=== PATIENT | female | born 1975 | race African-American/Black ===

== ENCOUNTER 2018-08-08 23:25 | Emergency (ER) | payer MEDICAID, SELFPAY ==
[2018-08-08 23:26] VITALS: BP 119/76; PULSE 99; RESP 18; TEMP 37.4; O2SAT 99; BMI 24.9
[2018-08-09] MEDS: Ibuprofen 600 MG Tablet PO (00:04)
--- NOTE | 2018-08-09 00:34 | ED.DCSUM_ITS ---
- ER Visit Summary Date of Service: 08/09/18 Chief Complaint: Sore throat History of Present Illness: The patient is a 43 F presenting with 2 days of sore throat. Worse with swallowing. Subjective fever and occasional body aches as well. No cough or neck pain. No rash. No recent travel or sick contacts. Symptoms improved with Motrin and Tylenol. Physical Examination: Vitals are within normal limits. She is not in distress. Sitting up in bed and secured in full sentences. No stridor. Neck is supple. There is anterior cervical lymphadenopathy. She has symmetric tonsillar swelling and exudates bilaterally but uvula is midline and voice is normal. Submandibular tissues and anterior neck structures are soft. She has no rash anywhere. No extremity tenderness. Lungs are clear. Test Results: Flu swab negative Emergency Department Course and Treatment: Flu swab was negative. Clinically, I am highly suspicious for strep pharyngitis. She has symmetric tonsillar swelling and exudates. Uvula is midline. Voice is normal. Submandibular tissues are soft. She has no cough but she does have a fever. She also has anterior cervical lymphadenopathy. Based on criteria, strep is most likely. We discussed confirmatory testing but given her high pretest probability, we are both in agreement that it is safe to avoid. She will be started on antibiotics and appears safe for discharge at this time. She felt much better after Motrin and looks quite well. She is allergic to penicillin so she will be started on Zithromax. Treatment Plan: Zithromax, close follow-up, return if worse Disposition: Home stable Impression: Initial encounter strep pharyngitis This note was generated with [employer] dictation software. It may contain incorrect words, spelling, and punctuation that were not noted in review of the chart prior to signing ED Disposition - Plan for ED Patient: Instructions: ED Strep Pharyngitis Poss Prescriptions: Azithromycin [Zithromax] 250 mg PO DAILY #4 tablet Referrals: Clarence Goldstein MD [Primary Care Provider] - 1-2 Days if not improving
[2018-08-09] MEDS: Azithromycin 250 MG Tablet 500 MG PO (01:13)
[2018-08-09 01:15] VITALS: BP 116/70; PULSE 89; RESP 20; O2SAT 99
== END 2018-08-09 01:15 | disposition home or self-care (01) ==
PROVIDERS: Emergency Provider Emergency Medicine; Family Provider Family Medicine; PCP Family Medicine
DX: J02.0 Streptococcal pharyngitis (principal); Z72.0 Tobacco use
CPT/HCPCS: 87804; 99283

== ENCOUNTER → 2019-06-25 17:19 | Outpatient (CLI) | payer MEDICAID, SELFPAY ==
[2019-07-01 09:57] LABS: HPV Reflexed? NOT INDICATED
== END ==
PROVIDERS: Family Provider Family Medicine; PCP Family Medicine; Referring Provider Obstetrics & Gynecology; Visit Provider Obstetrics & Gynecology
DX: Z12.4 Encounter for screening for malignant neoplasm of cervix (principal)
CPT/HCPCS: 88175; G0145

== ENCOUNTER → 2020-05-18 12:11 | Outpatient (CLI) | payer MEDICAID, SELFPAY ==
[2020-05-18 16:10] LABS: Absolute Lymphocyte Count 1.71 X10^3/uL (0.83-4.51); Absolute Neutrophil Count 4.5 X10^3/uL (2.0-7.7); Basophil# 0.04 X10^3/uL; Basophil% 0.6 % (0-1); Eosinophil# 0.07 X10^3/uL; Hematocrit 33.8 % (37-47); Hemoglobin 11.3 g/dL (12.0-15.0); Lymphocyte # 1.71 X10^3/ul (4.0); Lymphocyte % 25.1 % (19-41); Mean Corp Hgb Conc 33.4 g/dL (32-36); Mean Corpuscular Hgb 29.5 pg (27.0-32.0); Mean Corpuscular Volume 88.3 fL (81-99); Mean Platelet Vol. 11.5 fl (6.2-12.0); Monocyte# 0.49 X10^3/uL; Monocyte% 7.2 % (0-10); NRBC Flagged by Analyzer 0 % (0-5); Neutrophil # 4.48 X10^3/uL (2.7-7.7); Platelet Count 194 K/mm3 (150-450); RBC Distribution Width SD 42.1 fl (35.1-43.9); Red Blood Count 3.83 M/mm3 (4.2-5.4); White Blood Count 6.8 K/mm3 (4.4-11.0)
[2020-05-18 16:29] LABS: Vitamin D,25 Hydroxy 24.5 ng/mL
[2020-05-18 16:34] LABS: ALB/GLOB Ratio 0.8 RATIO (0.9-2.4); AST(SGOT) 23 U/L (15-37); Alanine Aminotransfer ALT/SGPT 19 U/L (13-56); Albumin, Serum 3.4 g/dL (3.2-5.0); Alkaline Phosphatase 47 U/L (45-117); Anion Gap 5 (5-15); BUN 21 mg/dL (7-18); BUN/Creat Ratio 12.4 RATIO (10-20); Calcium,Total 8.5 mg/dL (8.5-10.1); Chloride 112 mmol/L (98-107); EST Glomerular Filtration Rate 35 mL/min (>60); Est Glom Filt Rate - Afr Amer 42 mL/min (>60); Ferritin 85 ng/mL (8-252); Globulin 4.3 g/dL (2.2-4.2); Glucose 81 mg/dL (74-106); Iron 45 ug/dL (50-170); Potassium 3.7 mmol/L (3.5-5.1); Protein, Total 7.7 g/dL (6.4-8.2); Sodium Level 140 mmol/L (136-145); Thyroid Stim Hormone (TSH) 1.04 uIU/mL (0.358-3.74)
[2020-05-18 16:35] LABS: Erythrocyte Sedimentation Rate 32 mm/hr (0-20)
[2020-05-22 03:07] LABS: Alternaria alternata <0.10 kU/L (Class 0); Aspergillus fumigatus <0.10 kU/L (Class 0); Bahia Grass <0.10 kU/L (Class 0); Bermuda Grass <0.10 kU/L (Class 0); Bluegrass, Kentucky <0.10 kU/L (Class 0); Cat Hair/Dander, Standard <0.10 kU/L (Class 0); Cedar, Mountain <0.10 kU/L (Class 0); Cladosporium herbarum <0.10 kU/L (Class 0); Cockroach, American <0.10 kU/L (Class 0); D pteronyssinus 0.31 kU/L (Class 0/I); Dog Epithelia <0.10 kU/L (Class 0); Elm, American White <0.10 kU/L (Class 0); Hazelnut Tree <0.10 kU/L (Class 0); Hickory, White <0.10 kU/L (Class 0); Johnson Grass <0.10 kU/L (Class 0); Maple/Box Elder <0.10 kU/L (Class 0); Mucor racemosus <0.10 kU/L (Class 0); Mugwort <0.10 kU/L (Class 0); Mulberry, White <0.10 kU/L (Class 0); Oak, White <0.10 kU/L (Class 0); Penicillium chrysogen <0.10 kU/L (Class 0); Pigweed, Rough <0.10 kU/L (Class 0); Plantain, English <0.10 kU/L (Class 0); Ragweed, Short/Common <0.10 kU/L (Class 0); Sheep Sorrel(Dock) <0.10 kU/L (Class 0); Stemphylium herbarum <0.10 kU/L (Class 0); Sweet Gum <0.10 kU/L (Class 0); Sycamore, American <0.10 kU/L (Class 0)
[2020-05-24 04:27] LABS: Nettle <0.10 kU/L (Class 0)
== END ==
PROVIDERS: PCP Family Medicine; Visit Provider Family Medicine
DX: L29.9 Pruritus, unspecified (principal); N03.8 Chronic nephritic syndrome with other morphologic changes
CPT/HCPCS: 36415; 80053; 82306; 82728; 83540; 84443; 85025; 85652; 86003

== ENCOUNTER 2021-09-15 10:59 | Outpatient (CLI) | payer MEDICAID, SELFPAY ==
[2021-09-15 12:19] LABS: Erythrocyte Sedimentation Rate 28 mm/hr (0-30)
[2021-09-15 12:21] LABS: Absolute Lymphocyte Count 1.76 X10^3/uL (0.83-4.51); Absolute Neutrophil Count 4.6 X10^3/uL (2.0-7.7); Basophil# 0.07 X10^3/uL; Eosinophil# 0.12 X10^3/uL; Eosinophils% 1.7 % (0-5); Hematocrit 32.8 % (37-47); Hemoglobin 11.2 g/dL (12.0-15.0); Lymphocyte # 1.76 X10^3/ul (0.83-4.51); Lymphocyte % 24.8 % (19-41); Mean Corp Hgb Conc 34.1 g/dL (32-36); Mean Corpuscular Hgb 29.7 pg (27.0-32.0); Mean Platelet Vol. 11.2 fl (6.2-12.0); Monocyte# 0.51 X10^3/uL; Monocyte% 7.2 % (0-10); NRBC Flagged by Analyzer 0 % (0-5); Neutrophil # 4.62 X10^3/uL (2.7-7.7); Platelet Count 233 K/mm3 (150-450); RBC Distribution Width CV 12.7 % (11.6-14.6); RBC Distribution Width SD 40.4 fl (35.1-43.9); Red Blood Count 3.77 M/mm3 (4.2-5.4); White Blood Count 7.1 K/mm3 (4.4-11.0)
[2021-09-15 12:51] LABS: Vitamin B12 555 pg/mL (211-911); Vitamin D,25 Hydroxy 14.3 ng/mL
[2021-09-15 12:54] LABS: ALB/GLOB Ratio 0.9 RATIO (0.9-2.4); AST(SGOT) 18 U/L (15-37); Alanine Aminotransfer ALT/SGPT 17 U/L (13-56); Albumin, Serum 3.5 g/dL (3.2-5.0); Alkaline Phosphatase 62 U/L (45-117); Anion Gap 2 (5-15); BUN 24 mg/dL (7-18); BUN/Creat Ratio 8.8 RATIO (10-20); Calcium,Total 8.5 mg/dL (8.5-10.1); Chloride 115 mmol/L (98-107); Cholesterol 199 mg/dL (200); Creatinine, Serum 2.73 mg/dL (0.55-1.02); EST Glomerular Filtration Rate 20 mL/min (>60); Est Glom Filt Rate - Afr Amer 24 mL/min (>60); Glucose 95 mg/dL (74-106); High Density Lipoprotein 91 mg/dL; Iron 67 ug/dL (50-170); Potassium 3.8 mmol/L (3.5-5.1); Protein, Total 7.5 g/dL (6.4-8.2); Sodium Level 139 mmol/L (136-145); Thyroid Stim Hormone (TSH) 2.47 uIU/mL (0.358-3.74); Triglycerides 80 mg/dL; Very Low Density Lipoprotein 16 mg/dL (5-40)
[2021-09-17 16:21] LABS: ANTINUCLEAR ANTIBODIES DIRECT Negative (Negative)
== END 2021-09-15 23:59 | disposition home or self-care (01) ==
LOC: MFPLAB 11:00
PROVIDERS: PCP Family Medicine; Referring Provider Family Medicine; Visit Provider Family Medicine
DX: R53.83 Other fatigue (principal); Z13.220 Encounter for screening for lipoid disorders
CPT/HCPCS: 36415; 80053; 80061; 82306; 82607; 83540; 84443; 85025; 85652; 86038

== ENCOUNTER → 2022-08-10 | Outpatient (CLI) | payer MEDICAID, SELFPAY ==
[2022-08-10 17:58] LABS: Absolute Lymphocyte Count 2.21 X10^3/uL (0.83-4.51); Absolute Neutrophil Count 4.5 X10^3/uL (2.0-7.7); Basophil# 0.03 X10^3/uL; Basophil% 0.4 % (0-1); Eosinophil# 0.22 X10^3/uL; Hematocrit 25.2 % (37-47); Lymphocyte # 2.21 X10^3/ul (0.83-4.51); Lymphocyte % 30.3 % (19-41); Mean Corp Hgb Conc 31.7 g/dL (32-36); Mean Corpuscular Hgb 28.4 pg (27.0-32.0); Mean Corpuscular Volume 89.4 fL (81-99); Mean Platelet Vol. 11.7 fl (6.2-12.0); Monocyte# 0.37 X10^3/uL; Monocyte% 5.1 % (0-10); NRBC Flagged by Analyzer 0 % (0-5); Neutrophil # 4.45 X10^3/uL (2.7-7.7); Neutrophil % 60.9 % (47-70); Platelet Count 205 K/mm3 (150-450); RBC Distribution Width CV 13.4 % (11.6-14.6); RBC Distribution Width SD 43.8 fl (35.1-43.9); Red Blood Count 2.82 M/mm3 (4.2-5.4); White Blood Count 7.3 K/mm3 (4.4-11.0)
[2022-08-10 18:25] LABS: Anion Gap 8 (5-15); BUN 57 mg/dL (7-18); BUN/Creat Ratio 9.7 RATIO (10-20); Calcium,Total 7.7 mg/dL (8.5-10.1); Chloride 114 mmol/L (98-107); Creatinine, Serum 5.87 mg/dL (0.55-1.02); EST Glomerular Filtration Rate 8 mL/min (>60); Est Glom Filt Rate - Afr Amer 10 mL/min (>60); Ferritin 150 ng/mL (8-252); Glucose 115 mg/dL (74-106); Iron 72 ug/dL (50-170); Potassium 3.5 mmol/L (3.5-5.1); Sodium Level 140 mmol/L (136-145); Thyroid Stim Hormone (TSH) 1.52 uIU/mL (0.358-3.74)
[2022-08-11 10:20] LABS: RET-HE 30.8 pg (30-35); Reticulocyte Count 1.31 % (0.5-1.5)
[2022-08-11 10:28] LABS: Iron Binding Capacity,Total 246 ug/dL (250-450)
== END | disposition home or self-care (01) ==
LOC: MFPLAB 16:11
PROVIDERS: PCP Family Medicine; Referring Provider Family Medicine; Visit Provider Family Medicine
DX: D64.9 Anemia, unspecified (principal); R68.89 Other general symptoms and signs
CPT/HCPCS: 36415; 80048; 82728; 83540; 83550; 84443; 85025; 85045

== ENCOUNTER → 2023-06-26 | Outpatient (CLI) | payer MEDICAID, SELFPAY ==
--- OUTSIDE RECORDS SUMMARY | 2023-06-26 17:58 | XMS RPT_ITS | CCD ---
Author Name Unknown Address [address] [place] [address] Organization [facility] Care Team Providers Care Hand Candy Cutter Name Role Phone RADHA HERNÁNDEZ Unavailable JUAN PABLO Astudillo Unavailable Unavailable NO PRIMARY CARE, Unavailable Unavailable ELIZABETH MEMBRENO Unavailable Unavailable JUAN PABLO PRADO Unavailable Unavailable NO PRIMARY CAREMD Unavailable Unavailable RADHA HERNÁNDEZ Unavailable JUAN PABLO Astudillo Unavailable Unavailable NO PRIMARY CARE, Unavailable Unavailable Allergies Allergy Classification Reported Allergen(s) Allergy Type Date of Onset Reaction(s) Facility (1 source) Penicillins; Translations: [PENICILLINS] Propensity to adverse reactions to drug (disorder) 7 [facility] Repository Results Test Name Value Interpretation Reference Range Facil ity Encounters Encounter Date Encounter Type Care Provider Facility Start: 01-08-2017 Ambulatory [facility] Start: 01-01-2017 End: 01-01-2017 Ambulatory ELIZABETH MEMBRENO [facility] pital Start: 12-25-2016 Ambulatory [facility] Payers Date Payer Category Payer Policy ID Unknown [id number] Summary Purpose Family History No Family History Records Found Advance Directives No Advanced Directives Records Found Additional Source Comments INFORMATION SOURCE (unrecogn ized section and content) FOR RECORDS PERTAINING TO PATIENTS WHO ARE OR HAVE BEEN ENROLLED IN A CHEMICAL DEPENDENCY/SUBSTANCEABUSE PROGRAM, SOME INFORMATION MAY BE OMITTED. This clinical summary was aggregated from multiple sources. Caution should be exercised in using it in the provision of clinical care. This summary normalizes information from multiple sources, and as a consequence, information in this document may materially change the coding, format and clinical context of patient data. In addition, data may be omitted in some cases. CLINICAL DECISIONS SHOULD BE BASED ON THE PRIMARY CLINICAL RECORDS. [facility]. provides no warranty or guarantee of the accuracy or completeness of information in this document.
[2023-06-26 18:10] LABS: Hematocrit 20.2 % (37-47); Hemoglobin 6.5 g/dL (12.0-15.0); Mean Corp Hgb Conc 32.2 g/dL (32-36); Mean Corpuscular Hgb 27.2 pg (27.0-32.0); Mean Corpuscular Volume 84.5 fL (81-99); Mean Platelet Vol. 11.9 fl (6.2-12.0); Platelet Count 157 K/mm3 (150-450); RBC Distribution Width CV 13.7 % (11.6-14.6); RBC Distribution Width SD 42.1 fl (35.1-43.9); Red Blood Count 2.39 M/mm3 (4.2-5.4); White Blood Count 7.4 K/mm3 (4.4-11.0)
[2023-06-26 18:44] LABS: Ferritin 175 ng/mL (8-252); Iron 89 ug/dL (50-170)
== END | disposition home or self-care (01) ==
LOC: MFPLAB 16:30
PROVIDERS: PCP Family Medicine; Visit Provider Family Medicine
DX: J30.9 Allergic rhinitis, unspecified (principal); D64.9 Anemia, unspecified
CPT/HCPCS: 36415; 82728; 83540; 85027

== ENCOUNTER 2023-06-27 19:04 | Inpatient (IN) | payer MEDICAID, SELFPAY ==
[2023-06-27] VITALS (9 sets, daily range): BP systolic 138–187; BP diastolic 70–100; PULSE 63–89; RESP 12–18; TEMP 36.1–36.9; O2SAT 100; BMI 23.1
--- NOTE | 2023-06-27 19:29 | EX.ED.DYSGE1 ---
HPI History of Present Illness Chief Complaint: Numb/Ting Informant: patient Onset/Context/Timing Onset: Today Context: Sudden Onset Timing: Intermittent and Lasts (Approximately 5 minutes) Quality: Twitching Location: Face Worsened by: Nothing Relieved by: Nothing Narrative Narrative: This with a possible seizure that occurred today. Patient states that she had taken a Zofran ODT earlier in the day for some nausea and vomiting. Patient states that later in the day she took 1 Imodium tablet for diarrhea. Patient states that after that she noted a sensation where her tongue felt like it was swollen. Patient states she was having difficulty talking. Patient states that she then noted some twitching in her face. Patient states this episode lasted 5 minutes. Patient denies any loss of consciousness. Patient denies any falls. Patient states she was awake during the whole time. Patient states she feels better now. Patient states she was having some nausea, vomiting, and diarrhea earlier. Patient admits to a mild headache. Prior similar symptoms: No PFSH PFSH Medical History no medical history no medical history Home Medications NK 06/27/23 [History Last Taken Unknown] Allergy/AdvReac Type Severity Reaction Status Date / Time Antihistamines - Alkylamine Allergy Swelling Verified 06/27/23 19:10 Penicillins Allergy Hives Verified 06/27/23 19:10 Surgical History no surgical history no surgical history Social History Smoking Status: Heavy Smoker (>10/day) ROS ROS ED Constitutional Constitutional ED: Denies chills or fever(s) Eyes Eyes: Denies blurry vision or change in vision ENT ENT ED: Denies rhinorrhea or sore throat Cardiovascular Cardiovascular: Denies chest pain or palpitations Respiratory/Chest Respiratory/Chest: Reports cough; Denies dyspnea Gastrointestinal Gastrointestinal: Reports diarrhea, nausea and vomiting Genitourinary Genitourinary ED: Denies dysuria or hematuria Musculoskeletal Musculoskeletal: Reports neck pain; Denies back pain Integumentary Denies abscess or rash Neurologic Neurologic: Reports headache(s); Denies weakness Allergic/Immunologic Allergic/Immunologic ED: Denies mouth swelling or urticaria EXAM Physical Exam Const Vital Signs: 06/27/23 19:05 06/27/23 19:44 06/27/23 21:22 Temperature 96.9 F L Temperature Source Temporal Pulse Rate 70 Pulse Rate [Lying] 70 Pulse Rate [Sitting (for 1 minute prior to obtaining)] 80 Pulse Rate [Standing (for 1 minute prior to obtaining)] 71 Respiratory Rate 18 Respiratory Pattern Normal Blood Pressure 179/97 H Blood Pressure [Lying] 187/90 H Blood Pressure [Sitting (for 1 minute prior to obtaining)] 165/96 H Blood Pressure [Standing (for 1 minute prior to obtaining)] 166/94 H Blood Pressure Mean 124 Blood Pressure Mean [Lying] 122 Blood Pressure Mean [Sitting (for 1 minute prior to obtaining)] 119 Blood Pressure Mean [Standing (for 1 minute prior to obtaining)] 118 Pulse Ox 100 Oxygen Delivery Method Room Air Positive well nourished and well developed General Appearance ED: well developed and NAD HEENT Reports moist mucous membranes Neck supple and no JVD Chest Wall palpation of chest normal Resp normal respiratory effort and clear to auscultation bilaterally Cardio regular rate and regular rhythm GI non-tender and non-distended Palpation: soft Neuro oriented x3, CN's II-XII intact bilaterally and no sensory deficits noted Sensorium / Orientation: alert Motor Exam: strength 5/5 throughout Psych mental status grossly normal MDM MDM MDM Narrative Medical decision making narrative: Differential diagnosis includes partial complex seizure, intracranial bleeding, electrolyte abnormality, infection, dehydration, and gastroenteritis. CBC will be obtained to assess for leukocytosis and anemia. Comprehensive metabolic profile will be obtained to assess for hepatic function, renal function, and electrolyte abnormality. Urinalysis will be obtained to assess for urinary tract infection and hematuria. CT scan of the brain will be obtained to assess for intracranial bleeding and mass. Lab Data Attestation: I reviewed the patient's lab results. Lab results narrative: CBC was reviewed. There is anemia with a hemoglobin of 6.5 and hematocrit of 19.6. Platelets were normal. Comprehensive metabolic profile was reviewed. Sodium was slightly low at 130. BUN was elevated at 93 and creatinine was elevated at 19.10. CO2 was low at 12. Alkaline phosphatase was slightly elevated at 127. Urinalysis was reviewed. There were positive nitrites. Occult blood was 50. Leukocyte esterase was 25. Urine protein was 500. There were 5-10 epithelial cells. There is no evidence of urinary tract infection. Labs: Laboratory Results - last 24 hr 06/27/23 06/27/23 21:23 22:01 WBC 7.3 RBC 2.38 L Hgb 6.5 L Hct 19.6 L MCV 82.4 MCH 27.3 MCHC 33.2 RDW Std Deviation 41.1 RDW Coeff of Miriam 13.8 Plt Count 156 MPV 12.1 H Immature Gran % (Auto) 0.400 Neut % (Auto) 66.8 Lymph % (Auto) 23.5 [place] % (Auto) 6.3 Eos % (Auto) 2.6 Baso % (Auto) 0.4 Absolute Neuts (auto) 4.9 Absolute Lymphs (auto) 1.71 Nucleated RBC % 0 Sodium 130 L Potassium 3.8 Chloride 104 Carbon Dioxide 12.0 L Anion Gap 14 BUN 93 H Creatinine 19.10 H* Estim Creat Clear Calc 3.11 Est GFR (MDRD) Af Amer 3 L Est GFR (MDRD) Non-Af 2 L BUN/Creatinine Ratio 4.9 L Glucose 94 Total Bilirubin 0.20 AST 13 L ALT 8 L Alkaline Phosphatase 127 H Total Protein 6.7 Albumin 3.1 L Globulin 3.6 Albumin/Globulin Ratio 0.9 Urine Color Yellow Urine Clarity Clear Urine pH 6.0 Ur Specific [place] 1.010 Urine Protein 500 H Urine Glucose (UA) Normal Urine Ketones Negative Urine Occult Blood 50 H Urine Nitrite Positive H Urine Bilirubin Negative Urine Urobilinogen Normal Ur Leukocyte Esterase 25 H Urine RBC 0 SEEN Urine WBC 0-5 SEEN Ur Squamous Epith Cells 5-10 SEEN Urine Bacteria RARE Urine Mucus 0 SEEN Radiography Diagnostic Testing: Clinical Impression(s) from Imaging Studies Brain CT 06/27/23 21:30 IMPRESSION: Partial empty sella deformity likely of no significance. No evidence for obstructive hydrocephalus mass or acute bleed. Electronically Signed: Andrew Velazquez MD at 21:58 EST Reading Location ID and State: [facility] / [place] Tel , Service support , CT scan of the brain was obtained. There is no acute intracranial abnormality. This was interpreted by the radiologist and was also independently reviewed by myself. Management Discussion w/another healthcare provider: Hospitalist and Aeronautical Inspector (Dr. Jarrett from nephrology) Treatment and Re-Evaluation :: Patient was given IV fluids. I discussed the results with the patient. Patient states she has seen a weapons officer naval activity in the past but does not remember his name. Patient states he was in [place]. Patient states he has not seen an weapons officer naval activity in over a year. Patient's blood pressure was noted to be 187/90. Patient was given a dose of hydralazine for this. Case was discussed with the hospitalist for admission. She will admit the patient to her service. She requested contacting nephrology. Case was discussed with Dr. Jarrett from nephrology. He recommended obtaining a renal ultrasound tomorrow. He states the patient will probably need dialysis but does not need it emergently tonight. He will follow with the patient in the hospital. Patient understood and was agreeable with the plan. All questions were answered. Discharge Plan Triage Chief Complaint: Numb/Ting ED Provider: Jase Bond Dx/Rx/DC Orders Clinical Impression: Acute kidney injury, Hypertension Prescriptions: No Action azithromycin [Zithromax] 250 MG tablet 250 mg PO DAILY Qty: 4 0RF Rx Instructions: had first dose in ED Primary Care Provider: Clarence Goldstein Referrals: Clarence Goldstein MD [Primary Care Provider] - Disposition Disposition: Acute Care Hospital [facility]
--- OUTSIDE RECORDS SUMMARY | 2023-06-27 20:19 | XMS RPT_ITS | CCD ---
Author Name Unknown Address [address] [place] [address] Organization [facility] Care Team Providers Care Automatic Seamer Name Role Phone RADHA HERNÁNDEZ Unavailable JUAN [...] to adverse reactions to drug (disorder) 7 [facility] Repository Results Test Name Value Interpretation Reference Range Facil ity Encounters Encounter Date Encounter Type Care Provider Facility Start: 01-08-2017 Ambulatory [facility] Start: 01-01-2017 End: 01-01-2017 Ambulatory ELIZABETH MEMBRENO [facility] pital Start: 12-25-2016 Ambulatory [facility] Payers Date Payer Category Payer Policy ID Unknown [id number] Summary Purpose Family History No Family History [...] BE BASED ON THE PRIMARY CLINICAL RECORDS. [facility]. provides no warranty or guarantee of the accuracy or completeness of information in this document.
[2023-06-27] MEDS: 0.9% Normal Saline (1000mL) 1,000 ML 1000 ML IV (21:09)
--- NOTE | 2023-06-27 21:30 | CT_ITS ---
STUDY: CT BRAIN WITHOUT CONTRAST REASON FOR EXAM: Female, 48 years old. Headache RADIATION DOSAGE (If Supplied By Facility): CTDIvol = ( 44.99 ) mGy, DLP = ( 745.49 ) mGycm TECHNIQUE: Transaxial CT imaging of the brain was performed without administration of intravenous contrast material. Individualized dose optimization techniques were used for this CT. COMPARISON: No relevant priors. FINDINGS: Normal soft tissue structures. Normal calvarium. Calcific plaquing of the cavernous carotids Normal size ventricles and extra-axial spaces for the patient''s age. Normal white matter tracts of the cerebral hemispheres. Normal basal ganglia and thalami. Normal brainstem. Normal cerebellum. Partial empty sella deformity likely of no significance. There is no intracranial hemorrhage. There are no findings of an acute ischemic infarction. Normal visualized paranasal sinuses. Postsurgical changes of the orbits. CT/Brain/Head without Contrast IMPRESSION: Partial empty sella deformity likely of no significance. No evidence for obstructive hydrocephalus mass or acute bleed. Electronically Signed: Andrew Velazquez MD at 21:58 EST ,
[2023-06-27 21:41] LABS: Absolute Lymphocyte Count 1.71 X10^3/uL (0.83-4.51); Absolute Neutrophil Count 4.9 X10^3/uL (2.0-7.7); Basophil# 0.03 X10^3/uL; Basophil% 0.4 % (0-1); Eosinophil# 0.19 X10^3/uL; Eosinophils% 2.6 % (0-5); Hematocrit 19.6 % (37-47); Hemoglobin 6.5 g/dL (12.0-15.0); Lymphocyte # 1.71 X10^3/ul (0.83-4.51); Lymphocyte % 23.5 % (19-41); Mean Corp Hgb Conc 33.2 g/dL (32-36); Mean Corpuscular Hgb 27.3 pg (27.0-32.0); Mean Corpuscular Volume 82.4 fL (81-99); Mean Platelet Vol. 12.1 fl (6.2-12.0); Monocyte# 0.46 X10^3/uL; Monocyte% 6.3 % (0-10); NRBC Flagged by Analyzer 0 % (0-5); Neutrophil # 4.87 X10^3/uL (2.7-7.7); Neutrophil % 66.8 % (47-70); Platelet Count 156 K/mm3 (150-450); RBC Distribution Width CV 13.8 % (11.6-14.6); RBC Distribution Width SD 41.1 fl (35.1-43.9); Red Blood Count 2.38 M/mm3 (4.2-5.4); White Blood Count 7.3 K/mm3 (4.4-11.0)
[2023-06-27 22:09] LABS: Mucous, Urine 0 SEEN /hpf (<or=2+); Red Blood Cells-Urine 0 SEEN /hpf (0-5)
[2023-06-27 22:12] LABS: Color, Urine Yellow (Yellow); Glucose, Dipstick Normal (Normal); Ketone-Dipstick Negative (Negative); Leukocyte Esterase-Dipstick 25 /ul (Negative); Nitrite-Dipstick Positive (Negative); Occult Blood-Urine 50 /ul (Negative); Protein-Dipstick 500 mg/dl (Negative); Urine Bilirubin Dipstick Negative (Negative); Urine Clarity Clear (Clear); Urine Urobilinogen Normal (Normal)
[2023-06-27 22:13] LABS: ALB/GLOB Ratio 0.9 RATIO (0.9-2.4); AST(SGOT) 13 U/L (15-37); Alanine Aminotransfer ALT/SGPT 8 U/L (13-56); Albumin, Serum 3.1 g/dL (3.2-5.0); Alkaline Phosphatase 127 U/L (45-117); Anion Gap 14 (5-15); BUN 93 mg/dL (7-18); BUN/Creat Ratio 4.9 RATIO (10-20); Chloride 104 mmol/L (98-107); EST Glomerular Filtration Rate 2 mL/min (>60); Est Glom Filt Rate - Afr Amer 3 mL/min (>60); Estimated Creatinine Clearance 3.11 ml/min; Globulin 3.6 g/dL (2.2-4.2); Glucose 94 mg/dL (74-106); Potassium 3.8 mmol/L (3.5-5.1); Protein, Total 6.7 g/dL (6.4-8.2); Sodium Level 130 mmol/L (136-145)
[2023-06-27 22:21] LABS: Bacteria RARE /hpf (None Seen); Squamous Epithelial Cells - UA 5-10 SEEN /hpf (5-10); White Blood Cells 0-5 SEEN /hpf (0-5)
[2023-06-27] MEDS: hydrALAZINE 20 MG/ML Vial 10 MG IV (22:47)
--- NOTE | 2023-06-27 23:09 | PCM.HP.STD ---
HPI - General General Date of Admission: 06/28/23 Date of Service: 06/27/23 Chief Complaint: numbness and tingling HPI Narrative ELIJAH MARSHALL, is a 48 F with a PMh as outlined who presents via the ED on 06/27/2023 with a complaint of possible seizure. She was having nausea and took zofran, then took immodium for diarrhea. She noticed that her tongue was twitching and her face was numb. She also had some expressive aphasia. She denied nay loss of consciousness, chest pain, palpitations, fever, chills or any other symptoms. Review of systems is otherwise negative. VItals in the ED were temp of 98.4F, BP of 165/95, NM of 70 and respriatory rate of 12. She was saturating at 100% on room air. CBC showed hb of 6.5, wbc of 7.3, platelets of 156; Chemistry showed sodium of 130, potassium of 3.8 and bicarb of 12. Anion gap was 14. Creatinine was 19.1 and eGFR is 3. URinalysis showed positive nitrites but no urine bacteria. CT of the brain showed partial empty sella deformity of no significance, but no other acute intracranial pathology. She is being admitted to be managed for acute on chronic anemia and LIZBETH on CKD. [facility] Medical History no medical history Home Medications ondansetron 4 mg disintegrating tablet 4 mg PO Q8H PRN nausea 06/28/23 [History Last Taken Unknown] Allergy/AdvReac Type Severity Reaction Status Date / Time Antihistamines - Alkylamine Allergy Swelling Verified 06/27/23 19:10 Penicillins Allergy Hives Verified 06/27/23 19:10 Surgical History no surgical history Social History Smoking Status: Heavy Smoker (>10/day) ROS Constitutional Constitutional: Reports fatigue, malaise and weakness; Denies anorexia, chills or fever(s) Eyes Eyes: Denies change in vision ENT HEENT: Denies dysphagia, headache(s) or sore throat Cardiovascular Cardiovascular: Denies chest pain, dyspnea on exertion, edema, lightheadedness, orthopnea, palpitations, paroxysmal nocturnal dyspnea, rapid heart rate or syncope Respiratory/Chest Respiratory/Chest: Denies cough, dyspnea, shortness of breath at rest or shortness of breath with exertion Gastrointestinal Gastrointestinal: Denies diarrhea, nausea or vomiting Genitourinary Genitourinary: Denies dysuria Musculoskeletal Musculoskeletal: Denies arthralgias Neurologic Neurologic: Reports numbness, seizure-like activity and tingling; Denies confusion, dizziness, focal weakness, headache(s) or seizures Psychiatric Psychiatric: Denies anxiety or depression Endocrine Endocrinology: Denies change in body appearance Hematologic/Lymphatic Hematologic/Lymphatic: Denies anemia Vital Signs Vital Signs Vital Signs: 06/27/23 19:05 06/27/23 19:44 06/27/23 21:22 Temperature 96.9 F L Temperature Source Temporal Pulse Rate 70 Pulse Rate [Lying] 70 Pulse Rate [Sitting (for 1 minute prior to obtaining)] 80 Pulse Rate [Standing (for 1 minute prior to obtaining)] 71 Respiratory Rate 18 Respiratory Pattern Normal Blood Pressure 179/97 H Blood Pressure [Lying] 187/90 H Blood Pressure [Sitting (for 1 minute prior to obtaining)] 165/96 H Blood Pressure [Standing (for 1 minute prior to obtaining)] 166/94 H Blood Pressure Mean 124 Blood Pressure Mean [Lying] 122 Blood Pressure Mean [Sitting (for 1 minute prior to obtaining)] 119 Blood Pressure Mean [Standing (for 1 minute prior to obtaining)] 118 Pulse Ox 100 Oxygen Delivery Method Room Air 06/27/23 22:48 06/27/23 22:53 06/27/23 21:09 Temperature 98.4 F Temperature Source Temporal Pulse Rate 70 66 Pulse Rate [Lying] Pulse Rate [Sitting (for 1 minute prior to obtaining)] Pulse Rate [Standing (for 1 minute prior to obtaining)] Respiratory Rate 12 Respiratory Pattern Blood Pressure 165/95 H 187/100 H Blood Pressure [Lying] Blood Pressure [Sitting (for 1 minute prior to obtaining)] Blood Pressure [Standing (for 1 minute prior to obtaining)] Blood Pressure Mean 118 129 Blood Pressure Mean [Lying] Blood Pressure Mean [Sitting (for 1 minute prior to obtaining)] Blood Pressure Mean [Standing (for 1 minute prior to obtaining)] Pulse Ox 100 Oxygen Delivery Method Room Air 06/27/23 21:45 06/27/23 22:00 06/27/23 22:15 Temperature Temperature Source Pulse Rate 64 70 63 Pulse Rate [Lying] Pulse Rate [Sitting (for 1 minute prior to obtaining)] Pulse Rate [Standing (for 1 minute prior to obtaining)] Respiratory Rate 13 17 15 Respiratory Pattern Blood Pressure 160/91 H 173/88 H 184/91 H Blood Pressure [Lying] Blood Pressure [Sitting (for 1 minute prior to obtaining)] Blood Pressure [Standing (for 1 minute prior to obtaining)] Blood Pressure Mean 114 116 122 Blood Pressure Mean [Lying] Blood Pressure Mean [Sitting (for 1 minute prior to obtaining)] Blood Pressure Mean [Standing (for 1 minute prior to obtaining)] Pulse Ox 100 100 Oxygen Delivery Method Room Air Room Air Room Air Weight Weight: 134 lb 14.4 oz Body Mass Index (BMI) 23.1 Physical Exam Const alert, oriented x3 and no apparent distress General Appearance: cooperative HEENT normocephalic, head/scalp atraumatic and hearing grossly normal bilaterally Mouth: oral and palatal mucosa normal Eyes PERRL Neck no lymphadenopathy and supple Resp normal respiratory effort, no retractions and no use of accessory muscles Cardio regular rate, regular rhythm, S1 normal heart sound, S2 normal heart sound and no murmurs GI normal to inspection, nondistended, normoactive bowel sounds, soft to palpation and non-tender Extremity normal to inspection, full ROM and no clubbing, cyanosis or edema Neuro oriented x3, CN's II-XII intact bilaterally, moves all extremities and no focal motor deficits Sensorium / Orientation: awake and alert Motor Exam: strength 5/5 throughout Psych affect normal Results Lab / Micro Data 06/27/23 21:23 06/27/23 21:23 Labs: Laboratory Results - last 24 hr 06/27/23 21:23: WBC 7.3, RBC 2.38 L, Hgb 6.5 L, Hct 19.6 L, MCV 82.4, MCH 27.3, MCHC 33.2, RDW Std Deviation 41.1, RDW Coeff of Miriam 13.8, Plt Count 156, MPV 12.1 H, Immature Gran % (Auto) 0.400, Neut % (Auto) 66.8, Lymph % (Auto) 23.5, [place] % (Auto) 6.3, Eos % (Auto) 2.6, Baso % (Auto) 0.4, Absolute Neuts (auto) 4.9, Absolute Lymphs (auto) 1.71, Nucleated RBC % 0, Sodium 130 L, Potassium 3.8, Chloride 104, Carbon Dioxide 12.0 L, Anion Gap 14, BUN 93 H, Creatinine 19.10 H*, Estim Creat Clear Calc 3.11, Est GFR (MDRD) Af Amer 3 L, Est GFR (MDRD) Non-Af 2 L, BUN/Creatinine Ratio 4.9 L, Glucose 94, Total Bilirubin 0.20, AST 13 L, ALT 8 L, Alkaline Phosphatase 127 H, Total Protein 6.7, Albumin 3.1 L, Globulin 3.6, Albumin/Globulin Ratio 0.9 06/27/23 22:01: Urine Color Yellow, Urine Clarity Clear, Urine pH 6.0, Ur Specific [place] 1.010, Urine Protein 500 H, Urine Glucose (UA) Normal, Urine Ketones Negative, Urine Occult Blood 50 H, Urine Nitrite Positive H, Urine Bilirubin Negative, Urine Urobilinogen Normal, Ur Leukocyte Esterase 25 H, Urine RBC 0 SEEN, Urine WBC 0-5 SEEN, Ur Squamous Epith Cells 5-10 SEEN, Urine Bacteria RARE, Urine Mucus 0 SEEN Imagaing Radiology Impression Brain CT 06/27/23 21:30 IMPRESSION: Partial empty sella deformity likely of no significance. No evidence for obstructive hydrocephalus mass or acute bleed. Electronically Signed: Andrew Velazquez MD at 21:58 EST Reading Location ID and State: [address] [place] [address] Tel , Service support , Assessment & Plan Assessment/Plan (1) Acute kidney injury: (2) Anemia: PLAN: Plan #LIZBETH on CKD admit to PCU Cr is 19. Baseline Cr is ~ 5 EGFR is 3. Hasnt seen a phone banker recently. consult nephrology potassium not elevated CT abdomen and pelvis showed mild ascites and anasarca, with bilateral renal atrophy, no hydronephrosis of hydroureter nad fibroid uterus. insert estrada catheter get CT of the abdomen adn pelvis without contrast #Seizure like episodes came in due to numbness and tingling and twitching of her muscles, which to her looked like seizure like episode I think this may have been due to uremia from LIZBETH CT brain showed empty sella syndrome but no acute intracranial pathology uremia should improve with dialysis #Acute on chronic anemia Hb is 6.5. Hb from july 2022 was 8. check iron profile and ferritin may be due to worsening renal function also transfuse with one unit of PRBC check stool for occult blood; if positive, consult gastrpemterp;pgu #Elevated BP Blood pressure is elevated in the 180s and 170s systolic. Noted on hypertensive. Worsening kidney function is also likely playing a role. IV hydralazine as needed. Will start on p.o. amlodipine 10 mg daily. DVT prohpylaxis: SCDs Total time spent on evaluation and management of patient, reviewing chart and specialist notes, discussing plan with patient, discussion with nursing and ancillary staff as well as documentation: 78 mins Charges/Coding Visit Charges Inpatient E&M: 66679 Init Hosp L3
[2023-06-27 23:26] LABS: Calcium,Total < 5.0 mg/dL (8.5-10.1)
--- NOTE | 2023-06-27 23:30 | CT_ITS ---
INDICATION: LIZBETH on CKD EXAMINATION: CT Abdomen And Pelvis W/O Contrast Injection TECHNIQUE: Helically acquired images were obtained of the abdomen and pelvis with sagittal and coronal reconstructed images. Individualized dose optimization techniques were used for this CT. IV contrast dosage and agent: None. Oral contrast: None. COMPARISON: None. FINDINGS: VESSELS: No abdominal aortic aneurysm. LIVER: No intrahepatic or extrahepatic biliary duct dilation. GALLBLADDER: No calcified stones. No evidence of cholecystitis. PANCREAS: No focal solid or cystic mass. No evidence of pancreatitis. SPLEEN: Normal. ADRENAL GLANDS: Normal. KIDNEYS AND URETERS: Bilateral renal atrophy. No urinary tract stone. No hydronephrosis or hydroureter. No significant asymmetric perinephric stranding. URINARY BLADDER: Unremarkable. BOWEL: No evidence of diverticulosis or diverticulitis. Appendix not identified. No evidence of bowel obstruction. REPRODUCTIVE ORGANS: Uterine fibroids with calcifications. PERITONEUM: Mild ascites. LYMPH NODES: No pathologically enlarged mesenteric or retroperitoneal lymph nodes. ABDOMINAL WALL: No abdominal or pelvic wall hernia. Diffuse stranding of the subcutaneous soft tissues. BONES: No acute abnormality. LOWER CHEST: Visualized lung bases are unremarkable. CT/Abdomen/Pelvis without Cont IMPRESSION: 1. Mild ascites and anasarca. 2. Bilateral renal atrophy. 3. No hydronephrosis or hydroureter. 4. Fibroid uterus. Electronically Signed: Andrew Avila DO at 1:30 EST ,
--- OUTSIDE RECORDS SUMMARY | 2023-06-27 23:50 | XMS RPT_ITS | CCD ---
Author Name Unknown Address [address] [place] [address] Organization [facility] Care Team Providers Care Medical Billing And Coding Instructor Name Role Phone RADHA HERNÁNDEZ Unavailable JUAN [...] to adverse reactions to drug (disorder) 7 [facility] Repository Results Test Name Value Interpretation Reference Range Facil ity Encounters Encounter Date Encounter Type Care Provider Facility Start: 01-08-2017 Ambulatory [facility] Start: 01-01-2017 End: 01-01-2017 Ambulatory [facility] Start: 12-25-2016 Ambulatory [facility] Payers Date Payer Category Payer Policy ID Unknown [id number] Summary Purpose Family History No Family History [...] BE BASED ON THE PRIMARY CLINICAL RECORDS. [facility] [employer] [facility]. provides no warranty or guarantee of the accuracy or completeness of information in this document.
[2023-06-28] VITALS (12 sets, daily range): BP systolic 134–156; BP diastolic 62–84; PULSE 75–90; RESP 16–18; TEMP 36.4–37.2; O2SAT 95–100; BMI 21.0
[2023-06-28] MEDS: Ondansetron 4 MG/2 ML Vial IV ×2 (00:23→18:06)
[2023-06-28] MEDS: 0.9% Normal Saline (1000mL) 1,000 ML 125 ML IV (00:55)
[2023-06-28] MEDS: Pantoprazole Sodium 40 MG in 0.9% Normal Saline (100mL MB+) 100 ML 330 MG IV ×3 (01:11→21:00)
[2023-06-28] MEDS: Calcium Gluconate IV 2 GM in 0.9% Normal Saline (100mL Bag) 100 ML IV ×2 (01:34→14:09)
[2023-06-28 02:22] LABS: Ferritin 196 ng/mL (8-252); Iron 94 ug/dL (50-170); Iron Binding Capacity,Total 182 ug/dL (250-450); PERCENT IRON SATURATION 51.6 % (15.0-55.0)
--- OUTSIDE RECORDS SUMMARY | 2023-06-28 02:53 | XMS RPT_ITS | CCD ---
Author Name Unknown Address [address] [place] [address] Organization [facility] Care Team Providers Care Social Problems Specialist Name Role Phone RADHA HERNÁNDEZ Unavailable JUAN [...] to adverse reactions to drug (disorder) 7 [facility] Repository Results Test Name Value Interpretation Reference Range Facil ity Encounters Encounter Date Encounter Type Care Provider Facility Start: 01-08-2017 Ambulatory [facility] Start: 01-01-2017 End: 01-01-2017 Ambulatory [facility] Start: 12-25-2016 Ambulatory [facility] Payers Date Payer Category Payer Policy ID Unknown [id number] Summary Purpose Family History No Family History [...] BE BASED ON THE PRIMARY CLINICAL RECORDS. [facility] [employer] [facility]. provides no warranty or guarantee of the accuracy or completeness of information in this document.
--- NOTE | 2023-06-28 09:07 | PCM.CONS.R ---
Assessment & Plan Assessment/Plan (1) ESRD (end stage renal disease): (2) Hypertension: (3) Anemia: (4) Hypocalcemia: PLAN: Plan Impression/Plan: The patient is a 48-year-old woman with no significant past medical history. The patient presents with 3-day history of nausea and diarrhea. 2 weeks prior to presentation, patient also complained of upper respiratory symptoms such as sinus congestion, cough, fatigue and fever. However, she recovered felt her usual self up until 3 days ago. She was found during the evaluation in ED to have serum creatinine 19.10 mg/dL. Nephrology is consulted to evaluate patient for renal failure. ESRD The patient presented with serum creatinine of 19.10 mg/dL. Serum creatinine from 08/10/2022 was already elevated at 5.87 mg/dL. Urinalysis revealed proteinuria on dipstick. However, there is no significant RBCs or WBCs on microscopic examination. CT of the abdomen/pelvis did not reveal hydronephrosis. However, her kidneys are atrophic on CT scan. My suspicion is that we are seeing progression of CKD to ESRD in her case. The patient was also found to have anemia without any obvious blood loss which also suggests anemia of CKD. So far, I do not see any evidence of reversible LIZBETH. Surprisingly, she is not very symptomatic or uremic. However, this could be because she is a younger patient who has compensated to gradual loss of renal function over the past few years. The patient is not severely acidotic. There is no hyperkalemia. Therefore, there is no immediate need to dialyze the patient. However, I did tell her that dialysis is needed at this point. She will processing information I gave her. Will [place] back to see her for her decision. I also told the patient that she would be a good candidate for kidney replacement therapy given her age and lack of other chronic medical problems. Chronic metabolic acidosis. Serum bicarbonate level was already 18 mmol/L on 08/10/2022. Serum bicarbonate level was 12 mmol/L today. Metabolic acidosis is due to ESRD. Acidosis will quickly improve with dialysis. Therefore, I will hold off on adding sodium bicarbonate supplementation. Anemia. The patient presented to hospital with hemoglobin of 6.5 g/dL. She is receiving PRBC transfusion. Anemia appears to be chronic. Her hemoglobin was already down to 8.0 g/dL on 08/10/2022. My suspicion is that anemia is secondary to chronic kidney disease. Iron saturation is 51.6% with ferritin of 196 ng/mL. Therefore, we will start patient on ARCELIA with dialysis as outpatient. Hypocalcemia. The patient had calcium level less than 5.5 mg/dL on presentation. Severe hypocalcemia likely explains her presenting symptom of facial numbness and tongue fasciculation. I suspect that hypocalcemia is due to marked hyperphosphatemia of renal failure. Check calcium and phosphorus level today to determine the type of phosphorus binder she will need. Hypertension. The patient has been started on amlodipine and hydralazine as needed. Will monitor BP during this admission. HPI Consult Data Date of Consult: 06/28/23 HPI Narrative Reason for Consultation: LIZBETH on CKD HPI Narrative: The patient is a 48-year-old woman with no significant past medical history. She presents to the hospital on 06/27/2023 with nausea and diarrhea. The patient developed nausea and diarrhea 3 days prior to presentation. She had influenza infection 2 weeks prior to presentation which resolved without any specific treatment. Until 3 days ago, the patient had been feeling her usual self. She denies chronic fatigue, nausea, vomiting, or edema. There has been no fever, chills, rash, or weight changes. The patient denies lower urinary tract symptoms. There has been no gross hematuria or urinary frothing. The patient took Zofran and Imodium for the symptoms. Shortly after taking these medications, the patient reports twitching of her tongue associated with numbness of her face. The symptoms prompted her presentation to ED. During the workup in the ED, the patient was found to have serum creatinine of 19.10 mg/dL. She was also found to have serum bicarbonate level of 12 mmol/L with calcium level of less than 5.0 mg/dL. Nephrology is asked to see the patient because of renal failure. Review of available records reveals that serum current serum creatinine has been rising since 2017. Her serum creatinine was 1.34 mg/dL on 01/12/2017. Serum creatinine increased to 1.70 mg/dL on 05/18/2020, 2.73 mg/dL on 09/15/2021 and 5.87 mg/dL on 08/10/2022. The patient reports seeing breading machine tender back in 2017. She cannot remember much of what was told to her, but she has not been followed by nephrology on a regular basis since then. The patient also does not see her PCP regularly. She visit the PCP office when there is acute illness. The patient denies current chest pain, shortness of breath at rest, nausea, vomiting, or edema. She denies chronic use of [id number] medication including NSAIDs. She denies urinary frequency, urgency, or hesitancy. There has been no gross hematuria, urinary frothing or dysuria since her admission. PFSH Medical History ESRD (end stage renal disease) on dialysis Smoker Medical History no medical history Home Medications ondansetron 4 mg disintegrating tablet 4 mg PO Q8H PRN nausea 06/28/23 [History Last Taken Unknown] Allergy/AdvReac Type Severity Reaction Status Date / Time Antihistamines - Alkylamine Allergy Swelling Verified 06/27/23 19:10 Penicillins Allergy Hives Verified 06/27/23 19:10 Surgical History no surgical history Social History Smoking Status: Heavy Smoker (>10/day) ROS ROS Narrative As per HPI. Otherwise noncontributory Physical Exam Narrative General: Alert and oriented x3, NAD. HEENT: Normocephalic, atraumatic. Mucous membrane moist without erythema. PERRLA, EOMI. Hearing is intact. Neck: Supple, no JVD. Trachea is midline. No thyromegaly or lymphadenopathy. Cardiovascular: Normal S1, S2. No rubs, murmurs, or gallops. Respiratory: Lungs are clear to auscultation bilaterally. No wheezing, rhonchi, or rales. Abdomen: Normal bowel sounds, soft, nontender, no guarding or rebound, no organomegaly. Extremities: No clubbing, cyanosis, or edema. Musculoskeletal: Full passive range of motion, no joint swelling. Psychiatric: Normal mood and affect. Skin: Warm and dry, no rash. Neurologic: Cranial nerve II to XII are grossly intact. No focal neurologic deficits. Lab / Micro Data 06/27/23 21:23 06/27/23 21:23 Labs: Laboratory Results - last 24 hr 06/27/23 21:23: WBC 7.3, RBC 2.38 L, Hgb 6.5 L, Hct 19.6 L, MCV 82.4, MCH 27.3, MCHC 33.2, RDW Std Deviation 41.1, RDW Coeff of Miriam 13.8, Plt Count 156, MPV 12.1 H, Immature Gran % (Auto) 0.400, Neut % (Auto) 66.8, Lymph % (Auto) 23.5, Lyman % (Auto) 6.3, Eos % (Auto) 2.6, Baso % (Auto) 0.4, Absolute Neuts (auto) 4.9, Absolute Lymphs (auto) 1.71, Nucleated RBC % 0, Sodium 130 L, Potassium 3.8, Chloride 104, Carbon Dioxide 12.0 L, Anion Gap 14, BUN 93 H, Creatinine 19.10 H*, Estim Creat Clear Calc 3.11, Est GFR (MDRD) Af Amer 3 L, Est GFR (MDRD) Non-Af 2 L, BUN/Creatinine Ratio 4.9 L, Glucose 94, Calcium < 5.0 L*, Total Bilirubin 0.20, AST 13 L, ALT 8 L, Alkaline Phosphatase 127 H, Total Protein 6.7, Albumin 3.1 L, Globulin 3.6, Albumin/Globulin Ratio 0.9 06/27/23 22:01: Urine Color Yellow, Urine Clarity Clear, Urine pH 6.0, Ur Specific [place] 1.010, Urine Protein 500 H, Urine Glucose (UA) Normal, Urine Ketones Negative, Urine Occult Blood 50 H, Urine Nitrite Positive H, Urine Bilirubin Negative, Urine Urobilinogen Normal, Ur Leukocyte Esterase 25 H, Urine RBC 0 SEEN, Urine WBC 0-5 SEEN, Ur Squamous Epith Cells 5-10 SEEN, Urine Bacteria RARE, Urine Mucus 0 SEEN 06/28/23 01:52: Sodium Cancelled, Potassium Cancelled, Chloride Cancelled, Carbon Dioxide Cancelled, BUN Cancelled, Creatinine Cancelled, Estim Creat Clear Calc Cancelled, Est GFR (MDRD) Af Amer Cancelled, Est GFR (MDRD) Non-Af Cancelled, BUN/Creatinine Ratio Cancelled, Glucose Cancelled, Calcium Cancelled, Phosphorus Cancelled, Iron 94, TIBC 182 L, Iron Saturation 51.6, Ferritin 196, Albumin Cancelled, Blood Type B POSITIVE, Antibody Screen NEGATIVE, Crossmatch See Detail Imagaing Radiology Impression Brain CT 06/27/23 21:30 IMPRESSION: Partial empty sella deformity likely of no significance. No evidence for obstructive hydrocephalus mass or acute bleed. Electronically Signed: Andrew Velazquez MD at 21:58 EST , Abdomen/Pelvis CT 06/27/23 23:30 IMPRESSION: 1. Mild ascites and anasarca. 2. Bilateral renal atrophy. 3. No hydronephrosis or hydroureter. 4. Fibroid uterus. Electronically Signed: Andrew Avila DO at 1:30 EST ,
[2023-06-28] MEDS: amLODIPine 10 MG Tablet PO (09:52)
[2023-06-28] MEDS: Ensure Plus High Protein 120 ML LIQUID PO (09:55)
[2023-06-28 12:57] LABS: Absolute Lymphocyte Count 0.85 X10^3/uL (0.83-4.51); Absolute Neutrophil Count 7.6 X10^3/uL (2.0-7.7); Basophil# 0.03 X10^3/uL; Basophil% 0.3 % (0-1); Eosinophil# 0.05 X10^3/uL; Eosinophils% 0.5 % (0-5); Hematocrit 25.9 % (37-47); Lymphocyte # 0.85 X10^3/ul (0.83-4.51); Lymphocyte % 9.1 % (19-41); Mean Corp Hgb Conc 34.7 g/dL (32-36); Mean Corpuscular Hgb 29.5 pg (27.0-32.0); Mean Corpuscular Volume 84.9 fL (81-99); Mean Platelet Vol. 10.4 fl (6.2-12.0); Monocyte# 0.67 X10^3/uL; Monocyte% 7.2 % (0-10); NRBC Flagged by Analyzer 0 % (0-5); Neutrophil # 7.62 X10^3/uL (2.7-7.7); Neutrophil % 81.8 % (47-70); Platelet Count 113 K/mm3 (150-450); RBC Distribution Width CV 15.1 % (11.6-14.6); RBC Distribution Width SD 46.2 fl (35.1-43.9); Red Blood Count 3.05 M/mm3 (4.2-5.4); White Blood Count 9.3 K/mm3 (4.4-11.0)
[2023-06-28 13:14] LABS: International Normalized Ratio 1.3; Prothrombin Time (Protime)PT. 15.9 SECONDS (11.7-14.9)
[2023-06-28 13:46] LABS: Albumin, Serum 2.8 g/dL (3.2-5.0); BUN 95 mg/dL (7-18); BUN/Creat Ratio 5.1 RATIO (10-20); Calcium,Total 5.2 mg/dL (8.5-10.1); Chloride 108 mmol/L (98-107); EST Glomerular Filtration Rate 2 mL/min (>60); Est Glom Filt Rate - Afr Amer 3 mL/min (>60); Estimated Creatinine Clearance 3.33 ml/min; Glucose 95 mg/dL (74-106); Phosphorus 8.7 mg/dL (2.5-4.9); Potassium 3.7 mmol/L (3.5-5.1); Sodium Level 132 mmol/L (136-145)
--- NOTE | 2023-06-28 14:06 | EX.PCM.CON.S ---
HPI Consult Data Date of Consult: 06/28/23 HPI Narrative HPI Narrative: ELIJAH MARSHALL, is a 48 F who presents PFSH Medical History ESRD (end stage renal disease) on dialysis Smoker Medical History no medical history Home Medications ondansetron 4 mg disintegrating tablet 4 mg PO Q8H PRN nausea 06/28/23 [History Last Taken Unknown] Allergy/AdvReac Type Severity Reaction Status Date / Time Antihistamines - Alkylamine Allergy Swelling Verified 06/27/23 19:10 Penicillins Allergy Hives Verified 06/27/23 19:10 Surgical History no surgical history Social History Smoking Status: Heavy Smoker (>10/day) Lab / Micro Data 06/28/23 12:48 06/28/23 12:48 Labs: Laboratory Results - last 24 hr 06/27/23 21:23: WBC 7.3, RBC 2.38 L, Hgb 6.5 L, Hct 19.6 L, MCV 82.4, MCH 27.3, MCHC 33.2, RDW Std Deviation 41.1, RDW Coeff of Miriam 13.8, Plt Count 156, MPV 12.1 H, Immature Gran % (Auto) 0.400, Neut % (Auto) 66.8, Lymph % (Auto) 23.5, Edwards % (Auto) 6.3, Eos % (Auto) 2.6, Baso % (Auto) 0.4, Absolute Neuts (auto) 4.9, Absolute Lymphs (auto) 1.71, Nucleated RBC % 0, Sodium 130 L, Potassium 3.8, Chloride 104, Carbon Dioxide 12.0 L, Anion Gap 14, BUN 93 H, Creatinine 19.10 H*, Estim Creat Clear Calc 3.11, Est GFR (MDRD) Af Amer 3 L, Est GFR (MDRD) Non-Af 2 L, BUN/Creatinine Ratio 4.9 L, Glucose 94, Calcium < 5.0 L*, Total Bilirubin 0.20, AST 13 L, ALT 8 L, Alkaline Phosphatase 127 H, Total Protein 6.7, Albumin 3.1 L, Globulin 3.6, Albumin/Globulin Ratio 0.9 06/27/23 22:01: Urine Color Yellow, Urine Clarity Clear, Urine pH 6.0, Ur Specific [place] 1.010, Urine Protein 500 H, Urine Glucose (UA) Normal, Urine Ketones Negative, Urine Occult Blood 50 H, Urine Nitrite Positive H, Urine Bilirubin Negative, Urine Urobilinogen Normal, Ur Leukocyte Esterase 25 H, Urine RBC 0 SEEN, Urine WBC 0-5 SEEN, Ur Squamous Epith Cells 5-10 SEEN, Urine Bacteria RARE, Urine Mucus 0 SEEN 06/28/23 01:52: Sodium Cancelled, Potassium Cancelled, Chloride Cancelled, Carbon Dioxide Cancelled, BUN Cancelled, Creatinine Cancelled, Estim Creat Clear Calc Cancelled, Est GFR (MDRD) Af Amer Cancelled, Est GFR (MDRD) Non-Af Cancelled, BUN/Creatinine Ratio Cancelled, Glucose Cancelled, Calcium Cancelled, Phosphorus Cancelled, Iron 94, TIBC 182 L, Iron Saturation 51.6, Ferritin 196, Albumin Cancelled, Blood Type B POSITIVE, Antibody Screen NEGATIVE, Crossmatch See Detail 06/28/23 12:48: WBC 9.3, RBC 3.05 L, Hgb 9.0 L, Hct 25.9 L, MCV 84.9, MCH 29.5, MCHC 34.7, RDW Std Deviation 46.2 H, RDW Coeff of Miriam 15.1 H, Plt Count 113 L, MPV 10.4, Immature Gran % (Auto) 1.100 H, Neut % (Auto) 81.8 H, Lymph % (Auto) 9.1 L, Edwards % (Auto) 7.2, Eos % (Auto) 0.5, Baso % (Auto) 0.3, Absolute Neuts (auto) 7.6, Absolute Lymphs (auto) 0.85, Nucleated RBC % 0, PT 15.9 H, INR 1.3, Sodium 132 L, Potassium 3.7, Chloride 108 H, Carbon Dioxide 9.0 L*, BUN 95 H, Creatinine 18.60 H*, Estim Creat Clear Calc 3.33, Est GFR (MDRD) Af Amer 3 L, Est GFR (MDRD) Non-Af 2 L, BUN/Creatinine Ratio 5.1 L, Glucose 95, Calcium 5.2 L*, Phosphorus 8.7 H, Albumin 2.8 L Imagaing Radiology Impression Brain CT 06/27/23 21:30 IMPRESSION: Partial empty sella deformity likely of no significance. No evidence for obstructive hydrocephalus mass or acute bleed. Electronically Signed: Andrew Velazquez MD at 21:58 EST , Abdomen/Pelvis CT 06/27/23 23:30 IMPRESSION: 1. Mild ascites and anasarca. 2. Bilateral renal atrophy. 3. No hydronephrosis or hydroureter. 4. Fibroid uterus. Electronically Signed: Andrew Avila DO at 1:30 EST ,
--- NOTE | 2023-06-28 14:56 | EX.PCM.CON.S ---
Assessment & Plan Assessment/Plan (1) ESRD (end stage renal disease): PLAN: I have been consulted in conjunction with Dr. Serrato. She will independently evaluate this patient. Dr. Serrato will plan to perform a right possible left chest tunneled dialysis catheter placement. Procedure details, risks and benefits have been explained. Patient has had the opportunity to ask and have questions answered. Patient verbally understands her urgent need for dialysis versus hospice consult if patient declines dialysis. Patient verbally understands and agrees with the plan. Thank you for allowing us to participate in this patient's care. HPI Consult Data Date of Consult: 06/28/23 HPI Narrative Reason for Consultation: In need for dialysis access HPI Narrative: ELIJAH MARSHALL, is a 48 F who presents with possible seizure. Patient stated she had some nausea and took Zofran and was also having diarrhea and had Imodium. She noticed her tongue was twitching and her face was numb. She also had some expressive aphasia, which brought her into the ED. Upon arrival patient was noted to have a creatinine of 19. She states she has been evaluated by a program services planner however it has been a year since her last appointment. Patient states she was unaware that her kidney function had declined to this point. Patient denies previous dialysis treatment or tunneled dialysis catheter placement. Patient's creatinine on the day of consult is 18.60. PFSH Medical History ESRD (end stage renal disease) on dialysis Smoker Medical History no medical history Home Medications ondansetron 4 mg disintegrating tablet 4 mg PO Q8H PRN nausea 06/28/23 [History Last Taken Unknown] Allergy/AdvReac Type Severity Reaction Status Date / Time Antihistamines - Alkylamine Allergy Swelling Verified 06/27/23 19:10 Penicillins Allergy Hives Verified 06/27/23 19:10 Surgical History no surgical history Social History Smoking Status: Heavy Smoker (>10/day) ROS Constitutional Constitutional: Reports fatigue, lethargy and poor appetite Eyes Eyes: Reports systems reviewed and no addt'l complaints, except as documented ENT HEENT: Reports systems reviewed and no addt'l complaints, except as documented Cardiovascular Cardiovascular: Reports systems reviewed and no addt'l complaints, except as documented Respiratory/Chest Respiratory/Chest: Reports systems reviewed and no addt'l complaints, except as documented Gastrointestinal Gastrointestinal: Reports systems reviewed and no addt'l complaints, except as documented Genitourinary Genitourinary: Reports systems reviewed and no addt'l complaints, except as documented Musculoskeletal Musculoskeletal: Reports systems reviewed and no addt'l complaints, except as documented Integumentary Integumentary: Reports systems reviewed and no addt'l complaints, except as documented Neurologic Neurologic: Reports systems reviewed and no addt'l complaints, except as documented Psychiatric Psychiatric: Reports systems reviewed and no addt'l complaints, except as documented Endocrine Endocrinology: Reports systems reviewed and no addt'l complaints, except as documented Hematologic/Lymphatic Hematologic/Lymphatic: Reports systems reviewed and no addt'l complaints, except as documented Allergic/Immunologic Allergic/Immunologic: Reports systems reviewed and no addt'l complaints, except as documented Physical Exam Const alert, oriented x3 and no apparent distress Constitutional Narrative: Difficulty understanding speech. Seems uninterested. Eyes closed entire exam. HEENT normocephalic and head/scalp atraumatic Eyes PERRL Neck full ROM Lymph Lymphatic: no lymphadenopathy noted Resp normal respiratory effort and clear to auscultation bilaterally Cardio regular rate and regular rhythm Heart Sounds: murmur GI normal to inspection, nondistended, normoactive bowel sounds no CVA tenderness Back/Spine no CVA tenderness Extremity normal to inspection Skin no rashes or lesions noted Neuro no focal motor deficits and no sensory deficits noted Psych Attitude: withdrawn and guarded Activity / Motor Behavior: avoids eye contact Speech: incoherent Mood & Affect: depressed Lab / Micro Data 06/28/23 12:48 06/28/23 12:48 Labs: Laboratory Results - last 24 hr 06/27/23 21:23: WBC 7.3, RBC 2.38 L, Hgb 6.5 L, Hct 19.6 L, MCV 82.4, MCH 27.3, MCHC 33.2, RDW Std Deviation 41.1, RDW Coeff of Miriam 13.8, Plt Count 156, MPV 12.1 H, Immature Gran % (Auto) 0.400, Neut % (Auto) 66.8, Lymph % (Auto) 23.5, Nelson % (Auto) 6.3, Eos % (Auto) 2.6, Baso % (Auto) 0.4, Absolute Neuts (auto) 4.9, Absolute Lymphs (auto) 1.71, Nucleated RBC % 0, Sodium 130 L, Potassium 3.8, Chloride 104, Carbon Dioxide 12.0 L, Anion Gap 14, BUN 93 H, Creatinine 19.10 H*, Estim Creat Clear Calc 3.11, Est GFR (MDRD) Af Amer 3 L, Est GFR (MDRD) Non-Af 2 L, BUN/Creatinine Ratio 4.9 L, Glucose 94, Calcium < 5.0 L*, Total Bilirubin 0.20, AST 13 L, ALT 8 L, Alkaline Phosphatase 127 H, Total Protein 6.7, Albumin 3.1 L, Globulin 3.6, Albumin/Globulin Ratio 0.9 06/27/23 22:01: Urine Color Yellow, Urine Clarity Clear, Urine pH 6.0, Ur Specific [place] 1.010, Urine Protein 500 H, Urine Glucose (UA) Normal, Urine Ketones Negative, Urine Occult Blood 50 H, Urine Nitrite Positive H, Urine Bilirubin Negative, Urine Urobilinogen Normal, Ur Leukocyte Esterase 25 H, Urine RBC 0 SEEN, Urine WBC 0-5 SEEN, Ur Squamous Epith Cells 5-10 SEEN, Urine Bacteria RARE, Urine Mucus 0 SEEN 06/28/23 01:52: Sodium Cancelled, Potassium Cancelled, Chloride Cancelled, Carbon Dioxide Cancelled, BUN Cancelled, Creatinine Cancelled, Estim Creat Clear Calc Cancelled, Est GFR (MDRD) Af Amer Cancelled, Est GFR (MDRD) Non-Af Cancelled, BUN/Creatinine Ratio Cancelled, Glucose Cancelled, Calcium Cancelled, Phosphorus Cancelled, Iron 94, TIBC 182 L, Iron Saturation 51.6, Ferritin 196, Albumin Cancelled, Blood Type B POSITIVE, Antibody Screen NEGATIVE, Crossmatch See Detail 06/28/23 12:48: WBC 9.3, RBC 3.05 L, Hgb 9.0 L, Hct 25.9 L, MCV 84.9, MCH 29.5, MCHC 34.7, RDW Std Deviation 46.2 H, RDW Coeff of Miriam 15.1 H, Plt Count 113 L, MPV 10.4, Immature Gran % (Auto) 1.100 H, Neut % (Auto) 81.8 H, Lymph % (Auto) 9.1 L, Nelson % (Auto) 7.2, Eos % (Auto) 0.5, Baso % (Auto) 0.3, Absolute Neuts (auto) 7.6, Absolute Lymphs (auto) 0.85, Nucleated RBC % 0, PT 15.9 H, INR 1.3, Sodium 132 L, Potassium 3.7, Chloride 108 H, Carbon Dioxide 9.0 L*, BUN 95 H, Creatinine 18.60 H*, Estim Creat Clear Calc 3.33, Est GFR (MDRD) Af Amer 3 L, Est GFR (MDRD) Non-Af 2 L, BUN/Creatinine Ratio 5.1 L, Glucose 95, Calcium 5.2 L*, Phosphorus 8.7 H, Albumin 2.8 L Imagaing Radiology Impression Brain CT 06/27/23 21:30 IMPRESSION: Partial empty sella deformity likely of no significance. No evidence for obstructive hydrocephalus mass or acute bleed. Electronically Signed: Andrew Velazquez MD at 21:58 EST , Abdomen/Pelvis CT 06/27/23 23:30 IMPRESSION: 1. Mild ascites and anasarca. 2. Bilateral renal atrophy. 3. No hydronephrosis or hydroureter. 4. Fibroid uterus. Electronically Signed: Andrew Avila DO at 1:30 EST , Charges/Coding Visit Charges Office Visits / Consults: [id number] IP Consult L3
--- NOTE | 2023-06-28 15:15 | CASEMGMT ---
RN?CM?TOPOGRAPHICAL DRAFTER?CM?to room to meet with patient for initial transition planning/care coordination?assessment.?RN?CM?introduced self and role at [facility].? Pt voices understanding and consents to?assessment?at this time.? Pt sitting up in chair in room in no distress at this time.? Pt is A/O at this time and answers all questions appropriately.?? Care providers, pharmacy, and demographics verified/updated at this time. PCP: Dr Goldstein Specialists: none Preferred Pharmacy: [facility] Retail Insurance: [employer] Prescription Benefit:?yes Living Will/HPOA:? Pt states she thinks she may have done POA in the past, but states, That was a long time ago and states she does not know where the documents would be. She was made aware, if she chooses to complete these again while @ [facility], this can be done w/SW, if they are available, or this can be done as an OP. She states does not wish to complete at this time, but will think about it. She was made aware to ask for SW, if she decides she would like to complete them. She voices understanding. She was made aware, if POA not completed, that her adult children would be healthcare decision makers in the event she was unable to make her own decisions. She voices understanding. LNOK: Pt has 5 children: 2 are adults (ages 27 and 26). She has a 17-yr-old (will be 18 on 07/23/23), a 10-yr-old and 6 yr-old twins. Pt's mom is Marguerite and her aunt it Daria. She states she is not sure if the phone # listed for her aunt is correct. She states she will verify the correct # w/her mom. Living Arrangements: Pt lives w/her 17 yr old child and 6-yr-old twins in 2-story home w/3 steps to enter. Pt states she is independent w/ADL's and IADL's. Transportation:?Pt states drives self and states no transportation concerns at this time.?Mom will take her home @ discharge. DME: ? Denies using any DME and denies needs.? HHC/SNF: No hx of either. No needs identified. Pt wishes to return home and states has no concerns with going home at time of discharge.? Pt to discuss w/her mother this evening re: goals of care and if she is agreeable to doing OP HD or not. CM?to follow for further discharge planning/needs.? Pt voices no further concerns/needs at this time.? Advised pt to ask for?CM?if any further questions/concerns/needs arise.? Voices understanding. PLAN:??Home Follow for possible new OP HD set-up. Yuriy BSN?RN?CM
[2023-06-28] MEDS: Calcium Acetate 667 MG Capsule PO (17:25)
--- NOTE | 2023-06-28 19:09 | PCM.PN.HOSP ---
Reason for Visit Reason for Visit: Diagnoses Anemia, unspecified (06/28/23) Hypocalcemia (06/28/23) Essential (primary) hypertension (06/28/23) Acute kidney failure, unspecified (06/28/23) End stage renal disease (06/28/23) Subjective Subjective Patient seen at bedside this morning. Laying in bed comfortably in dark room, no acute distress. Appears fairly fatigued but otherwise conversing normally. States she has generally been feeling worse for the past several weeks. Has been eating/drinking less than normal, does not feel hungry. Has intermittently had numbness/tingling sensation over the past few weeks in various areas. Has not had much urine output. She otherwise denies any fevers/chills, shortness of breath, abdominal pain. Denies any other pain or discomfort. No other acute concerns. Objective Data Objective Data Vital Signs: Vital Signs Temp Pulse Resp BP Pulse Ox O2 Del Method 98.7 F 75 16 154/84 H 95 Room Air 06/28/23 11:03 06/28/23 11:03 06/28/23 11:03 06/28/23 11:03 06/28/23 17:00 06/28/23 17:00 Oxygen Delivery Method Room Air Weight: 57.4 kg Body Mass Index (BMI) 21.0 Intake & Output: Intake and Output for Last 24 Hours 06/26/23 06/27/23 06/28/23 23:59 23:59 23:59 Intake Total 1000 / 1000 1378.75 / 1378.75 Output Total 50 / 50 Balance 1000 / 1000 1328.75 / 1328.75 Lab / Micro Data 06/28/23 12:48 06/28/23 12:48 Labs: Laboratory Results - last 24 hr 06/27/23 21:23: WBC 7.3, RBC 2.38 L, Hgb 6.5 L, Hct 19.6 L, MCV 82.4, MCH 27.3, MCHC 33.2, RDW Std Deviation 41.1, RDW Coeff of Miriam 13.8, Plt Count 156, MPV 12.1 H, Immature Gran % (Auto) 0.400, Neut % (Auto) 66.8, Lymph % (Auto) 23.5, Jefferson % (Auto) 6.3, Eos % (Auto) 2.6, Baso % (Auto) 0.4, Absolute Neuts (auto) 4.9, Absolute Lymphs (auto) 1.71, Nucleated RBC % 0, Sodium 130 L, Potassium 3.8, Chloride 104, Carbon Dioxide 12.0 L, Anion Gap 14, BUN 93 H, Creatinine 19.10 H*, Estim Creat Clear Calc 3.11, Est GFR (MDRD) Af Amer 3 L, Est GFR (MDRD) Non-Af 2 L, BUN/Creatinine Ratio 4.9 L, Glucose 94, Calcium < 5.0 L*, Total Bilirubin 0.20, AST 13 L, ALT 8 L, Alkaline Phosphatase 127 H, Total Protein 6.7, Albumin 3.1 L, Globulin 3.6, Albumin/Globulin Ratio 0.9 06/27/23 22:01: Urine Color Yellow, Urine Clarity Clear, Urine pH 6.0, Ur Specific [place] 1.010, Urine Protein 500 H, Urine Glucose (UA) Normal, Urine Ketones Negative, Urine Occult Blood 50 H, Urine Nitrite Positive H, Urine Bilirubin Negative, Urine Urobilinogen Normal, Ur Leukocyte Esterase 25 H, Urine RBC 0 SEEN, Urine WBC 0-5 SEEN, Ur Squamous Epith Cells 5-10 SEEN, Urine Bacteria RARE, Urine Mucus 0 SEEN 06/28/23 01:52: Sodium Cancelled, Potassium Cancelled, Chloride Cancelled, Carbon Dioxide Cancelled, BUN Cancelled, Creatinine Cancelled, Estim Creat Clear Calc Cancelled, Est GFR (MDRD) Af Amer Cancelled, Est GFR (MDRD) Non-Af Cancelled, BUN/Creatinine Ratio Cancelled, Glucose Cancelled, Calcium Cancelled, Phosphorus Cancelled, Iron 94, TIBC 182 L, Iron Saturation 51.6, Ferritin 196, Albumin Cancelled, Blood Type B POSITIVE, Antibody Screen NEGATIVE, Crossmatch See Detail 06/28/23 12:48: WBC 9.3, RBC 3.05 L, Hgb 9.0 L, Hct 25.9 L, MCV 84.9, MCH 29.5, MCHC 34.7, RDW Std Deviation 46.2 H, RDW Coeff of Miriam 15.1 H, Plt Count 113 L, MPV 10.4, Immature Gran % (Auto) 1.100 H, Neut % (Auto) 81.8 H, Lymph % (Auto) 9.1 L, Jefferson % (Auto) 7.2, Eos % (Auto) 0.5, Baso % (Auto) 0.3, Absolute Neuts (auto) 7.6, Absolute Lymphs (auto) 0.85, Nucleated RBC % 0, PT 15.9 H, INR 1.3, Sodium 132 L, Potassium 3.7, Chloride 108 H, Carbon Dioxide 9.0 L*, BUN 95 H, Creatinine 18.60 H*, Estim Creat Clear Calc 3.33, Est GFR (MDRD) Af Amer 3 L, Est GFR (MDRD) Non-Af 2 L, BUN/Creatinine Ratio 5.1 L, Glucose 95, Calcium 5.2 L*, Phosphorus 8.7 H, Albumin 2.8 L Radiography Diagnostic Testing: Radiology Impression Brain CT 06/27/23 21:30 IMPRESSION: Partial empty sella deformity likely of no significance. No evidence for obstructive hydrocephalus mass or acute bleed. Electronically Signed: Andrew Velazquez MD at 21:58 EST , Abdomen/Pelvis CT 06/27/23 23:30 IMPRESSION: 1. Mild ascites and anasarca. 2. Bilateral renal atrophy. 3. No hydronephrosis or hydroureter. 4. Fibroid uterus. Electronically Signed: Andrew Avila DO at 1:30 EST , Physical Exam Const alert, oriented x3, no apparent distress and average body habitus Constitutional Narrative: Middle aged female, fatigued appearing, laying comfortably in bed, conversing normally, no acute distress. General Appearance: cooperative and comfortable HEENT normocephalic, head/scalp atraumatic, hearing grossly normal bilaterally and nasal mucous membranes and turbinates normal Eyes PERRL, EOMs intact bilaterally and conjunctivae normal Neck full ROM, no lymphadenopathy and supple Lymph Lymphatic: no lymphadenopathy noted Chest inspection of chest normal Resp normal respiratory effort, normal air movement, no use of accessory muscles and clear to auscultation bilaterally Cardio regular rate, regular rhythm, no murmurs and peripheral pulses 2+ throughout GI normal to inspection, nondistended, normoactive bowel sounds, soft to palpation, non-tender and non-distended Back/Spine normal ROM Extremity normal to inspection, full ROM and no pedal edema Skin no rashes or lesions noted Neuro no focal motor deficits and no sensory deficits noted Speech: speech normal Psych mental status grossly normal Assessment & Plan Assessment/Plan (1) Hypocalcemia: (2) ESRD (end stage renal disease): (3) Anemia: (4) Hypertension: PLAN: Plan Patient is a 48yo female who presented to [facility] ED on 06/27/2023 with facial numbness/tingling and intermittent nausea/vomiting. 1. Severe LIZBETH on CKD stage 4, suspected ESRD Creatinine 19.10, BUN 93 on admit. Baseline Cr appeared to be in the 5-6 range, last checked in 07/2022. CTAP showed atrophic kidneys, no concern for hydronephrosis or postobstructive etiology. Repeat BUN/Cr on hospital day 2 only mildly improved. - Nephrology following. No acute HD needs today but patient suspected to have progressed to ESRD, will need to start HD on this admission. General surgery consulted for tunneled HD catheter placement. Trend daily RFP. Almazan catheter in place for now. 2. Severe hypocalcemia - Presumed secondary to ESRD, hyperphosphatemia. Ca < 5.0 on admit and patient symptomatic with numbness/tingling, treated with IV calcium gluconate, repeat Ca only 5.2. Will continue to treat with IV calcium as needed until patient starts HD. 3. Chronic anemia Hemoglobin 6.5 on admit. Last hemoglobin value of 8.0 in 07/2022. Iron studies normal. High suspicion that anemia is slowly downtrending chronic anemia due to CKD. S/p 1 unit pRBCs on 06/28 with improvement to hemoglobin 9.0. - Trend daily CBC. Nephrology will start patient on ARCELIA with dialysis as an outpatient. 4. Hypertension - BP elevated to 170s-180s systolic on admit. Not on any home antihypertensives. 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 Started on amlodipine 10 mg daily on admit with improvement, continue this for now. Monitor. DVT ppx: Heparin subcu Code status: Full code, verified Expected disposition: Home, TBD Total clinical time spent by myself addressing the patient's medical issues, reviewing all the data, and collaborating with patient's care team: 35 minutes. Charges/Coding Visit Charges Inpatient E&M: 07399 Subs Hosp L2
[2023-06-29] VITALS (17 sets, daily range): BP systolic 63–174; BP diastolic 58–106; PULSE 67–92; RESP 14–18; TEMP 35.9–37.1; O2SAT 96–100; BMI 21.0
--- NOTE | 2023-06-29 01:38 | NURSING ---
This RN started the second of two bags of NS 0.9% at 2230 on 06/28. 125mL/hr
[2023-06-29 05:51] LABS: Hematocrit 23.7 % (37-47); Hemoglobin 8.1 g/dL (12.0-15.0); Mean Corp Hgb Conc 34.2 g/dL (32-36); Mean Corpuscular Volume 84.9 fL (81-99); Mean Platelet Vol. 11.1 fl (6.2-12.0); Platelet Count 108 K/mm3 (150-450); RBC Distribution Width CV 14.1 % (11.6-14.6); RBC Distribution Width SD 43.5 fl (35.1-43.9); Red Blood Count 2.79 M/mm3 (4.2-5.4); White Blood Count 8.6 K/mm3 (4.4-11.0)
--- NOTE | 2023-06-29 06:07 | EKG12_ITS ---
Test Reason : PRE OP Blood Pressure : / mmHG Vent. Rate : 081 BPM Atrial Rate : 081 BPM P-R Int : 138 ms QRS Dur : 082 ms QT Int : 412 ms P-R-T Axes : 076 070 056 degrees QTc Int : 478 ms Normal sinus rhythm Nonspecific ST abnormality Abnormal ECG When compared with ECG of 16-NOV-2014 21:44, Premature supraventricular complexes are no longer Present Confirmed by NANCI TAY, KEARA ([id number]), advertising editor FERNANDO SEQUEIRA ([id number]) on 07/02/2023 1:59:22 PM Referred By: Holli Simental Confirmed By:KEARA CHRISTINE MD
[2023-06-29] MEDS: Clindamycin 900 MG/50 ML BAG 75 MG IV ×2 (06:24→14:20)
[2023-06-29 07:13] LABS: International Normalized Ratio 1.2; Prothrombin Time (Protime)PT. 15.6 SECONDS (11.7-14.9)
[2023-06-29 07:22] LABS: Albumin, Serum 2.6 g/dL (3.2-5.0); BUN 94 mg/dL (7-18); BUN/Creat Ratio 4.8 RATIO (10-20); Chloride 110 mmol/L (98-107); EST Glomerular Filtration Rate 2 mL/min (>60); Est Glom Filt Rate - Afr Amer 3 mL/min (>60); Estimated Creatinine Clearance 3.17 ml/min; Glucose 94 mg/dL (74-106); Phosphorus 8.8 mg/dL (2.5-4.9); Potassium 3.9 mmol/L (3.5-5.1); Sodium Level 135 mmol/L (136-145)
--- NOTE | 2023-06-29 07:35 | PN.SURG_ITS ---
Subjective Subjective Patient is agreeable to tunneled dialysis catheter. Patient's creatinine is up slightly from yesterday. Objective Data Objective Data Vital Signs: Vital Signs Temp Pulse Resp BP Pulse Ox O2 Del Method 98.3 F 81 16 135/73 H 100 Room Air 06/29/23 05:13 06/29/23 05:13 06/29/23 05:13 06/29/23 05:13 06/29/23 05:13 06/29/23 05:13 Oxygen Delivery Method Room Air Weight: 126 lb 8.725 oz Body Mass Index (BMI) 21.0 Intake & Output: Intake and Output for Last 24 Hours 06/27/23 06/28/23 06/29/23 23:59 23:59 23:59 Intake Total 1000 / 1000 1720. / 2019. 300 / 300 Output Total 50 / 50 Balance 1000 / 1000 1670.00 / 1969. 300 / 300 Lab / Micro Data 06/29/23 05:30 06/29/23 05:30 Labs: Laboratory Results - last 24 hr 06/28/23 01:52: Sodium Cancelled, Potassium Cancelled, Chloride Cancelled, Carbon Dioxide Cancelled, BUN Cancelled, Creatinine Cancelled, Estim Creat Clear Calc Cancelled, Est GFR (MDRD) Af Amer Cancelled, Est GFR (MDRD) Non-Af Cancelled, BUN/Creatinine Ratio Cancelled, Glucose Cancelled, Calcium Cancelled, Phosphorus Cancelled, Albumin Cancelled, Blood Type B POSITIVE, Antibody Screen NEGATIVE, Crossmatch See Detail 06/28/23 12:48: WBC 9.3, RBC 3.05 L, Hgb 9.0 L, Hct 25.9 L, MCV 84.9, MCH 29.5, MCHC 34.7, RDW Std Deviation 46.2 H, RDW Coeff of Miriam 15.1 H, Plt Count 113 L, MPV 10.4, Immature Gran % (Auto) 1.100 H, Neut % (Auto) 81.8 H, Lymph % (Auto) 9.1 L, Esmeralda % (Auto) 7.2, Eos % (Auto) 0.5, Baso % (Auto) 0.3, Absolute Neuts (auto) 7.6, Absolute Lymphs (auto) 0.85, Nucleated RBC % 0, PT 15.9 H, INR 1.3, Sodium 132 L, Potassium 3.7, Chloride 108 H, Carbon Dioxide 9.0 L*, BUN 95 H, Creatinine 18.60 H*, Estim Creat Clear Calc 3.33, Est GFR (MDRD) Af Amer 3 L, Est GFR (MDRD) Non-Af 2 L, BUN/Creatinine Ratio 5.1 L, Glucose 95, Calcium 5.2 L*, Phosphorus 8.7 H, Albumin 2.8 L 06/29/23 05:30: WBC 8.6, RBC 2.79 L, Hgb 8.1 L, Hct 23.7 L, MCV 84.9, MCH 29.0, MCHC 34.2, RDW Std Deviation 43.5, RDW Coeff of Miriam 14.1, Plt Count 108 L, MPV 11.1, Sodium 135 L, Potassium 3.9, Chloride 110 H, Carbon Dioxide 8.0 L*, BUN 94 H, Creatinine 19.50 H*, Estim Creat Clear Calc 3.17, Est GFR (MDRD) Af Amer 3 L, Est GFR (MDRD) Non-Af 2 L, BUN/Creatinine Ratio 4.8 L, Glucose 94, Calcium 5.0 L*, Phosphorus 8.8 H, Albumin 2.6 L 06/29/23 06:45: PT 15.6 H, INR 1.2, APTT 38.0 H Physical Exam Narrative Palpation to bilateral upper chest normal, neck supple Const oriented x3 and no apparent distress Resp normal respiratory effort Cardio regular rate GI soft to palpation and non-tender Assessment & Plan Assessment/Plan (1) ESRD (end stage renal disease): PLAN: Plan Discussed with patient procedure of placement of right possible left tunneled dialysis catheter including risk not limited to bleeding, infection, malfunction of the catheter, and anesthesia. Patient no further questions at this time and agreed to proceed. Marlene Serrato M.D. Pager: [phone] [facility] [address] [place] [address], [facility], [address] [place] [address] Office: [phone] Charges/Coding Visit Charges Inpatient E&M: 77820 Subs Hosp L2
--- NOTE | 2023-06-29 08:23 | PN.RENAL_ITS ---
Documented by User: BHANU Hobson 06/29/23 08:44 Subjective Subjective Resting in bed. No overnight events. Alert and oriented. Complains of feeling tired and sleepy. Complains of pruritus. Objective Data Objective Data Vital Signs: Vital Signs Temp Pulse Resp BP Pulse Ox O2 Del Method 98.3 F 81 16 135/73 H 100 Room Air 06/29/23 05:13 06/29/23 05:13 06/29/23 05:13 06/29/23 05:13 06/29/23 05:13 06/29/23 05:13 Oxygen Delivery Method Room Air Weight: 57.4 kg Body Mass Index (BMI) 21.0 Intake & Output: Intake and Output for Last 24 Hours 06/27/23 06/28/23 06/29/23 23:59 23:59 23:59 Intake Total 1000 / 1000 1720.00 / 2020.00 350 / 350 Output Total 50 / 50 Balance 1000 / 1000 1670.00 / 1970.00 350 / 350 Lab / Micro Data 06/29/23 05:30 06/29/23 05:30 Labs: Laboratory Results - last 24 hr 06/28/23 01:52: Blood Type B POSITIVE, Antibody Screen NEGATIVE, Crossmatch See Detail 06/28/23 12:48: WBC 9.3, RBC 3.05 L, Hgb 9.0 L, Hct 25.9 L, MCV 84.9, MCH 29.5, MCHC 34.7, RDW Std Deviation 46.2 H, RDW Coeff of Miriam 15.1 H, Plt Count 113 L, MPV 10.4, Immature Gran % (Auto) 1.100 H, Neut % (Auto) 81.8 H, Lymph % (Auto) 9.1 L, Swain % (Auto) 7.2, Eos % (Auto) 0.5, Baso % (Auto) 0.3, Absolute Neuts (auto) 7.6, Absolute Lymphs (auto) 0.85, Nucleated RBC % 0, PT 15.9 H, INR 1.3, Sodium 132 L, Potassium 3.7, Chloride 108 H, Carbon Dioxide 9.0 L*, BUN 95 H, Creatinine 18.60 H*, Estim Creat Clear Calc 3.33, Est GFR (MDRD) Af Amer 3 L, Est GFR (MDRD) Non-Af 2 L, BUN/Creatinine Ratio 5.1 L, Glucose 95, Calcium 5.2 L*, Phosphorus 8.7 H, Albumin 2.8 L 06/29/23 05:30: WBC 8.6, RBC 2.79 L, Hgb 8.1 L, Hct 23.7 L, MCV 84.9, MCH 29.0, MCHC 34.2, RDW Std Deviation 43.5, RDW Coeff of Miriam 14.1, Plt Count 108 L, MPV 11.1, Sodium 135 L, Potassium 3.9, Chloride 110 H, Carbon Dioxide 8.0 L*, BUN 94 H, Creatinine 19.50 H*, Estim Creat Clear Calc 3.17, Est GFR (MDRD) Af Amer 3 L, Est GFR (MDRD) Non-Af 2 L, BUN/Creatinine Ratio 4.8 L, Glucose 94, Calcium 5.0 L*, Phosphorus 8.8 H, Albumin 2.6 L 06/29/23 06:45: PT 15.6 H, INR 1.2, APTT 38.0 H Physical Exam Narrative Alert and oriented x 3, no apparent distress S1, S2, RRR Lung sounds clear anteriorly and posteriorly. No wheezes, rhonchi or rales noted Abdomen soft, nontender, positive bowel sounds No edema Assessment & Plan Assessment/Plan (1) ESRD (end stage renal disease): (2) Hypertension: (3) Anemia: (4) Hypocalcemia: PLAN: Plan Impression/Plan: The patient is a 48-year-old woman with no significant past medical history. Th e patient presents with 3-day history of nausea and diarrhea. 2 weeks prior to presentation, patient also complained of upper respiratory symptoms such as sinus congestion, cough, fatigue and fever. However, she recovered felt her usual self up until 3 days ago. She was found during the evaluation in ED to have serum creatinine 19.10 mg/dL. Nephrology is consulted to evaluate patient for renal failure. ESRD The patient presented with serum creatinine of 19.10 mg/dL. Serum creatinine from 08/10/2022 was already elevated at 5.87 mg/dL, August 2021 serum creatinine 2 .73. Reviewing labs since 2011 patient has had evidence of CKD. Lab work today serum creatinine 19.50 mg/dL. Urinalysis revealed proteinuria, no significant RBCs or WBCs on microscopic examination. CT of the abdomen/pelvis did not reveal hydronephrosis. However, her kidneys are atrophic on CT scan. Likely seeing progression of CKD now ESRD. Discussed with patient ESRD and initiating renal replacement therapy. Patient continues to process information given. She is in agreement with initiating renal replacement therapy. Surgery team consulted for tunneled hemodialysis catheter placement. After tunneled catheter is placed we will start hemodialysis slowly today over 2hours no fluid removal. Plan for hemodialysis again tomorrow. It was discussed yesterday and again today that patient would be a good candidate for kidney replacement given her age and lack of other chronic medical problems. Chronic metabolic acidosis. Metabolic acidosis is due to ESRD. Acidosis will quickly improve with dialysis, will hold off on adding sodium bicarbonate supplementation. Anemia. The patient presented to hospital with hemoglobin of 6.5 g/dL. She received PRBC transfusion. Anemia appears to be chronic. Her hemoglobin was already down to 8.0 g/dL on 08/10/2022. Suspect anemia is secondary to chronic kidney disease. Iron saturation is 51.6% with ferritin of 196 ng/mL. We will start patient on ARCELIA with dialysis as outpatient. Hypocalcemia. The patient had calcium level less than 5.5 mg/dL on presentation. Severe hypocalcemia likely explains her presenting symptom of facial numbness and tongue fasciculation. Suspect hypocalcemia is due to marked hyperphosphatemia of renal failure. Phosphorus is more than 8. Started calcium acetate. Will also give a total of 4 g IV calcium gluconate in divided doses today Check calcium, phosphorus and intact PTH levels tomorrow Hypertension. On amlodipine. Documented by User: Dr. Cody Craig MD 06/29/23 16:29 Objective Data Lab / Micro Data 06/29/23 05:30 06/29/23 05:30 Assessment & Plan Assessment/Plan (1) ESRD (end stage renal disease): (2) Hypertension: (3) Anemia: (4) Hypocalcemia: PLAN: Plan Impression/Plan: The patient is a 48-year-old woman with no significant past medical history. The patient presents with 3-day history of nausea and diarrhea. 2 weeks prior to presentation, patient also complained of upper respiratory symptoms such as sinus congestion, cough, fatigue and fever. However, she recovered felt her usual self up until 3 days ago. She was found during the evaluation in ED to have serum creatinine 19.10 mg/dL. Nephrology is consulted to evaluate patient for renal failure. ESRD The patient presented with serum creatinine of 19.10 mg/dL. Serum creatinine from 08/10/2022 was already elevated at 5.87 mg/dL, August 2021 serum creatinine 2.73. Reviewing labs since 2011 patient has had evidence of CKD. Lab work today serum creatinine 19.50 mg/dL. Urinalysis revealed proteinuria, no significant RBCs or WBCs on microscopic examination. CT of the abdomen/pelvis did not reveal hydronephrosis. However, her kidneys are atrophic on CT scan. Likely seeing progression of CKD now ESRD. Discussed with patient ESRD and initiating renal replacement therapy. Patient continues to process information given. She is in agreement with initiating renal replacement therapy. Surgery team consulted for tunneled hemodialysis catheter placement. After tunneled catheter is placed we will start hemodialysis slowly today over 2hours no fluid removal. Plan for hemodialysis again tomorrow. It was discussed yesterday and again today that patient would be a good candidate for kidney replacement given her age and lack of other chronic medical problems. Chronic metabolic acidosis. Metabolic acidosis is due to ESRD. Acidosis will quickly improve with dialysis, will hold off on adding sodium bica rbonate supplementation. Anemia. The patient presented to hospital with hemoglobin of 6.5 g/dL. She received PRBC transfusion. Anemia appears to be chronic. Her hemoglobin was already down to 8.0 g/dL on 08/10/2022. Suspect anemia is secondary to chronic kidney disease. Iron saturation is 51.6% with ferritin of 196 ng/mL. We will start patient on ARCELIA with dialysis as outpatient. Hypocalcemia. The patient had calcium level less than 5.5 mg/dL on presentation. Severe hypocalcemia likely explains her presenting symptom of facial numbness and tongue fasciculation. Suspect hypocalcemia is due to marked hyperphosphatemia of renal failure. Codie sphorus is more than 8. Started calcium acetate. Will also give a total of 4 g IV calcium gluconate in divided doses today Check calcium, phosphorus and intact PTH levels tomorrow Hypertension. On amlodipine. Nephrology attending: The patient is seen and examined. Agree with JOSE LUIS's assessment and plan as documented above. Will dialyze today. Dialyze again tomorrow with next treatment plan for 07/02/2023. Start working on outpatient dialysis unit placement. Thomas Jarrett MD
[2023-06-29] MEDS: Pantoprazole Sodium 40 MG in 0.9% Normal Saline (100mL MB+) 100 ML 330 MG IV ×2 (09:34→22:38)
[2023-06-29] MEDS: Calcium Gluconate IV 2 GM in 0.9% Normal Saline (100mL Bag) 100 ML IV ×2 (09:56→18:15)
[2023-06-29 09:58] LABS: Hepatitis B Surface Antigen Non-Reactive (Nonreactive)
[2023-06-29] MEDS: 0.9% Normal Saline (500mL Bag) 500 ML 15 ML IV (13:21)
--- NOTE | 2023-06-29 14:16 | NURSING ---
Pt did not have test completed prior to surgery, pt states she had a period within the last month, however has not had intercourse in [address] Dick[address] and [address] Serrato is aware and okay to proceed with surgery without test.
[2023-06-29] MEDS: Lidocaine 1% (20 ml mdv) 20 ML Vial (14:54)
[2023-06-29] MEDS: Heparin 10,000 UNITS/10 ML Vial 10000 UNITS (14:55)
--- NOTE | 2023-06-29 14:56 | PCM.OPRPT ---
Report of Operation Date of Procedure: 06/29/23 Pre-Operative Diagnosis: Acute on chronic kidney disease Post-Operative Diagnosis: Same Surgery/Procedure Performed:: Placement of right IJ tunneled dialysis catheter Surgeon: Marlene Serrato Type of Anesthesia: Local MAC Anesthesiologist: Vasiliy Dickens Special Medications: Clindamycin 900 mg IV x 1 Specimen's removed: None Estimated Blood Loss (mL): 10 cc Description of Procedure: After informed consent was given, the patient was brought to the operating room and placed in the supine position. Appropriate time out protocol was followed. Pt was then given IV conscious sedation for anesthesia. The patient's right upper chest and neck were then prepped with a surgical skin preparation and sterile surgical drapes were placed. After proper landmarks were ascertained, the skin at the upper right chest area was then infiltrated with 1:1 mixture of 1% lidocaine with epinephrine and 0.5% maricaine. A needle trocar was then inserted into the right internal jugular vein with ultrasound guidance-multiple vessels were viewed with u/s and the right IJ was chosen-- and there was good aspiration of venous blood. A wire was then threaded into the needle trocar and this was visualized under fluoroscopy to ensure that the wire was in the superior vena cava. Once this was done, then the needle trocar was removed. A small incision was made with an 11 blade knife at the wire entrance site. The dilator x2 with the introducer sheath attached was then placed over the wire into the right internal jugular vein via the Seldinger technique and this was visualized under fluoroscopy. Next the introducer and sheath were in proper position as visualized by fluoroscopy. The location of the cuffed was estimated on the skin, an incision was made with a 15 blade scalpel. The 14.5 Fr x19 cm Palindrome dual lumen (Lot [id number] reference [id number]) was tunneled from the chest incision to the right neck incision. The sheath was removed. The catheter was placed through the introducer and was positioned with its tip at the junction of the superior vena cava and the right atrium as visualized under fluoroscopy. The cuff of the catheter was in the subcutaneous tissue. The catheter flushed and barron well with saline. Catheter was also flushed with 1.6 cc of 1-10,000 of heparin. Hemostasis was assured. Silver dressing was placed at the catheter exit site. Catheter was sutured with 3-0 nylon sutures. The neck incision was sutured with interrupted 3-0 Vicryl interrupted sutures x2 and Steri-Strips were placed. A large OpSite was placed over the catheter site and a small OpSite over the neck incision. The patient tolerated the procedure well. Grafts/Implants Used: 14.5 Fr x19 cm Palindrome dual lumen (Lot [id number] reference [id number] Complications none
--- NOTE | 2023-06-29 15:10 | RAD_ITS ---
STUDY: X-RAY CHEST REASON FOR EXAM: Female, 48 years old. Dialysis catheter placement -- pacu TECHNIQUE: Single AP portable view of the chest. COMPARISON: None. FINDINGS: A right-sided double lumen catheter has been placed with the tip in the proximal portion of the superior vena cava. The lungs are clear and expanded. There is no demonstrated pleural abnormality. Normal size heart. Normal mediastinum and mynor. Normal visualized pulmonary arteries. Normal visualized aortic arch and descending thoracic aorta. Normal visualized thoracic spine. Normal visualized ribs, clavicles, and shoulders. There is no demonstrated abnormality of the visualized soft tissue structures of the upper abdomen. RAD/Chest 1 View (Portable) IMPRESSION: The tip of the right double-lumen catheter is in the proximal portion of the superior vena cava. Electronically Signed: Artemio Powell MD at 15:22 EST ,
--- NOTE | 2023-06-29 15:43 | PCM.PN.HOSP ---
Reason for Visit Reason for Visit: Diagnoses Anemia, unspecified (06/28/23) Hypocalcemia (06/28/23) Essential (primary) hypertension (06/28/23) Acute kidney failure, unspecified (06/28/23) End stage renal disease (06/28/23) Subjective Subjective Patient seen at bedside this morning. Sleeping on my arrival to the room. Very fatigued during my encounter, shortness months to questions. She denied any acute pain or discomfort. She was outlined for to having the catheter placed or starting dialysis but seemed understanding that they needed to happen. No other acute concerns this time. Objective Data Objective Data Vital Signs: Vital Signs Temp Pulse Resp BP Pulse Ox O2 Del Method 96.6 F L 74 18 129/86 H 100 Room Air 06/29/23 15:35 06/29/23 15:35 06/29/23 15:35 06/29/23 15:35 06/29/23 15:35 06/29/23 15:35 Oxygen Delivery Method Room Air Weight: 57.4 kg Body Mass Index (BMI) 21.0 Intake & Output: Intake and Output for Last 24 Hours 06/27/23 06/28/23 06/29/23 23:59 23:59 23:59 Intake Total 1000 / 1000 1720.00 / 2020.00 580 / 580 Output Total 50 / 50 Balance 1000 / 1000 1670.00 / 1969.00 580 / 580 Lab / Micro Data 06/29/23 05:30 06/29/23 05:30 Labs: Laboratory Results - last 24 hr 06/29/23 05:30: WBC 8.6, RBC 2.79 L, Hgb 8.1 L, Hct 23.7 L, MCV 84.9, MCH 29.0, MCHC 34.2, RDW Std Deviation 43.5, RDW Coeff of Miriam 14.1, Plt Count 108 L, MPV 11.1, Sodium 135 L, Potassium 3.9, Chloride 110 H, Carbon Dioxide 8.0 L*, BUN 94 H, Creatinine 19.50 H*, Estim Creat Clear Calc 3.17, Est GFR (MDRD) Af Amer 3 L, Est GFR (MDRD) Non-Af 2 L, BUN/Creatinine Ratio 4.8 L, Glucose 94, Calcium 5.0 L*, Phosphorus 8.8 H, Albumin 2.6 L, Hep Bs Antigen Non-Reactive 06/29/23 06:45: PT 15.6 H, INR 1.2, APTT 38.0 H Radiography Diagnostic Testing: Radiology Impression Chest X-Ray 06/29/23 15:10 IMPRESSION: The tip of the right double-lumen catheter is in the proximal portion of the superior vena cava. Electronically Signed: Artemio Powell MD at 15:22 EST , Physical Exam Const alert, oriented x3, no apparent distress and average body habitus Constitutional Narrative: Middle aged female, fatigued appearing, laying comfortably in bed, conversing normally, no acute distress. General Appearance: cooperative and comfortable HEENT normocephalic, head/scalp atraumatic, hearing grossly normal bilaterally and nasal mucous membranes and turbinates normal Eyes PERRL, EOMs intact bilaterally and conjunctivae normal Neck full ROM, no lymphadenopathy and supple Lymph Lymphatic: no lymphadenopathy noted Chest inspection of chest normal Resp normal respiratory effort, normal air movement, no use of accessory muscles and clear to auscultation bilaterally Cardio regular rate, regular rhythm, no murmurs and peripheral pulses 2+ throughout GI normal to inspection, nondistended, normoactive bowel sounds, soft to palpation, non-tender and non-distended Back/Spine normal ROM Extremity normal to inspection, full ROM and no pedal edema Skin no rashes or lesions noted Neuro no focal motor deficits and no sensory deficits noted Speech: speech normal Psych mental status grossly normal Assessment & Plan Assessment/Plan (1) Hypocalcemia: (2) ESRD (end stage renal disease): (3) Anemia: (4) Hypertension: PLAN: Plan Patient is a 48yo female who presented to [facility] ED on 06/27/2023 with facial numbness/tingling and intermittent nausea/vomiting. 1. Severe LIZBETH on CKD stage 4, suspected ESRD Creatinine 19.10, BUN 93 on admit. Baseline Cr appeared to be in the 5-6 range, last checked in 07/2022. CTAP showed atrophic kidneys, no concern for hydronephrosis or postobstructive etiology. Repeat BUN/Cr on hospital day 2 only mildly improved. S/p placement of right IJ tunneled dialysis catheter with general surgery on 06/29. - Nephrology following. Planning to initiate dialysis this evening, start with short sessions with no volume removal. Case management following for assistance and setting patient up for outpatient dialysis. Likely here through the weekend, with discharge home he is starting outpatient dialysis early next week. Almazan catheter in place, plan to remove prior to discharge. 2. Severe hypocalcemia - Presumed secondary to ESRD, hyperphosphatemia. Ca < 5.0 on admit and patient symptomatic with numbness/tingling, treated with IV calcium gluconate, repeat Ca only 5.2. Will continue to treat with IV calcium as needed until patient starts HD. 3. Chronic anemia, improving Hemoglobin 6.5 on admit. Last hemoglobin value of 8.0 in 07/2022. Iron studies normal. High suspicion that anemia is slowly downtrending chronic anemia due to CKD. S/p 1 unit pRBCs on 06/28 with improvement to hemoglobin 9.0. - Trend daily CBC. Nephrology will start patient on ARCELIA with dialysis as an outpatient. 4. Hypertension - BP elevated to 170s-180s systolic on admit. Not on any home antihypertensives. 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 Started on amlodipine 10 mg daily on admit with improvement, continue this for now. Monitor. DVT ppx: Heparin subcu Code status: Full code, verified Expected disposition: Home, TBD Total clinical time spent by myself addressing the patient's medical issues, reviewing all the data, and collaborating with patient's care team: 35 minutes. Charges/Coding Visit Charges Inpatient E&M: 19559 Subs Hosp L2
[2023-06-29] MEDS: oxyCODONE 5 MG Tablet PO ×2 (16:06→22:51)
[2023-06-29] MEDS: PureFlow B 3K Dialysis Soln 1 BAG 6 BAG PF (16:25)
--- NOTE | 2023-06-29 17:35 | CASEMGMT ---
GERMAN MALDONADO into pt room, pt is off of the floor at this time, pt mother and children present. Pt mother states she can help GERMAN MALDONADO. Made aware that GERMAN MALDONADO was going to discuss preferred dialysis center. She states pt has chosen [facility]. GERMAN MALDONADO to verify. GERMAN MALDONADO attempted to make referral, will follow and complete Sunday.
[2023-06-29] MEDS: 0.9% Saline Lock 10 ML Syringe IV (17:54)
[2023-06-29] MEDS: Heparin 10,000 UNITS/10 ML Vial IV (17:55)
[2023-06-29] MEDS: Ensure Plus High Protein 120 ML LIQUID PO (18:15)
[2023-06-29] MEDS: Calcium Acetate 667 MG Capsule PO (18:15)
[2023-06-29] MEDS: hydrALAZINE 20 MG/ML Vial 10 MG IV (22:51)
[2023-06-30] VITALS (14 sets, daily range): BP systolic 87–199; BP diastolic 76–106; PULSE 63–93; RESP 8–18; TEMP 36.6–37.2; O2SAT 96–100; BMI 21.0
[2023-06-30 08:21] LABS: Hematocrit 22.3 % (37-47); Mean Corp Hgb Conc 35.9 g/dL (32-36); Mean Corpuscular Hgb 30.1 pg (27.0-32.0); Mean Corpuscular Volume 83.8 fL (81-99); Mean Platelet Vol. 11.9 fl (6.2-12.0); Platelet Count 105 K/mm3 (150-450); RBC Distribution Width CV 14.4 % (11.6-14.6); RBC Distribution Width SD 43.8 fl (35.1-43.9); Red Blood Count 2.66 M/mm3 (4.2-5.4); White Blood Count 7.9 K/mm3 (4.4-11.0)
[2023-06-30] MEDS: PureFlow B 2K Dialysis Soln 1 BAG 6 BAG PF (08:24)
[2023-06-30] MEDS: 0.9% Normal Saline 1,000 ML IV.SOLN. 1000 ML OPERA.SITE (08:25)
--- NOTE | 2023-06-30 08:31 | PCM.PN.SRG ---
Subjective Subjective Patient seen and examined during AM rounds. She is sitting upright in bed. The hemodialysis team is present bedside and confirms function of her catheter. Patient shares that she has some tenderness over her catheter. Objective Data Objective Data Vital Signs: Vital Signs Temp Pulse Resp BP Pulse Ox O2 Del Method 98.3 F 84 18 145/76 H 99 Room Air 06/30/23 08:22 06/30/23 08:22 06/30/23 08:22 06/30/23 08:22 06/30/23 08:22 06/30/23 08:22 Oxygen Delivery Method Room Air Weight: 126 lb 8.725 oz Body Mass Index (BMI) 21.0 Intake & Output: Intake and Output for Last 24 Hours 06/28/23 06/29/23 06/30/23 23:59 23:59 23:59 Intake Total 1720.00 / 2020.00 900.25 / 1200.25 300 / 300 Output Total 50 / 50 0 / 0 Balance 1670.00 / 1970.00 900.25 / 1200.25 300 / 300 Lab / Micro Data 06/30/23 07:49 06/30/23 07:49 Labs: Laboratory Results - last 24 hr 06/29/23 05:30: Hep Bs Antigen Non-Reactive 06/30/23 07:49: WBC 7.9, RBC 2.66 L, Hgb 8.0 L, Hct 22.3 L, MCV 83.8, MCH 30.1, MCHC 35.9, RDW Std Deviation 43.8, RDW Coeff of Miriam 14.4, Plt Count 105 L, MPV 11.9 Radiography Diagnostic Testing: Radiology Impression Chest X-Ray 06/29/23 15:10 IMPRESSION: The tip of the right double-lumen catheter is in the proximal portion of the superior vena cava. Electronically Signed: Artemio Powell MD at 15:22 EST , Physical Exam Const oriented x3 and no apparent distress Neck Neck Narrative: There is tenderness over patient's catheter site but no obvious underlying hematoma in the right neck. Sterile dressing is in place and appears occlusive. Resp normal respiratory effort Assessment & Plan Assessment/Plan (1) ESRD (end stage renal disease): PLAN: Plan Patient is postoperative day 1 from insertion of right tunneled hemodialysis catheter. Catheter appears to be functioning well and is appropriate on exam. I did discuss with patient that she should seek consultation for fistula creation, but as for now catheter is appropriate for temporary use. I see no further need for surgical involvement at this time and general surgery will now sign off but remain available for any questions/concerns should they arise. Theo Arce MD General Surgery Endocrine Surgery Pager: [facility] [address] [place] [address], [address] [place] [address] Office: [phone] Charges/Coding Visit Charges Inpatient E&M: 11578 Subs Hosp L2
[2023-06-30 09:19] LABS: Albumin, Serum 2.4 g/dL (3.2-5.0); BUN 81 mg/dL (7-18); BUN/Creat Ratio 4.8 RATIO (10-20); Calcium,Total 5.9 mg/dL (8.5-10.1); Chloride 111 mmol/L (98-107); EST Glomerular Filtration Rate 2 mL/min (>60); Est Glom Filt Rate - Afr Amer 3 mL/min (>60); Estimated Creatinine Clearance 3.66 ml/min; Glucose 91 mg/dL (74-106); Phosphorus 7.1 mg/dL (2.5-4.9); Potassium 3.5 mmol/L (3.5-5.1); Sodium Level 136 mmol/L (136-145)
[2023-06-30] MEDS: 0.9% Saline Lock 10 ML Syringe IV (11:26)
[2023-06-30] MEDS: Heparin 10,000 UNITS/10 ML Vial IV (11:27)
[2023-06-30] MEDS: amLODIPine 10 MG Tablet PO (12:18)
[2023-06-30] MEDS: Calcium Acetate 667 MG Capsule PO ×2 (12:18→16:21)
[2023-06-30] MEDS: Pantoprazole Sodium 40 MG in 0.9% Normal Saline (100mL MB+) 100 ML 330 MG IV ×2 (12:21→22:19)
--- NOTE | 2023-06-30 15:51 | PN.RENAL_ITS ---
Subjective Subjective Follow-up for end-stage renal disease Had third dialysis treatment this morning No new complaints Objective Data Objective Data Vital Signs: Vital Signs Temp Pulse Resp BP Pulse Ox O2 Del Method 98.2 F 74 16 167/85 H 97 Room Air 06/30/23 12:14 06/30/23 12:14 06/30/23 12:14 06/30/23 13:59 06/30/23 12:14 06/30/23 12:14 Oxygen Delivery Method Room Air Weight: 57.4 kg Body Mass Index (BMI) 21.0 Intake & Output: Intake and Output for Last 24 Hours 06/28/23 06/29/23 06/30/23 23:59 23:59 23:59 Intake Total 1720.00 / 2019.00 900.25 / 1200.25 650 / 650 Output Total 50 / 50 0 / 0 0 / 0 Balance 1670.00 / 1969.00 900.25 / 1200.25 650 / 650 Lab / Micro Data Attestation: I reviewed the patient's lab results. 06/30/23 07:49 06/30/23 07:49 Labs: Laboratory Results - last 24 hr 06/30/23 07:49: WBC 7.9, RBC 2.66 L, Hgb 8.0 L, Hct 22.3 L, MCV 83.8, MCH 30.1, MCHC 35.9, RDW Std Deviation 43.8, RDW Coeff of Miriam 14.4, Plt Count 105 L, MPV 11.9, Sodium 136, Potassium 3.5, Chloride 111 H, Carbon Dioxide 10.0 L, BUN 81 H , Creatinine 16.90 H*, Estim Creat Clear Calc 3.66, Est GFR (MDRD) Af Amer 3 L, Est GFR (MDRD) Non-Af 2 L, BUN/Creatinine Ratio 4.8 L, Glucose 91, Calcium 5.9 L*, Phosphorus 7.1 H, Albumin 2.4 L Physical Exam Narrative Alert responsive no acute distress Positive for right tunnel dialysis catheter S1-S2 regular No edema Assessment & Plan Assessment/Plan (1) ESRD (end stage renal disease): (2) Hypertension: (3) Anemia: (4) Hypocalcemia: PLAN: Plan Tolerated third hemodialysis session today Next dialysis treatment will be Sunday Awaiting outpatient placement
--- NOTE | 2023-06-30 20:17 | PN.HOSP_ITS ---
Reason for Visit Reason for Visit: Diagnoses Anemia, unspecified (06/28/23) Hypocalcemia (06/28/23) Essential (primary) hypertension (06/28/23) Acute kidney failure, unspecified (06/28/23) End stage renal disease (06/28/23) Subjective Subjective Patient was seen and examined today, she underwent dialysis today, I talked briefly with nephrology about her care. Patient's hemoglobin today was 8, creatinine was 16.9 and BUN was 81. Nephrology has noted that her next dialysis treatment will be Sunday. Objective Data Objective Data Vital Signs: Vital Signs Temp Pulse Resp BP Pulse Ox O2 Del Method 98 F 93 18 160/83 H 97 Room Air 06/30/23 16:22 06/30/23 16:22 06/30/23 16:22 06/30/23 16:22 06/30/23 16:22 06/30/23 16:22 Oxygen Delivery Method Room Air Weight: 57.4 kg Body Mass Index (BMI) 21.0 Intake & Output: Intake and Output for Last 24 Hours 06/28/23 06/29/23 06/30/23 23:59 23:59 23:59 Intake Total 1720.00 / 2020.00 900.25 / 1200.25 890 / 890 Output Total 50 / 50 0 / 0 0 / 0 Balance 1670.00 / 1970.00 900.25 / 1200.25 890 / 890 Lab / Micro Data 06/30/23 07:49 06/30/23 07:49 Labs: Laboratory Results - last 24 hr 06/30/23 07:49: WBC 7.9, RBC 2.66 L, Hgb 8.0 L, Hct 22.3 L, MCV 83.8, MCH 30.1, MCHC 35.9, RDW Std Deviation 43.8, RDW Coeff of Miriam 14.4, Plt Count 105 L, MPV 11.9, Sodium 136, Potassium 3.5, Chloride 111 H, Carbon Dioxide 10.0 L, BUN 81 H , Creatinine 16.90 H*, Estim Creat Clear Calc 3.66, Est GFR (MDRD) Af Amer 3 L, Est GFR (MDRD) Non-Af 2 L, BUN/Creatinine Ratio 4.8 L, Glucose 91, Calcium 5.9 L*, Phosphorus 7.1 H, Albumin 2.4 L Micro: Microbiology 06/30/23 17:56 Stool Stool Occult Blood (KATHRYN) - Final Physical Exam Const alert, oriented x3, no apparent distress, average body habitus and healthy appearing General Appearance: cooperative, well kempt and well developed Orientation / Consciousness: awake, oriented to person, oriented to place and oriented to time HEENT normocephalic and moist oral mucous membranes Eyes PERRL, EOMs intact bilaterally and conjunctivae normal Neck supple, no JVD, thyroid normal and no carotid bruits General: trachea midline Resp normal respiratory effort and clear to auscultation bilaterally Auscultation: Negative for rales, rhonchi or wheezes Cardio regular rate, regular rhythm, no murmurs, no rub and no gallops GI normal to inspection, nondistended, normoactive bowel sounds, soft to palpation, non-tender and non-distended Extremity no clubbing, cyanosis or edema Skin no rashes or lesions noted General Skin Exam: no breakdown Neuro oriented x3, CN's II-XII intact bilaterally, no focal motor deficits and no sensory deficits noted Sensorium / Orientation: awake and alert Speech: speech normal Psych affect normal Assessment & Plan Assessment/Plan (1) ESRD (end stage renal disease): PLAN: Plan 1. End-stage renal disease requiring dialysis-patient's next dialysis day will be Sunday, nephrology is following the patient #2 hypocalcemia-labs will be followed as necessary, calcium supplementation was given since admit #3 chronic anemia-secondary to chronic kidney disease, hemoglobin will be monitored #4 essential hypertension-patient is on amlodipine, blood pressure will be monitored #5 uremia secondary to end-stage renal disease-labs will be monitored, patient is currently on dialysis Total clinical time spent by myself addressing the patient's medical issues, reviewing all of her data, and collaborating with patient's care team: 35 minutes Charges/Coding Visit Charges Inpatient E&M: 66592 Subs Hosp L2
[2023-07-01] VITALS (8 sets, daily range): BP systolic 134–158; BP diastolic 70–92; PULSE 87–108; RESP 16; TEMP 36.7–37.4; O2SAT 100
[2023-07-01] MEDS: Calcium Acetate 667 MG Capsule PO ×3 (09:08→17:03)
[2023-07-01] MEDS: amLODIPine 10 MG Tablet PO (09:09)
[2023-07-01] MEDS: Pantoprazole Sodium 40 MG in 0.9% Normal Saline (100mL MB+) 100 ML 330 MG IV ×2 (09:11→21:59)
[2023-07-01] MEDS: 0.9% Saline Lock 10 ML Syringe IV (09:11)
[2023-07-01 10:48] LABS: Albumin, Serum 2.5 g/dL (3.2-5.0); BUN 57 mg/dL (7-18); BUN/Creat Ratio 4.9 RATIO (10-20); Calcium,Total 5.9 mg/dL (8.5-10.1); Chloride 108 mmol/L (98-107); EST Glomerular Filtration Rate 4 mL/min (>60); Est Glom Filt Rate - Afr Amer 4 mL/min (>60); Estimated Creatinine Clearance 5.29 ml/min; Glucose 89 mg/dL (74-106); Phosphorus 4.7 mg/dL (2.5-4.9); Sodium Level 136 mmol/L (136-145)
[2023-07-01] MEDS: Calcium Gluconate IV 2 GM in 0.9% Normal Saline (100mL Bag) 100 ML IV (14:19)
--- NOTE | 2023-07-01 18:36 | PCM.PN.HOSP ---
Reason for Visit Reason for Visit: Diagnoses Anemia, unspecified (06/28/23) Hypocalcemia (06/28/23) Essential (primary) hypertension (06/28/23) Acute kidney failure, unspecified (06/28/23) End stage renal disease (06/28/23) Subjective Subjective Patient was seen and examined today, her creatinine was 11.7, her calcium was low today and she was given calcium gluconate. I had a long discussion with the patient's family members including the patient's daughter who asked many questions about herbal medications for the patient's medical problems, and the patient's mother. I answered many questions that they had, I told the daughter that she would have to ask the senior finance manager if it was permissible to have the patient take herbal supplements and that I would not advise stopping any of her prescribed medications to be placed on herbal supplements. I also told the patient and her family that the dialysis could be permanent or could be temporary and that I could not give them a timeframe as to how long to wait to place the patient on a kidney transplant list for example. She would have to get this information from the senior finance manager. Objective Data Objective Data Vital Signs: Vital Signs Temp Pulse Resp BP Pulse Ox O2 Del Method 98.8 F 93 16 134/79 H 100 Room Air 07/01/23 14:36 07/01/23 15:09 07/01/23 14:36 07/01/23 14:36 07/01/23 14:36 07/01/23 14:36 Oxygen Delivery Method Room Air Weight: 57.4 kg Body Mass Index (BMI) 21.0 Intake & Output: Intake and Output for Last 24 Hours 06/29/23 06/30/23 07/01/23 23:59 23:59 23:59 Intake Total 900.25 / 1200.25 1000 / 1500 1480 / 1480 Output Total 0 / 0 0 / 0 Balance 900.25 / 1200.25 1000 / 1500 1480 / 1480 Lab / Micro Data 06/30/23 07:49 07/02/23 05:19 Labs: Laboratory Results - last 24 hr 07/01/23 04:29: Sodium 136, Potassium 3.0 L, Chloride 108 H, Carbon Dioxide 17.0 L, BUN 57 H, Creatinine 11.70 H*, Estim Creat Clear Calc 5.29, Est GFR (MDRD) Af Amer 4 L, Est GFR (MDRD) Non-Af 4 L, BUN/Creatinine Ratio 4.9 L, Glucose 89, Calcium 5.9 L*, Phosphorus 4.7, Albumin 2.5 L Micro: Microbiology 06/30/23 17:56 Stool Stool Occult Blood (KATHRYN) - Final Physical Exam Narrative alert, oriented x3, no apparent distress, average body habitus and healthy appearing General Appearance: cooperative, well kempt and well developed Orientation / Consciousness: awake, oriented to person, oriented to place and oriented to time HEENT normocephalic and moist oral mucous membranes Eyes PERRL, EOMs intact bilaterally and conjunctivae normal Neck supple, no JVD, thyroid normal and no carotid bruits General: trachea midline Resp normal respiratory effort and clear to auscultation bilaterally Auscultation: Negative for rales, rhonchi or wheezes Cardio regular rate, regular rhythm, no murmurs, no rub and no gallops GI normal to inspection, nondistended, normoactive bowel sounds, soft to palpation, non-tender and non-distended Extremity no clubbing, cyanosis or edema Skin no rashes or lesions noted General Skin Exam: no breakdown Neuro oriented x3, CN's II-XII intact bilaterally, no focal motor deficits and no sensory deficits noted Sensorium / Orientation: awake and alert Speech: speech normal Psych affect normal Assessment & Plan Assessment/Plan (1) ESRD (end stage renal disease): PLAN: Plan 1. End-stage renal disease requiring dialysis-patient's next dialysis day will be Sunday, nephrology is following the patient, it is probable she can be discharged tomorrow if she remains medically stable #2 hypocalcemia-labs will be followed as necessary, calcium supplementation was given today, calcium will be rechecked tomorrow #3 chronic anemia-secondary to chronic kidney disease, hemoglobin will be monitored #4 essential hypertension-patient is on amlodipine, blood pressure will be monitored #5 uremia secondary to end-stage renal disease-labs will be monitored, patient is currently on dialysis Total clinical time spent by myself addressing the patient's medical issues, reviewing all of her data, and collaborating with patient's care team: 35 minutes Charges/Coding Visit Charges Inpatient E&M: 56440 Subs Hosp L2
[2023-07-02] VITALS (15 sets, daily range): BP systolic 115–191; BP diastolic 67–96; PULSE 70–94; RESP 13–16; TEMP 36.6–37; O2SAT 100; BMI 21.0; BMI 20.8
[2023-07-02 06:16] LABS: Albumin, Serum 2.3 g/dL (3.2-5.0); BUN 62 mg/dL (7-18); BUN/Creat Ratio 4.7 RATIO (10-20); Calcium,Total 5.7 mg/dL (8.5-10.1); Chloride 111 mmol/L (98-107); EST Glomerular Filtration Rate 3 mL/min (>60); Est Glom Filt Rate - Afr Amer 4 mL/min (>60); Estimated Creatinine Clearance 4.69 ml/min; Glucose 94 mg/dL (74-106); Phosphorus 4.2 mg/dL (2.5-4.9); Sodium Level 138 mmol/L (136-145)
[2023-07-02] MEDS: 0.9% Normal Saline 1,000 ML IV.SOLN. 1000 ML OPERA.SITE (08:10)
[2023-07-02] MEDS: PureFlow B 3K Dialysis Soln 1 BAG 6 BAG PF (08:10)
[2023-07-02] MEDS: 0.9% Saline Lock 10 ML Syringe IV (08:12)
[2023-07-02] MEDS: Heparin 10,000 UNITS/10 ML Vial IV (10:47)
[2023-07-02] MEDS: Pantoprazole Sodium 40 MG in 0.9% Normal Saline (100mL MB+) 100 ML 330 MG IV ×2 (11:28→22:23)
[2023-07-02] MEDS: amLODIPine 10 MG Tablet PO (11:28)
[2023-07-02] MEDS: Calcium Acetate 667 MG Capsule PO ×2 (11:28→16:38)
[2023-07-02] MEDS: Calcium Gluconate IV 2 GM in 0.9% Normal Saline (100mL Bag) 100 ML IV ×2 (11:52→13:55)
--- NOTE | 2023-07-02 12:27 | CASEMGMT ---
Pt room called at this time by this RN CM and pt states that she is still wanting to go through [facility] for her dialysis treatments. Pt states she would prefer treatments at mid-day. Referral faxed to [facility] with the appropriate documentation at this time. Awaiting response.
--- NOTE | 2023-07-02 16:35 | CASEMGMT ---
RN CM NOTE: Dr Cummings made aware OP HD has not been approved yet and pt is not ready for discharge. Yuriy COLLINSN RN CM
--- NOTE | 2023-07-02 17:37 | PCM.PN.REN ---
Subjective Subjective Following for ESRD. Patient underwent her third dialysis treatment today. She feels better overall. She is eating her dinner during my visit without nausea. Appetite is better. Objective Data Objective Data Vital Signs: Vital Signs Temp Pulse Resp BP Pulse Ox O2 Del Method 98.2 F 94 16 166/79 H 100 Room Air 07/02/23 15:49 07/02/23 15:51 07/02/23 15:49 07/02/23 15:49 07/02/23 15:49 07/02/23 15:49 Oxygen Delivery Method Room Air Weight: 56.7 kg Body Mass Index (BMI) 20.8 Intake & Output: Intake and Output for Last 24 Hours 06/30/23 07/01/23 07/02/23 23:59 23:59 23:59 Intake Total 1000 / 1500 2089 / 2089 1150 / 1150 Output Total 0 / 0 850 / 850 Balance 1000 / 1500 2089 / 2089 300 / 300 Lab / Micro Data 06/30/23 07:49 07/02/23 05:19 Labs: Laboratory Results - last 24 hr 06/30/23 07:49: PTH Intact 1259.0 H 07/02/23 05:19: Sodium 138, Potassium 3.0 L, Chloride 111 H, Carbon Dioxide 17.0 L, BUN 62 H, Creatinine 13.20 H*, Estim Creat Clear Calc 4.69, Est GFR (MDRD) Af Amer 4 L, Est GFR (MDRD) Non-Af 3 L, BUN/Creatinine Ratio 4.7 L, Glucose 94, Calcium 5.7 L*, Phosphorus 4.2, Albumin 2.3 L Micro: Microbiology 06/30/23 17:56 Stool Stool Occult Blood (KATHRYN) - Final Physical Exam Narrative Alert responsive no acute distress Positive for right tunnel dialysis catheter S1-S2 regular No edema Lungs are clear to auscultation bilaterally Assessment & Plan Assessment/Plan (1) ESRD (end stage renal disease): (2) Hypertension: (3) Anemia: (4) Hypocalcemia: PLAN: Plan Impression/Plan: The patient is a 48-year-old woman with no significant past medical history. The patient presents with 3-day history of nausea and diarrhea. 2 weeks prior to presentation, patient also complained of upper respiratory symptoms such as sinus congestion, cough, fatigue and fever. However, she recovered felt her usual self up until 3 days ago. She was found during the evaluation in ED to have serum creatinine 19.10 mg/dL. Nephrology is consulted to evaluate patient for renal failure. ESRD The patient presented with serum creatinine of 19.10 mg/dL. Serum creatinine from 08/10/2022 was already elevated at 5.87 mg/dL. Urinalysis revealed proteinuria on dipstick. However, there is no significant RBCs or WBCs on microscopic examination. CT of the abdomen/pelvis did not reveal hydronephrosis. However, her kidneys are atrophic on CT scan. The patient started dialysis on 06/29/2023. The patient underwent her third dialysis treatment today without any issues. She has tunneled dialysis catheter. Once outpatient dialysis assignment is confirmed, she can be discharged from nephrology standpoint. Chronic metabolic acidosis. Serum bicarbonate level was already 18 mmol/L on 08/10/2022. Serum bicarbonate level was as low as 9 mmol/L on 06/28/2023. Metabolic acidosis is due to ESRD. Acidosis has improved with hemodialysis. Serum bicarbonate level is 17 mmol/L today. Will monitor serum bicarbonate level. Anemia. The patient presented to hospital with hemoglobin of 6.5 g/dL. She received PRBC transfusion on 06/28/2023. Hemoglobin is stabilized since transfusion. We will begin ARCELIA as outpatient with outpatient dialysis. Hypocalcemia. The patient had calcium level less than 5.5 mg/dL on presentation. Severe hypocalcemia likely explains her presenting symptom of facial numbness and tongue fasciculation. Calcium level has remained low despite improvement in phosphorus level. Corrected calcium level given low albumin would be around 7.06 mg/dL. I agree with more calcium supplementation today IV. Low risk for calcium-phosphorus deposition at this point. Hypertension. The patient has been started on amlodipine and hydralazine as needed. Further ultrafiltration today with dialysis should help BP. Capacity Legal Communications Department Chair Reflex Medical hold order details:: IF a medical hold is selected below, a suggested order for a MEDICAL HOLD will reflex upon signing the document. Next of kin: [place] law dictates a PRIORITY LIST for identifying legal decision-maker/legal next of kin in the following order (LNOK): 1st: The patient?s legal guardian, if any 2nd: The patient's spouse (if status is questionable, consult Risk Management) 3rd: The patient?s adult child(joão) (majority, if multiple children) 4th: The patient?s parents 5th: The patient?s adult siblings (majority, if multiple children siblings)
--- NOTE | 2023-07-02 18:58 | PCM.PN.HOSP ---
Reason for Visit Reason for Visit: Diagnoses Anemia, unspecified (06/28/23) Hypocalcemia (06/28/23) Essential (primary) hypertension (06/28/23) Acute kidney failure, unspecified (06/28/23) End stage renal disease (06/28/23) Subjective Subjective Patient was seen and examined today, she underwent dialysis today, I talked briefly with nephrology about her care. We could not obtain a dialysis chair for the patient today so she could not be discharged. Patient was given calcium today due to persistent hypocalcemia. Objective Data Objective Data Vital Signs: Vital Signs Temp Pulse Resp BP Pulse Ox O2 Del Method 98.2 F 94 16 166/79 H 100 Room Air 07/02/23 15:49 07/02/23 15:51 07/02/23 15:49 07/02/23 15:49 07/02/23 15:49 07/02/23 15:49 Oxygen Delivery Method Room Air Weight: 56.7 kg Body Mass Index (BMI) 20.8 Intake & Output: Intake and Output for Last 24 Hours 06/30/23 07/01/23 07/02/23 23:59 23:59 23:59 Intake Total 1000 / 1500 2090 / 2090 1150 / 1150 Output Total 0 / 0 850 / 850 Balance 1000 / 1500 0 / 2090 300 / 300 Lab / Micro Data 06/30/23 07:49 07/02/23 05:19 Labs: Laboratory Results - last 24 hr 06/30/23 07:49: PTH Intact 1259.0 H 07/02/23 05:19: Sodium 138, Potassium 3.0 L, Chloride 111 H, Carbon Dioxide 17.0 L, BUN 62 H, Creatinine 13.20 H*, Estim Creat Clear Calc 4.69, Est GFR (MDRD) Af Amer 4 L, Est GFR (MDRD) Non-Af 3 L, BUN/Creatinine Ratio 4.7 L, Glucose 94, Calcium 5.7 L*, Phosphorus 4.2, Albumin 2.3 L Micro: Microbiology 06/30/23 17:56 Stool Stool Occult Blood (KATHRYN) - Final Physical Exam Const alert, oriented x3, no apparent distress, average body habitus and healthy appearing General Appearance: cooperative, well kempt and well developed Orientation / Consciousness: awake, oriented to person, oriented to place and oriented to time HEENT normocephalic, head/scalp atraumatic and moist oral mucous membranes Eyes PERRL, EOMs intact bilaterally and conjunctivae normal Neck supple, no JVD, thyroid normal and no carotid bruits General: trachea midline Resp normal respiratory effort and clear to auscultation bilaterally Auscultation: Negative for rales, rhonchi or wheezes Cardio regular rate, regular rhythm, no murmurs, no rub and no gallops GI normal to inspection, nondistended, normoactive bowel sounds, soft to palpation, non-tender and non-distended Extremity no clubbing, cyanosis or edema Skin no rashes or lesions noted General Skin Exam: no breakdown Neuro oriented x3, CN's II-XII intact bilaterally, no focal motor deficits and no sensory deficits noted Sensorium / Orientation: awake and alert Speech: speech normal Psych affect normal Assessment & Plan Assessment/Plan (1) ESRD (end stage renal disease): PLAN: Plan 1. End-stage renal disease requiring dialysis-patient's next dialysis day will be Sunday, we will attempt to confirm a chair for the patient tomorrow for dialysis in which case she may be able to be discharged tomorrow. #2 hypocalcemia, etiology unclear-labs will be followed as necessary, calcium supplementation was given IV today, calcium will be rechecked tomorrow #3 chronic anemia-secondary to chronic kidney disease, hemoglobin will be monitored #4 essential hypertension-patient is on amlodipine, blood pressure will be monitored #5 uremia secondary to end-stage renal disease-labs will be monitored, patient is currently on dialysis Total clinical time spent by myself addressing the patient's medical issues, reviewing all of her data, and collaborating with patient's care team: 35 minutes Capacity Legal Simulation Technician Reflex Medical hold order details:: IF a medical hold is selected below, a suggested order for a MEDICAL HOLD will reflex upon signing the document. Next of kin: [place] law dictates a PRIORITY LIST for identifying legal decision-maker/legal next of kin in the following order (LNOK): 1st: The patient?s legal guardian, if any 2nd: The patient's spouse (if status is questionable, consult Risk Management) 3rd: The patient?s adult child(joão) (majority, if multiple children) 4th: The patient?s parents 5th: The patient?s adult siblings (majority, if multiple children siblings) Charges/Coding Visit Charges Inpatient E&M: 36057 Subs Hosp L2
[2023-07-03 03:50] VITALS: BP 137/65; PULSE 79; RESP 16; TEMP 36.6; O2SAT 99
[2023-07-03 09:02] VITALS: BP 164/91; PULSE 81; RESP 18; TEMP 36.7; O2SAT 100
[2023-07-03] MEDS: amLODIPine 10 MG Tablet PO (09:07)
[2023-07-03] MEDS: Calcium Acetate 667 MG Capsule PO (09:07)
--- NOTE | 2023-07-03 11:09 | PCM.PN.REN ---
Subjective Subjective Resting in bed. No complaints. No overnight events. Objective Data Objective Data Vital Signs: Vital Signs Temp Pulse Resp BP Pulse Ox O2 Del Method 98.0 F 81 18 164/91 H 100 Room Air 07/03/23 09:02 07/03/23 09:02 07/03/23 09:02 07/03/23 09:02 07/03/23 09:02 07/03/23 09:02 Oxygen Delivery Method Room Air Weight: 56.7 kg Body Mass Index (BMI) 20.8 Intake & Output: Intake and Output for Last 24 Hours 07/01/23 07/02/23 07/03/23 23:59 23:59 23:59 Intake Total 2089 1260 / 1560 300 / 300 Output Total 850 / 850 Balance 2089 410 / 710 300 / 300 Lab / Micro Data 06/30/23 07:49 07/02/23 05:19 Micro: Microbiology 06/30/23 17:56 Stool Stool Occult Blood (KATHRYN) - Final Physical Exam Narrative Alert and oriented x 3, no acute distress S1-S2 regular No edema Lungs are clear to auscultation bilaterally Right chest tunneled HD catheter dressing clean, dry and intact Assessment & Plan Assessment/Plan (1) ESRD (end stage renal disease): (2) Hypertension: (3) Anemia: (4) Hypocalcemia: PLAN: Plan Impression/Plan: The patient is a 48-year-old woman with no significant past medical history. The patient presents with 3-day history of nausea and diarrhea. 2 weeks prior to presentation, patient also complained of upper respiratory symptoms such as sinus congestion, cough, fatigue and fever. However, she recovered felt her usual self up until 3 days ago. She was found during the evaluation in ED to have serum creatinine 19.10 mg/dL. Nephrology is consulted to evaluate patient for renal failure. ESRD The patient presented with serum creatinine of 19.10 mg/dL. Serum creatinine from 08/10/2022 was already elevated at 5.87 mg/dL. Urinalysis revealed proteinuria on dipstick. However, there is no significant RBCs or WBCs on microscopic examination. CT of the abdomen/pelvis did not reveal hydronephrosis. However, her kidneys are atrophic on CT scan. The patient started dialysis on 06/29/2023. The patient underwent her third dialysis treatment 07/02 without any issues. 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 Next hemodialysis session will be tomorrow. She has tunneled dialysis catheter. Once outpatient dialysis assignment is confirmed, she can be discharged from nephrology standpoint. Chronic metabolic acidosis. Likely secondary to progression of CKD/now ESRD. Bicarb was 8, yesterday improved to 17.0 before dialysis. Bicarb levels should improve with hemodialysis. Patient does not need oral bicarbonate supplementation at time of discharge Anemia. The patient presented to hospital with hemoglobin of 6.5 g/dL. She received PRBC transfusion on 06/28/2023. Hemoglobin is stabilized since transfusion. We will begin ARCELIA as outpatient with outpatient dialysis. Hypocalcemia. The patient had calcium level less than 5.5 mg/dL on presentation. Severe hypocalcemia likely explains her presenting symptom of facial numbness and tongue fasciculation. Calcium level has remained low despite improvement in phosphorus level. Corrected calcium level given low albumin would be around 7.06 mg/dL. Patient had his calcium supplementation via IV yesterday. Low risk for calcium-phosphorus deposition at this point. Hypertension. The patient has been started on amlodipine and hydralazine as needed. Further ultrafiltration with dialysis should help BP. Once outpatient hemodialysis is arranged, and patient aware of hemodialysis schedule then okay for discharge per nephrology team when cleared by primary. Capacity Legal Radiation Safety Officer Reflex Medical hold order details:: IF a medical hold is selected below, a suggested order for a MEDICAL HOLD will reflex upon signing the document. Next of kin: [place] law dictates a PRIORITY LIST for identifying legal decision-maker/legal next of kin in the following order (LNOK): 1st: The patient?s legal guardian, if any 2nd: The patient's spouse (if status is questionable, consult Risk Management) 3rd: The patient?s adult child(joão) (majority, if multiple children) 4th: The patient?s parents 5th: The patient?s adult siblings (majority, if multiple children siblings)
--- NOTE | 2023-07-03 12:49 | CASEMGMT ---
Received tc from [facility], pt has a chair time of 12:55p M/W/F. Updated hospitalist that pt can dc.
--- NOTE | 2023-07-03 12:53 | DCINST_ITS ---
Discharge Instructions Diet Discharge Diet: Renal Diet Activity Discharge Activity: Return to Normal Activity Weight Bearing Status: Full weight bearing Follow Up Care Test Results: Test results from this visit will be discussed in further detail at your follow- up appointment, if applicable. Discharge Plan Admission Admit Date/Time: 06/28/23 00:24 Primary Reason for Your Visit: renal failure Attending Provider: Huan Cummings Primary Care Provider: Clarence Goldstein Consulting Providers: Cody Craig; Holli Simental; Marlene Serrato; Viktor Hagen Instructions Additional Instructions / Restrictions: Keep your appointment for your dialysis as scheduled Discharge Orders/Prescriptions Prescriptions: New amlodipine 10 mg Tablet 10 mg PO DAILY Qty: 30 0RF calcium acetate(phosphat bind) 667 mg Capsule 667 mg PO TIDCM Qty: 90 0RF Continued ondansetron 4 mg tablet,disintegrating 4 mg PO Q8H PRN (Reason: nausea) Referrals / Follow Up: Clarence Goldstein MD [Primary Care Provider] - Jose E Roberson MD [Med Staff - Consulting] - See Referral Note (office will arrange your appointment) Disposition Disposition (needs filled in before D/C Order can be placed): Home, Self Care
--- NOTE | 2023-07-03 13:10 | DS.PCM_ITS ---
Providers Date of Admission: 06/28/23 Date of Discharge: 07/03/23 Primary Care Physician: Dr. Clarence Goldstein MD Consultations 06/28/23 00:44 Consult: Nephrology Routine Consulting Provider: Cody Craig Reason for Consult: LIZBETH on CKD EMERGENT Consult: No Notified: Yes Date Notified: 06/28/23 Time Notified: 00:30 Method of Notification: Text 06/28/23 13:47 Consult: General Surgery Routine Consulting Provider: Marlene Serrato Reason for Consult: tunneled HD catheter placement EMERGENT Consult: No Notified: Yes Date Notified: 06/28/23 Time Notified: 13:48 Method of Notification: Verbal Reason For Visit: UREMIA, LIZBETH ON CKD, ACUTE ON CHRONIC ANEMIA Diagnosis Discharge Diagnosis (1) ESRD (end stage renal disease): Status: Acute Code(s): N18.6 - End stage renal disease (2) Hypertension: Status: Chronic Code(s): I10 - Essential (primary) hypertension (3) Anemia: Status: Acute Code(s): D64.9 - Anemia, unspecified (4) Hypocalcemia: Status: Inactive Code(s): E83.51 - Hypocalcemia Plan 1. End-stage renal disease requiring dialysis, etiology unclear-patient's next dialysis day will be Sunday, we will attempt to confirm a chair for the patient tomorrow for dialysis in which case she may be able to be discharged tomorrow. #2 hypocalcemia, etiology unclear-labs will be followed as necessary, calcium supplementation was given IV today, calcium will be rechecked tomorrow #3 chronic anemia-secondary to chronic kidney disease, requiring blood transfusion #4 essential hypertension-patient is on amlodipine, blood pressure will be monitored #5 Acute uremia secondary to end-stage renal disease-labs will be monitored, patient is currently on dialysis Total clinical time spent by myself addressing the patient's medical issues, reviewing all of her data, and collaborating with patient's care team: 35 minutes Medications at Discharge Home Medications ondansetron 4 mg disintegrating tablet 4 mg PO Q8H PRN nausea 06/28/23 amlodipine 10 mg tablet 10 mg PO DAILY #30 tabs 07/03/23 calcium acetate(phosphat bind) 667 mg capsule 667 mg PO TIDCM #90 caps 07/03/23 Hospital Course Operations - (Insertion of a tunneled dialysis catheter) Procedures Blood transfusion and Dialysis Summary of Care Provided Minutes Spent on Discharge: 31 Hospital Course: This 48-year-old black female was seen in the emergency room at [facility] after patient experiencing symptoms of twitching in her face, some difficulty talking and nausea and vomiting. She also complained of some diarrhea. Family felt the patient may have had a seizure. Labs obtained revealed a normal white blood cell count, hemoglobin was 6.5, BUN was elevated at 93 and creatinine was 19.1. Patient had been following up with a coal chemist in the past but she had not been to the coal chemist in many years. Patient's blood pressure was noted to be elevated at 187/90. Patient was admitted to [place] [address] for acute renal failure, she was seen in consultation by nephrology, she was also seen by general surgery and had a tunneled dialysis catheter inserted. Patient underwent dialysis and her creatinine improved. Patient was given 2 units of packed red blood cells. Her calcium was low and she was given calcium supplementation during her hospital stay. Arrangements were made for her to undergo outpatient dialysis, on 07/03/2023, patient was seen and examined: On examination she appeared in good health and spirits, she does not appear to be in any distress. Vital signs as documented. Skin warm and dry and without overt rashes. Neck without JVD, thyroid appears normal, trachea is midline, neck is supple. Lungs clear, normal air movement was noted. Heart exam notable for regular rhythm, normal sounds and absence of murmurs, rubs or gallops. Abdomen unremarkable and without evidence of organomegaly, masses, or abdominal aortic enlargement, bowel sounds are present in all 4 quadrants, no abdominal tenderness was noted. Extremities nonedematous, no cyanosis was noted, no clubbing was noted. Neuro: Cranial nerves II through XII are grossly intact, no focal motor deficits were noted, sensation to light touch and pinprick is intact, motor exam 5/5 throughout. Psych: Patient is alert and oriented x3, she does not appear anxious or depressed, she does not appear agitated. Patient appears stable for discharge on 07/03/2023. Weight / BMI Weight Weight: 56.7 kg Body Mass Index (BMI) 20.8 ABG / Lab / Microbiology Data 06/30/23 07:49 07/03/23 13:30 Microbiology: Microbiology 06/30/23 17:56 Stool Stool Occult Blood (KATHRYN) - Final D/C Instructions Discharge Diet: Renal Diet Weight Bearing Status: Full weight bearing Meaningful Use Info Meaningful Use Diagnoses (Choose all that apply): None applicable Discharge Plan Admission Admit Date/Time: 06/28/23 00:24 Primary Reason for Your Visit: renal failure Attending Provider: Huan Cummings Primary Care Provider: Clarence Goldstein Consulting Providers: Cody Craig; Holli Simental; Marlene Serrato; Viktor Hagen Instructions Patient Instructions: Kidney Disease Potassium in Diet, Kidney Disease Calcium Phosphorus, Kidney Disease Protein, Kidney Disease: Eating Less Sodium Additional Instructions / Restrictions: Keep your appointment for your dialysis as scheduled Discharge Orders/Prescriptions Prescriptions: New amlodipine 10 mg Tablet 10 mg PO DAILY Qty: 30 0RF calcium acetate(phosphat bind) 667 mg Capsule 667 mg PO TIDCM Qty: 90 0RF Continued ondansetron 4 mg tablet,disintegrating 4 mg PO Q8H PRN (Reason: nausea) Referrals / Follow Up: Clarence Goldstein MD [Primary Care Provider] - Jose E Roberson MD [Med Staff - Consulting] - See Referral Note (office will arrange your appointment) Disposition Disposition (needs filled in before D/C Order can be placed): Home, Self Care Charges/Coding Visit Charges Inpatient E&M: 67679 Disch Hosp >30min
--- NOTE | 2023-07-03 13:20 | CASEMGMT ---
[facility] rep calls and states to let the pt know to be there at 1215 on Sunday (07/04) with insurance cards to get set up. Pt updated by this RN CM and instructions added to the DC plan.
[2023-07-03 14:08] LABS: Albumin, Serum 2.7 g/dL (3.2-5.0); BUN 45 mg/dL (7-18); BUN/Creat Ratio 4.2 RATIO (10-20); Calcium,Total 7.1 mg/dL (8.5-10.1); Chloride 110 mmol/L (98-107); EST Glomerular Filtration Rate 4 mL/min (>60); Est Glom Filt Rate - Afr Amer 5 mL/min (>60); Estimated Creatinine Clearance 5.81 ml/min; Glucose 96 mg/dL (74-106); Phosphorus 2.8 mg/dL (2.5-4.9); Potassium 3.3 mmol/L (3.5-5.1); Sodium Level 140 mmol/L (136-145)
[2023-07-03 15:36] VITALS: BP 135/74; PULSE 83; RESP 18; TEMP 36.9; O2SAT 100
--- NOTE | 2023-07-03 16:08 | PHA.DC_ITS ---
Pharmacy [facility] has performed discharge medication reconciliation and counseling for this patient. When counseling patient, found out her last name is Gm, listed as Vans in computer. Spoke to RN ERICA Jones who called RN ERICA for MS2 to get changed in the computer. Printed prescriptions sent to retail pharmacy, name was correct on script. Nurse updated on RX sent to retail. 1. AMLODIPINE 10MG PO DAILY 2. CALCIUM ACETATE 667MG PO TIDCM The patient's discharge medication list was reviewed for discrepancies and discrepancies were resolved. The patient was counseled on the following discharge medications and changes in medications for homegoing were reviewed. The Reason for Use, instructions for use, and potential side effects were reviewed for all new medications. The patient's questions regarding all of their medications were answered. The patient was able to verbally demonstrate an understanding of their discharge medications. Medications at Discharge Home Medications ondansetron 4 mg disintegrating tablet 4 mg PO Q8H PRN nausea 06/28/23 amlodipine 10 mg tablet 10 mg PO DAILY #30 tabs 07/03/23 calcium acetate(phosphat bind) 667 mg capsule 667 mg PO TIDCM #90 caps 07/03/23
== END 2023-07-03 17:00 | disposition home or self-care (01) | DRG 470 ==
LOC: ED 22:33 → MS2 06-28 02:50
PROVIDERS: Anesthesiology; Hospitalist; Nurse Practitioner Adult Health; Surgery; Admitting Provider Student in an Organized Health Care Education/Training Program; Emergency Provider Emergency Medicine; PCP Family Medicine; Referring Provider Student in an Organized Health Care Education/Training Program; Visit Provider Internal Medicine
PROC: 02HV33Z Insertion of Infusion Device into Superior Vena Cava, Percutaneous Approach (ICD-10-PCS; principal; 2023-06-29 13:50)
DX: I12.0 Hypertensive chronic kidney disease with stage 5 chronic kidney disease or end stage renal disease (principal); D63.1 Anemia in chronic kidney disease; E83.39 Other disorders of phosphorus metabolism; E83.51 Hypocalcemia; E87.22 Chronic metabolic acidosis; N17.9 Acute kidney failure, unspecified; N18.6 End stage renal disease; Z99.2 Dependence on renal dialysis; L29.9 Pruritus, unspecified; F17.200 Nicotine dependence, unspecified, uncomplicated; R19.7 Diarrhea, unspecified; R20.0 Anesthesia of skin; Z79.899 Other long term (current) drug therapy
CPT/HCPCS: 36415; 70450; 71045; 74176; 77001; 80053; 80069; 81001; 82274; 82728; 83540; 83550; 83970; 85025; 85027; 85610; 85730; 86850; 86900; 86901; 86920; 87340; 90937; 93005; 97162; 97165; 97802; 97803; 99285; 99406; J7030; J7040; P9016; A4216; C1750; G0257; J0612; J2405

== ENCOUNTER → 2023-07-19 | Outpatient (CLI) | payer MEDICAID, SELFPAY ==
--- NOTE | 2023-07-19 11:17 | VDUE_ITS ---
Reason For Study: Pre op, CKD Right Arm Left Arm Delivery Manager Vein is not present. Left Brachial artery 1 diameter 2.7 x 2.7 mm. Cephalic Vein at proximal upper arm measures 1.1 x 1.1 mm. Left Brachial artery 1 waveform is Cephalic Vein at mid upper arm measures 1.9 triphasic . x 2.2 mm. Lateral Brachial vein 1 diameter 1.1 x 1.3 Cephalic Vein distal upper arm measures 2.5 mm. x 2.9 mm. Medial Brachial vein 1 diameter 1.9 x 2.1. Cephalic Vein proximal forearm measures 1.5 mm. x 1.8 mm. Brachial 1 turns into Radial . Cephalic Vein at mid forearm measures 1.7 x Left Brachial artery 2 diameter 2.4 x 2.9 mm. 1.9 mm. Cephalic Vein at distal forearm measures 1.7 Left Brachial artery 2 waveform is x 1.8 mm. triphasic . Proximal Basilic vein measures 2.6 x 2.9 mm. Lateral Brachial vein 2 diameter 3.2 x 2.9 Proximal Basilic vein depth measures 2.9 x mm. 3.1 mm. Medial Brachial vein 2 diameter 3.1 x 3.3 mm. Mid Basilic vein measures 2.8 x 2.9 mm. Brachial artery 1 measures 2.6 x .8 mm with Brachial 2 turns in to Ulnar. a velocity of 91.4 cm/sec. Delivery Manager Vein is present. Brachial artery 2 measures 2.4 x 2.8 mm with Delivery Manager Vein measures 1.0 mm. a velocity of 112.1 cm/sec. Cephalic Vein at proximal upper arm measures Radial artery measures 1.7 x 2.0 mm with a 1.2 x 1.2 mm. velocity of 92.7 cm/sec. Cephalic vein at proximal upper arm depth measures 3.9 mm. Cephalic Vein at mid upper arm measures 1.4 x 1.5 mm. Cephalic vein at mid upper arm depth measures 2.6 mm. Cephalic Vein distal upper arm measures 1.7 x 1.6 mm. Cephalic vein at distal upper arm depth measures 1.6 mm. Cephalic Vein proximal forearm measures 1.1 x 1.2 mm. Cephalic Vein at mid forearm measures 0.7 x 0.7 mm. Cephalic Vein at distal forearm measures 1.0 x 1.0 mm. Proximal Basilic vein measures 2.3 x 2.4 mm. Proximal Basilic vein depth measures 7.6 mm. Mid Basilic vein measures 2.1 x 2.1 mm. Mid Basilic vein depth measures 7.1 mm. Distal Basilic vein measures 2.1 x 2.5 mm. Distal Basilic vein depth measures 6.7 mm. Left Lower Arm Proximal Radial artery diameter 1.8 x 2.1 mm. Proximal Radial artery waveform is triphasic . Proximal Lateral Radial vein diameter 1.1 x 1.2 mm. Proximal Medial Radial vein diameter 1.4 x 1.7 mm. Distal Radial artery diameter 1.6 x 1.7 mm. Distal Lateral Radial vein diameter 1.3 x 1.4 mm. Distal Medial Radial vein diameter 1.9 x 1.9 mm. Proximal Ulnar artery diameter 2.9 x 3.3 mm. Proximal Ulnar artery waveform is triphasic . Proximal Lateral Ulnar vein diameter 3.2 x 3.3 mm. Proximal Medial Ulnar vein diameter 3.4 x 3.7 mm. Distal Ulnar artery diameter 1.3 x 1.2 mm. Distal Lateral Ulnar vein diameter 0.4 x 0.6 mm. Distal Medial Ulnar vein diameter 0.8 x 0.7 mm. VL/Dialysis Vein Map PRE-OP BILAT Interpretation Summary Bilateral upper extremity veins patent with measurements above. Bilateral upper extremity arteries patent with normal triphasic waveforms and m easurements above. Ordering Physician: Jose E Roberson Referring Physician: Timmy Goldstein MD Performed By: Karen Hwang RVT ???
--- OUTSIDE RECORDS SUMMARY | 2023-07-19 13:12 | XMS RPT_ITS | CCD ---
Author Name Unknown Address [facility] [facility] [address] [place] [address] Organization [facility] Care Team Providers Care Rn Clinical Quality Name Role Phone RADHA HERNÁNDEZ Unavailable JUAN [...] to adverse reactions to drug (disorder) [facility] Repository Results Test Name Value Interpretation Reference Range Facil ity Encounters Encounter Date Encounter Type Care Provider Facility Start: 01-08-2017 Ambulatory [facility] Start: 01-01-2017 End: 01-01-2017 Ambulatory [facility] pital Start: 12-25-2016 Ambulatory [facility] Payers Date Payer Category Payer Policy ID Unknown [id number] Summary Purpose Family History No Family History [...] BE BASED ON THE PRIMARY CLINICAL RECORDS. [facility] [employer] [facility]. provides no warranty or guarantee of the accuracy or completeness of information in this document.
== END | disposition home or self-care (01) ==
LOC: CVS 11:07
PROVIDERS: PCP Family Medicine; Referring Provider Internal Medicine Nephrology; Visit Provider Internal Medicine Nephrology
DX: N18.6 End stage renal disease (principal)
CPT/HCPCS: 93985

== ENCOUNTER 2024-06-25 16:06 | Inpatient (IN) | payer MEDICAID, SELFPAY ==
[2024-06-25] VITALS (9 sets, daily range): BP systolic 185–235; BP diastolic 97–141; PULSE 90–102; RESP 18–26; TEMP 36.4–36.9; O2SAT 94–100; BMI 26.6; BMI 23.3
--- NOTE | 2024-06-25 17:04 | EKG12_ITS ---
Test Reason : Blood Pressure : */* mmHG Vent. Rate : 105 BPM Atrial Rate : 105 BPM P-R Int : 140 ms QRS Dur : 84 ms QT Int : 380 ms P-R-T Axes : 85 75 50 degrees QTcB Int : 502 ms Sinus tachycardia with occasional Premature ventricular complexes Minimal voltage criteria for LVH, may be normal variant ( Sokolow-Shrestha ) Nonspecific ST and T wave abnormality Abnormal ECG Confirmed by Theo Godinez ([id number]), development editor FERNANDO SEQUEIRA ([id number]) on 06/26/2024 10:22:36 AM Referred By: Confirmed By: Theo Godinez
--- NOTE | 2024-06-25 17:29 | RAD_ITS ---
INDICATION: sob EXAMINATION/TECHNIQUE: X-RAY - XR Chest 2 Views COMPARISON: 06/29/2023. FINDINGS: Subtle patchy interstitial and airspace opacities. Tortuous and calcified thoracic aorta. The heart is mildly enlarged. Right-sided hemodialysis catheter. No pleural effusion or pneumothorax. Degenerative changes of the thoracic spine. RAD/Chest PA and Lateral IMPRESSION: Subtle patchy interstitial and airspace opacities may represent edema and/or infection. Electronically Signed: Timmy Zarate MD at 18:06 EST ,
[2024-06-25 18:00] LABS: Absolute Lymphocyte Count 1.18 X10^3/uL (0.83-4.51); Basophil# 0.05 X10^3/uL; Eosinophils% 4.1 % (0-5); Hematocrit 22.6 % (37-47); Hemoglobin 8.4 g/dL (12.0-15.0); Lymphocyte # 1.18 X10^3/ul (0.83-4.51); Lymphocyte % 24.1 % (19-41); Mean Corp Hgb Conc 37.2 g/dL (32-36); Mean Corpuscular Hgb 29.6 pg (27.0-32.0); Mean Corpuscular Volume 79.6 fL (81-99); Mean Platelet Vol. 9.2 fl (6.2-12.0); Monocyte# 0.46 X10^3/uL; Monocyte% 9.4 % (0-10); NRBC Flagged by Analyzer 0 % (0-5); Neutrophil # 2.99 X10^3/uL (2.7-7.7); Platelet Count 134 K/mm3 (150-450); RBC Distribution Width CV 16.4 % (11.6-14.6); RBC Distribution Width SD 47.2 fl (35.1-43.9); Red Blood Count 2.84 M/mm3 (4.2-5.4); White Blood Count 4.9 K/mm3 (4.4-11.0)
[2024-06-25 18:20] LABS: ALB/GLOB Ratio 1.1 RATIO (0.9-2.4); AST(SGOT) 80 U/L (15-37); Alanine Aminotransfer ALT/SGPT 43 U/L (13-56); Albumin, Serum 3.3 g/dL (3.2-5.0); Alkaline Phosphatase 54 U/L (45-117); Anion Gap 8 (5-15); BUN 47 mg/dL (7-18); BUN/Creat Ratio 3.5 RATIO (10-20); Calcium,Total 8.3 mg/dL (8.5-10.1); Chloride 97 mmol/L (98-107); EST Glomerular Filtration Rate 3 mL/min (>60); Est Glom Filt Rate - Afr Amer 4 mL/min (>60); Estimated Creatinine Clearance 4.32 ml/min; Globulin 2.9 g/dL (2.2-4.2); Glucose 120 mg/dL (74-106); Magnesium 2.6 mg/dL (1.6-2.6); Protein, Total 6.2 g/dL (6.4-8.2); Sodium Level 130 mmol/L (136-145); Troponin-I HS 137 pg/mL (3.0-54.0)
--- NOTE | 2024-06-25 18:20 | ED.RN ---
Dr. Pacheco notified of troponin 137 and Creat of 13.5
[2024-06-25 18:28] LABS: BNP,B-Type NATRIURETIC PEPTIDE 3593.2 pg/mL (0-100)
--- NOTE | 2024-06-25 19:13 | EDS_ITS ---
HPI History of Present Illness Chief Complaint: Shortness of Breath Informant: patient Narrative Narrative: Patient is a 49-year-old female with history of end-stage renal disease on hemodialysis (normally Sunday), hypertension (states she takes Norvasc, metoprolol which is started on clonidine patch) and anemia presenting for shortness of breath. Patient states she has been having shortness of breath that is worsened over the past 3 months. She states is now some mild cough and mucus production. She states that over the past 2 months has been spitting up a lot of phlegm. Today she had some swelling of her legs. 1 point she did have a fever but did not actually check her temperature she just felt hot and cold. She notes that when she lays back she feels that she is gasping. She denies any chest pain. She missed 2 rounds of dialysis last week, once for not feeling well and the other because her kids were home from school. She did have a full session of dialysis today. Her speech language pathologist is Dr. Roberson. She denies any known lung issues such as asthma or COPD. She tells me that she did forget to take her blood pressure medication today. Patient also notes that she has been having some intermittent diarrhea and did have an episode of facial swelling that is since resolved. [facility] Medical History Hypocalcemia ESRD (end stage renal disease) on dialysis Smoker Acute kidney injury Home Medications ?Medication ?Instructions ?Recorded ?Last Taken ?Type amlodipine 10 mg tablet 10 mg PO DAILY #30 tabs 07/03/23 Unknown Rx clonidine 0.1 mg/24 hr weekly 1 patch topical QWEEK 06/25/24 Unknown History transdermal patch metoprolol succinate 100 mg 100 mg PO DAILY 06/25/24 Unknown History tablet,extended release 24 hr Allergy/AdvReac Type Severity Reaction Status Date / Time Antihistamines - Alkylamine Allergy Swelling Verified 06/25/24 16:07 Penicillins Allergy Hives Verified 06/25/24 16:07 Social History Smoking Status: Heavy Smoker (>10/day) ROS ROS ED Constitutional Constitutional ED: Reports chills; Denies sweats ENT ENT ED: Reports other Details: Hoarse voice, dry mouth, congestion ; Denies sore throat Cardiovascular Cardiovascular: Reports orthopnea; Denies chest pain or palpitations Respiratory/Chest Respiratory/Chest: Reports cough, dyspnea on exertion and orthopnea Gastrointestinal Gastrointestinal: Reports diarrhea; Denies abdominal pain, nausea or vomiting Musculoskeletal Musculoskeletal: Denies arthralgias or myalgias Integumentary Denies rash Neurologic Neurologic: Denies headache(s) Psychiatric Psychiatric: Denies anxiety Hematologic/Lymphatic Hematologic/Lymphatic: Denies easy bleeding or easy bruising EXAM Physical Exam Const Vital Signs: 06/25/24 16:07 06/25/24 16:21 06/25/24 18:06 Temperature 98.4 F Temperature Source Oral Pulse Rate 91 102 H Respiratory Rate 20 H Respiratory Effort Short of Breath Respiratory Pattern Tachypnea Blood Pressure 225/137 H 235/136 H Blood Pressure Mean 166 169 Pulse Ox 100 Oxygen Delivery Method Room Air Room Air 06/25/24 19:25 06/25/24 20:44 Temperature 98.2 F Temperature Source Pulse Rate 97 90 Respiratory Rate 25 H 18 Respiratory Effort Respiratory Pattern Blood Pressure 185/110 H 210/124 H Blood Pressure Mean 135 152 Pulse Ox 98 94 Oxygen Delivery Method Room Air Positive well nourished and well developed General Appearance ED: well developed and NAD HEENT Reports moist mucous membranes Eyes PERRL Neck supple Neck Narrative: JVD present Resp normal respiratory effort and clear to auscultation bilaterally Auscultation: Negative for rales, rhonchi or wheezes Cardio regular rhythm and no murmurs Rate: tachycardic GI non-tender and non-distended Auscultation: normoactive bowel sounds Extremity normal to inspection General Extremety ED: Negative for edema or tenderness General Extremity: Negative for edema Neuro oriented x3 Sensorium / Orientation: alert Motor Exam: Negative for general weakness Psych mental status grossly normal Skin no wounds and skin turgor normal MDM MDM MDM Narrative Medical decision making narrative: Patient is evaluated for worsening shortness of breath, dyspnea on exertion and orthopnea. Patient is of a history of hypertension and stage renal disease on hemodialysis. She admits to episodes of dialysis over the last week. She had dialysis before coming in today. Patient's vital signs significant for hypertension. Patient states she might of forgotten to take her blood pressure medicine today but she is wearing her clonidine patch. She is also tachycardic in the emergency room. On exam patient has JVD but no peripheral edema and clear breath sounds. Cardiac workup obtained including CBC, CMP, high sensitive troponin, BNP, chest x-ray and EKG. CBC shows normal white blood cell count. She is chronic anemia with hemoglobin 8.4 which is stable/at her baseline. Creatinine significantly elevated at 13.5 however she does have an stage renal disease. Patient does have an elevation of her high sensitive troponin at 137 and then 158. It is possible that some of this elevation is due to her decreased renal clearance from her dialysis we do not have any baselines to compare to. Is also possible this could be secondary to fluid overload/hypertension. Patient is given 20 mg IV labetalol in the emergency room with some improvement of her blood pressure. Heart rate also improved. Her BNP is elevated however this is unreliable marker given her in stage renal disease. Patient is ambulated the emergency room and desaturates to 74%. She is quite symptomatic during this. She does rebound with rest. Given this pretty profound desaturation we will admit the patient. Spoke with Dr. Roberson?he is amenable to having the patient dialyzed inpatient. I suspect the patient likely is fluid overloaded. Chest x-ray is consistent with interstitial airways disease. On my interpretation is more consistent with fluid overload. Case discussed with hospitalist patient be admitted for further fluid management and cardiac evaluation as well as blood pressure control. Lab Data Attestation: I reviewed the patient's lab results. Labs: Laboratory Results - last 24 hr 06/25/24 06/25/24 17:46 19:41 WBC 4.9 RBC 2.84 L Hgb 8.4 L Hct 22.6 L MCV 79.6 L MCH 29.6 MCHC 37.2 H RDW Std Deviation 47.2 H RDW Coeff of Miriam 16.4 H Plt Count 134 L MPV 9.2 Immature Gran % (Auto) 0.400 Neut % (Auto) 61.0 Lymph % (Auto) 24.1 Cavalier % (Auto) 9.4 Eos % (Auto) 4.1 Baso % (Auto) 1.0 Absolute Neuts (auto) 3.0 Absolute Lymphs (auto) 1.18 Nucleated RBC % 0 Sodium 130 L Potassium 4.0 Chloride 97 L Carbon Dioxide 25.0 Anion Gap 8 BUN 47 H Creatinine 13.50 H* Estim Creat Clear Calc 4.32 Est GFR (MDRD) Af Amer 4 L Est GFR (MDRD) Non-Af 3 L BUN/Creatinine Ratio 3.5 L Glucose 120 H Calcium 8.3 L Magnesium 2.6 Total Bilirubin 0.40 AST 80 H ALT 43 Alkaline Phosphatase 54 Troponin I High Sens 137 H* 156 H* B-Natriuretic Peptide 3593.2 H Total Protein 6.2 L Albumin 3.3 Globulin 2.9 Albumin/Globulin Ratio 1.1 Radiography Diagnostic Testing: Clinical Impression(s) from Imaging Studies Chest X-Ray 06/25/24 17:29 IMPRESSION: Subtle patchy interstitial and airspace opacities may represent edema and/or infection. Electronically Signed: Timmy Zarate MD at 18:06 EST , Rhythm Strip Rhythm Strip: Sinus Tach Rate: 105 Ectopy: None EKG Initial EKG: Attestation: I personally reviewed and interpreted this EKG as follows: Interpretation: Sinus Tachycardia Comments: Sinus tachycardia with occasional PVCs at a rate of 105 bpm Minimal which is criteria for LVH Normal axis Nonspecific T wave changes Prior EKG tracings: not available for review Management Discussion w/another healthcare provider: Hospitalist and Electro Optical Engineer Discharge Plan Dx/Rx/DC Orders Clinical Impression: Hypertension, ESRD (end stage renal disease), Dyspnea, Volume overload Disposition Disposition: Acute Care Hospital [facility] Discharge Date/Time: 06/25/24 21:46
[2024-06-25 20:22] LABS: Troponin-I HS 156 pg/mL (3.0-54.0)
--- NOTE | 2024-06-25 20:40 | PCM.HP.STD ---
HPI - General General Date of Admission: 06/25/24 Date of Service: 06/25/24 Chief Complaint: Worsening shortness of breath HPI Narrative ELIJAH MARSHALL, is a 49 F who presented to [facility] ED on 06/25/2024 with worsening shortness of breath. Patient has history of ESRD and is on HD Sunday. She did have her dialysis session done today but reports missing 2 dialysis sessions last week, once for not feeling well and the other because her kids were home from school. She follows with Dr. Roberson and otherwise reports good compliance with dialysis sessions. Patient notes that over the past few months she has had intermittent shortness of breath with mild cough with whitish sputum production. She notes that the symptoms have worsened over the last week or so. She has significant shortness of breath especially when laying flat. She denies any history of lung issues and has never been on home oxygen. On arrival to the ED she was significantly hypertensive with blood pressure in the 220s over 130s. Her oxygen saturations were in the mid 90s on room air but she desaturated to the 80s with ambulation. Labs were notable for sodium 130 and chloride 97, down from baseline suspected secondary to hypervolemia. Troponin trend 137 to 156. She was given IV labetalol with some improvement in her blood pressure. Hospitalist was then contacted for admission. I saw the patient at bedside in the ED. Patient was breathing comfortably on room air at rest with good saturations. She was mildly fatigued appearing and somewhat anxious but was otherwise answering questions appropriately. States that she does still make some urine, urinates at least 3-4 times daily. She denies any fevers or chills. Denies any other recent infectious symptoms. No other acute concerns at this time. [facility] Medical History Hypocalcemia ESRD (end stage renal disease) on dialysis Smoker Acute kidney injury Home Medications ?Medication ?Instructions ?Recorded ?Last Taken ?Type amlodipine 10 mg tablet 10 mg PO DAILY #30 tabs 07/03/23 Unknown Rx clonidine 0.1 mg/24 hr weekly 1 patch topical QWEEK 06/25/24 Unknown History transdermal patch metoprolol succinate 100 mg 100 mg PO DAILY 06/25/24 Unknown History tablet,extended release 24 hr Allergy/AdvReac Type Severity Reaction Status Date / Time Antihistamines - Alkylamine Allergy Swelling Verified 06/25/24 16:07 Penicillins Allergy Hives Verified 06/25/24 16:07 Social History Smoking Status: Heavy Smoker (>10/day) ROS Constitutional Constitutional: Reports fatigue; Denies chills, fever(s) or weakness Eyes Eyes: Denies change in vision ENT HEENT: Denies nasal congestion or nasal discharge Cardiovascular Cardiovascular: Reports dyspnea on exertion and orthopnea; Denies chest pain, lightheadedness or palpitations Respiratory/Chest Respiratory/Chest: Reports cough, productive cough, shortness of breath at rest and shortness of breath with exertion; Denies wheezing Gastrointestinal Gastrointestinal: Denies abdominal pain, constipation, diarrhea, nausea or vomiting Genitourinary Genitourinary: Denies dysuria Neurologic Neurologic: Denies dizziness, focal weakness or headache(s) Vital Signs Vital Signs Vital Signs: 06/25/24 16:07 06/25/24 16:21 06/25/24 18:06 Temperature 98.4 F Temperature Source Oral Pulse Rate 91 102 H Respiratory Rate 20 H Respiratory Effort Short of Breath Respiratory Pattern Tachypnea Blood Pressure 225/137 H 235/136 H Blood Pressure Mean 166 169 Pulse Ox 100 Oxygen Delivery Method Room Air Room Air 06/25/24 19:25 Temperature Temperature Source Pulse Rate 97 Respiratory Rate 25 H Respiratory Effort Respiratory Pattern Blood Pressure 185/110 H Blood Pressure Mean 135 Pulse Ox 98 Oxygen Delivery Method Room Air Weight Weight: 64 kg Body Mass Index (BMI) 26.6 Physical Exam Const alert, oriented x3, no apparent distress and average body habitus Constitutional Narrative: Middle-age female, mildly fatigued appearing but otherwise sitting up comfortably in bed, conversing normally, in no acute distress. General Appearance: cooperative and comfortable HEENT normocephalic, head/scalp atraumatic, hearing grossly normal bilaterally, nasal mucous membranes and turbinates normal and moist oral mucous membranes Eyes PERRL, EOMs intact bilaterally and conjunctivae normal Neck full ROM Chest inspection of chest normal Chest Narrative: Right sided dialysis catheter noted, site appears clean and dry. Resp normal respiratory effort and no use of accessory muscles Resp Narrative: Breathing comfortably on room air at rest. Decreased breath sounds in bilateral lung bases with crackles noted throughout, no wheezing noted. Cardio regular rate, regular rhythm, no murmurs and peripheral pulses 2+ throughout GI normal to inspection, nondistended, normoactive bowel sounds, soft to palpation, non-tender and non-distended Back/Spine normal ROM Extremity normal to inspection Extremity Narrative: +1-2 lower extremity nonpitting edema. Skin no rashes or lesions noted Neuro moves all extremities and no focal motor deficits Speech: speech normal Psych mental status grossly normal Mood & Affect: anxious Results Lab / Micro Data 06/25/24 17:46 06/25/24 17:46 Labs: Laboratory Results - last 24 hr 06/25/24 17:46: WBC 4.9, RBC 2.84 L, Hgb 8.4 L, Hct 22.6 L, MCV 79.6 L, MCH 29.6, MCHC 37.2 H, RDW Std Deviation 47.2 H, RDW Coeff of Miriam 16.4 H, Plt Count 134 L, MPV 9.2, Immature Gran % (Auto) 0.400, Neut % (Auto) 61.0, Lymph % (Auto) 24.1, [place] % (Auto) 9.4, Eos % (Auto) 4.1, Baso % (Auto) 1.0, Absolute Neuts (auto) 3.0, Absolute Lymphs (auto) 1.18, Nucleated RBC % 0, Sodium 130 L, Potassium 4.0, Chloride 97 L, Carbon Dioxide 25.0, Anion Gap 8, BUN 47 H, Creatinine 13.50 H*, Estim Creat Clear Calc 4.32, Est GFR (MDRD) Af Amer 4 L, Est GFR (MDRD) Non-Af 3 L, BUN/Creatinine Ratio 3.5 L, Glucose 120 H, Calcium 8.3 L, Magnesium 2.6, Total Bilirubin 0.40, AST 80 H, ALT 43, Alkaline Phosphatase 54, Troponin I High Sens 137 H*, B-Natriuretic Peptide 3593.2 H, Total Protein 6.2 L, Albumin 3.3, Globulin 2.9, Albumin/Globulin Ratio 1.1 06/25/24 19:41: Troponin I High Sens 156 H* Micro: Microbiology 06/25/24 17:46 Mucosa - Nose SARS-CoV-2, Influenza & RSV (PCR) - Final Rhythm Strip Rhythm Strip: Sinus Tach Rate: 105 Ectopy: None Imaging Radiology Impression Chest X-Ray 06/25/24 17:29 IMPRESSION: Subtle patchy interstitial and airspace opacities may represent edema and/or infection. Electronically Signed: Timmy Zarate MD at 18:06 EST , Assessment & Plan Assessment/Plan (1) Volume overload: (2) Dyspnea: (3) ESRD (end stage renal disease): (4) Hypertension: PLAN: Plan Patient is a 49-year-old female who presented [facility] ED on 06/25/2024 with worsening shortness of breath. 1. Volume overload with acute hypoxia on exertion in setting of ESRD on HD with missed dialysis sessions ? Admit under inpatient status to PCU. Nephrology consulted. On MWF dialysis normally, last HD sessions on 06/25. Suspect volume overload is secondary to missed dialysis sessions last week. Hypoxia presumed secondary to volume overload. Given severe hypertension and elevated troponins, cannot rule out some degree of heart failure. Echo ordered. Per nephrology, planning for HD again on 06/26 and 06/27. Wean supplemental oxygen as able. 2. Severe hypertension ? Hypertensive to the 220s over 130s on admit. Presume secondary to missed home meds earlier today and volume overload. Continue home amlodipine, Toprol and clonidine patch. IV hydralazine ordered as needed. Anticipate that blood pressure will improve after volume removal with dialysis. 3. Elevated troponins ? Troponins 137 > 156. No EKG changes or chest pain noted. Suspected secondary to demand ischemia in setting of severe hypertension with volume overload. Echo ordered as above. 4. Chronic anemia ? Hemoglobin 8.4 on admit, at baseline. 5. Hyponatremia ? Sodium 130 on admit, baseline sodium 135-140. Presumed secondary to volume overload. Follow-up sodium level after dialysis sessions. DVT prophylaxis: Heparin subcu CODE STATUS: Full code, verified Expected disposition: Home, 2 to 3 days Total clinical time spent by myself addressing the patient's medical issues, reviewing all the data, and collaborating with patient's care team: 55 minutes. Charges/Coding Visit Charges Inpatient E&M: 12429 Init Hosp L2
[2024-06-25] MEDS: hydrALAZINE 20 MG/ML Vial IV (21:11)
--- NOTE | 2024-06-25 21:48 | ECHOD_ITS ---
Reason For Study: CHF Procedure This was a 2D Doppler, Color Flow transthoracic echocardiogram. Patient had a hard time remaining still for exam. Exam performed portable in patient room. Left Ventricle Normal LV size. The estimated ejection fraction is 55 %. No evidence for diastolic dysfunction. No regional wall motion abnormalities noted. Right Ventricle Normal RV size. Normal systolic function. Atria The left atrium is mildly enlarged. Normal right atrium. No doppler evidence for ASD. Mitral Valve There is no mitral valve stenosis. Trivial mitral valve insufficiency. Tricuspid Valve There is no tricuspid stenosis. Mild to moderate (1-2+) tricuspid valve insufficiency. Pulmonary artery systolic pressure is 60 mmHg. Aortic Valve Trisinus/trileaflet aortic valve. There is no aortic stenosis. No aortic valve insufficiency. Pulmonic Valve There is no pulmonic valvular stenosis. No pulmonic valve insufficiency. Great Vessels Normal aortic root. Pericardium/Pleural No pericardial effusion. MMode/2D Measurements & Calculations LVIDd: 5.0 cm IVSd: 1.6 cm Ao root diam: 2.6 cm LVIDs: 3.4 cm LVPWd: 1.6 cm FS: 31.5 % LAV(MOD-bp): 70.5 ml LVAd ap4: 31.3 cm2 SV(MOD-sp4): 56.7 ml LAV(MOD-bp) Indexed: 44.0 ml/m2 LVLd ap4: 8.4 cm SI(MOD-sp4): 35.4 ml/m2 LAV(MOD-sp2): 67.4 ml EDV(MOD-sp4): 97.5 ml LAV(MOD-sp4): 66.4 ml EDV(sp4-el): 99.3 ml LVAs ap4: 18.0 cm2 LVLs ap4: 6.7 cm ESV(MOD-sp4): 40.8 ml ESV(sp4-el): 41.2 ml EF(MOD-sp4): 58.2 % EF(sp4-el): 58.5 % SV(sp4-el): 58.1 ml LA A4 area: 21.0 cm2 LA dimension(2D): 4.4 cm RA A4 area: 17.5 cm2 Time Measurements MV dec time: 0.13 sec Doppler Measurements & Calculations MV E max vick: 115.3 cm/sec Lat Peak E' Ivck: 9.7 cm/sec Med Peak E' Vick: 7.9 cm/sec MV A max vick: 75.1 cm/sec E/E' lat: 11.9 E/E' med: 14.7 MV E/A: 1.5 MV V2 max: 133.1 cm/sec MV P1/2t max vick: 136.2 cm/sec Ao V2 max: 168.3 cm/sec MV max P.1 mmHg MV P1/2t: 51.6 msec Ao max P.3 mmHg MV V2 mean: 75.6 cm/sec MV mean P.7 mmHg MV dec slope: 773.6 cm/sec2 MV V2 VTI: 30.2 cm MVA(P1/2t): 4.3 cm2 LV V1 max: 134.9 cm/sec MR max vick: 657.8 cm/sec PA V2 max: 109.2 cm/sec LV V1 max P.3 mmHg MR max P.1 mmHg MR mean vick: 514.6 cm/sec MR mean P.6 mmHg MR VTI: 200.1 cm TR max vick: 364.4 cm/sec TR max P.1 mmHg ECHO/Echo Complete Interpretation Summary The estimated ejection fraction is 55 %. No evidence for diastolic dysfunction. The left atrium is mildly enlarged. Trivial mitral valve insufficiency. Pulmonary artery systolic pressure is 60 mmHg. Ordering Physician: Viktor Hagen Performed By: Reji King RCS
[2024-06-25] MEDS: Bumetanide 1 MG/4 ML Vial 4 MG IV (22:08)
[2024-06-25] MEDS: Heparin Injection (Vial) 5,000 UNIT/ML VIAL 5000 UNIT SC (22:09)
[2024-06-26] VITALS (19 sets, daily range): BP systolic 90–220; BP diastolic 85–121; PULSE 79–97; RESP 12–20; TEMP 36.5–37.5; O2SAT 97–100; BMI 23.2; BMI 22.0
[2024-06-26] MEDS: LORazepam 2 MG/ML Syringe 0.5 MG IV (00:10)
[2024-06-26] MEDS: hydrALAZINE 20 MG/ML Vial 10 MG IV ×5 (00:35→20:54)
[2024-06-26 08:05] LABS: Hematocrit 23.5 % (37-47); Hemoglobin 8.4 g/dL (12.0-15.0); Mean Corp Hgb Conc 35.7 g/dL (32-36); Mean Corpuscular Hgb 29.9 pg (27.0-32.0); Mean Corpuscular Volume 83.6 fL (81-99); Mean Platelet Vol. 10.5 fl (6.2-12.0); Platelet Count 143 K/mm3 (150-450); RBC Distribution Width CV 16.1 % (11.6-14.6); RBC Distribution Width SD 49.7 fl (35.1-43.9); Red Blood Count 2.81 M/mm3 (4.2-5.4); White Blood Count 5.9 K/mm3 (4.4-11.0)
--- NOTE | 2024-06-26 08:34 | PN.HOSP_ITS ---
Reason for Visit Reason for Visit: Diagnoses Fluid overload, unspecified (06/25/24) Essential (primary) hypertension (06/25/24) End stage renal disease (06/25/24) Dyspnea, unspecified (06/25/24) Subjective Subjective Patient is a 49-year-old lady with history of hypertension, end-stage renal disease on hemodialysis presented to the emergency department. Patient had apparently missed a couple of dialysis sessions. An assessment of acute congestive heart failure was made admitted to a monitored bed for further management Objective Data Objective Data Vital Signs: Vital Signs Temp Pulse Resp BP Pulse Ox O2 Del Method O2 Flow Rate 99.0 F 94 20 H 187/93 H 98 Nasal Cannula 2 06/26/24 03:30 06/26/24 04:31 06/26/24 03:30 06/26/24 04:31 06/26/24 03:30 06/26/24 03:30 06/26/24 03:30 Oxygen Flow Rate (L/min) 2 Oxygen Delivery Method Nasal Cannula Weight: 61.8 kg Body Mass Index (BMI) 23.3 Intake & Output: Intake and Output for Last 24 Hours 06/24/24 06/25/24 06/26/24 23:59 23:59 23:59 Intake Total 120 / 120 Balance 120 / 120 Lab / Micro Data 06/26/24 07:35 06/26/24 07:35 Labs: Laboratory Results - last 24 hr 06/25/24 17:46: WBC 4.9, RBC 2.84 L, Hgb 8.4 L, Hct 22.6 L, MCV 79.6 L, MCH 29.6, MCHC 37.2 H, RDW Std Deviation 47.2 H, RDW Coeff of Miriam 16.4 H, Plt Count 134 L, MPV 9.2, Immature Gran % (Auto) 0.400, Neut % (Auto) 61.0, Lymph % (Auto) 24.1, [place] % (Auto) 9.4, Eos % (Auto) 4.1, Baso % (Auto) 1.0, Absolute Neuts (auto) 3.0, Absolute Lymphs (auto) 1.18, Nucleated RBC % 0, Sodium 130 L, Potassium 4.0, Chloride 97 L, Carbon Dioxide 25.0, Anion Gap 8, BUN 47 H, C reatinine 13.50 H*, Estim Creat Clear Calc 4.32, Est GFR (MDRD) Af Amer 4 L, Est GFR (MDRD) Non-Af 3 L, BUN/Creatinine Ratio 3.5 L, Glucose 120 H, Calcium 8.3 L, Magnesium 2.6, Total Bilirubin 0.40, AST 80 H, ALT 43, Alkaline Phosphatase 54, Troponin I High Sens 137 H*, B-Natriuretic Peptide 3593.2 H, Total Protein 6.2 L , Albumin 3.3, Globulin 2.9, Albumin/Globulin Ratio 1.1 06/25/24 19:41: Troponin I High Sens 156 H* 06/26/24 07:35: WBC 5.9, RBC 2.81 L, Hgb 8.4 L, Hct 23.5 L, MCV 83.6 D, MCH 29.9, MCHC 35.7, RDW Std Deviation 49.7 H, RDW Coeff of Miriam 16.1 H, Plt Count 143 L, MPV 10.5 Micro: Microbiology 06/25/24 17:46 Mucosa - Nose SARS-CoV-2, Influenza & RSV (PCR) - Final Radiography Diagnostic Testing: Radiology Impression Chest X-Ray 06/25/24 17:29 IMPRESSION: Subtle patchy interstitial and airspace opacities may represent edema and/or infection. Electronically Signed: Timmy Zarate MD at 18:06 EST , Rhythm Strip Rhythm Strip: Sinus Tach Rate: 105 Ectopy: None Physical Exam Narrative GENERAL: cooperative HEENT: Atraumatic; normocephalic EYES; Anicteric, Normal Conjunctiva NECK; supple, normal thyroid, RESPIRATORY: Diminished to auscultation CARDIOVASCULAR: Regular S1 S2, GI: soft, normoactive bowel sounds, : No Renal angle tenderness; EXTREMITIES: No edema, no clubbing, MUSCULOSKELETAL: no muscle wasting NEURO: Awake; no lateralizing signs. SKIN: No Rash PSYCH; Flat affect Assessment & Plan Assessment/Plan (1) Volume overload: (2) Dyspnea: (3) ESRD (end stage renal disease): (4) Hypertension: PLAN: Plan Patient is a 49-year-old lady with history of hypertension, end-stage renal disease on hemodialysis presented to the emergency department. Patient had apparently missed a couple of dialysis sessions. An assessment of acute congestive heart failure was made admitted to a monitored bed for further management 1. Acute hypoxia ? Secondary to acute congestive heart failure from fluid overload following patient missing dialysis. Admitted to the progressive care unit consult placed to nephrology for dialysis to manage patient fluid overload 2. End-stage renal disease on dialysis Wednesdays and Fridays ? Patient was counseled on the need to be compliant with her sessions consult placed to nephrology 2. Acute hypertensive emergency ? Patient systolic blood pressure on admission was 220/130. Did continue patient home meds and hydralazine added as needed to keep blood pressure less than 160 4. Elevated troponin ? Secondary to demand ischemia from patient acute hypoxia and elevated blood pressure 5. Chronic hyponatremia ? Secondary to ESRD 6. Anemia ? Secondary to chronic disorder monitoring H&H and transfuse if patient becomes symptomatic or hemoglobin falls below 7 7. DVT prophylaxis ? Subcu heparin Time spent in the patient's overall evaluation,decision-making process, review of diagnostic data, adjustment of management, discussion with other providers, nursing nursing and ancillary staff involved in patient's care documentation, 52 Minutes Charges/Coding Visit Charges Inpatient E&M: 69870 Subs Hosp L3
[2024-06-26 08:44] LABS: Anion Gap 11 (5-15); BUN 53 mg/dL (7-18); BUN/Creat Ratio 3.5 RATIO (10-20); Calcium,Total 8.6 mg/dL (8.5-10.1); Chloride 96 mmol/L (98-107); EST Glomerular Filtration Rate 3 mL/min (>60); Est Glom Filt Rate - Afr Amer 3 mL/min (>60); Estimated Creatinine Clearance 3.92 ml/min; Glucose 96 mg/dL (74-106); Potassium 4.3 mmol/L (3.5-5.1); Sodium Level 130 mmol/L (136-145)
[2024-06-26] MEDS: amLODIPine 10 MG Tablet PO (10:18)
[2024-06-26] MEDS: Metoprolol(XL)Succ 100 MG Tablet PO (10:18)
[2024-06-26] MEDS: Heparin Injection (Vial) 5,000 UNIT/ML VIAL 5000 UNIT SC ×2 (10:20→20:44)
[2024-06-26] MEDS: 0.9% Saline Lock 10 ML Syringe IV ×5 (10:29→20:55)
[2024-06-26] MEDS: cloNIDine HCl 0.1 MG Patch TD (10:35)
[2024-06-26] MEDS: Ondansetron 4 MG/2 ML Vial IV (12:19)
--- NOTE | 2024-06-26 13:30 | PCM.CONS.R ---
Assessment & Plan Assessment/Plan (1) ESRD (end stage renal disease): PLAN: On hemodialysis Sunday, Sunday, Sunday. Had dialysis yesterday. Presented with shortness of breath. She says has been building up for several days now. Chest x-ray was somewhat wet. In general she runs high blood pressure but any attempts at fluid removal she starts cramping. Multiple medication adjustments for her hypertension recently. We will plan for isolated ultrafiltration today with 2 to 3 L of volume removal. HPI Consult Data Date of Consult: 06/26/24 HPI Narrative Reason for Consultation: ESRD HPI Narrative: ELIJAH MARSHALL, is a 49 F who presents To the hospital with shortness of breath. Chest x-ray in ER showed mild pulmonary edema. Was saturating okay at rest but on walking test had significant desaturation. Admitted here for dialysis. Currently alert, awake. Other than some shortness of breath denies any other complaints. Last full dialysis yesterday. [facility] Medical History Hypocalcemia ESRD (end stage renal disease) on dialysis Smoker Acute kidney injury Home Medications ?Medication ?Instructions ?Recorded ?Last Taken ?Type amlodipine 10 mg tablet 10 mg PO DAILY #30 tabs 07/03/23 Unknown Rx clonidine 0.1 mg/24 hr weekly 1 patch topical QWEEK 06/25/24 Unknown History transdermal patch metoprolol succinate 100 mg 100 mg PO DAILY 06/25/24 Unknown History tablet,extended release 24 hr Allergy/AdvReac Type Severity Reaction Status Date / Time Antihistamines - Alkylamine Allergy Swelling Verified 06/25/24 16:07 Penicillins Allergy Hives Verified 06/25/24 16:07 Social History Smoking Status: Heavy Smoker (>10/day) ROS ROS Narrative negative except above Physical Exam Narrative Alert awake oriented x 3 no obvious distress no pallor no icterus no JVD s1s2 no murmurs lungs clear abdomen soft no organomegaly no edema no cyanosis Lab / Micro Data 06/26/24 07:35 06/26/24 07:35 Labs: Laboratory Results - last 24 hr 06/25/24 17:46: WBC 4.9, RBC 2.84 L, Hgb 8.4 L, Hct 22.6 L, MCV 79.6 L, MCH 29.6, MCHC 37.2 H, RDW Std Deviation 47.2 H, RDW Coeff of Miriam 16.4 H, Plt Count 134 L, MPV 9.2, Immature Gran % (Auto) 0.400, Neut % (Auto) 61.0, Lymph % (Auto) 24.1, [place] % (Auto) 9.4, Eos % (Auto) 4.1, Baso % (Auto) 1.0, Absolute Neuts (auto) 3.0, Absolute Lymphs (auto) 1.18, Nucleated RBC % 0, Sodium 130 L, Potassium 4.0, Chloride 97 L, Carbon Dioxide 25.0, Anion Gap 8, BUN 47 H, Creatinine 13.50 H*, Estim Creat Clear Calc 4.32, Est GFR (MDRD) Af Amer 4 L, Est GFR (MDRD) Non-Af 3 L, BUN/Creatinine Ratio 3.5 L, Glucose 120 H, Calcium 8.3 L, Magnesium 2.6, Total Bilirubin 0.40, AST 80 H, ALT 43, Alkaline Phosphatase 54, Troponin I High Sens 137 H*, B-Natriuretic Peptide 3593.2 H, Total Protein 6.2 L, Albumin 3.3, Globulin 2.9, Albumin/Globulin Ratio 1.1 06/25/24 19:41: Troponin I High Sens 156 H* 06/26/24 07:35: WBC 5.9, RBC 2.81 L, Hgb 8.4 L, Hct 23.5 L, MCV 83.6 D, MCH 29.9, MCHC 35.7, RDW Std Deviation 49.7 H, RDW Coeff of Miriam 16.1 H, Plt Count 143 L, MPV 10.5, Sodium 130 L, Potassium 4.3, Chloride 96 L, Carbon Dioxide 22.0, Anion Gap 11, BUN 53 H, Creatinine 15.00 H*, Estim Creat Clear Calc 3.92, Est GFR (MDRD) Af Amer 3 L, Est GFR (MDRD) Non-Af 3 L, BUN/Creatinine Ratio 3.5 L, Glucose 96, Calcium 8.6 Micro: Microbiology 06/25/24 17:46 Mucosa - Nose SARS-CoV-2, Influenza & RSV (PCR) - Final Rhythm Strip Rhythm Strip: Sinus Tach Rate: 105 Ectopy: None Imaging Radiology Impression Chest X-Ray 06/25/24 17:29 IMPRESSION: Subtle patchy interstitial and airspace opacities may represent edema and/or infection. Electronically Signed: Timmy Zarate MD at 18:06 EST , Echocardiogram 06/25/24 21:48 Interpretation Summary The estimated ejection fraction is 55 %. No evidence for diastolic dysfunction. The left atrium is mildly enlarged. Trivial mitral valve insufficiency. Pulmonary artery systolic pressure is 60 mmHg. Ordering Physician: Viktor Hagen Performed By: Reji King RCS
[2024-06-26] MEDS: Heparin 10,000 UNITS/10 ML Vial IV (14:53)
--- NOTE | 2024-06-26 15:15 | CASEMGMT ---
RN?CM?WEB OPERATIONS ADMINISTRATOR?CM?to room to meet with patient for initial transition planning/care coordination?assessment.?RN?CM?introduced self and role at [facility].? Pt voices understanding and consents to?assessment?at this time.? Pt resting in bed, in no distress at this time, but is very tired/groggy. She was able to answer questions and provided the following information. Care providers, pharmacy, and demographics verified/updated at this time. PCP: Dr Goldstein Specialists: Dr Roberson-nephbrodie OP HD: Pt goes to [facility], chair time 10 AM. Pt has missed a couple OP HD appts. RN ERICA inquired about this. She states one of the missed HD appts was d/t [id number] did not show up to take her and another time she states she was either sick or her kids did not have school, stating she is not sure. Preferred Pharmacy: [facility] @ discharge. Insurance: [employer] Prescription Benefit:?yes Living Will/HPOA:? Pt states she is not sure if she has done these in the past, is not interested in completing at this time. Made aware this can be done while in-patient or OP, if she decides she would like to complete this. LNOK: Pt has 5 children: 3 are adults (ages 28, 27, and 18) and has 7- yr-old twins. Pt's mom is Marguerite and her aunt it Daria. She states she is not sure if the phone # listed for her aunt is correct. Living Arrangements: Pt lives w/her 18 yr old and 7-yr-old twins in 2-story home w/3 steps to enter. She states another adult child stays w/her often. Pt states she is independent w/ADL's and IADL's and manages her own medications. Transportation:?Pt states she can drive but her vehicle is not currently working. She uses [id number] to appts and OP HD. Pt voiced frustration w/[facility], stating not only did they not show up to take her to OP HD appt (as noted above), but they have also not shown up at least 4-5 x's to take her home after HD and she has had to walk home. Her daughter may be available to take her home @ discharge, but she is not sure, stating she works a lot. DME: ? Denies using any DME and denies needs.? HHC/SNF: No hx of either. No needs identified. Pt wishes to return home and states has no concerns with going home at time of discharge.? CM?to follow for further discharge planning/needs.? Pt voices no further concerns/needs at this time.? CM to follow for any further discharge needs/concerns. Advised pt to ask for?CM?if any further questions/concerns/needs arise.? Voices understanding. PLAN: Home. Yuriy BSN?RN?CM
[2024-06-26] MEDS: 0.9% Normal Saline 1,000 ML IV.SOLN. 1000 ML OPERA.SITE (16:41)
[2024-06-27] VITALS (19 sets, daily range): BP systolic 146–204; BP diastolic 72–111; PULSE 78–91; RESP 15–18; TEMP 36.6–36.9; O2SAT 95–100; BMI 22.0; BMI 21.6
[2024-06-27] MEDS: hydrALAZINE 20 MG/ML Vial IV (00:35)
[2024-06-27] MEDS: 0.9% Saline Lock 10 ML Syringe IV ×2 (00:36→11:31)
[2024-06-27 03:17] LABS: Hematocrit 23.4 % (37-47); Hemoglobin 8.3 g/dL (12.0-15.0); Mean Corp Hgb Conc 35.5 g/dL (32-36); Mean Corpuscular Hgb 29.4 pg (27.0-32.0); Mean Platelet Vol. 9.5 fl (6.2-12.0); Platelet Count 132 K/mm3 (150-450); RBC Distribution Width CV 16.1 % (11.6-14.6); RBC Distribution Width SD 48.9 fl (35.1-43.9); Red Blood Count 2.82 M/mm3 (4.2-5.4); White Blood Count 5.4 K/mm3 (4.4-11.0)
[2024-06-27 03:36] LABS: Anion Gap 10 (5-15); BUN 56 mg/dL (7-18); BUN/Creat Ratio 3.6 RATIO (10-20); Calcium,Total 8.7 mg/dL (8.5-10.1); Chloride 98 mmol/L (98-107); EST Glomerular Filtration Rate 3 mL/min (>60); Est Glom Filt Rate - Afr Amer 3 mL/min (>60); Estimated Creatinine Clearance 3.77 ml/min; Glucose 141 mg/dL (74-106); Magnesium 2.5 mg/dL (1.6-2.6); Phosphorus 6.4 mg/dL (2.5-4.9); Sodium Level 130 mmol/L (136-145)
--- NOTE | 2024-06-27 08:03 | PCM.PN.HOSP ---
Reason for Visit Reason for Visit: Diagnoses Fluid overload, unspecified (06/25/24) Essential (primary) hypertension (06/25/24) End stage renal disease (06/25/24) Dyspnea, unspecified (06/25/24) Subjective Subjective Patient seen plan was for patient to have been discharged following her dialysis however patient blood pressure is markedly elevated at this point 203/95 plan is to discharge patient put on hold Objective Data Objective Data Vital Signs: Vital Signs Temp Pulse Resp BP Pulse Ox O2 Del Method O2 Flow Rate 97.7 F L 90 12 165/93 H 100 Room Air 2 06/26/24 22:40 06/27/24 00:45 06/26/24 22:40 06/27/24 02:00 06/26/24 22:40 06/27/24 07:53 06/26/24 03:30 Oxygen Flow Rate (L/min) 2 Oxygen Delivery Method Room Air Weight: 58.6 kg Body Mass Index (BMI) 22.0 Intake & Output: Intake and Output for Last 24 Hours 06/25/24 06/26/24 06/27/24 23:59 23:59 23:59 Intake Total 600 / 600 500 / 500 Output Total 3200 / 3200 Balance -2600 / -2600 500 / 500 Lab / Micro Data 06/27/24 03:11 06/27/24 03:11 Labs: Laboratory Results - last 24 hr 06/26/24 07:35: WBC 5.9, RBC 2.81 L, Hgb 8.4 L, Hct 23.5 L, MCV 83.6 D, MCH 29.9, MCHC 35.7, RDW Std Deviation 49.7 H, RDW Coeff of Miriam 16.1 H, Plt Count 143 L, MPV 10.5, Sodium 130 L, Potassium 4.3, Chloride 96 L, Carbon Dioxide 22.0, Anion Gap 11, BUN 53 H, Creatinine 15.00 H*, Estim Creat Clear Calc 3.92, Est GFR (MDRD) Af Amer 3 L, Est GFR (MDRD) Non-Af 3 L, BUN/Creatinine Ratio 3.5 L, Glucose 96, Calcium 8.6 06/27/24 03:11: WBC 5.4, RBC 2.82 L, Hgb 8.3 L, Hct 23.4 L, MCV 83.0, MCH 29.4, MCHC 35.5, RDW Std Deviation 48.9 H, RDW Coeff of Miriam 16.1 H, Plt Count 132 L, MPV 9.5, Sodium 130 L, Potassium 4.0, Chloride 98, Carbon Dioxide 23.0, Anion Gap 10, BUN 56 H, Creatinine 15.60 H*, Estim Creat Clear Calc 3.77, Est GFR (MDRD) Af Amer 3 L, Est GFR (MDRD) Non-Af 3 L, BUN/Creatinine Ratio 3.6 L, Glucose 141 H, Calcium 8.7, Phosphorus 6.4 H, Magnesium 2.5 Micro: Microbiology 06/25/24 17:46 Mucosa - Nose SARS-CoV-2, Influenza & RSV (PCR) - Final Radiography Diagnostic Testing: Radiology Impression Echocardiogram 06/25/24 21:48 Interpretation Summary The estimated ejection fraction is 55 %. No evidence for diastolic dysfunction. The left atrium is mildly enlarged. Trivial mitral valve insufficiency. Pulmonary artery systolic pressure is 60 mmHg. Ordering Physician: Viktor Hagen Performed By: Reji King RCS Rhythm Strip Rhythm Strip: Sinus Tach Rate: 105 Ectopy: None Physical Exam Narrative GENERAL: cooperative HEENT: Atraumatic; normocephalic EYES; Anicteric, Normal Conjunctiva NECK; supple, normal thyroid, RESPIRATORY: Diminished to auscultation CARDIOVASCULAR: Regular S1 S2, GI: soft, normoactive bowel sounds, : No Renal angle tenderness; EXTREMITIES: No edema, no clubbing, MUSCULOSKELETAL: no muscle wasting NEURO: Awake; no lateralizing signs. SKIN: No Rash PSYCH; Flat affect Assessment & Plan Assessment/Plan (1) Volume overload: (2) Dyspnea: (3) ESRD (end stage renal disease): (4) Hypertension: PLAN: Plan Patient is a 49-year-old lady with history of hypertension, end-stage renal disease on hemodialysis presented to the emergency department. Patient had apparently missed a couple of dialysis sessions. An assessment of acute congestive heart failure was made admitted to a monitored bed for further management 1. Acute hypoxia ? Secondary to acute congestive heart failure from fluid overload following patient missing dialysis. Admitted to the progressive care unit consult placed to nephrology for dialysis to manage patient fluid overload ? 06/27/2024 patient clinical condition continues to improve 2. Acute congestive heart failure with preserved ejection fraction ? Echo demonstrated estimated ejection fraction of 55 %. No evidence for diastolic dysfunction. The left atrium is mildly enlarged. Trivial mitral valve insufficiency. Pulmonary artery systolic pressure is 60 mmHg. Patient fluid overload status management dialysis 3. End-stage renal disease on dialysis Wednesdays and Fridays ? Patient was counseled on the need to be compliant with her sessions consult placed to nephrology 4. Acute hypertensive emergency ? Patient systolic blood pressure on admission was 220/130. Did continue patient home meds and hydralazine added as needed to keep blood pressure less than 160 ? 06/27/2024; patient blood pressure at this point is 203/95 decision to discharge patient placed on hold 5. Elevated troponin ? Secondary to demand ischemia from patient acute hypoxia and elevated blood pressure 6. Chronic hyponatremia ? Secondary to ESRD 7. Anemia ? Secondary to chronic disorder monitoring H&H and transfuse if patient becomes symptomatic or hemoglobin falls below 7 8. DVT prophylaxis ? Subcu heparin Time spent in the patient's overall evaluation,decision-making process, review of diagnostic data, adjustment of management, discussion with other providers, nursing nursing and ancillary staff involved in patient's care documentation, 50 Minutes Charges/Coding Visit Charges Inpatient E&M: 30115 [facility] L3
[2024-06-27] MEDS: Heparin 10,000 UNITS/10 ML Vial IV (11:31)
[2024-06-27] MEDS: 0.9% Normal Saline 1,000 ML IV.SOLN. 1000 ML OPERA.SITE (11:31)
[2024-06-27] MEDS: PureFlow B 2K Dialysis Soln 1 BAG 6 BAG PF (11:31)
[2024-06-27] MEDS: hydrALAZINE 50 MG Tablet PO (12:14)
[2024-06-27] MEDS: Metoprolol(XL)Succ 100 MG Tablet PO (12:15)
[2024-06-27] MEDS: Heparin Injection (Vial) 5,000 UNIT/ML VIAL 5000 UNIT SC (12:15)
[2024-06-27] MEDS: amLODIPine 10 MG Tablet PO (12:15)
--- NOTE | 2024-06-27 15:33 | DS.PCM_ITS ---
Providers Date of Admission: 06/25/24 Date of Discharge: 06/27/24 Primary Care Physician: Dr. Timmy Goldstein MD Consultations 06/25/24 21:48 Consult: Nephrology Routine Consulting Provider: Jose E Roberson Reason for Consult: ESRD on HD w/ volume overload EMERGENT Consult: No MD Notified: Yes Date Notified: 06/25/24 Time Notified: 22:26 Method of Notification: Answering Service Reason For Visit: ESRD W/VOLUME OVERLOAD AND HYPOXIA Diagnosis Discharge Diagnosis (1) Volume overload: Status: Acute Code(s): E87.70 - Fluid overload, unspecified (2) Dyspnea: Status: Acute Code(s): R06.00 - Dyspnea, unspecified (3) ESRD (end stage renal disease): Status: Acute Code(s): N18.6 - End stage renal disease (4) Hypertension: Status: Chronic Code(s): I10 - Essential (primary) hypertension Plan Patient is a 49-year-old lady with history of hypertension, end-stage renal disease on hemodialysis presented to the emergency department. Patient had apparently missed a couple of dialysis sessions. An assessment of acute congestive heart failure was made admitted to a monitored bed for further management 1. Acute hypoxia ? Secondary to acute congestive heart failure from fluid overload following patient missing dialysis. Admitted to the progressive care unit consult placed to nephrology for dialysis to manage patient fluid overload ? 06/27/2024 patient clinical condition continues to improve 2. Acute congestive heart failure with preserved ejection fraction ? Echo demonstrated estimated ejection fraction of 55 %. No evidence for diastolic dysfunction. The left atrium is mildly enlarged. Trivial mitral valve insufficiency. Pulmonary artery systolic pressure is 60 mmHg. Patient fluid overload status management dialysis 3. End-stage renal disease on dialysis Wednesdays and Fridays ? Patient was counseled on the need to be compliant with her sessions consult placed to nephrology 4. Acute hypertensive emergency ? Patient systolic blood pressure on admission was 220/130. Did continue patient home meds and hydralazine added as needed to keep blood pressure less than 160 ? 06/27/2024; patient blood pressure at this point is 203/95 decision to discharge patient placed on hold ? Patient blood pressure did improve following adjustment in her antihypertensive regimen decision was made to discharge patient home 5. Elevated troponin ? Secondary to demand ischemia from patient acute hypoxia and elevated blood pressure 6. Chronic hyponatremia ? Secondary to ESRD 7. Anemia ? Secondary to chronic disorder monitoring H&H and transfuse if patient becomes symptomatic or hemoglobin falls below 7 8. DVT prophylaxis ? Subcu heparin Time spent in the patient's overall evaluation,decision-making process, review of diagnostic data, adjustment of management, discussion with other providers, nursing nursing and ancillary staff involved in patient's care documentation, 50 Minutes Medications at Discharge Home Medications amlodipine 10 mg tablet 10 mg PO DAILY #30 tabs 07/03/23 clonidine 0.1 mg/24 hr weekly transdermal patch 1 patch topical QWEEK 06/25/24 metoprolol succinate 100 mg tablet,extended release 24 hr 100 mg PO DAILY 06/25/24 hydralazine 50 mg tablet 50 mg PO TID #180 tabs 06/27/24 Physical Exam Narrative GENERAL: cooperative HEENT: Atraumatic; normocephalic EYES; Anicteric, Normal Conjunctiva NECK; supple, normal thyroid, RESPIRATORY: Diminished to auscultation CARDIOVASCULAR: Regular S1 S2, GI: soft, normoactive bowel sounds, : No Renal angle tenderness; EXTREMITIES: No edema, no clubbing, MUSCULOSKELETAL: no muscle wasting NEURO: Awake; no lateralizing signs. SKIN: No Rash PSYCH; Flat affect Weight / BMI Weight Weight: 57.5 kg Body Mass Index (BMI) 21.6 ABG / Lab / Microbiology Data 06/27/24 03:11 06/27/24 03:11 Laboratory: Laboratory Results - last 24 hr 06/27/24 03:11: WBC 5.4, RBC 2.82 L, Hgb 8.3 L, Hct 23.4 L, MCV 83.0, MCH 29.4, MCHC 35.5, RDW Std Deviation 48.9 H, RDW Coeff of Miriam 16.1 H, Plt Count 132 L, MPV 9.5, Sodium 130 L, Potassium 4.0, Chloride 98, Carbon Dioxide 23.0, Anion Gap 10, BUN 56 H, Creatinine 15.60 H*, Estim Creat Clear Calc 3.77, Est GFR (MDRD) Af Amer 3 L, Est GFR (MDRD) Non-Af 3 L, BUN/Creatinine Ratio 3.6 L, G lucose 141 H, Calcium 8.7, Phosphorus 6.4 H, Magnesium 2.5 Microbiology: Microbiology 06/25/24 17:46 Mucosa - Nose SARS-CoV-2, Influenza & RSV (PCR) - Final D/C Instructions Discharge Diet: 8 Cup Fluid Restriction and 2000 mg Sodium Diet Discharge Activity: Return to Normal Activity Call your doctor if you observe: Fever of 101 or Higher, Shortness of breath, Fainting spells and Chest pain DC O2, CPAP, BIPAP Needs Home O2 Discharge instructions: No Meaningful Use Info Meaningful Use Meaningful Use Diagnoses (Choose all that apply): CHF CHF SUKHWINDER/ARB ordered at discharge?: No Reason SUKHWINDER/ARB not ordered?: Normal EF, Not indicated and Worsening renal disease Documented LVEF (%): 60 Ischemic Stroke Statin Dosing Therapy Reference: STATIN DOSE THERAPY REFERENCE: * Patients > 75 years receive moderate or high dose statin therapy. * Patients 75 years or YOUNGER should receive HIGH intensity statin dose unless contraindicated. You will be required to document reason for non-treatment if statin daily dose does not meet guidelines. HIGH DOSE STATIN THERAPY DAILY Atorvastatin > than or = to 40 mg Rosuvastatin > than or = to 20 mg Amlodipine + Atorvastatin > than or = to 2.5/40 mg Ezetimibe + Simvastatin 10/80 mg Simvastatin 80mg Discharge Plan Admission Admit Date/Time: 06/25/24 20:58 Attending Provider: Giovanni Vora Primary Care Provider: Timmy Goldstein Consulting Providers: Jose E Roberson; Viktor Hagen Discharge Orders/Prescriptions Prescriptions: New hydralazine 50 mg Tablet 50 mg PO TID Qty: 180 0RF Continued amlodipine 10 mg Tablet 10 mg PO DAILY Qty: 30 0RF clonidine 0.1 mg/24 hr patch weekly 1 patch topical QWEEK metoprolol succinate 100 mg tablet extended release 24 hr 100 mg PO DAILY Referrals / Follow Up: Timmy Goldstein MD [Primary Care Provider] - Within 1 Week Disposition Disposition (needs filled in before D/C Order can be placed): Home, Self Care Charges/Coding Visit Charges Inpatient E&M: 31095 Disch Hosp >30min
--- NOTE | 2024-06-27 15:43 | CASEMGMT ---
Patient has order for discharge. RN CM in to discuss needs at discharge. Patient states she will need transport home and asked if we could set this up with [facility] [employer] [facility]. RN CM to updated discharge manager supply chain planning. Patient denies further needs or help at discharge. Patient had no further questions or concerns. RN CM updated discharge planning assistance to help setup transport for home.
--- NOTE | 2024-06-27 18:20 | PN.RENAL_ITS ---
Subjective Subjective no new complaints Objective Data Objective Data Vital Signs: Vital Signs Temp Pulse Resp BP Pulse Ox O2 Del Method O2 Flow Rate 98.0 F 78 16 160/95 H 98 Room Air 2 06/27/24 15:38 06/27/24 15:38 06/27/24 15:38 06/27/24 15:38 06/27/24 15:38 06/27/24 15:38 06/26/24 03:30 Oxygen Flow Rate (L/min) 2 Oxygen Delivery Method Room Air Weight: 57.5 kg Body Mass Index (BMI) 21.6 Intake & Output: Intake and Output for Last 24 Hours 06/25/24 06/26/24 06/27/24 23:59 23:59 23:59 Intake Total 600 / 600 740 / 740 Output Total 3200 / 3200 1960 / 1960 Balance -2600 / -2600 -1220 / -1220 Lab / Micro Data 06/27/24 03:11 06/27/24 03:11 Labs: Laboratory Results - last 24 hr 06/27/24 03:11: WBC 5.4, RBC 2.82 L, Hgb 8.3 L, Hct 23.4 L, MCV 83.0, MCH 29.4, MCHC 35.5, RDW Std Deviation 48.9 H, RDW Coeff of Miriam 16.1 H, Plt Count 132 L, MPV 9.5, Sodium 130 L, Potassium 4.0, Chloride 98, Carbon Dioxide 23.0, Anion Gap 10, BUN 56 H, Creatinine 15.60 H*, Estim Creat Clear Calc 3.77, Est GFR (MDRD) Af Amer 3 L, Est GFR (MDRD) Non-Af 3 L, BUN/Creatinine Ratio 3.6 L, G lucose 141 H, Calcium 8.7, Phosphorus 6.4 H, Magnesium 2.5 Micro: Microbiology 06/25/24 17:46 Mucosa - Nose SARS-CoV-2, Influenza & RSV (PCR) - Final Rhythm Strip Rhythm Strip: Sinus Tach Rate: 105 Ectopy: None Physical Exam Narrative Alert awake oriented x 3 no obvious distress no pallor no icterus no JVD s1s2 no murmurs lungs clear abdomen soft no organomegaly no edema no cyanosis Assessment & Plan Assessment/Plan (1) ESRD (end stage renal disease): PLAN: On hemodialysis Sunday, Sunday, Sunday. HD today. see orders HTN. in general runs high. continue to fluid challenge. meds adjusted today
== END 2024-06-27 16:57 | disposition home or self-care (01) | DRG 194 ==
LOC: ED 17:01 → PCU 21:15
PROVIDERS: Admitting Provider Hospitalist; Emergency Provider Emergency Medicine; PCP Family Medicine; Visit Provider Internal Medicine
DX: I13.2 Hypertensive heart and chronic kidney disease with heart failure and with stage 5 chronic kidney disease, or end stage renal disease (principal); E87.1 Hypo-osmolality and hyponatremia; N18.6 End stage renal disease; Z99.2 Dependence on renal dialysis; I50.31 Acute diastolic (congestive) heart failure; I16.1 Hypertensive emergency; D64.9 Anemia, unspecified; F17.200 Nicotine dependence, unspecified, uncomplicated; Z79.899 Other long term (current) drug therapy
CPT/HCPCS: 36415; 71046; 80048; 80053; 83735; 83880; 84100; 84484; 85025; 85027; 87631; 90937; 93005; 93306; 99284; Q9957; A4216; G0257; J2405

== ENCOUNTER 2024-07-30 00:14 | Emergency (ER) | payer MEDICAID, SELFPAY ==
[2024-07-30 00:15] VITALS: BP 238/155; PULSE 26; RESP 26; TEMP 36.9; O2SAT 96; BMI 22.2
--- NOTE | 2024-07-30 00:41 | EKG12_ITS ---
Test Reason : DYSRHYTHMIA Blood Pressure : */* mmHG Vent. Rate : 96 BPM Atrial Rate : 96 BPM P-R Int : 172 ms QRS Dur : 80 ms QT Int : 380 ms P-R-T Axes : 62 54 65 degrees QTcB Int : 480 ms Normal sinus rhythm Possible Left atrial enlargement Minimal voltage criteria for LVH, may be normal variant ( Sokolow-Shrestha ) Nonspecific ST and T wave abnormality Prolonged QT Abnormal ECG Confirmed by Theo Godinez ([id number]), industrial editor JEFFERSON WLATON ([id number]) on 07/30/2024 11:28:53 AM Referred By: ANTIONETTE Confirmed By: Theo Godinez
--- NOTE | 2024-07-30 00:42 | RAD_ITS ---
PROCEDURE: CHEST 1 VIEW (PORTABLE) REASON FOR EXAM: Shortness of breath. TECHNIQUE: Frontal view of the chest. COMPARISON: Chest x-ray from 06/25/2024. FINDINGS: Cardiac size is within normal limits. There is mild prominence of the pulmonary interstitium which is improved. There is mild blunting of the bilateral costophrenic angles suggestive of trace bilateral pleural effusions. No pneumothorax is present. Dual-lumen right-sided central venous catheter is present. There is mild dextroscoliosis of the midthoracic spine. RAD/Chest 1 View (Portable) IMPRESSION: 1. Trace bilateral pleural effusions. 2. Mild prominence of the pulmonary interstitium. Reading Location: [facility]
[2024-07-30 00:49] LABS: Absolute Lymphocyte Count 0.58 X10^3/uL (0.83-4.51); Absolute Neutrophil Count 5.1 X10^3/uL (2.0-7.7); Basophil# 0.07 X10^3/uL; Basophil% 1.1 % (0-1); Eosinophil# 0.04 X10^3/uL; Eosinophils% 0.6 % (0-5); Hemoglobin 11.1 g/dL (12.0-15.0); Lymphocyte # 0.58 X10^3/ul (0.83-4.51); Lymphocyte % 9.2 % (19-41); Mean Corp Hgb Conc 33.6 g/dL (32-36); Mean Corpuscular Hgb 29.9 pg (27.0-32.0); Mean Corpuscular Volume 88.9 fL (81-99); Mean Platelet Vol. 11.1 fl (6.2-12.0); Monocyte# 0.52 X10^3/uL; Monocyte% 8.2 % (0-10); NRBC Flagged by Analyzer 0 % (0-5); Neutrophil # 5.06 X10^3/uL (2.7-7.7); Neutrophil % 80.1 % (47-70); POSITIVE DIFFERENTIAL YES; Platelet Count 143 K/mm3 (150-450); RBC Distribution Width CV 18.7 % (11.6-14.6); RBC Distribution Width SD 60.3 fl (35.1-43.9); Red Blood Count 3.71 M/mm3 (4.2-5.4); White Blood Count 6.3 K/mm3 (4.4-11.0)
[2024-07-30 01:04] VITALS: PULSE 98; RESP 18
[2024-07-30] MEDS: 0.9% Normal Saline (500mL Bag) 250 ML 999 ML IV (01:10)
[2024-07-30] MEDS: Ondansetron 4 MG/2 ML Vial IV (01:10)
[2024-07-30 01:14] LABS: Anion Gap 10 (5-15); BUN 29 mg/dL (7-18); Calcium,Total 9.5 mg/dL (8.5-10.1); Chloride 102 mmol/L (98-107); Creatinine, Serum 9.73 mg/dL (0.55-1.02); EST Glomerular Filtration Rate 5 mL/min (>60); Est Glom Filt Rate - Afr Amer 6 mL/min (>60); Estimated Creatinine Clearance 6.04 ml/min; Glucose 110 mg/dL (74-106); Potassium 4.5 mmol/L (3.5-5.1); Sodium Level 138 mmol/L (136-145); Troponin-I HS 102 pg/mL (3.0-54.0)
[2024-07-30 01:15] VITALS: BP 229/133; PULSE 93; RESP 29; O2SAT 98
--- NOTE | 2024-07-30 01:17 | EX.ED.DYSGE1 ---
HPI History of Present Illness Chief Complaint: Fatigue Informant: patient and family Narrative Narrative: 49-year-old female dialysis patient is prepped by EMS because family states her face looks swollen and they noticed that little more than 24 hours ago. The patient states she does not notice it. She denies having swelling anywhere else. She states she has been feeling really poorly and tired for the last 1 or 2 days, she has been having a lot of diarrhea more than 10 bouts over the past 24 hours, and 1 bout of vomiting no abdominal pain or chest pain. She states every now and then with activity she gets dyspneic but better quickly with resting. She denies any major coughing. She had a fever over 100 yesterday. She is due for dialysis tomorrow, she last had it 2 days ago, she has not missed any dialysis recently. [facility] Medical History Hypocalcemia ESRD (end stage renal disease) on dialysis Smoker Acute kidney injury Home Medications ?Medication ?Instructions ?Recorded ?Last Taken ?Type amlodipine 10 mg tablet 10 mg PO DAILY blood pressure #30 07/03/23 Unknown Rx tabs clonidine 0.1 mg/24 hr weekly 1 patch topical QWEEK blood 06/25/24 Unknown History transdermal patch pressure metoprolol succinate 100 mg 100 mg PO DAILY blood pressure 06/25/24 Unknown History tablet,extended release 24 hr hydralazine 50 mg tablet 50 mg PO TID #180 tabs 06/27/24 Unknown Rx sevelamer carbonate 800 mg tablet 800 mg PO TID 07/30/24 Unknown History vitamin B complex-vitamin C-folic 1 tab PO DAILY 07/30/24 Unknown History acid 0.8 mg tablet (Quin-Mc) Allergy/AdvReac Type Severity Reaction Status Date / Time Antihistamines - Alkylamine Allergy Swelling Verified 07/30/24 00:15 Penicillins Allergy Hives Verified 07/30/24 00:15 Social History Smoking Status: Heavy Smoker (>10/day) ROS ROS ED Constitutional Constitutional ED: Reports fatigue and fever(s); Denies chills Eyes Eyes: Denies change in vision or diplopia ENT ENT ED: Denies ear pain, rhinorrhea or sore throat Cardiovascular Cardiovascular: Denies chest pain, orthopnea or palpitations Respiratory/Chest Respiratory/Chest: Reports dyspnea on exertion; Denies cough or orthopnea Gastrointestinal Gastrointestinal: Reports diarrhea, nausea and vomiting; Denies abdominal pain Genitourinary Genitourinary ED: Denies dysuria or hematuria Musculoskeletal Musculoskeletal: Denies back pain or neck pain Integumentary Denies abscess or rash Neurologic Neurologic: Reports headache(s); Denies paresthesias or weakness Psychiatric Psychiatric: Denies anxiety or suicidal thoughts EXAM Physical Exam Const Vital Signs: 07/30/24 00:15 07/30/24 00:39 07/30/24 00:39 Temperature 98.4 F Temperature Source Oral Pulse Rate 26 L Respiratory Rate 26 H Respiratory Effort Normal Respiratory Pattern Normal Blood Pressure 238/155 H Blood Pressure Mean 182 Pulse Ox 96 Oxygen Delivery Method Room Air Room Air 07/30/24 00:43 07/30/24 01:04 07/30/24 01:15 Temperature Temperature Source Pulse Rate 98 93 Respiratory Rate 18 29 H Respiratory Effort Respiratory Pattern Blood Pressure 229/133 H Blood Pressure Mean 165 Pulse Ox 98 Oxygen Delivery Method Room Air Room Air 07/30/24 01:30 07/30/24 01:45 07/30/24 02:00 Temperature Temperature Source Pulse Rate 95 102 H 102 H Respiratory Rate 11 L 27 H 27 H Respiratory Effort Respiratory Pattern Blood Pressure 214/113 H 230/125 H Blood Pressure Mean 143 156 Pulse Ox 97 Oxygen Delivery Method Room Air Positive well nourished and well developed General Appearance ED: well developed and NAD HEENT Reports moist mucous membranes normocephalic and atraumatic Eyes PERRL and EOMs intact bilaterally Neck full ROM and supple Chest Wall Chest Narrative: R upper chest wall tunneled catheter, site benign. Resp normal respiratory effort and clear to auscultation bilaterally Cardio regular rate and regular rhythm GI non-tender and non-distended Auscultation: normoactive bowel sounds Palpation: soft Back/Spine no CVA tenderness General Back: other FROM Extremity normal to inspection General Extremety ED: Negative for edema, pulses abnormal or tenderness General Extremity: Negative for edema or pulses abnormal Neuro oriented x3, CN's II-XII intact bilaterally and no sensory deficits noted Sensorium / Orientation: awake and alert Motor Exam: strength 5/5 throughout Psych mental status grossly normal Skin no rashes or lesions noted and no wounds MDM MDM MDM Narrative Medical decision making narrative: Patient has a low white blood count and her viral swab is positive for COVID, which is consistent with that. Other than her elevated creatinine and her chronic anemia, as well as her chronically elevated troponin which is lower than usual, her blood work is otherwise unremarkable. Her EKG shows no sign of subendocardial ischemia/injury. Chest x-ray 1 view on my interpretation shows very small bilateral pleural effusions but no pneumonia or overt pulmonary edema. She is not having chest discomfort or hypoxemia so I do not think we need to do further evaluations for acute coronary syndrome or pulmonary embolus at this time. Her blood pressure is high 230/120s, however she states that this is normal for her. I offered her antivirals such as Paxlovid, she declines. She did not have the COVID vaccines either. I recommended the antivirals but she does not want them. She is ambulatory to and from the bathroom without distress. Supportive care advised, she does not have any indication for admission at this time. Lab Data Attestation: I reviewed the patient's lab results. Labs: Laboratory Results - last 24 hr 07/30/24 00:45 WBC 6.3 RBC 3.71 L Hgb 11.1 L Hct 33.0 L MCV 88.9 MCH 29.9 MCHC 33.6 RDW Std Deviation 60.3 H RDW Coeff of Miriam 18.7 H Plt Count 143 L MPV 11.1 Immature Gran % (Auto) 0.800 Neut % (Auto) 80.1 H Lymph % (Auto) 9.2 L [place] % (Auto) 8.2 Eos % (Auto) 0.6 Baso % (Auto) 1.1 H Absolute Neuts (auto) 5.1 Absolute Lymphs (auto) 0.58 L Nucleated RBC % 0 Sodium 138 Potassium 4.5 Chloride 102 Carbon Dioxide 25.0 Anion Gap 10 BUN 29 H Creatinine 9.73 H* Estim Creat Clear Calc 6.04 Est GFR (MDRD) Af Amer 6 L Est GFR (MDRD) Non-Af 5 L BUN/Creatinine Ratio 3.0 L Glucose 110 H Calcium 9.5 Troponin I High Sens 102 H Radiography Diagnostic Testing: Clinical Impression(s) from Imaging Studies Chest X-Ray 07/30/24 00:42 IMPRESSION: 1. Trace bilateral pleural effusions. 2. Mild prominence of the pulmonary interstitium. Reading Location: [facility] Rhythm Strip Rhythm Strip: Sinus Rhythm Rate: 96 Ectopy: None EKG Initial EKG: Attestation: I personally reviewed and interpreted this EKG as follows: Interpretation: Sinus Rhythm and No Acute Injury Pattern Comments: Normal axis, normal intervals except QTc is borderline Discharge Plan Triage Chief Complaint: Fatigue Other Complaint: Hypertension Shortness of Breath ED Provider: Rocael Iyer Dx/Rx/DC Orders Clinical Impression: COVID-19, Hypertension, Anemia, ESRD (end stage renal disease) Instructions: Coronavirus Disease 2019 (COVID-19): Overview Prescriptions: No Action amlodipine 10 mg Tablet 10 mg PO DAILY Qty: 30 0RF clonidine 0.1 mg/24 hr patch weekly 1 patch topical QWEEK metoprolol succinate 100 mg tablet extended release 24 hr 100 mg PO DAILY hydralazine 50 mg Tablet 50 mg PO TID Qty: 180 0RF Quin-Mc 0.8 mg tablet 1 tab PO DAILY sevelamer carbonate 800 mg tablet 800 mg PO TID Primary Care Provider: Timmy Goldstein Referrals: Timmy Goldstein MD [Primary Care Provider] - 1 Week if not improving Activity Restrictions/Additional Instructions: Try to get a home portable pulse oximeter and closely watch your oxygen levels periodically. If you stay below 90% for more than a minute or so, and/or you are feeling like your breathing is getting worse, return to the emergency department for further evaluation. Currently, CDC recommendations state that you should stay home through day 5 of symptoms (although you will need to continue going to dialysis and wear a mask), then as long as symptoms are improving, if you need to go to work or somewhere else you may for days 6-10 as long as you are wearing a mask the entire time. If you are feeling better after day 10 you may resume life is normal. Print Language: Taiwanese Disposition Disposition: Home, Self Care
[2024-07-30 01:30] VITALS: BP 214/113; PULSE 95; RESP 11
[2024-07-30 01:45] VITALS: PULSE 102; RESP 27
[2024-07-30 02:00] VITALS: BP 230/125; PULSE 102; RESP 27; O2SAT 97
--- NOTE | 2024-07-30 02:22 | ED.RN ---
PER PT. REQUEST HER MOTHER WAS CALLED FOR A RIDE HOME
== END 2024-07-30 02:36 | disposition home or self-care (01) ==
PROVIDERS: Emergency Provider Emergency Medicine; PCP Family Medicine; Visit Provider Emergency Medicine
DX: U07.1 COVID-19 (principal); I12.0 Hypertensive chronic kidney disease with stage 5 chronic kidney disease or end stage renal disease; N18.6 End stage renal disease; D64.9 Anemia, unspecified; Z99.2 Dependence on renal dialysis; R51.9 Headache, unspecified
CPT/HCPCS: 71045; 80048; 84484; 85025; 87631; 93005; 99285; A4216; J2405

== ENCOUNTER 2024-11-25 12:31 | Day surgery (SDC) | payer MEDICAID, SELFPAY ==
[2024-11-25 13:12] VITALS: BMI 24.0
--- NOTE | 2024-11-25 13:29 | PCM.HP.STD ---
HPI - General HPI Narrative ELIJAH MARSHALL, is a 49 F who presents with dysfunction of right IJ catheter that was placed in Jan 2024. She has had some form of issue since shortly after it was placed. She ultimately plans for peritoneal catheter. [facility] Medical History (Updated 11/25/24 @ 13:[address] Jase Zimmerman MD) ESRD (end stage renal disease) on dialysis Hypocalcemia Smoker Acute kidney injury Home Medications ?Medication ?Instructions ?Recorded ?Last Taken ?Type amlodipine 10 mg tablet 10 mg PO DAILY blood pressure #30 07/03/23 11/25/24 Rx tabs clonidine 0.1 mg/24 hr weekly 1 patch topical QWEEK blood 06/25/24 Unknown History transdermal patch pressure metoprolol succinate 100 mg 100 mg PO DAILY blood pressure 06/25/24 11/25/24 History tablet,extended release 24 hr hydralazine 50 mg tablet 50 mg PO TID #180 tabs 06/27/24 11/25/24 Rx sevelamer carbonate 800 mg tablet 800 mg PO TID 07/30/24 Unknown History vitamin B complex-vitamin C-folic 1 tab PO DAILY 07/30/24 Unknown History acid 0.8 mg tablet (Quin-Mc) Allergy/AdvReac Type Severity Reaction Status Date / Time Antihistamines - Alkylamine Allergy Swelling Verified 07/30/24 00:15 Penicillins Allergy Hives Verified 07/30/24 00:15 Social History Smoking Status: Heavy Smoker (>10/day) ROS Constitutional Constitutional: Denies chills, fever(s), frequent falls, lethargy or weakness Eyes Eyes: Denies blind spots, change in vision or loss of vision ENT HEENT: Denies bleeding gums, hoarseness or sore throat Cardiovascular Cardiovascular: Denies abdominal pain, bluish discoloration of hand/feet, chest pain with activity, claudication, cold extremities, cyanosis, dyspnea on exertion, erythema on extremities, irregular heart rhythm, leg edema, leg ulcers, numbness in extremities or weakness in extremities Respiratory/Chest Respiratory/Chest: Denies cough, excessive phlegm production, shortness of breath at rest, shortness of breath with exertion or wheezing Gastrointestinal Gastrointestinal: Denies anorexia, change in stool character, constipation, diarrhea, melena or rectal bleeding Genitourinary Genitourinary: Denies dysuria or hematuria Musculoskeletal Musculoskeletal: Denies abnormal gait Integumentary Integumentary: Reports other Details: ; Denies erythema, non-healing lesions or wounds Neurologic Neurologic: Denies abnormal speech, focal weakness, headache(s), loss of vision, numbness, paresthesias or sensory deficit Hematologic/Lymphatic Hematologic/Lymphatic: Denies easy bleeding, easy bruising or lymphadenopathy Vital Signs Vital Signs Vital Signs: Weight Weight: 140 lb 4.8 oz Body Mass Index (BMI) 24.0 Physical Exam Const alert, oriented x3, no apparent distress and healthy appearing General Appearance: cooperative; Negative for combative or lethargic Orientation / Consciousness: awake Exam Limitations: no limitations HEENT Head and Scalp: normocephalic and atraumatic Eyes EOMs intact bilaterally General Eye: normal appearance of both eyes Neck full ROM General: trachea midline Resp normal respiratory effort and no use of accessory muscles Effort and Inspection: Negative for labored, stridor or audible wheezes Cardio regular rate and regular rhythm Back/Spine Cervical Spine: cervical ROM normal Extremity full ROM, normal capillary refill and no clubbing, cyanosis or edema Skin no rashes or lesions noted and no wounds Neuro oriented x3, CN's II-XII intact bilaterally, no focal motor deficits and no sensory deficits noted Psych thought process normal, cooperative, affect normal, speech normal and activity/motor behavior normal Assessment & Plan Assessment/Plan (1) Problem with dialysis access: QUALIFIERS: Encounter type: initial encounter Qualified Code(s): T82.898A - Other specified complication of vascular prosthetic devices, implants and grafts, initial encounter PLAN: -catheter exchange, ivus/venogram
--- NOTE | 2024-11-25 15:15 | OP.PCM_ITS ---
Operative Report (Standard) Operative Information Date of Procedure: 11/25/24 Pre-Operative Diagnosis: Malfunctioning tunneled dialysis catheter Post-Operative Diagnosis: Same Surgery/Procedure Performed: Removal of right IJ tunneled dialysis catheter Venogram superior vena cava Intravascular ultrasound superior vena cava, right innominate vein, right internal jugular vein Placement new tunneled right IJ catheter vp rheumatology: No Type of Anesthesia: Local and Sedation,Conscious Procedure Start Time: 14:00 Procedure Stop Time: 15:00 Select all DRAINS/GRAFTS/IMPLANTS that apply: Implanted device Implanted device details: BD vascular pristine 19 cm tunneled dialysis catheter Special Medications: BD vascular pristine 19 cm tunneled dialysis catheter Estimated Blood Loss: 10 Specimen collected: No Description of surgery: HPI: Patient is a 49-year-old female with end-stage renal disease currently on dialysis via a right tunneled IJ catheter that has been in for nearly 1 year. For the majority of that time she has had difficulty with use of the catheter requiring the flow direction to be reversed. She presents now for catheter exchange. Description of procedure: Upon obtaining informed consent and verification correct patient procedure site the patient was taken the Customer [employer] where she was positioned prepped and draped in usual sterile fashion. Time was performed consultation administered with Versed and fentanyl. Skin overlying the tunneled catheter from the skin exit site to the venous puncture site was anesthetized with 1% lidocaine and a transverse incision made overlying the apex of the cat heter at the site of the prior venous puncture site. Combination of blunt and sharp dissection was used to dissect down to the catheter which was then grasped with hemostats and the remaining soft tissue surrounding mobilized. The catheter was then clamped towards the venous direction and divided with scissors. A stiff angled Glidewire was then advanced through the catheter and the catheter tip extracted over the wire and exchanged for an 8 [place] sheath. Through the 8 [place] sheath hand-injection subtraction venacavogram was performed which confirmed no significant stenosis or obstruction. Intravascular ultrasound probe was advanced over the wire and recorded pullback performed from the right atrium to the IJ which revealed minimal amount of fibrin sheath in the mid superior vena cava which would not be in location adjacent to our catheter tip once it was placed. Given the location and the minimal amount of fibrin sheath no intervention was felt to be appropriate. The 8 [place] sheath was then exchanged for the BD the pristine tunneled catheter peel-away sheath which was advanced without resistance under fluoroscopic guidance into position at the atriocaval junction. Next skin overlying the planned new tunnel and skin exit was anesthetized 1% lidocaine and transverse incision made on the superior chest wall. The tunneler was then used to pull the new tunneled catheter from the skin incision up to the tunneled sheath site and the tunneling apparatus removed. The catheter was then advanced through the peel-away sheath which was then withdrawn as the catheter was advanced into position. Fluoroscopy confirmed satisfactory position within the mid right atrium with appropriate orientation of the catheter tip ends. The neck incision was then closed with 3- 0 Vicryl followed by 4 Monocryl and Dermabond. The new catheter was then flushed with heparinized saline with both draw and flush being brisk without resistance. 1.8 cc of concentrated heparin was then placed in each of the catheter ports and caps applied. Next the remainder of the old catheter was freed along the tunnel with blunt dissection up to the cuff and once this was sufficiently freed the catheter was withdrawn. Manual pressure was then held over the new tunnel site as well as the old skin exit site until hemostasis was observed. Dry sterile dressing was then applied both to the new tunneled catheter as well as the old tunnel site. The patient was then taken to the cover area with plan discharged to home. Surgical Findings: Trivial amount of fibrin sheath in the superior vena cava Complications Complications: No
== END 2024-11-25 17:15 | disposition home or self-care (01) ==
PROVIDERS: PCP Family Medicine; Referring Provider Surgery Trauma Surgery; Visit Provider Surgery Trauma Surgery
DX: T82.898A Other specified complication of vascular prosthetic devices, implants and grafts, initial encounter (principal); N18.6 End stage renal disease; F17.200 Nicotine dependence, unspecified, uncomplicated; Z79.899 Other long term (current) drug therapy
CPT/HCPCS: 36010; 36558; 36590; 37252; 37253; 75825; 77001; 99152; 99153; C1750; C1753; Q9967; C1769; C1894

== ENCOUNTER 2024-11-29 18:31 | Emergency (ER) | payer MEDICAID, SELFPAY ==
[2024-11-29 18:32] VITALS: BP 146/84; PULSE 81; RESP 19; TEMP 36.5; O2SAT 99; BMI 24.3
--- OUTSIDE RECORDS SUMMARY | 2024-11-29 18:55 | XMS RPT_ITS | CCD ---
Author Organization [facility] CliniSywv Care Team Providers Care Silk Spooler Name Role Phone RADHA HERNÁNDEZ Unavailable JUAN PABLO Astudillo Unavailable Unavailable NO PRIMARY CARE, Unavailable Unavailable ELIZABETH MEMBRENO Unavailable Unavailable JUAN PABLO PRADO Unavailable Unavailable NO PRIMARY CARE, MD Unavailable Unavailable RADHA HERNÁNDEZ Unavailable JUAN PABLO Astudillo Unavailable Unavailable NO PRIMARY CARE, Unavailable Unavailable Dr. Clarence Goldstein Primary Care Provider Dr. Jase Bond Emergency Provider Dr. Holli Simental Admit Provider Dr. Holli Simental Referring Provider Dr. Holli Simental Other Provider Dr. Cody Craig Other Provider Dr. Viktor Hagen Other Provider Dr. Marlene Serrato Other Provider Jair JACOME, PA-C Philly Attending Provider Dr. Viktor Hagen Attending Provider Dr. Marlene Serrato Attending Provider Dr. German Morton Attending Provider Dr. Huan Cummings Other Provider Dr. Theo Arce Attending Provider Dr. Huan Cummings Attending Provider Dr. Jase Zimmerman Attending Provider 1([facility])[phone] Da TAY, Jayaprakash R Unavailable Unavailable Primary Care Provider Unavailcurtis Goldstein MD, Dr. Warner Primary Care Provider Jaylon TAY, Dr. Cote Attending Provider Jaylon TAY, Dr. Cote Emergency Provider Erasmo TAY, Dr. Laguna Attending Provider [phone] Erasmo TAY, Dr. Laguna Referring Provider Erasmo TAY, Dr. Laguna Other Provider [phone] Jase Zimmerman Attending Unavailable Jase Zimmerman Referring Unavailable [facility] Giovanni Vora Attending Unavailable Viktor Hagen Admitting Unavailable Da, Jayaprakas Consulting Unavailable Viktor Hagen Consulting Unavailable [facility] Primary Care Unavailable Erasmo, Jase Consulting Unavailable Jase Zimmerman Attending Unavailable Jase Zimmerman Referring Unavailable [facility] Primary Care Unavailable Elmo Tong Attending UnavailViktor Park Attending Unavailable [facility] Unavailable Viktor Hagen Admitting Unavailable Da, Jayaprakas Consulting Unavailable Viktor Hagen Consulting Unavailable Giovanni Vora Attending Unavailable Giovanni Vora Consulting Unavailable [facility] Unavailable Rocael Iyer Attending Unavailable Allergies Allergy Classification Reported Allergen(s) Allergy Type Date of Onset Reaction(s) Facility (11 sources) Penicillins; Translations: [PENICILLINS] Propensity to adverse reactions to drug (disorder) 6 [facility] Repository (7 sources) Antihistamines - Alkylamine; Translations: [Antihistamines - Alkylamine] Allergy to substance 9 [facility] Comment on above: unsure of what antih istamine (3 sources) Propylamine derivative antihistamine Drug Allergy 7 [facility] Medications Current Medications Medication Drug Class(es) Dates Sig (Normalized) Sig (Original) amLODIPine 10 mg oral tablet (5 sources) Dihydropyridine Calcium Channel Tristian Start: 07-03-2023 take 1 tablet by mouth once daily Amlodipine 10 mg Tablet Active 10 mg PO DAILY July 03, 2023 1:00am B Complex-Vitamin C-Folic Acid [Vitamin B Complex-Vitamin C-Folic Acid 0.8 Mg Tablet] (Vitamin B Complex-Vitamin C-Folic Acid 0.8 Mg ) 0.8 mg tablet (1 source) Start: 07-30-2024 take 1 tablet by mouth once daily B Complex-Vitamin C-Folic Acid [Vitamin B Complex-Vitamin C-Folic Acid 0.8 Mg Tablet] (Vitamin B Complex-Vitamin C-Folic Acid 0.8 Mg ) 0.8 mg tablet Active 1 {tbl} PO DAILY July 30, 2024 1:00am calcium acetate 667 mg oral tablet (5 sources) Start: 07-03-2023 calcium acetate (Phoslo) 667 MG tablet Start: 07-03-2023 End: 06-25-2024 take 1 capsule by mouth three times daily at mealtime Calcium Acetate(Phosphat Bind) 667 mg Capsule Discontinued 667 mg PO 3 TIMES DAILY WITH MEALS July 03, 2023 1:00am June 25, 2024 9:53pm 168 hr cloNIDine 0.39120 mg/hr transdermal system (1 source) Central alpha-2 Adrenergic Agonist Start: 06-25-2024 Clonidine 0.1 mg/24 hr patch weekly Active 1 NMA TOPICAL EVERY WEEK June 25, 2024 1:00am fluticasone propionate 0.05 mg/actuat metered dose nasal spray (3 sources) Corticosteroid Start: 07-27-2023 fluticasone (Flonase) 50 MCG/ACT nasal spray hydrALAZINE hydrochloride 50 mg oral tablet (1 source) Arteriolar Vasodilator Start: 06-27-2024 take 1 tablet by mouth three times daily Hydralazine 50 mg Tablet Active 50 mg PO THREE TIMES A DAY 180 June 27, 2024 1:00am 24 hr metoprolol succinate 100 mg extended release oral tablet (1 source) beta-Adrenergic Tristian Start: 06-25-2024 take 1 tablet by mouth once daily Metoprolol Succinate 100 mg tablet extended release 24 hr Active 100 mg PO DAILY June 25, 2024 1:00am [place] (Nk) (1 source) Start: 06-27-2023 [place] (Nk) Active June 27, 2023 12:00am predniSONE 20 mg oral tablet (3 sources) Start: 02-02-2023 predniSONE (Deltasone) 20 MG tablet Take 40 mg by mouth. 0 02/02/2023 Active sevelamer carbonate 800 mg oral tablet (1 source) Phosphate Binder Start: 07-30-2024 take 1 tablet by mouth three times daily Sevelamer Carbonate 800 mg tablet Active 800 mg PO THREE TIMES A DAY July 30, 2024 1:00am triamcinolone acetonide 1 mg/ml topical cream (3 sources) Corticosteroid Start: 02-02-2023 triamcinolone (Kenalog) 0.1 % cream apply to affected area twice a day if needed 0 02/02/2023 Active Completed/Discontinued Medications Medication Drug Class(es) Dates Sig (Normalized) Sig (Original) azithromycin 250 mg oral tablet (6 sources) Macrolide Antimicrobial Start: 08-09-2018 End: 06-27-2023 take 1 tablet by mouth once daily Azithromycin (Zithromax) 250 MG tablet Discontinued 250 mg PO DAILY August 09, 2018 1:00am June 27, 2023 11:54pm had first dose in ED ferrous sulfate 325 mg oral tablet (6 sources) Start: 11-03-2016 End: 01-10-2017 take 1 tablet by mouth once daily Ferrous Sulfate (Iron) 325 MG tablet Discontinued 325 mg PO DAILY November 03, 2016 12:00am January 10, 2017 5:23pm ondansetron 4 mg disintegrating oral tablet (6 sources) Serotonin-3 Receptor Antagonist Start: 06-28-2023 End: 06-25-2024 take 1 tablet by mouth every eight hours as needed for nausea Ondansetron 4 mg tablet,disintegra ting Discontinued 4 mg PO Q8H as needed for nausea June 28, 2023 1:00am June 25, 2024 9:53pm Start: 06-26-2023 ondansetron OD T (Zofran-ODT) 4 MG disintegrating tablet dissolve 1 tablet ON TONGUE three times a day if needed for nausea 0 06/26/2023 Active Problems Active Problems Problem Classification Problem Date Documented Da te Episodic/Chronic Acute and unspecified renal failure (9 sources) Acute renal failure syndrome; Translations: [Acute kidney failure, unspecified] Onset: 07-18-2023 06-27-2023 Episodic Chronic kidney disease (17 sources) Chronic kidney disease stage 4; Translations: [Chronic kidney disease, stage 4 (severe)] Onset: 07-18-2023 06-28-2023 Chronic Complication of device; implant or graft (4 sources) Dialysis finding; Translations: [Other specified complication of vascular prosthetic devices, implants and grafts, initial encounter] Onset: 11-26-2024 11-25-2024 Chronic Deficiency and other anemia (7 sources) Anemia; Translations: [Anemia, unspecified] Onset: 08-21-2022 06-27-2023 Episodic Deficiency and other anemia (3 sources) Anemia, unspecified; Translations: [Anemia, unspecified] 06-27-2023 Episodic Essential hypertension (11 sources) Hypertensive disorder; Translations: [Essential (primary) hypertension] Onset: 07-18-2023 06-27-2023 Chronic Other lower respiratory disease (1 source) Dyspnea; Translations: [Dyspnea, unspecified] 07-05-2024 Episodic Other nutritional; endocrine; and metabolic disorders (6 sources) Hypocalcemia; Translations: [Hypocalcemia] Onset: 07-18-2023 06-28-2023 Chronic Other nutritional; endocrine; and metabolic disorders (1 source) Hypocalcemia; Translations: [Hypocalcemia] 06-28-2023 Chronic Other upper respiratory disease (3 sources) Allergic rhinitis; Translations: [Allergic rhinitis, unspecified] Onset: 06-29-2023 09-07-2023 Chronic Viral infection (1 source) Disease caused by 2019-nCoV; Translations: [COVID-19] 07-30-2024 Episodic Past or Other Problems Problem Classification Problem Date Documented Da te Episodic/Chronic Fluid and electrolyte disorders (2 sources) Hypervolemia; Translations: [Fluid overload, unspecified] Onset: 06-27-2024 07-05-2024 Episodic Malaise and fatigue (1 source) Other fatigue; Translations: [Other fatigue] Onset: 08-12-2024 Episodic Other lower respiratory disease (1 source) Dyspnea, unspecified; Translations: [Dyspnea, unspecified] Onset: 06-27-2024 Episodic Results Test Name Value Interpretation Reference Range Facility Operative Reporton Operative Report [facility] Medical Records Department [address] [place] [address] Operative Report 11/25/24 1515 MR#: [id number] Acct: [id number] Name: ELIJAH MARSHALL Rep #: [id number] : 1975 49 From: Jase Zimmerman MD PCP: Dr. Timmy Goldstein MD Status:REG [facility] Location: [facility] Operative Report (Standard) Operative Information Date of Procedure: 11/25/24 Pre-Operative Diagnosis: Malfunctioning tunneled dialysis catheter Post-Operative Diagnosis: Same Surgery/Procedure Performed: Removal of right IJ tunneled dialysis catheter Venogram superior vena cava Intravascular ultrasound superior vena cava, right innominate vein, right internal jugular vein Placement new tunneled right IJ catheter cardiothoracic physiotherapist: No Type of Anesthesia: Local and Sedation,Conscious Procedure Start Time: 14:00 Procedure Stop Time: 15:00 Select all DRAINS/GRAFTS/IMPL ANTS that apply: Implanted device Implanted device details: BD vascular pristine 19 cm tunneled dialysis catheter Special Medications: BD vascular pristine 19 cm tunneled dialysis catheter Estimated Blood Loss: 10 Specimen collected: No Description of surgery: HPI: Patient is a 49-year-old female with end-stage renal disease currently on dialysis via a right tunneled IJ catheter that has been in for nearly 1 year. For the majority of that time she has had difficulty with use of the catheter requiring the flow direction to be reversed. She presents now for catheter exchange. Description of procedure: Upon obtaining informed consent and verification correct patient procedure site the patient was taken the [employer] where she was positioned prepped and draped in usual sterile fashion. Time was performed consultation administered with Versed and fentanyl. Skin overlying the tunneled catheter from the skin exit site to the venous puncture site was anesthetized with 1% lidocaine and a transverse incision made overlying the apex of the catheter at the site of the prior venous puncture site. Combination of blunt and sharp dissection was used to dissect down to the catheter which was then grasped with hemostats and the remaining soft tissue surrounding mobilized. The catheter was then clamped towards the venous direction and divided with scissors. A stiff angled Glidewire was then advanced through the catheter and the catheter tip extracted over the wire and exchanged for an 8 Bruneian sheath. Through the 8 Bruneian sheath hand-injection subtraction venacavogram was performed which confirmed no significant stenosis or obstruction. Intravascular ultrasound probe was advanced over the wire and recorded pullback performed from the right atrium to the IJ which revealed minimal amount of fibrin sheath in the mid superior vena cava which would not be in location adjacent to our catheter tip once it was placed. Given the location and the minimal amount of fibrin sheath no intervention was felt to be appropriate. The 8 Bruneian sheath was then exchanged for the BD the pristine tunneled catheter peel-away sheath which was advanced without resistance under fluoroscopic guidance into position at the atriocaval junction. Next skin overlying the planned new tunnel and skin exit was anesthetized 1% lidocaine and transverse incision made on the superior chest wall. The tunneler was then used to pull the new tunneled catheter from the skin incision up to the tunneled sheath site and the tunneling apparatus removed. The catheter was then advanced through the peel-away sheath which was then withdrawn as the catheter was advanced into position. Fluoroscopy confirmed satisfactory position within the mid right atrium with appropriate orientation of the catheter tip ends. The neck incision was then closed with 3-0 Vicryl followed by 4 Monocryl and Dermabond. The new catheter was then flushed with heparinized saline with both draw and flush being brisk without resistance. 1.8 cc of concentrated heparin was then placed in each of the catheter ports and caps applied. Next the remainder of the old catheter was freed along the tunnel with blunt dissection up to the cuff and once this was sufficiently freed the catheter was withdrawn. Manual pressure was then held over the new tunnel site as well as the old skin exit site until hemostasis was observed. Dry sterile dressing was then applied both to the new tunneled catheter as well as the old tunnel site. The patient was then taken to the cover area with plan discharged to home. Surgical Findings: Trivial amount of fibrin sheath in the superior vena cava Complications Complications: No 11/25/24 1524 Cosigner Signature (if applicable): CC: Dr. Timmy Goldstein MD; Dr. Jase Zimmerman MD Signed Normal [facility] 11-07-2024 [facility] Telephone (TXCTGL) -------- ELIJAH MARSHALL ([id number]) 1975 F Date Time Provider Department 11/07/24 KIDNEY TXP COORDINATORS TXCTGL During your visit today, we recorded the following information about you: Marisabel Gould 11/07/2024 11:09 AM Signed 2nd call to Elijah Marshall without success regarding referral. Voicemail message was left for patient to call our office; letter sent. Marisabel Gould Allergies As of Date: 11/07/2024 (Not on File) Date Reviewed: Never Reviewed Reason for Visit: Referral - Kidney Txp [[id number]] Problem List As Of Date: 11/07/2024 (None) Letter Text Encounter Status:Closed by MARISABEL GOULD on 11/07/24 [facility] CNPNon 10-31-2024 CNPN Telephone (TXCTGL) -------- ELIJAH MARSHALL ([id number]) 1975 F Date Time Provider Department 10/31/24 KIDNEY TXP COORDINATORS [facility] During your visit today, we recorded the following information about you: YenySnow muñozissa 10/31/2024 1:44 PM Signed Called patient a couple of times, phone rings, someone picks up, phone hangs up, and will try back at another time in regards to kidney transplant referral. Marisabel Bridgetkortney Allergies As of Date: 10/31/2024 (Not on File) Date Reviewed: Never Reviewed Reason for Visit: Referral - Kidney Txp [[id number]] Problem List As Of Date: 10/31/2024 (None) Encounter Status:Closed by MARISABEL GOULD on 10/31/24 [facility] 12 Lead EKGon 07-30-2024 12 Lead EKG [facility] [address] [place] [address] 12 Lead EKG 07/30/24 0025 MR#: [id number] Acct: [id number] Name: ELIJAH MARSHALL Rep #: [id number] : 1975 49 From: Theo Godinez MD Attending Dr: Status: DEP ER Ordering Dr: Rocael Iyer MD Date: 07/30/24 Location: ED Sex: F AA Admitted: Test Reason : DYSRHYTHMIA Blood Pressure : */* mmHG Vent. Rate : 96 BPM Atrial Rate : 96 BPM P-R Int : 172 ms QRS Dur : 80 ms QT Int : 380 ms P-R-T Axes : 62 54 65 degrees QTcB Int : 480 ms Normal sinus rhythm Possible Left atrial enlargement Minimal voltage criteria for LVH, may be normal variant ( Sokolow-Shrestha ) Nonspecific ST and T wave abnormality Prolonged QT Abnormal ECG Confirmed by Theo Godinez ([id number]), visual effects editor JEFFERSON WALTON ([id number]) on 07/30/2024 11:28:53 AM Referred By: BB Confirmed By: Theo Godinez 07/30/24 1128 Date Theo Godinez MD CC: Dr. Rocael Iyer MD; Dr. Timmy Goldstein MD Signed Normal [facility] Absolute lymphocyte countOrd ered By: Rocael Iyer on 07-30-2024 Lymphocytes Auto (Unsp spec) [#/Vol] 0.58 10*3/uL Low 0.83-4.51 [facility] Absolute neutrophil countOrd ered By: Rocael Iyer on 07-30-2024 Neutrophils (Bld) [#/Vol] 5.1 10*3/uL 2.0-7.7 [facility] Automated lymphocyte count a s percentage of total leukocytesOrdered By: Rocael Iyer on 07-30-2024 Lymphocytes/100 WBC Auto (Unsp spec) 9.2 % Low 19-41 [facility] Basic Metabolic Profile (BMP )on 07-30-2024 BUN/CRE 3.0 RATIO Low 10-20 [facility] Comment on above: Order Comment: 'TROP ' Serial specimen #1, #2 or #3: 1 Performed By: #### L 100.0100, L500.2500, L501.4020 ####[facility] [address] [place], [address] CA,Total 9.5 mg/dL Normal 8.5-10.1 [facility] Comment on above: Order Comment: 'TROP ' Serial specimen #1, #2 or #3: 1 Performed By: #### L 100.0100, L500.2500, L501.4020 ####[facility] [address] [place], [address] Chloride [Moles/Vol] 102 mmol/L Normal 98-107 [facility] Comment on above: Order Comment: 'TROP ' Serial specimen #1, #2 or #3: 1 Performed By: #### L 100.0100, L500.2500, L501.4020 ####[facility] [address] [place], [address] CO2 [Moles/Vol] 25.0 mmol/L Normal 21.0-32.0 [facility] Comment on above: Order Comment: 'TROP ' Serial specimen #1, #2 or #3: 1 Performed By: #### L 100.0100, L500.2500, L501.4020 ####[facility] [address] [place], [address] Creatinine [Mass/Vol] 9.73 mg/dL Invalid Interpretation Code 0.55-1.02 [facility] Comment on above: Order Comment: 'TROP ' Serial specimen #1, #2 or #3: 1 Result Comment: Crit ical Result(s) Called at: 01:13:06 07/30/2024 by: Poli Avila. to Stew MACHINE INSTALLER. Results read back by same. The validity of the calculated GFR GFRAA in patients over 70 years has not been determined. Clinical correlation is essential. Performed By: #### L 100.0100, L500.2500, L501.4020 ####[facility] [address] [place], [address] ECRCL 6.04 ml/min Normal [facility] Comment on above: Order Comment: 'TROP ' Serial specimen #1, #2 or #3: 1 Performed By: #### L 100.0100, L500.2500, L501.4020 ####[facility] [address] [place], [address] EST GFR - AA 6 mL/min Low >60 [facility] Comment on above: Order Comment: 'TROP ' Serial specimen #1, #2 or #3: 1 Result Comment: Afri can Chinese GFR Calc Performed By: #### L 100.0100, L500.2500, L501.4020 ####[facility] [address] [place], [address] GAP 10 Normal 5-15 [facility] Comment on above: Order Comment: 'TROP ' Serial specimen #1, #2 or #3: 1 Performed By: #### L 100.0100, L500.2500, L501.4020 ####[facility] [address] [place], [address] GFR/1.73 sq M.predicted among non-blacks MDRD (S/P/Bld) [Vol rate/Area] 5 mL/min/{1.73_m2} Low >60 [facility] Comment on above: Order Comment: 'TROP ' Serial specimen #1, #2 or #3: 1 Result Comment: Non- GFR Calc Performed By: #### L 100.0100, L500.2500, L501.4020 ####[facility] [address] [place], [address] Glucose [Mass/Vol] 110 mg/dL High 74-106 [facility] Comment on above: Order Comment: 'TROP ' Serial specimen #1, #2 or #3: 1 Result Comment: Fast ing Glucose result from 100 to 125 mg/dL suggests IMPAIRED HOMEOSTASIS per A.D.A. criteria. Performed By: #### L 100.0100, L500.2500, L501.4020 ####[facility] [address] [place], [address] Potassium [Moles/Vol] 4.5 mmol/L Normal 3.5-5.1 [facility] Comment on above: Order Comment: 'TROP ' Serial specimen #1, #2 or #3: 1 Performed By: #### L 100.0100, L500.2500, L501.4020 ####[facility] [address] [place], [address] Sodium [Moles/Vol] 138 mmol/L Normal 136-145 [facility] Comment on above: Order Comment: 'TROP ' Serial specimen #1, #2 or #3: 1 Performed By: #### L 100.0100, L500.2500, L501.4020 ####[facility] [address] [place], [address] Urea nitrogen [Mass/Vol] 29 mg/dL High 7-18 [facility] Comment on above: Order Comment: 'TROP ' Serial specimen #1, #2 or #3: 1 Performed By: #### L 100.0100, L500.2500, L501.4020 ####[facility] [address] [place], [address] Basophil percentageOrdered B y: Rocael Iyer on 07-30-2024 Basophils/100 WBC (Bld) 1.1 % High 0-1 [facility] Blood urea nitrogen (BUN)/cr eatinine ratioOrdered By: Rocael Iyer on 07-30-2024 Urea nitrogen/Creatinine [Mass ratio] 3.0 mg/mg Low 10-20 [facility] CBC W/Diff, Automatedon 07-19 Absolute Lymph 0.58 X10 3/uL Low 0.83-4.51 [facility] Comment on above: Performed By: #### L 100.0100, L500.2500, L501.4020 ####[facility] [address] [place], [address] Absolute Neut 5.1 X10 3/uL Normal 2.0-7.7 [facility] Comment on above: Performed By: #### L 100.0100, L500.2500, L501.4020 ####[facility] [address] [place], [address] Basophils/100 WBC (Bld) 1.1 % High 0-1 [facility] Comment on above: Performed By: #### L 100.0100, L500.2500, L501.4020 ####[facility] [address] [place], [address] Eosinophils/100 WBC (Bld) 0.6 % Normal 0-5 [facility] Comment on above: Performed By: #### L 100.0100, L500.2500, L501.4020 ####[facility] [address] [place], [address] Erythrocyte distribution width (RBC) [Ratio] 18.7 % High 11.6-14.6 [facility] Comment on above: Performed By: #### L 100.0100, L500.2500, L501.4020 ####[facility] [address] [place], [address] Hematocrit (Bld) [Volume fraction] 33.0 % Low 37-47 [facility] Comment on above: Performed By: #### L 100.0100, L500.2500, L501.4020 ####[facility] [address] [place], [address] Hemoglobin (Bld) [Mass/Vol] 11.1 g/dL Low 12.0-15.0 [facility] Comment on above: Performed By: #### L 100.0100, L500.2500, L501.4020 ####[facility] [address] [place], [address] IG% 0.800 Normal 0.0-0.9 [facility] Comment on above: Result Comment: IG% - Immature Granulocytes (promyelocytes, myelocytes and metamyelocytes) > 1% indicates that a LEFT SHIFT is Present. Performed By: #### L 100.0100, L500.2500, L501.4020 ####[facility] [address] [place], [address] Lymphocytes/100 WBC (Bld) 9.2 % Low 19-41 [facility] Comment on above: Performed By: #### L 100.0100, L500.2500, L501.4020 ####[facility] [address] [place], [address] [facility] (RBC) [Entitic mass] 29.9 pg Normal 27.0-32.0 [facility] Comment on above: Performed By: #### L 100.0100, L500.2500, L501.4020 ####[facility] [address] [place], [address] MCHC (RBC) [Mass/Vol] 33.6 g/dL Normal 32-36 [facility] Comment on above: Performed By: #### L 100.0100, L500.2500, L501.4020 ####[facility] [address] [place], [address] MCV (RBC) [Entitic vol] 88.9 fL Normal 81-99 [facility] Comment on above: Performed By: #### L 100.0100, L500.2500, L501.4020 ####[facility] [address] [place], [address] Monocytes/100 WBC (Bld) 8.2 % Normal 0-10 [facility] Comment on above: Performed By: #### L 100.0100, L500.2500, L501.4020 ####[facility] [address] [place], [address] Neutrophils/100 WBC (Bld) 80.1 % High 47-70 [facility] Comment on above: Performed By: #### L 100.0100, L500.2500, L501.4020 ####[facility] [address] [place], [address] Nucleated RBC (Bld) [#/Vol] 0 10*3/uL Normal 0-5 [facility] Comment on above: Performed By: #### L 100.0100, L500.2500, L501.4020 ####[facility] [address] [place], [address] Platelet mean volume (Bld) [Entitic vol] 11.1 fL Normal 6.2-12.0 [facility] Comment on above: Performed By: #### L 100.0100, L500.2500, L501.4020 ####[facility] [address] [place], [address] Platelets (Bld) [#/Vol] 143 10*3/uL Low 150-450 [facility] Comment on above: Performed By: #### L 100.0100, L500.2500, L501.4020 ####[facility] [address] [place], [address] RBC (Bld) [#/Vol] 3.71 10*6/uL Low 4.2-5.4 [facility] Comment on above: Performed By: #### L 100.0100, L500.2500, L501.4020 ####[facility] [address] [place], [address] RDW SD 60.3 fl High 35.1-43.9 [facility] Comment on above: Performed By: #### L 100.0100, L500.2500, L501.4020 ####[facility] [address] [place], [address] WBC (Bld) [#/Vol] 6.3 10*3/uL Normal 4.4-11.0 [facility] Comment on above: Performed By: #### L 100.0100, L500.2500, L501.4020 ####[facility] [address] [place], [address] Carbon dioxide measurementOr dered By: Rocael Iyer on 07-30-2024 CO2 [Moles/Vol] 25.0 mmol/L 21.0-32.0 [facility] Chest 1 View (Portable)on Chest 1 View (Portable) [facility] Imaging Services [address] [place] [address] Chest 1 View (Portable) MR#: [id number] Acct: [id number] Name: ELIJAH MARSHALL Rep #: [id number] : 1975 F 49 From: José Palmer DO PCP: Dr. Timmy Goldstein MD Status: PRE ER Study: Chest 1 View (Portable) Date of Exam: 07/30/24 Exam# [id number] Ordering Dr: Rocael Iyer MD PROCEDURE: CHEST 1 VIEW (PORTABLE) REASON FOR EXAM: Shortness of breath. TECHNIQUE: Frontal view of the chest. COMPARISON: Chest x-ray from 06/25/2024. FINDINGS: Cardiac size is within normal limits. There is mild prominence of the pulmonary interstitium which is improved. There is mild blunting of the bilateral costophrenic angles suggestive of trace bilateral pleural effusions. No pneumothorax is present. Dual-lumen right-sided central venous catheter is present. There is mild dextroscoliosis of the midthoracic spine. RAD/Chest 1 View (Portable) IMPRESSION: 1. Trace bilateral pleural effusions. 2. Mild prominence of the pulmonary interstitium. Reading Location: [facility] CC: Dr. Rocael Iyer MD; Dr. Timmy Goldstein MD Do All Operator: Signed Normal [facility] Chloride measurementOrdered By: Rocael Iyer on 07-30-2024 Chloride [Moles/Vol] 102 mmol/L 98-107 [facility] Emergency Department Summary on 07-30-2024 Emergency Department Summary [facility] Medical Records Department [address] [place] [address] Emergency Department Summary 07/30/24 MR#: [id number] Acct: [id number] Name: ELIJAH MARSHALL Rep #: [id number] : 1975 49 From: Rocael Iyer MD PCP: Dr. Timmy Goldstein MD Status:REG ER Location: ED HPI History of Present Illness Chief Complaint: Fatigue Informant: patient and family Narrative Narrative: 49-year-old female dialysis patient is prepped by EMS because family states her face looks swollen and they noticed that little more than 24 hours ago. The patient states she does not notice it. She denies having swelling anywhere else. She states she has been feeling really poorly and tired for the last 1 or 2 days, she has been having a lot of diarrhea more than 10 bouts over the past 24 hours, and 1 bout of vomiting no abdominal pain or chest pain. She states every now and then with activity she gets dyspneic but better quickly with resting. She denies any major coughing. She had a fever over 100 yesterday. She is due for dialysis tomorrow, she last had it 2 days ago, she has not missed any dialysis recently. [facility] Medical History Hypocalcemia ESRD (end stage renal disease) on dialysis Smoker Acute kidney injury Home Medications ???Medication ???Instructions ???Recorded ???Last Taken ???Type amlodipine 10 mg tablet 10 mg PO DAILY blood pressure #30 07/03/23 Unknown Rx tabs clonidine 0.1 mg/24 hr weekly 1 patch topical QWEEK blood Unknown History transdermal patch pressure metoprolol succinate 100 mg 100 mg PO DAILY blood pressure 02/09 Unknown History tablet,extended release 24 hr hydralazine 50 mg tablet 50 mg PO TID #180 tabs 06/27/24 Un known Rx sevelamer carbonate 800 mg tablet 800 mg PO TID 07/30/24 Unknown Hi story vitamin B complex-vitamin C-folic 1 tab PO DAILY 07/30/24 Unknown H istory acid 0.8 mg tablet (Quin-Mc) Allergy/AdvReac Type Severity Reaction Status Date / Time Antihistamines - Alkylamine Allergy Swelling Verified 07/30/24 00:15 Penicillins Allergy Hives Verified 07/30/24 00:15 Social History Smoking Status: Heavy Smoker (>10/day) ROS ROS ED Constitutional Constitutional ED: Reports fatigue and fever(s); Denies chills Eyes Eyes: Denies change in vision or diplopia ENT ENT ED: Denies ear pain, rhinorrhea or sore throat Cardiovascular Cardiovascular: Denies chest pain, orthopnea or palpitations Respiratory/Chest Respiratory/Chest: Reports dyspnea on exertion; Denies cough or orthopnea Gastrointestinal Gastrointestinal: Reports diarrhea, nausea and vomiting; Denies abdominal pain Genitourinary Genitourinary ED: Denies dysuria or hematuria Musculoskeletal Musculoskeletal: Denies back pain or neck pain Integumentary Denies abscess or rash Neurologic Neurologic: Reports headache(s); Denies paresthesias or weakness Psychiatric Psychiatric: Denies anxiety or suicidal thoughts EXAM Physical Exam Const Vital Signs: 07/30/24 00:15 07/30/24 00:39 07/30/24 00:39 Temperature 98.4 F Temperature Source Oral Pulse Rate 26 L Respiratory Rate 26 H Respiratory Effort Normal Respiratory Pattern Normal Blood Pressure 238/155 H Blood Pressure Mean 182 Pulse Ox 96 Oxygen Delivery Method Room Air Room Air 07/30/24 00:43 07/30/24 01:04 07/30/24 01:15 Temperature Temperature Source Pulse Rate 98 93 Respiratory Rate 18 29 H Respiratory Effort Respiratory Pattern Blood Pressure 229/133 H Blood Pressure Mean 165 Pulse Ox 98 Oxygen Delivery Method Room Air Room Air 07/30/24 01:30 07/30/24 01:45 07/30/24 02:00 Temperature Temperature Source Pulse Rate 95 102 H 102 H Respiratory Rate 11 L 27 H 27 H Respiratory Effort Respiratory Pattern Blood Pressure 214/113 H 230/125 H Blood Pressure Mean 143 156 Pulse Ox 97 Oxygen Delivery Method Room Air Positive well nourished and well developed General Appearance ED: well developed and NAD HEENT Reports moist mucous membranes normocephalic and atraumatic Eyes PERRL and EOMs intact bilaterally Neck full ROM and supple Chest Wall Chest Narrative: R upper chest wall tunneled catheter, site benign. Resp normal respiratory effort and clear to auscultation bilaterally Cardio regular rate and regular rhythm GI non-tender and non-distended Auscultation: normoactive bowel sounds Palpation: soft Back/Spine no CVA tenderness General Back: other FROM Extremity normal to inspection General Extremety ED: Negative for edema, pulses abnormal or tenderness General Extremity: Neg (more content not included)... Normal [facility] Eosinophil percentageOrdered By: Rocael Iyer on 07-30-2024 Eosinophils/100 WBC (Bld) 0.6 % 0-5 [facility] Erythrocyte distribution wid th ratioOrdered By: Rocael Iyer on 07-30-2024 Erythrocyte distribution width (RBC) [Ratio] 18.7 % High 11.6-14.6 [facility] Erythrocyte distribution wid th standard deviationOrdered By: Rocael Iyer on 07-30-2024 Erythrocyte distribution width (RBC) [Ratio] 60.3 fl High 35.1-43.9 [facility] Glomerular filtration rate ( GFR) estimationOrdered By: Rocael Iyer on 07-30-2024 GFR/1.73 sq M.predicted among non-blacks MDRD (S/P/Bld) [Vol rate/Area] 5 mL/min/{1.73_m2} Low >60 [facility] Comment on above: Non- GFR Calc Glucose measurementOrdered B y: Rocael Iyer on 07-30-2024 Glucose [Mass/Vol] 110 mg/dL High 74-106 [facility] Comment on above: Fasting Glucose resu lt from 100 to 125 mg/dL suggests IMPAIRED HOMEOSTASIS per A.D.A. criteria. Hematocrit Auto (Bld) [Volum e fraction]Ordered By: Rocael Iyer on 07-30-2024 Hematocrit (Bld) [Volume fraction] 33.0 % Low 37-47 [facility] Hemoglobin measurementOrdere d By: Rocael Iyer on 07-30-2024 Hemoglobin (Bld) [Mass/Vol] 11.1 g/dL Low 12.0-15.0 [facility] Immature granulocytes/100 WB C Auto (Bld)Ordered By: Rocael Iyer on 07-30-2024 Immature granulocytes/100 WBC (Bld) 0.800 % 0.0-0.9 [facility] Comment on above: IG% - Immature Granu locytes (promyelocytes, myelocytes and metamyelocytes) > 1% indicates that a LEFT SHIFT is Present. L501.4020on 07-30-2024 TROPONIN-I HS 102 pg/mL High 3.0-54.0 [facility] Comment on above: Order Comment: 'TROP ' Serial specimen #1, #2 or #3: 1 Result Comment: Plea se Note: New Test Units and Gender Specific Reference Ranges. For more information see Policy Stat Procedure [place] High Sensitivity Troponin (TNIH) and attachments. Performed By: #### L 100.0100, L500.2500, L501.4020 ####[facility] [address] [place], [address] M100.678on 07-30-2024 M100.678 SARS-CoV-2 (COVID 19) A Positive A INFLUENZA A Negative INFLUENZA B Negative RSV PCR Negative SARS-CoV-2 (COVID 19 PCR) Normal [facility] Comment on above: Performed By: #### M 100.678 ####[facility] [address] [place], [address] MCV (mean corpuscular volume ) determinationOrdered By: Rocael Iyer on 07-30-2024 MCV (RBC) [Entitic vol] 88.9 fL 81-99 [facility] Mean corpuscular hemoglobin (MCH) determinationOrdered By: Rocael Iyer on 07-30-2024 MCH (RBC) [Entitic mass] 29.9 pg 27.0-32.0 [facility] Mean corpuscular hemoglobin concentration (MCHC) determinationOrdered By: Rocael Iyer on 07-30-2024 MCHC (RBC) [Mass/Vol] 33.6 g/dL 32-36 [facility] Mean platelet volume determi nationOrdered By: Rocael Iyer on 07-30-2024 Platelet mean volume (Bld) [Entitic vol] 11.1 fL 6.2-12.0 [facility] Monocyte percentageOrdered B y: Rocael Iyer on 07-30-2024 Monocytes/100 WBC (Bld) 8.2 % 0-10 [facility] Neutrophil percentageOrdered By: Rocael Iyer on 07-30-2024 Neutrophils/100 WBC (Bld) 80.1 % High 47-70 [facility] Nucleated red blood cell per centageOrdered By: Rocael Iyer on 07-30-2024 Nucleated RBC/100 WBC (Bld) [Ratio] 0 % 0-5 [facility] Platelet countOrdered By: Cathy Iyer on 07-30-2024 Platelets (Bld) [#/Vol] 143 10*3/uL Low 150-450 [facility] Potassium measurementOrdered By: Rocael Iyer on 07-30-2024 Potassium [Moles/Vol] 4.5 mmol/L 3.5-5.1 [facility] RBC Auto (Bld) [#/Vol]Ordere d By: Rocael Iyer on 07-30-2024 RBC (Bld) [#/Vol] 3.71 10*6/uL Low 4.2-5.4 [facility] Serum anion gap measurementO rdered By: Rocael Iyer on 07-30-2024 Anion gap [Moles/Vol] 10 mmol/L 5-15 [facility] Serum or plasma calcium hero urement (mass/volume)Ordered By: Rocael Iyer on 07-30-2024 Calcium [Mass/Vol] 9.5 mg/dL 8.5-10.1 [facility] Serum or plasma creatinine m easurement (mass/volume)Ordered By: Rocael Iyer on 07-30-2024 Creatinine [Mass/Vol] 9.73 mg/dL High 0.55-1.02 [facility] Comment on above: Critical Result(s) C alled at: 01:13:06 07/30/2024 by: Poli Avila. guido Mathias MACHINE INSTALLER. Results read back by same.The validity of the calculated GFR & GFRAA in patients over 70 years has not been determined. Clinical correlation is essential. Serum or plasma urea nitroge n measurement (mass/volume)Ordered By: Rocael Iyer on 07-30-2024 Urea nitrogen [Mass/Vol] 29 mg/dL High 7-18 [facility] Sodium levelOrdered By: Amanuel Iyer on 07-30-2024 Sodium [Moles/Vol] 138 mmol/L 136-145 [facility] Troponin IOrdered By: Reg Iyer on 07-30-2024 Troponin I 102 pg/mL High 3.0-54.0 [facility] Comment on above: Please Note: [place] t Units and Gender Specific Reference Ranges. For more information see Policy Stat Procedure [place] High Sensitivity Troponin (TNIH) and attachments. White blood cell (WBC) count Ordered By: Rocael Iyer on 07-30-2024 WBC (Bld) [#/Vol] 6.3 10*3/uL 4.4-11.0 [facility] Influenza virus A and B and SARS-CoV-2 (COVID-19) and Respiratory syncytial virus RNAOrdered By: Rocael Iyer on 07-29-2024 SARS-CoV-2 (COVID-19) RNA TANK+probe Ql (Unsp spec) SARS-CoV-2 (COVID 19 PCR) Abnormal [facility] Basic Metabolic Profile (BMP )on 06-27-2024 BUN/CRE 3.6 RATIO Low 10-20 [facility] Comment on above: Performed By: #### L 100.0500, L501.2300, L500.2500, L501.5200 #### [facility] Laboratory [address] [place], [address] CA,Total 8.7 mg/dL Normal 8.5-10.1 [facility] Comment on above: Performed By: #### L 100.0500, L501.2300, L500.2500, L501.5200 #### [facility] [address] [place], [address] Chloride [Moles/Vol] 98 mmol/L Normal 98-107 [facility] Comment on above: Performed By: #### L 100.0500, L501.2300, L500.2500, L501.5200 #### [facility] [address] [place], [address] CO2 [Moles/Vol] 23.0 mmol/L Normal 21.0-32.0 [facility] Comment on above: Performed By: #### L 100.0500, L501.2300, L500.2500, L501.5200 #### [facility] [address] [place], [address] Creatinine [Mass/Vol] 15.60 mg/dL Invalid Interpretation Code 0.55-1.02 [facility] Comment on above: Result Comment: Crit ical Result(s) Called at: 03:35:15 06/27/2024 by: REBEKAH KIMBROUGH to Oliva Nicole. Results read back by same. The validity of the calculated GFR GFRAA in patients over 70 years has not been determined. Clinical correlation is essential. Performed By: #### L 100.0500, L501.2300, L500.2500, L501.5200 #### [facility] [address] [place], [address] ECRCL 3.77 ml/min Normal [facility] Comment on above: Performed By: #### L 100.0500, L501.2300, L500.2500, L501.5200 #### [facility] [address] [place], [address] EST GFR - AA 3 mL/min Low >60 [facility] Comment on above: Result Comment: Afri can Chinese GFR Calc Performed By: #### L 100.0500, L501.2300, L500.2500, L501.5200 #### [facility] [address] [place], [address] GAP 10 Normal 5-15 [facility] Comment on above: Performed By: #### L 100.0500, L501.2300, L500.2500, L501.5200 #### [facility] [address] [place], [address] GFR/1.73 sq M.predicted among non-blacks MDRD (S/P/Bld) [Vol rate/Area] 3 mL/min/{1.73_m2} Low >60 [facility] Comment on above: Result Comment: Non- GFR Calc Performed By: #### L 100.0500, L501.2300, L500.2500, L501.5200 #### [facility] [address] [place], [address] Glucose [Mass/Vol] 141 mg/dL High 74-106 [facility] Comment on above: Result Comment: Fast ing Glucose result greater than or equal to 126 mg/dL suggests DIABETES MELLITUS per A.D.A. criteria. Performed By: #### L 100.0500, L501.2300, L500.2500, L501.5200 #### [facility] [address] [place], [address] Potassium [Moles/Vol] 4.0 mmol/L Normal 3.5-5.1 [facility] Comment on above: Performed By: #### L 100.0500, L501.2300, L500.2500, L501.5200 #### [facility] [address] [place], [address] Sodium [Moles/Vol] 130 mmol/L Low 136-145 [facility] Comment on above: Performed By: #### L 100.0500, L501.2300, L500.2500, L501.5200 #### [facility] [address] [place], [address] Urea nitrogen [Mass/Vol] 56 mg/dL High 7-18 [facility] Comment on above: Performed By: #### L 100.0500, L501.2300, L500.2500, L501.5200 #### [facility] [address] [place], [address] CBC-Complete Blood Cnt No Di ffon 06-27-2024 Erythrocyte distribution width (RBC) [Ratio] 16.1 % High 11.6-14.6 [facility] Comment on above: Performed By: #### L 100.0500, L501.2300, L500.2500, L501.5200 #### [facility] [address] [place], [address] Hematocrit (Bld) [Volume fraction] 23.4 % Low 37-47 [facility] Comment on above: Performed By: #### L 100.0500, L501.2300, L500.2500, L501.5200 #### [facility] [address] [place], [address] Hemoglobin (Bld) [Mass/Vol] 8.3 g/dL Low 12.0-15.0 [facility] Comment on above: Performed By: #### L 100.0500, L501.2300, L500.2500, L501.5200 #### [facility] [address] [place], [address] MCH (RBC) [Entitic mass] 29.4 pg Normal 27.0-32.0 [facility] Comment on above: Performed By: #### L 100.0500, L501.2300, L500.2500, L501.5200 #### [facility] [address] [place], [address] MCHC (RBC) [Mass/Vol] 35.5 g/dL Normal 32-36 [facility] Comment on above: Performed By: #### L 100.0500, L501.2300, L500.2500, L501.5200 #### [facility] [address] [place], [address] MCV (RBC) [Entitic vol] 83.0 fL Normal 81-99 [facility] Comment on above: Performed By: #### L 100.0500, L501.2300, L500.2500, L501.5200 #### [facility] [address] [place], [address] Platelet mean volume (Bld) [Entitic vol] 9.5 fL Normal 6.2-12.0 [facility] Comment on above: Performed By: #### L 100.0500, L501.2300, L500.2500, L501.5200 #### [facility] [address] [place], [address] Platelets (Bld) [#/Vol] 132 10*3/uL Low 150-450 [facility] Comment on above: Performed By: #### L 100.0500, L501.2300, L500.2500, L501.5200 #### [facility] [address] [place], [address] RBC (Bld) [#/Vol] 2.82 10*6/uL Low 4.2-5.4 [facility] Comment on above: Performed By: #### L 100.0500, L501.2300, L500.2500, L501.5200 #### [facility] [address] [place], [address] RDW SD 48.9 fl High 35.1-43.9 [facility] Comment on above: Performed By: #### L 100.0500, L501.2300, L500.2500, L501.5200 #### [facility] [address] [place], [address] WBC (Bld) [#/Vol] 5.4 10*3/uL Normal 4.4-11.0 [facility] Comment on above: Performed By: #### L 100.0500, L501.2300, L500.2500, L501.5200 #### [facility] [address] [place], [address] Magnesiumon 06-27-2024 Magnesium [Mass/Vol] 2.5 mg/dL Normal 1.6-2.6 [facility] Comment on above: Performed By: #### L 100.0500, L501.2300, L500.2500, L501.5200 #### [facility] [address] [place], [address] Phosphoruson 06-27-2024 Phosphate [Mass/Vol] 6.4 mg/dL High 2.5-4.9 [facility] Comment on above: Performed By: #### L 100.0500, L501.2300, L500.2500, L501.5200 #### [facility] [address] [place], [address] Basic Metabolic Profile (BMP )on 06-26-2024 BUN/CRE 3.5 RATIO Low 10-20 [facility] Comment on above: Performed By: #### L 100.0500, L500.2500 ####[facility] [address] [place], [address] CA,Total 8.6 mg/dL Normal 8.5-10.1 [facility] Comment on above: Performed By: #### L 100.0500, L500.2500 ####[facility] [address] [place], [address] Chloride [Moles/Vol] 96 mmol/L Low 98-107 [facility] Comment on above: Performed By: #### L 100.0500, L500.2500 ####[facility] [address] [place], [address] CO2 [Moles/Vol] 22.0 mmol/L Normal 21.0-32.0 [facility] Comment on above: Performed By: #### L 100.0500, L500.2500 ####[facility] [address] [place], [address] Creatinine [Mass/Vol] 15.00 mg/dL Invalid Interpretation Code 0.55-1.02 [facility] Comment on above: Result Comment: Crit ical Result(s) Called at: 08:42:20 06/26/2024 by: Ora Oropeza. Results read back by same. The validity of the calculated GFR GFRAA in patients over 70 years has not been determined. Clinical correlation is essential. Performed By: #### L 100.0500, L500.2500 ####[facility] [address] [place], [address] ECRCL 3.92 ml/min Normal [facility] Comment on above: Performed By: #### L 100.0500, L500.2500 ####[facility] [place] [address] [place], [address] EST GFR - AA 3 mL/min Low >60 [facility] Comment on above: Result Comment: Afri can Chinese GFR Calc Performed By: #### L 100.0500, L500.2500 ####[facility] [address] [place], [address] GAP 11 Normal 5-15 [facility] Comment on above: Performed By: #### L 100.0500, L500.2500 ####[facility] [address] [place], [address] GFR/1.73 sq M.predicted among non-blacks MDRD (S/P/Bld) [Vol rate/Area] 3 mL/min/{1.73_m2} Low >60 [facility] Comment on above: Result Comment: Non- GFR Calc Performed By: #### L 100.0500, L500.2500 ####[facility] [address] [place], [address] Glucose [Mass/Vol] 96 mg/dL Normal 74-106 [facility] Comment on above: Performed By: #### L 100.0500, L500.2500 ####[facility] [address] [place], [address] Potassium [Moles/Vol] 4.3 mmol/L Normal 3.5-5.1 [facility] Comment on above: Performed By: #### L 100.0500, L500.2500 ####[facility] [address] [place], [address] Sodium [Moles/Vol] 130 mmol/L Low 136-145 [facility] Comment on above: Performed By: #### L 100.0500, L500.2500 ####[facility] [address] [place], [address] Urea nitrogen [Mass/Vol] 53 mg/dL High 7-18 [facility] Comment on above: Performed By: #### L 100.0500, L500.2500 ####[facility] [address] [place], [address] CBC-Complete Blood Cnt No Di ffon 06-26-2024 Erythrocyte distribution width (RBC) [Ratio] 16.1 % High 11.6-14.6 [facility] Comment on above: Performed By: #### L 100.0500, L500.2500 ####[facility] [address] [place], [address] Hematocrit (Bld) [Volume fraction] 23.5 % Low 37-47 [facility] Comment on above: Performed By: #### L 100.0500, L500.2500 ####[facility] [address] [place], [address] Hemoglobin (Bld) [Mass/Vol] 8.4 g/dL Low 12.0-15.0 [facility] Comment on above: Performed By: #### L 100.0500, L500.2500 ####[facility] [address] [place], [address] MCH (RBC) [Entitic mass] 29.9 pg Normal 27.0-32.0 [facility] Comment on above: Performed By: #### L 100.0500, L500.2500 ####[facility] [address] [place], [address] MCHC (RBC) [Mass/Vol] 35.7 g/dL Normal 32-36 [facility] Comment on above: Performed By: #### L 100.0500, L500.2500 ####[facility] [address] [place], [address] MCV (RBC) [Entitic vol] 83.6 fL Normal 81-99 [facility] Comment on above: Performed By: #### L 100.0500, L500.2500 ####[facility] [address] [place], [address] Platelet mean volume (Bld) [Entitic vol] 10.5 fL Normal 6.2-12.0 [facility] Comment on above: Performed By: #### L 100.0500, L500.2500 ####[facility] [address] [place], [address] Platelets (Bld) [#/Vol] 143 10*3/uL Low 150-450 [facility] Comment on above: Performed By: #### L 100.0500, L500.2500 ####[facility] [address] [place], [address] RBC (Bld) [#/Vol] 2.81 10*6/uL Low 4.2-5.4 [facility] Comment on above: Performed By: #### L 100.0500, L500.2500 ####[facility] [address] [place], [address] RDW SD 49.7 fl High 35.1-43.9 [facility] Comment on above: Performed By: #### L 100.0500, L500.2500 ####[facility] [address] [place], [address] WBC (Bld) [#/Vol] 5.9 10*3/uL Normal 4.4-11.0 [facility] Comment on above: Performed By: #### L 100.0500, L500.2500 ####[facility] [address] [place], [address] Consultation - Nephrologyon 06-26-2024 Consultation - Nephrology [facility] Medical Records Department [address] [place] [address] Consultation - Nephrology 06/26/24 1330 MR#: [id number] Acct: [id number] Name: ELIJAH MARSHALL Rep #: [id number] : 1975 49 From: Jose E Roberson MD PCP: Dr. Timmy Goldstein MD Status:ADM IN Location: [place] [address] Assessment Plan Assessment/Plan (1) ESRD (end stage renal disease): PLAN: On hemodialysis Sunday, Sunday, Sunday. Had dialysis yesterday. Presented with shortness of breath. She says has been building up for several days now. Chest x-ray was somewhat wet. In general she runs high blood pressure but any attempts at fluid removal she starts cramping. Multiple medication adjustments for her hypertension recently. We will plan for isolated ultrafiltration today with 2 to 3 L of volume removal. HPI Consult Data Date of Consult: 06/26/24 HPI Narrative Reason for Consultation: ESRD HPI Narrative: ELIJAH MARSHALL, is a 49 F who presents To the hospital with shortness of breath. Chest x-ray in ER showed mild pulmonary edema. Was saturating okay at rest but on walking test had significant desaturation. Admitted here for dialysis. Currently alert, awake. Other than some shortness of breath denies any other complaints. Last full dialysis yesterday. [facility] Medical History Hypocalcemia ESRD (end stage renal disease) on dialysis Smoker Acute kidney injury Home Medications ???Medication ???Instructions ???Recorded ???Last Taken ???Type amlodipine 10 mg tablet 10 mg PO DAILY #30 tabs 07/03/23 Unknown Rx clonidine 0.1 mg/24 hr weekly 1 patch topical QWEEK 06/25/24 Unknown History transdermal patch metoprolol succinate 100 mg 100 mg PO DAILY 06/25/24 Unknown History tablet,extended release 24 hr Allergy/AdvReac Type Severity Reaction Status Date / Time Antihistamines - Alkylamine Allergy Swelling Verified 06/25/24 16:07 Penicillins Allergy Hives Verified 06/25/24 16:07 Social History Smoking Status: Heavy Smoker (>10/day) ROS ROS Narrative negative except above Physical Exam Narrative Alert awake oriented x 3 no obvious distress no pallor no icterus no JVD s1s2 no murmurs lungs clear abdomen soft no organomegaly no edema no cyanosis Lab / Micro Data 06/26/24 07:35 06/26/24 07:35 Labs: Laboratory Results - last 24 hr 06/25/24 17:46: WBC 4.9, RBC 2.84 L, Hgb 8.4 L, Hct 22.6 L, MCV 79.6 L, MCH 29.6, MCHC 37.2 H, RDW Std Deviation 47.2 H, RDW Coeff of Miriam 16.4 H, Plt Count 134 L, MPV 9.2, Immature Gran % (Auto) 0.400, Neut % (Auto) 61.0, Lymph % (Auto) 24.1, [place] % (Auto) 9.4, Eos % (Auto) 4.1, Baso % (Auto) 1.0, Absolute Neuts (auto) 3.0, Absolute Lymphs (auto) 1.18, Nucleated RBC % 0, Sodium 130 L, Potassium 4.0, Chloride 97 L, Carbon Dioxide 25.0, Anion Gap 8, BUN 47 H, Creatinine 13.50 H*, Estim Creat Clear Calc 4.32, Est GFR (MDRD) Af Amer 4 L, Est GFR (MDRD) Non-Af 3 L, BUN/Creatinine Ratio 3.5 L, Glucose 120 H, Calcium 8.3 L, Magnesium 2.6, Total Bilirubin 0.40, AST 80 H, ALT 43, Alkaline Phosphatase 54, Troponin I High Sens 137 H*, B-Natriuretic Peptide 3593.2 H, Total Protein 6.2 L, Albumin 3.3, Globulin 2.9, Albumin/Globulin Ratio 1.1 01/08/25 19:41: Troponin I High Sens 156 H* 06/26/24 07:35: WBC 5.9, RBC 2.81 L, Hgb 8.4 L, Hct 23.5 L, MCV 83.6 D, MCH 29.9, MCHC 35.7, RDW Std Deviation 49.7 H, RDW Coeff of Miriam 16.1 H, Plt Count 143 L, MPV 10.5, Sodium 130 L, Potassium 4.3, Chloride 96 L, Carbon Dioxide 22.0, Anion Gap 11, BUN 53 H, Creatinine 15.00 H*, Estim Creat Clear Calc 3.92, Est GFR (MDRD) Af Amer 3 L, Est GFR (MDRD) Non-Af 3 L, BUN/Creatinine Ratio 3.5 L, Glucose 96, Calcium 8.6 Micro: Microbiology 06/25/24 17:46 Mucosa - Nose SARS-CoV-2, Influenza RSV (PCR) - Final Rhythm Strip Rhythm Strip: Sinus Tach Rate: 105 Ectopy: None Imaging Radiology Impression Chest X-Ray 06/25/24 17:29 IMPRESSION: Subtle patchy interstitial and airspace opacities may represent edema and/or infection. Electronically Signed: Timmy Zarate MD at 18:06 EST , Echocardiogram 06/25/24 21:48 Interpretation Summary The estimated ejection fraction is 55 %. No evidence for diastolic dysfunction. The left atrium is mildly enlarged. Trivial mitral valve insufficiency. Pulmonary artery systolic pressure is 60 mmHg. Ordering Physician: Viktor Hagen Performed By: Reji King RCS 06/26/24 (more content not included)... Normal [facility] 12 Lead EKGon 06-25-2024 12 Lead EKG [facility] [address] [place] [address] 12 Lead EKG 06/25/24 1713 MR#: [id number] Acct: [id number] Name: LEIJAH MARSHALL Rep #: [id number] : 1975 49 From: Theo Godinez MD Attending Dr: Dr. Giovanni Vora MD Status: ADM IN Ordering Dr: Mora Pacheco DO Date: 06/25/24 Location: [facility] Sex: F AA Admitted: 06/25/24 Test Reason : Blood Pressure : */* mmHG Vent. Rate : 105 BPM Atrial Rate : 105 BPM P-R Int : 140 ms QRS Dur : 84 ms QT Int : 380 ms P-R-T Axes : 85 75 50 degrees QTcB Int : 502 ms Sinus tachycardia with occasional Premature ventricular complexes Minimal voltage criteria for LVH, may be normal variant ( Sokolow-Shrestha ) Nonspecific ST and T wave abnormality Abnormal ECG Confirmed by Theo Godinez ([id number]), visual effects editor PHILLY SEQUEIRA ([id number]) on 06/26/2024 10:22:36 AM Referred By: Confirmed By: Theo Godinez 06/26/24 1022 Date Theo Godinez MD CC: Dr. Timmy Goldstein MD; Dr. Mora Pacheco DO; Dr. Giovanni Vora MD Signed Normal [facility] BNP,B-Type NATRIURETIC PEPTI Lizz 06-25-2024 Natriuretic peptide B (Bld) [Mass/Vol] 3593.2 pg/mL High 0-100 [facility] Comment on above: Performed By: #### L 100.0100, L503.6620, L501.4020, L500.4050, L501.5200 ####[facility] [address] [place], [address] CBC W/Diff, Automatedon Absolute Lymph 1.18 X10 3/uL Normal 0.83-4.51 [facility] Comment on above: Performed By: #### L 100.0100, L503.6620, L501.4020, L500.4050, L501.5200 ####[facility] [address] [place], [address] Absolute Neut 3.0 X10 3/uL Normal 2.0-7.7 [facility] Comment on above: Performed By: #### L 100.0100, L503.6620, L501.4020, L500.4050, L501.5200 ####[facility] [address] [place], [address] Basophils/100 WBC (Bld) 1.0 % Normal 0-1 [facility] Comment on above: Performed By: #### L 100.0100, L503.6620, L501.4020, L500.4050, L501.5200 ####[facility] [address] [place], [address] Eosinophils/100 WBC (Bld) 4.1 % Normal 0-5 [facility] Comment on above: Performed By: #### L 100.0100, L503.6620, L501.4020, L500.4050, L501.5200 ####[facility] [address] [place], [address] Erythrocyte distribution width (RBC) [Ratio] 16.4 % High 11.6-14.6 [facility] Comment on above: Performed By: #### L 100.0100, L503.6620, L501.4020, L500.4050, L501.5200 ####[facility] [address] [place], [address] Hematocrit (Bld) [Volume fraction] 22.6 % Low 37-47 [facility] Comment on above: Performed By: #### L 100.0100, L503.6620, L501.4020, L500.4050, L501.5200 ####[facility] [address] [place], [address] Hemoglobin (Bld) [Mass/Vol] 8.4 g/dL Low 12.0-15.0 [facility] Comment on above: Performed By: #### L 100.0100, L503.6620, L501.4020, L500.4050, L501.5200 ####[facility] [address] [place], [address] IG% 0.400 Normal 0.0-0.9 [facility] Comment on above: Result Comment: IG% - Immature Granulocytes (promyelocytes, myelocytes and metamyelocytes) > 1% indicates that a LEFT SHIFT is Present. Performed By: #### L 100.0100, L503.6620, L501.4020, L500.4050, L501.5200 ####[facility] [address] [place], [address] Lymphocytes/100 WBC (Bld) 24.1 % Normal 19-41 [facility] Comment on above: Performed By: #### L 100.0100, L503.6620, L501.4020, L500.4050, L501.5200 ####[facility] [address] [place], [address] MCH (RBC) [Entitic mass] 29.6 pg Normal 27.0-32.0 [facility] Comment on above: Performed By: #### L 100.0100, L503.6620, L501.4020, L500.4050, L501.5200 ####[facility] [address] [place], [address] MCHC (RBC) [Mass/Vol] 37.2 g/dL High 32-36 [facility] Comment on above: Performed By: #### L 100.0100, L503.6620, L501.4020, L500.4050, L501.5200 ####[facility] [address] [place], [address] MCV (RBC) [Entitic vol] 79.6 fL Low 81-99 [facility] Comment on above: Performed By: #### L 100.0100, L503.6620, L501.4020, L500.4050, L501.5200 ####[facility] [address] [place], [address] Monocytes/100 WBC (Bld) 9.4 % Normal 0-10 [facility] Comment on above: Performed By: #### L 100.0100, L503.6620, L501.4020, L500.4050, L501.5200 ####[facility] [address] [place], [address] Neutrophils/100 WBC (Bld) 61.0 % Normal 47-70 [facility] Comment on above: Performed By: #### L 100.0100, L503.6620, L501.4020, L500.4050, L501.5200 ####[facility] [address] [place], [address] Nucleated RBC (Bld) [#/Vol] 0 10*3/uL Normal 0-5 [facility] Comment on above: Performed By: #### L 100.0100, L503.6620, L501.4020, L500.4050, L501.5200 ####[facility] [address] [place], [address] Platelet mean volume (Bld) [Entitic vol] 9.2 fL Normal 6.2-12.0 [facility] Comment on above: Performed By: #### L 100.0100, L503.6620, L501.4020, L500.4050, L501.5200 ####[facility] [address] [place], [address] Platelets (Bld) [#/Vol] 134 10*3/uL Low 150-450 [facility] Comment on above: Performed By: #### L 100.0100, L503.6620, L501.4020, L500.4050, L501.5200 ####[facility] [address] [place], [address] RBC (Bld) [#/Vol] 2.84 10*6/uL Low 4.2-5.4 [facility] Comment on above: Performed By: #### L 100.0100, L503.6620, L501.4020, L500.4050, L501.5200 ####[facility] [address] [place], [address] RDW SD 47.2 fl High 35.1-43.9 [facility] Comment on above: Performed By: #### L 100.0100, L503.6620, L501.4020, L500.4050, L501.5200 ####[facility] [address] [place], [address] WBC (Bld) [#/Vol] 4.9 10*3/uL Normal 4.4-11.0 [facility] Comment on above: Performed By: #### L 100.0100, L503.6620, L501.4020, L500.4050, L501.5200 ####[facility] [address] [place], [address] Chest PA and Lateralon 06-25 Chest PA and Lateral [facility] [address] [place] [address] Chest PA and Lateral MR#: [id number] Acct: [id number] Name: JOANNAWAYNETaqueria HOLGUIN Rep #: [id number] : 1975 F 49 From: Timmy campbell MD PCP: Dr. Timmy Goldstein MD Status: REG ER Study: Chest PA and Lateral Date of Exam: 06/25/24 Exam# [id number] Ordering Dr: Mora Pacheco DO [id number] INDICATION: sob EXAMINATION/TECHNI QUE: X-RAY - XR Chest 2 Views COMPARISON: 06/29/2023. FINDINGS: Subtle patchy interstitial and airspace opacities. Tortuous and calcified thoracic aorta. The heart is mildly enlarged. Right-sided hemodialysis catheter. No pleural effusion or pneumothorax. Degenerative changes of the thoracic spine. RAD/Chest PA and Lateral IMPRESSION: Subtle patchy interstitial and airspace opacities may represent edema and/or infection. Electronically Signed: Timmy Zarate MD at 18:06 EST , CC: Dr. Timmy Goldstein MD; Dr. Mora Pacheco DO Do All Operator: Signed Normal [facility] Comprehensive Metabolic Prof ilon 06-25-2024 Albumin [Mass/Vol] 3.3 g/dL Normal 3.2-5.0 [facility] Comment on above: Order Comment: 'TROP ' Serial specimen #1, #2 or #3: 1 Performed By: #### L 100.0100, L503.6620, L501.4020, L500.4050, L501.5200 ####[facility] [address] [place], [address] Albumin/Globulin [Mass ratio] 1.1 {ratio} Normal 0.9-2.4 [facility] Comment on above: Order Comment: 'TROP ' Serial specimen #1, #2 or #3: 1 Performed By: #### L 100.0100, L503.6620, L501.4020, L500.4050, L501.5200 ####[facility] [address] [place], [address] ALK P 54 U/L Normal 45-117 [facility] Comment on above: Order Comment: 'TROP ' Serial specimen #1, #2 or #3: 1 Performed By: #### L 100.0100, L503.6620, L501.4020, L500.4050, L501.5200 ####[facility] [address] [place], [address] ALT [Catalytic activity/Vol] 43 U/L Normal 13-56 [facility] Comment on above: Order Comment: 'TROP ' Serial specimen #1, #2 or #3: 1 Performed By: #### L 100.0100, L503.6620, L501.4020, L500.4050, L501.5200 ####[facility] [address] [place], [address] AST [Catalytic activity/Vol] 80 U/L High 15-37 [facility] Comment on above: Order Comment: 'TROP ' Serial specimen #1, #2 or #3: 1 Performed By: #### L 100.0100, L503.6620, L501.4020, L500.4050, L501.5200 ####[facility] [address] [place], [address] Bilirubin [Mass/Vol] 0.40 mg/dL Normal 0.20-1.00 [facility] Comment on above: Order Comment: 'TROP ' Serial specimen #1, #2 or #3: 1 Result Comment: For patients on eltrombopag therapy, use of Dimension [place] TBIL is not recommended. Performed By: #### L 100.0100, L503.6620, L501.4020, L500.4050, L501.5200 ####[facility] [address] [place], [address] BUN/CRE 3.5 RATIO Low 10-20 [facility] Comment on above: Order Comment: 'TROP ' Serial specimen #1, #2 or #3: 1 Performed By: #### L 100.0100, L503.6620, L501.4020, L500.4050, L501.5200 ####[facility] [address] [place], [address] CA,Total 8.3 mg/dL Low 8.5-10.1 [facility] Comment on above: Order Comment: 'TROP ' Serial specimen #1, #2 or #3: 1 Performed By: #### L 100.0100, L503.6620, L501.4020, L500.4050, L501.5200 ####[facility] [address] [place], [address] Chloride [Moles/Vol] 97 mmol/L Low 98-107 [facility] Comment on above: Order Comment: 'TROP ' Serial specimen #1, #2 or #3: 1 Performed By: #### L 100.0100, L503.6620, L501.4020, L500.4050, L501.5200 ####[facility] [address] [place], [address] CO2 [Moles/Vol] 25.0 mmol/L Normal 21.0-32.0 [facility] Comment on above: Order Comment: 'TROP ' Serial specimen #1, #2 or #3: 1 Performed By: #### L 100.0100, L503.6620, L501.4020, L500.4050, L501.5200 ####[facility] [address] [place], [address] Creatinine [Mass/Vol] 13.50 mg/dL Invalid Interpretation Code 0.55-1.02 [facility] Comment on above: Order Comment: 'TROP ' Serial specimen #1, #2 or #3: 1 Result Comment: Crit ical Result(s) Called at: 18:19:09 06/25/2024 by: CARLEEN SUAREZ TO SAMANTHA DANIELS. Results read back by same. The validity of the calculated GFR GFRAA in patients over 70 years has not been determined. Clinical correlation is essential. Performed By: #### L 100.0100, L503.6620, L501.4020, L500.4050, L501.5200 ####[facility] [address] [place], [address] ECRCL 4.32 ml/min Normal [facility] Comment on above: Order Comment: 'TROP ' Serial specimen #1, #2 or #3: 1 Performed By: #### L 100.0100, L503.6620, L501.4020, L500.4050, L501.5200 ####[facility] [address] [place], [address] EST GFR - AA 4 mL/min Low >60 [facility] Comment on above: Order Comment: 'TROP ' Serial specimen #1, #2 or #3: 1 Result Comment: Afri can Chinese GFR Calc Performed By: #### L 100.0100, L503.6620, L501.4020, L500.4050, L501.5200 ####[facility] [address] [place], [address] GAP 8 Normal 5-15 [facility] Comment on above: Order Comment: 'TROP ' Serial specimen #1, #2 or #3: 1 Performed By: #### L 100.0100, L503.6620, L501.4020, L500.4050, L501.5200 ####[facility] [address] [place], [address] GFR/1.73 sq M.predicted among non-blacks MDRD (S/P/Bld) [Vol rate/Area] 3 mL/min/{1.73_m2} Low >60 [facility] Comment on above: Order Comment: 'TROP ' Serial specimen #1, #2 or #3: 1 Result Comment: Non- GFR Calc Performed By: #### L 100.0100, L503.6620, L501.4020, L500.4050, L501.5200 ####[facility] [address] [place], [address] Globulin (S) [Mass/Vol] 2.9 g/dL Normal 2.2-4.2 [facility] Comment on above: Order Comment: 'TROP ' Serial specimen #1, #2 or #3: 1 Performed By: #### L 100.0100, L503.6620, L501.4020, L500.4050, L501.5200 ####[facility] [address] [place], [address] Glucose [Mass/Vol] 120 mg/dL High 74-106 [facility] Comment on above: Order Comment: 'TROP ' Serial specimen #1, #2 or #3: 1 Result Comment: Fast ing Glucose result from 100 to 125 mg/dL suggests IMPAIRED HOMEOSTASIS per A.D.A. criteria. Performed By: #### L 100.0100, L503.6620, L501.4020, L500.4050, L501.5200 ####[facility] [address] [place], [address] Potassium [Moles/Vol] 4.0 mmol/L Normal 3.5-5.1 [facility] Comment on above: Order Comment: 'TROP ' Serial specimen #1, #2 or #3: 1 Performed By: #### L 100.0100, L503.6620, L501.4020, L500.4050, L501.5200 ####[facility] [address] [place], [address] Sodium [Moles/Vol] 130 mmol/L Low 136-145 [facility] Comment on above: Order Comment: 'TROP ' Serial specimen #1, #2 or #3: 1 Performed By: #### L 100.0100, L503.6620, L501.4020, L500.4050, L501.5200 ####[facility] [address] [place], [address] T PROT 6.2 g/dL Low 6.4-8.2 [facility] Comment on above: Order Comment: 'TROP ' Serial specimen #1, #2 or #3: 1 Performed By: #### L 100.0100, L503.6620, L501.4020, L500.4050, L501.5200 ####[facility] [address] [place], [address] Urea nitrogen [Mass/Vol] 47 mg/dL High 7-18 [facility] Comment on above: Order Comment: 'TROP ' Serial specimen #1, #2 or #3: 1 Performed By: #### L 100.0100, L503.6620, L501.4020, L500.4050, L501.5200 ####[facility] [address] [place], [address] Echo Completeon 06-25-2024 Echo Complete [facility] [address] [place] [address] Echo Complete 06/26/24 0917 MR#: [id number] Acct: [id number] Name: ELIJAH MARSHALL Rep #: [id number] : 1975 49 From: Elmo Tong MD Attending Dr: Dr. Giovanni Vora MD Status: ADM IN Ordering Dr: Robert Hagen DO Date: 06/25/24 Location: [facility] Sex: F AA Admitted: 06/25/24 Reason For Study: CHF Procedure This was a 2D Doppler, Color Flow transthoracic echocardiogram. Patient had a hard time remaining still for exam. Exam performed portable in patient room. Left Ventricle Normal LV size. The estimated ejection fraction is 55 %. No evidence for diastolic dysfunction. No regional wall motion abnormalities noted. Right Ventricle Normal RV size. Normal systolic function. Atria The left atrium is mildly enlarged. Normal right atrium. No doppler evidence for ASD. Mitral Valve There is no mitral valve stenosis. Trivial mitral valve insufficiency. Tricuspid Valve There is no tricuspid stenosis. Mild to moderate (1-2+) tricuspid valve insufficiency. Pulmonary artery systolic pressure is 60 mmHg. Aortic Valve Trisinus/trileafle t aortic valve. There is no aortic stenosis. No aortic valve insufficiency. Pulmonic Valve There is no pulmonic valvular stenosis. No pulmonic valve insufficiency. Great Vessels Normal aortic root. Pericardium/Pleura l No pericardial effusion. MMode/2D Measurements Calculations LVIDd: 5.0 cm IVSd: 1.6 cm Ao root diam: 2.6 cm LVIDs: 3.4 cm LVPWd: 1.6 cm FS: 31.5 % LAV(MOD-bp): 70.5 ml LVAd ap4: 31.3 cm2 SV(MOD-sp4): 56.7 ml LAV(MOD-bp) Indexed: 44.0 ml/m2 LVLd ap4: 8.4 cm SI(MOD-sp4): 35.4 ml/m2 LAV(MOD-sp2): 67.4 ml EDV(MOD-sp4): 97.5 ml LAV(MOD-sp4): 66.4 ml EDV(sp4-el): 99.3 ml LVAs ap4: 18.0 cm2 LVLs ap4: 6.7 cm ESV(MOD-sp4): 40.8 ml ESV(sp4-el): 41.2 ml EF(MOD-sp4): 58.2 % EF(sp4-el): 58.5 % SV(sp4-el): 58.1 ml LA A4 area: 21.0 cm2 LA dimension(2D): 4.4 cm RA A4 area: 17.5 cm2 Time Measurements MV dec time: 0.13 sec Doppler Measurements Calculations MV E max armida: 115.3 cm/sec Lat Peak E' Armida: 9.7 cm/sec Med Peak E' Armida: 7.9 cm/sec MV A max armida: 75.1 cm/sec E/E' lat: 11.9 E/E' med: 14.7 MV E/A: 1.5 MV V2 max: 133.1 cm/sec MV P1/2t max armida: 136.2 cm/sec Ao V2 max: 168.3 cm/sec MV max P.1 mmHg MV P1/2t: 51.6 msec Ao max P.3 mmHg MV V2 mean: 75.6 cm/sec MV mean P.7 mmHg MV dec slope: 773.6 cm/sec2 MV V2 VTI: 30.2 cm MVA(P1/2t): 4.3 cm2 LV V1 max: 134.9 cm/sec MR max armida: 657.8 cm/sec PA V2 max: 109.2 cm/sec LV V1 max P.3 mmHg MR max P.1 mmHg MR mean armida: 514.6 cm/sec MR mean P.6 mmHg MR VTI: 200.1 cm TR max armida: 364.4 cm/sec TR max P.1 mmHg ECHO/Echo Complete Interpretation Summary The estimated ejection fraction is 55 %. No evidence for diastolic dysfunction. The left atrium is mildly enlarged. Trivial mitral valve insufficiency. Pulmonary artery systolic pressure is 60 mmHg. Ordering Physician: Viktor Hagen Performed By: Reji King RCS 06/26/24 1118 Date Elmo Tong MD CC: Dr. Viktor Hagen DO; Dr. Timmy Goldstein MD; Dr. Giovanni Vora MD Date Dictated: 06/26/24916 Date Transcribed: 06/26/241117 Do All Operator: Signed Normal [facility] Emergency Department Summary on 06-25-2024 Emergency Department Summary [facility] Medical Records Department [address] [place] [address] Emergency Department Summary 06/25/24 MR#: [id number] Acct: [id number] Name: ELIJAH MARSHALL #: [id number] : 1975 49 From: Mora Pacheco DO PCP: Dr. Timmy Goldstein MD Status:ADM IN Location: [place] [id number] HPI History of Present Illness Chief Complaint: Shortness of Breath Informant: patient Narrative Narrative: Patient is a 49-year-old female with history of end-stage renal disease on hemodialysis (normally Sunday), hypertension (states she takes Norvasc, metoprolol which is started on clonidine patch) and anemia presenting for shortness of breath. Patient states she has been having shortness of breath that is worsened over the past 3 months. She states is now some mild cough and mucus production. She states that over the past 2 months has been spitting up a lot of phlegm. Today she had some swelling of her legs. 1 point she did have a fever but did not actually check her temperature she just felt hot and cold. She notes that when she lays back she feels that she is gasping. She denies any chest pain. She missed 2 rounds of dialysis last week, once for not feeling well and the other because her kids were home from school. She did have a full session of dialysis today. Her title [address] Roberson. She denies any known lung issues such as asthma or COPD. She tells me that she did forget to take her blood pressure medication today. Patient also notes that she has been having some intermittent diarrhea and did have an episode of facial swelling that is since resolved. [facility] Medical History Hypocalcemia ESRD (end stage renal disease) on dialysis Smoker Acute kidney injury Home Medications ???Medication ???Instructions ???Recorded ???Last Taken ???Type amlodipine 10 mg tablet 10 mg PO DAILY #30 tabs 07/03/23 Unknown Rx clonidine 0.1 mg/24 hr weekly 1 patch topical QWEEK 06/25/24 Unknown History transdermal patch metoprolol succinate 100 mg 100 mg PO DAILY 06/25/24 Unknown History tablet,extended release 24 hr Allergy/AdvReac Type Severity Reaction Status Date / Time Antihistamines - Alkylamine Allergy Swelling Verified 06/25/24 16:07 Penicillins Allergy Hives Verified 06/25/24 16:07 Social History Smoking Status: Heavy Smoker (>10/day) ROS ROS ED Constitutional Constitutional ED: Reports chills; Denies sweats ENT ENT ED: Reports other Details: Hoarse voice, dry mouth, congestion ; Denies sore throat Cardiovascular Cardiovascular: Reports orthopnea; Denies chest pain or palpitations Respiratory/Chest Respiratory/Chest: Reports cough, dyspnea on exertion and orthopnea Gastrointestinal Gastrointestinal: Reports diarrhea; Denies abdominal pain, nausea or vomiting Musculoskeletal Musculoskeletal: Denies arthralgias or myalgias Integumentary Denies rash Neurologic Neurologic: Denies headache(s) Psychiatric Psychiatric: Denies anxiety Hematologic/Lympha tic Hematologic/Lympha tic: Denies easy bleeding or easy bruising EXAM Physical Exam Const Vital Signs: 06/25/24 16:07 06/25/24 16:21 06/25/24 18:06 Temperature 98.4 F Temperature Source Oral Pulse Rate 91 102 H Respiratory Rate 20 H Respiratory Effort Short of Breath Respiratory Pattern Tachypnea Blood Pressure 225/137 H 235/136 H Blood Pressure Mean 166 169 Pulse Ox 100 Oxygen Delivery Method Room Air Room Air 06/25/24 19:25 06/25/24 20:44 Temperature 98.2 F Temperature Source Pulse Rate 97 90 Respiratory Rate 25 H 18 Respiratory Effort Respiratory Pattern Blood Pressure 185/110 H 210/124 H Blood Pressure Mean 135 152 Pulse Ox 98 94 Oxygen Delivery Method Room Air Positive well nourished and well developed General Appearance ED: well developed and NAD HEENT Reports moist mucous membranes Eyes PERRL Neck supple Neck Narrative: JVD present Resp normal respiratory effort and clear to auscultation bilaterally Auscultation: Negative for rales, rhonchi or wheezes Cardio regular rhythm and no murmurs Rate: tachycardic GI non-tender and non-distended Auscultation: normoactive bowel sounds Extremity normal to inspection General Extremety ED: Negative for edema or tenderness General Extremity: Negative for edema Neuro oriented x3 Sensorium / Orientation: alert Motor Exam: Negative for general weakness Psych mental status grossly normal Skin no wounds and skin turgor normal MDM MDM MDM Narrative Medical decision making narrative: Patient is evaluated for worsening shortness of breath, dyspnea on exertion and orthopnea. Patie (more content not included)... Normal [facility] H AND P Exam - Hospitaliston 06-25-2024 H&P Exam - Hospitalist [facility] Medical Records Department [address] [place] [address] H P Exam - Hospitalist 06/25/242039 MR#: [id number] Acct: [id number] Name: ELIJAH MARSHALL Rep #: [id number] : 1975 49 From: Viktor Hagen DO PCP: Dr. Timmy Goldstein MD Status:ADM IN Location: [facility] [id number] HPI - General General Date of Admission: 06/25/24 Date of Service: 06/25/24 Chief Complaint: Worsening shortness of breath HPI Narrative ELIJAH MARSHALL, is a 49 F who presented to [facility] ED on 06/25/2024 with worsening shortness of breath. Patient has history of ESRD and is on HD Sunday. She did have her dialysis session done today but reports missing 2 dialysis sessions last week, once for not feeling well and the other because her kids were home from school. She follows with Dr. Roberson and otherwise reports good compliance with dialysis sessions. Patient notes that over the past few months she has had intermittent shortness of breath with mild cough with whitish sputum production. She notes that the symptoms have worsened over the last week or so. She has significant shortness of breath especially when laying flat. She denies any history of lung issues and has never been on home oxygen. On arrival to the ED she was significantly hypertensive with blood pressure in the 220s over 130s. Her oxygen saturations were in the mid 90s on room air but she desaturated to the 80s with ambulation. Labs were notable for sodium 130 and chloride 97, down from baseline suspected secondary to hypervolemia. Troponin trend 137 to 156. She was given IV labetalol with some improvement in her blood pressure. Hospitalist was then contacted for admission. I saw the patient at bedside in the ED. Patient was breathing comfortably on room air at rest with good saturations. She was mildly fatigued appearing and somewhat anxious but was otherwise answering questions appropriately. States that she does still make some urine, urinates at least 3- 4 times daily. She denies any fevers or chills. Denies any other recent infectious symptoms. No other acute concerns at this time. [facility] Medical History Hypocalcemia ESRD (end stage renal disease) on dialysis Smoker Acute kidney injury Home Medications ???Medication ???Instructions ???Recorded ???Last Taken ???Type amlodipine 10 mg tablet 10 mg PO DAILY #30 tabs 07/03/23 Unknown Rx clonidine 0.1 mg/24 hr weekly 1 patch topical QWEEK 06/25/24 Unknown History transdermal patch metoprolol succinate 100 mg 100 mg PO DAILY 06/25/24 Unknown History tablet,extended release 24 hr Allergy/AdvReac Type Severity Reaction Status Date / Time Antihistamines - Alkylamine Allergy Swelling Verified 06/25/24 16:07 Penicillins Allergy Hives Verified 06/25/24 16:07 Social History Smoking Status: Heavy Smoker (>10/day) ROS Constitutional Constitutional: Reports fatigue; Denies chills, fever(s) or weakness Eyes Eyes: Denies change in vision ENT HEENT: Denies nasal congestion or nasal discharge Cardiovascular Cardiovascular: Reports dyspnea on exertion and orthopnea; Denies chest pain, lightheadedness or palpitations Respiratory/Chest Respiratory/Chest: Reports cough, productive cough, shortness of breath at rest and shortness of breath with exertion; Denies wheezing Gastrointestinal Gastrointestinal: Denies abdominal pain, constipation, diarrhea, nausea or vomiting Genitourinary Genitourinary: Denies dysuria Neurologic Neurologic: Denies dizziness, focal weakness or headache(s) Vital Signs Vital Signs Vital Signs: 06/25/24 16:07 06/25/24 16:21 06/25/24 18:06 Temperature 98.4 F Temperature Source Oral Pulse Rate 91 102 H Respiratory Rate 20 H Respiratory Effort Short of Breath Respiratory Pattern Tachypnea Blood Pressure 225/137 H 235/136 H Blood Pressure Mean 166 169 Pulse Ox 100 Oxygen Delivery Method Room Air Room Air 06/25/24 19:25 Temperature Temperature Source Pulse Rate 97 Respiratory Rate 25 H Respiratory Effort Respiratory Pattern Blood Pressure 185/110 H Blood Pressure Mean 135 Pulse Ox 98 Oxygen Delivery Method Room Air Weight Weight: 64 kg Body Mass Index (BMI) 26.6 Physical Exam Const alert, oriented x3, no apparent distress and average body habitus Constitutional Narrative: Middle-age female, mildly fatigued appearing but otherwise sitting up comfortably in bed, conversing normally, in no acute distress. General Appearance: cooperative and comfortable HEENT normocephalic, head/scalp atraumatic, hearing grossly normal bilaterally, nasal mucous membranes and turbinates (more content not included)... Normal [facility] L501.4020on 06-25-2024 TROPONIN-I HS 156 pg/mL Invalid Interpretation Code 3.0-54.0 [facility] Comment on above: Order Comment: 'TROP ' Serial specimen #1, #2 or #3: 2 Result Comment: Crit ical Result(s) Called at: 20:21:51 06/25/2024 by: CARLEEN SUAREZ TO TYESHA COBB. Results read back by same. Please Note: New Test Units and Gender Specific Reference Ranges. For more information see Policy Stat Procedure [place] High Sensitivity Troponin (TNIH) and attachments. Performed By: #### L 501.4020 ####[facility] [address] [place], [address] TROPONIN-I HS 137 pg/mL Invalid Interpretation Code 3.0-54.0 [facility] Comment on above: Order Comment: 'TROP ' Serial specimen #1, #2 or #3: 1 Result Comment: Crit ical Result(s) Called at: 18:17:48 06/25/2024 by: CARLEEN SUAREZ TO SAMANTHA DANIELS. Results read back by same. Please Note: New Test Units and Gender Specific Reference Ranges. For more information see Policy Stat Procedure [place] High Sensitivity Troponin (TNIH) and attachments. Performed By: #### L 100.0100, L503.6620, L501.4020, L500.4050, L501.5200 ####[facility] [address] [place], [address] M100.678on 06-25-2024 M100.678 Pending SARS-CoV-2 (COVID 19) Negative INFLUENZA A Negative INFLUENZA B Negative RSV PCR Negative Normal [facility] Comment on above: Performed By: #### M 100.678 #### [facility] Laboratory [address] [place], [address] Magnesiumon 06-25-2024 Magnesium [Mass/Vol] 2.6 mg/dL Normal 1.6-2.6 [facility] Comment on above: Order Comment: 'TROP ' Serial specimen #1, #2 or #3: 1 Performed By: #### L 100.0100, L503.6620, L501.4020, L500.4050, L501.5200 ####[facility] [address] [place], [address] 36on 09-27-2023 36 CALLED AND SPOKE TO PATIENT. HER CAR IS BROKE DOWN ANS SHE IS NOT INTERESTED IN RESCHEDULING AT THIS TIME. sHE WILL CALL WHEN READY. ALSO CALLED AND SPOKE TO [facility] TO INFORM HER Normal [facility] 36 Nurse from renal center called about pt's appt that was on 09/23. I let her know that the pt had canceled but that I'd let the auto air conditioning mechanic know so that we can reach out again. She did request that we call her once appt is r/s. ([phone] [facility]) [facility] 36on 09-10-2023 36 Noted Normal [facility] 36 Pt called to reschedule her consult for today due to lack of transportation. She rescheduled to 09/24/23 [facility] Basophil percentageOrdered B y: Huan Cummings on 07-03-2023 Basophil percentage 2.8 mg/dL 2.5-4.9 [facility] Chloride [Moles/Vol] 110 mmol/L 98-107 [facility] Glucose [Mass/Vol] 96 mg/dL 74-106 [facility] Potassium [Moles/Vol] 3.3 mmol/L 3.5-5.1 [facility] Sodium [Moles/Vol] 140 mmol/L 136-145 [facility] Laboratory - Chemistry and C hemistry - challengeOrdered By: Huan Cummings on 07-03-2023 CO2 [Moles/Vol] 20.0 mmol/L 21.0-32.0 [facility] Urea nitrogen/Creatinine [Mass ratio] 4.2 mg/mg 10-20 [facility] No Panel InformationOrdered By: Huan Cummings on 07-03-2023 Estimated Creatinine Clearance Calc 5.81 ml/min [facility] Estimated GFR (MDRD) Amer 5 mL/min >60 [facility] Comment on above: GFR Calc Estimated GFR (MDRD) Non-Af Amer 4 mL/min >60 [facility] Comment on above: Non- GFR Calc Serum or plasma calcium hero urement (mass/volume)Ordered By: Huan Cummings on 07-03-2023 Calcium [Mass/Vol] 7.1 mg/dL 8.5-10.1 [facility] Serum or plasma creatinine m easurement (mass/volume)Ordered By: Huan Cummings on 07-03-2023 Creatinine [Mass/Vol] 10.60 mg/dL 0.55-1.02 [facility] Comment on above: Critical Result(s) C alled at: 14:07:24 07/03/2023 by: Ora De La Cruz. Results read back by same.The validity of the calculated GFR & GFRAA in patients over 70 years has not been determined. Clinical correlation is essential. Serum or plasma urea nitroge n measurement (mass/volume)Ordered By: Huan Cummings on 07-03-2023 Urea nitrogen [Mass/Vol] 45 mg/dL 7-18 [facility] Thin prep Papanicolaou smear with manual screeningOrdered By: Huan Cummings on 07-03-2023 Thin prep Papanicolaou smear with manual screening 2.7 g/dL 3.2-5.0 [facility] Basophil percentageOrdered B y: Viktor Hagen on 06-30-2023 WBC (Bld) [#/Vol] 7.9 10*3/uL 4.4-11.0 [facility] Blood erythrocytes count (nu mber/volume)Ordered By: Viktor Hagen on 06-30-2023 RBC (Bld) [#/Vol] 2.66 10*6/uL 4.2-5.4 [facility] Blood hemoglobin measurement (mass/volume)Ordered By: Viktor Hagen on 06-30-2023 Hemoglobin (Bld) [Mass/Vol] 8.0 g/dL 12.0-15.0 [facility] Blood platelet mean volumeOr dered By: Viktor Hagen on 06-30-2023 Platelet mean volume (Bld) [Entitic vol] 11.9 fL 6.2-12.0 [facility] Determination of erythrocyte mean corpuscular volume (MCV)Ordered By: Viktor Hagen on 06-30-2023 MCV (RBC) [Entitic vol] 83.8 fL 81-99 [facility] Hematocrit Auto (Bld) [Volum e fraction]Ordered By: Viktor Hagen on 06-30-2023 Hematocrit (Bld) [Volume fraction] 22.3 % 37-47 [facility] Laboratory - Hematology and Cell countsOrdered By: Viktor Hagen on 06-30-2023 Erythrocyte distribution width (RBC) [Entitic vol] 43.8 fL 35.1-43.9 [facility] Erythrocyte distribution width (RBC) [Ratio] 14.4 % 11.6-14.6 [facility] MCH (RBC) [Entitic mass] 30.1 pg 27.0-32.0 [facility] MCHC Auto (RBC) [Mass/Vol]Or dered By: Viktor Hagen on 06-30-2023 MCHC (RBC) [Mass/Vol] 35.9 g/dL 32-36 [facility] No Panel InformationOrdered By: Ora Gayle on 06-30-2023 Parathyroid Hormone (Intact) 1259.0 pg/mL 18.4-80.1 [facility] Platelets bldOrdered By: Brit Hagen on 06-30-2023 Platelets (Bld) [#/Vol] 105 10*3/uL 150-450 [facility] Stool gastrointestinal hemog lobin detection by immunologic methodOrdered By: Holli Simental on 06-30-2023 Lower GI hemoglobin IA Ql (Stl) [facility] Laboratory - CoagulationOrde red By: Gamaliel Prado on 06-29-2023 aPTT Coag (Bld) [Time] 38.0 s 24.1-36.2 [facility] PT Coag (PPP) [Time] 15.6 s 11.7-14.9 [facility] No Panel InformationOrdered By: Ora Gayle on 06-29-2023 Hepatitis B Surface Antigen Non-Reactive Nonreactive [facility] Whole blood international no rmalized ratio (INR)Ordered By: Gamaliel Prado on 06-29-2023 INR Coag (Bld) [Relative time] 1.2 {INR} [facility] Absolute lymphocyte countOrd ered By: Holli Simental on 06-28-2023 Lymphocytes Auto (Unsp spec) [#/Vol] 0.85 10*3/uL 0.83-4.51 [facility] Basophil percentageOrdered B y: Viktor Hieu on 06-28-2023 Basophil percentage 8.7 mg/dL 2.5-4.9 [facility] Chloride [Moles/Vol] 108 mmol/L 98-107 [facility] Glucose [Mass/Vol] 95 mg/dL 74-106 [facility] Potassium [Moles/Vol] 3.7 mmol/L 3.5-5.1 [facility] Sodium [Moles/Vol] 132 mmol/L 136-145 [facility] Basophil percentageOrdered B y: Holli Simental on 06-28-2023 Basophils/100 WBC (Bld) 0.3 % 0-1 [facility] Eosinophils/100 WBC (Bld) 0.5 % 0-5 [facility] Neutrophils (Bld) [#/Vol] 7.6 10*3/uL 2.0-7.7 [facility] Neutrophils/100 WBC (Bld) 81.8 % 47-70 [facility] WBC (Bld) [#/Vol] 9.3 10*3/uL 4.4-11.0 [facility] Blood erythrocytes count (nu mber/volume)Ordered By: Holli Simental on 06-28-2023 RBC (Bld) [#/Vol] 3.05 10*6/uL 4.2-5.4 [facility] Blood hemoglobin measurement (mass/volume)Ordered By: Holli Simental on 06-28-2023 Hemoglobin (Bld) [Mass/Vol] 9.0 g/dL 12.0-15.0 [facility] Blood lymphocytes/100 leukoc ytesOrdered By: Holli Simental on 06-28-2023 Lymphocytes/100 WBC (Bld) 9.1 % 19-41 [facility] Blood monocytes/100 leukocyt esOrdered By: Holli Simental on 06-28-2023 Monocytes/100 WBC (Bld) 7.2 % 0-10 [facility] Blood platelet mean volumeOr dered By: Holli Simental on 06-28-2023 Platelet mean volume (Bld) [Entitic vol] 10.4 fL 6.2-12.0 [facility] Determination of erythrocyte mean corpuscular volume (MCV)Ordered By: Holli Simental on 06-28-2023 MCV (RBC) [Entitic vol] 84.9 fL 81-99 [facility] Hematocrit Auto (Bld) [Volum e fraction]Ordered By: Holli Simental on 06-28-2023 Hematocrit (Bld) [Volume fraction] 25.9 % 37-47 [facility] INR in Blood by Coagulation assayOrdered By: Viktor Hagen on 06-28-2023 INR Coag (Bld) [Relative time] 1.3 {INR} [facility] Iron measurement (mass/mass) Ordered By: Holli Simental on 06-28-2023 Iron (Unsp spec) [Mass/Mass] 94 ug/dL 50-170 [facility] Laboratory - Chemistry and C hemistry - challengeOrdered By: Viktor Hagen on 06-28-2023 CO2 [Moles/Vol] 9.0 mmol/L 21.0-32.0 [facility] Comment on above: Critical Result(s) C alled at: 13:44:20 06/28/2023 by: Petr Miller. Guido Ascencio RN (MS2). Results read back by same. Urea nitrogen/Creatinine [Mass ratio] 5.1 mg/mg 10-20 [facility] Laboratory - CoagulationOrde red By: Viktor Hagen on 06-28-2023 PT Coag (PPP) [Time] 15.9 s 11.7-14.9 [facility] Laboratory - Hematology and Cell countsOrdered By: Holli Simental on 06-28-2023 Erythrocyte distribution width (RBC) [Entitic vol] 46.2 fL 35.1-43.9 [facility] Erythrocyte distribution width (RBC) [Ratio] 15.1 % 11.6-14.6 [facility] [place] Immature granulocytes/100 WBC (Bld) 1.100 % 0.0-0.9 [facility] [place] Comment on above: IG% - Immature Granu locytes (promyelocytes, myelocytes and metamyelocytes) > 1% indicates that a LEFT SHIFT is Present. MCH (RBC) [Entitic mass] 29.5 pg 27.0-32.0 [facility] [place] Nucleated RBC/100 WBC (Bld) [Ratio] 0 % 0-5 [facility] [place] MCHC Auto (RBC) [Mass/Vol]Or dered By: Holli Simental on 06-28-2023 MCHC (RBC) [Mass/Vol] 34.7 g/dL 32-36 [facility] No Panel InformationOrdered By: Viktor Hagen on 06-28-2023 Estimated Creatinine Clearance Calc 3.33 ml/min [facility] [place] Estimated GFR (MDRD) Amer 3 mL/min >60 [facility] [place] Comment on above: GFR Calc Estimated GFR (MDRD) Non-Af Amer 2 mL/min >60 [facility] [place] Comment on above: Non- GFR Calc No Panel InformationOrdered By: Holli Simental on 06-28-2023 Total Iron Binding Capacity 182 ug/dL 250-450 [facility] [place] Platelets bldOrdered By: Leilani Simental on 06-28-2023 Platelets (Bld) [#/Vol] 113 10*3/uL 150-450 [facility] [place] Serum or plasma albumin hero urement (mass/volume)Ordered By: Viktor Hagen on 06-28-2023 Albumin [Mass/Vol] 2.8 g/dL 3.2-5.0 [facility] Serum or plasma calcium hero urement (mass/volume)Ordered By: Viktor Hagen on 06-28-2023 Calcium [Mass/Vol] 5.2 mg/dL 8.5-10.1 [facility] Comment on above: Critical Result(s) C alled at: 13:44:20 06/28/2023 by: Petr Miller. Guido Ascencio RN (MS2). Results read back by same. Serum or plasma creatinine m easurement (mass/volume)Ordered By: Viktor Hagen on 06-28-2023 Creatinine [Mass/Vol] 18.60 mg/dL 0.55-1.02 [facility] Comment on above: Critical Result(s) C alled at: 13:44:20 06/28/2023 by: Petr Miller. Guido Ascencio RN (MS2). Results read back by same.The validity of the calculated GFR & GFRAA in patients over 70 years has not been determined. Clinical correlation is essential. Serum or plasma ferritin gisella surement (mass/volume)Ordered By: Holli Simental on 06-28-2023 Ferritin [Mass/Vol] 196 ng/mL 8-252 [facility] Serum or plasma iron saturat ion measurement (mass fraction)Ordered By: Holli Simental on 06-28-2023 Iron saturation [Mass fraction] 51.6 % 15.0-55.0 [facility] [place] Serum or plasma urea nitroge n measurement (mass/volume)Ordered By: Viktor Hagen on 06-28-2023 Urea nitrogen [Mass/Vol] 95 mg/dL 7-18 [facility] [place] Absolute lymphocyte countOrd ered By: Jase Bond on 06-27-2023 Lymphocytes Auto (Unsp spec) [#/Vol] 1.71 10*3/uL 0.83-4.51 [facility] [place] Basophil percentageOrdered B y: Jase Bond on 06-27-2023 Basophil percentage 0-5 SEEN /hpf 0-5 [facility] Basophils/100 WBC (Bld) 0.4 % 0-1 [facility] Bilirubin [Mass/Vol] 0.20 mg/dL 0.20-1.00 [facility] Comment on above: For patients on eltr ombopag therapy, use of Dimension [place] TBIL is not recommended. Chloride [Moles/Vol] 104 mmol/L 98-107 [facility] Eosinophils/100 WBC (Bld) 2.6 % 0-5 [facility] [place] Glucose [Mass/Vol] 94 mg/dL 74-106 [facility] Neutrophils (Bld) [#/Vol] 4.9 10*3/uL 2.0-7.7 [facility] [place] Neutrophils/100 WBC (Bld) 66.8 % 47-70 [facility] [place] Potassium [Moles/Vol] 3.8 mmol/L 3.5-5.1 [facility] Comment on above: Slight Hemolysis, Re sult may be falsely increased. Protein [Mass/Vol] 6.7 g/dL 6.4-8.2 [facility] Sodium [Moles/Vol] 130 mmol/L 136-145 [facility] WBC (Bld) [#/Vol] 7.3 10*3/uL 4.4-11.0 [facility] Bilirubin Test strip Ql (U)O rdered By: Jase Bond on 06-27-2023 Bilirubin Ql (U) Negative Negative [facility] [place] Blood erythrocytes count (nu mber/volume)Ordered By: Jase Bond on 06-27-2023 RBC (Bld) [#/Vol] 2.38 10*6/uL 4.2-5.4 [facility] Blood hemoglobin measurement (mass/volume)Ordered By: Jase Bond on 06-27-2023 Hemoglobin (Bld) [Mass/Vol] 6.5 g/dL 12.0-15.0 [facility] [place] Blood lymphocytes/100 leukoc ytesOrdered By: Jase Bond on 06-27-2023 Lymphocytes/100 WBC (Bld) 23.5 % 19-41 [facility] [place] Blood monocytes/100 leukocyt esOrdered By: Jase Bond on 06-27-2023 Monocytes/100 WBC (Bld) 6.3 % 0-10 [facility] Blood platelet mean volumeOr dered By: Jase Bond on 06-27-2023 Platelet mean volume (Bld) [Entitic vol] 12.1 fL 6.2-12.0 [facility] [place] Determination of erythrocyte mean corpuscular volume (MCV)Ordered By: Jase Bond on 06-27-2023 MCV (RBC) [Entitic vol] 82.4 fL 81-99 [facility] Hematocrit Auto (Bld) [Volum e fraction]Ordered By: Jase Bond on 06-27-2023 Hematocrit (Bld) [Volume fraction] 19.6 % 37-47 [facility] [place] Ketones Test strip Ql (U)Ord ered By: Jase Bond on 06-27-2023 Ketones Ql (U) Negative Negative [facility] [place] Laboratory - Chemistry and C hemistry - challengeOrdered By: Jase Bond on 06-27-2023 ALP [Catalytic activity/Vol] 127 U/L 45-117 [facility] [place] ALT [Catalytic activity/Vol] 8 U/L 13-56 [facility] [place] CO2 [Moles/Vol] 12.0 mmol/L 21.0-32.0 [facility] [place] Globulin (S) [Mass/Vol] 3.6 g/dL 2.2-4.2 [facility] Urea nitrogen/Creatinine [Mass ratio] 4.9 mg/mg 10-20 [facility] [place] Laboratory - Hematology and Cell countsOrdered By: Jase Bond on 06-27-2023 Erythrocyte distribution width (RBC) [Entitic vol] 41.1 fL 35.1-43.9 [facility] [place] Erythrocyte distribution width (RBC) [Ratio] 13.8 % 11.6-14.6 [facility] [place] Immature granulocytes/100 WBC (Bld) 0.400 % 0.0-0.9 [facility] [place] Comment on above: IG% - Immature Granu locytes (promyelocytes, myelocytes and metamyelocytes) > 1% indicates that a LEFT SHIFT is Present. MCH (RBC) [Entitic mass] 27.3 pg 27.0-32.0 [facility] [place] Nucleated RBC/100 WBC (Bld) [Ratio] 0 % 0-5 [facility] [place] MCHC Auto (RBC) [Mass/Vol]Or dered By: Jase Bond on 06-27-2023 MCHC (RBC) [Mass/Vol] 33.2 g/dL 32-36 [facility] Mucus LM Ql (Urine sed)Order ed By: Jase Bond on 06-27-2023 Mucus Ql (Urine sed) 0 SEEN /hpf [facility] Nitrite Test strip Ql (U)Ord ered By: Jase Bond on 06-27-2023 Nitrite Ql (U) Positive Negative [facility] [place] No Panel InformationOrdered By: Jase Bond on 06-27-2023 Estimated Creatinine Clearance Calc 3.11 ml/min [facility] [place] Estimated GFR (MDRD) Amer 3 mL/min >60 [facility] [place] Comment on above: GFR Calc Estimated GFR (MDRD) Non-Af Amer 2 mL/min >60 [facility] [place] Comment on above: Non- GFR Calc Platelets bldOrdered By: Diane Bond on 06-27-2023 Platelets (Bld) [#/Vol] 156 10*3/uL 150-450 [facility] [place] Protein Test strip Ql (U)Ord ered By: Jase Bond on 06-27-2023 Protein Ql (U) 500 mg/dl Negative [facility] [place] Serum or plasma albumin hero urement (mass/volume)Ordered By: Jase Bond on 06-27-2023 Albumin [Mass/Vol] 3.1 g/dL 3.2-5.0 [facility] Serum or plasma albumin/glob ulin mass ratioOrdered By: Jase Bond on 06-27-2023 Albumin/Globulin [Mass ratio] 0.9 {ratio} 0.9-2.4 [facility] [place] Serum or plasma calcium hero urement (mass/volume)Ordered By: Jase Bond on 06-27-2023 Calcium [Mass/Vol] mg/dL 8.5-10.1 [facility] Comment on above: RESULTS CALLED TO LITTLE SOLIZ 06/27/23 Jose Carballo.REPORT READ BACK BY SAME.MMARTIN2 @SAID SHE WOULD LET DR KNOW & SEE IF HE WANTED IT RECHECKED. @IF SO SHE WILL DRAW IT Serum or plasma creatinine m easurement (mass/volume)Ordered By: Jase Bond on 06-27-2023 Creatinine [Mass/Vol] 19.10 mg/dL 0.55-1.02 [facility] Comment on above: Critical Result(s) C alled at: 22:12:22 06/27/2023 by: Sara Carballo to [employer]. Results read back by same.The validity of the calculated GFR & GFRAA in patients over 70 years has not been determined. Clinical correlation is essential. Serum or plasma urea nitroge n measurement (mass/volume)Ordered By: Jase Bond on 06-27-2023 Urea nitrogen [Mass/Vol] 93 mg/dL 7-18 [facility] [place] Squamous epithelial cells de tection in urine sediment by light microscopyOrdered By: Jase Bond on 06-27-2023 Epithelial cells.squamous LM Ql (Urine sed) 5-10 SEEN /hpf 5-10 [facility] [place] Thin prep Papanicolaou smear with manual screeningOrdered By: Jase Bond on 06-27-2023 Thin prep Papanicolaou smear with manual screening 13 U/L 15-37 [facility] [place] Comment on above: Slight Hemolysis, Re sult may be falsely increased. Thin prep Papanicolaou smear with manual screening 14 5-15 [facility] [place] Urine blood detectionOrdered By: Jase Bond on 06-27-2023 RBC Ql (U) 50 /ul Negative [facility] [place] RBC Ql (U) 0 SEEN /hpf 0-5 [facility] [place] Urine clarityOrdered By: Diane Bond on 06-27-2023 Clarity (U) Clear Clear [facility] [place] Urine color determinationOrd ered By: Jase Bond on 06-27-2023 Color (U) Yellow Yellow [facility] [place] Urine glucose detectionOrder ed By: Jase Bond on 06-27-2023 Glucose Ql (U) Normal mg/dl Normal [facility] [place] Urine leukocyte esterase det ection by dipstickOrdered By: Jase Bond on 06-27-2023 Leukocyte esterase Test strip Ql (U) 25 /ul Negative [facility] [place] Urine pHOrdered By: Jase nicole on 06-27-2023 pH (U) 6.0 [pH] 5.0 - 8.0 [facility] [place] Urine sediment bacteria coun t by microscopy (number/high power field)Ordered By: Jase Bond on 06-27-2023 Bacteria LM.HPF (Urine sed) [#/Area] RARE /hpf None Seen [facility] [place] Urine specific gravity measu rementOrdered By: Jase Bond on 06-27-2023 Specific gravity (U) [Rel density] 1.010 1.002-1.030 [facility] [place] Urobilinogen Auto test strip Ql (U)Ordered By: Jase Bond on 06-27-2023 Urobilinogen Ql (U) Normal mg/dl Normal [facility] Basophil percentageOrdered B y: Clarence Goldstein on 06-26-2023 WBC (Bld) [#/Vol] 7.4 10*3/uL 4.4-11.0 [facility] Blood erythrocytes count (nu mber/volume)Ordered By: Clarence Goldstein on 06-26-2023 RBC (Bld) [#/Vol] 2.39 10*6/uL 4.2-5.4 [facility] Blood hemoglobin measurement (mass/volume)Ordered By: Clarence Goldstein on 06-26-2023 Hemoglobin (Bld) [Mass/Vol] 6.5 g/dL 12.0-15.0 [facility] [place] Blood platelet mean volumeOr dered By: Clarence Goldstein on 06-26-2023 Platelet mean volume (Bld) [Entitic vol] 11.9 fL 6.2-12.0 [facility] [place] Determination of erythrocyte mean corpuscular volume (MCV)Ordered By: Clarence Goldstein on 06-26-2023 MCV (RBC) [Entitic vol] 84.5 fL 81-99 [facility] Hematocrit Auto (Bld) [Volum e fraction]Ordered By: Clarence Goldstein on 06-26-2023 Hematocrit (Bld) [Volume fraction] 20.2 % 37-47 [facility] [place] Iron measurement (mass/mass) Ordered By: Clarence Goldstein on 06-26-2023 Iron (Unsp spec) [Mass/Mass] 89 ug/dL 50-170 [facility] [place] Laboratory - Hematology and Cell countsOrdered By: Clarence Goldstein on 06-26-2023 Erythrocyte distribution width (RBC) [Entitic vol] 42.1 fL 35.1-43.9 [facility] [place] Erythrocyte distribution width (RBC) [Ratio] 13.7 % 11.6-14.6 [facility] [place] MCH (RBC) [Entitic mass] 27.2 pg 27.0-32.0 [facility] [place] MCHC Auto (RBC) [Mass/Vol]Or dered By: Clarence Goldstein on 06-26-2023 MCHC (RBC) [Mass/Vol] 32.2 g/dL 32-36 [facility] Platelets bldOrdered By: Michelle Goldstein on 06-26-2023 Platelets (Bld) [#/Vol] 157 10*3/uL 150-450 [facility] [place] Serum or plasma ferritin gisella surement (mass/volume)Ordered By: Clarence Goldstein on 06-26-2023 Ferritin [Mass/Vol] 175 ng/mL 8-252 [facility] Absolute lymphocyte countOrd ered By: Dr. Goldstein on 08-10-2022 Lymphocytes Auto (Unsp spec) [#/Vol] 2.21 10*3/uL 0.83-4.51 [facility] [place] Basophil percentageOrdered B y: Dr. Goldstein on 08-10-2022 Basophils/100 WBC (Bld) 0.4 % 0-1 [facility] Chloride [Moles/Vol] 114 mmol/L 98-107 [facility] Eosinophils/100 WBC (Bld) 3.0 % 0-5 [facility] [place] Glucose [Mass/Vol] 115 mg/dL 74-106 [facility] Comment on above: Fasting Glucose resu lt from 100 to 125 mg/dL suggests IMPAIRED HOMEOSTASIS per A.D.A. criteria. Neutrophils (Bld) [#/Vol] 4.5 10*3/uL 2.0-7.7 [facility] [place] Neutrophils/100 WBC (Bld) 60.9 % 47-70 [facility] [place] Potassium [Moles/Vol] 3.5 mmol/L 3.5-5.1 [facility] Sodium [Moles/Vol] 140 mmol/L 136-145 [facility] WBC (Bld) [#/Vol] 7.3 10*3/uL 4.4-11.0 [facility] Blood erythrocytes count (nu mber/volume)Ordered By: Dr. Goldstein on 08-10-2022 RBC (Bld) [#/Vol] 2.82 10*6/uL 4.2-5.4 [facility] Blood hemoglobin measurement (mass/volume)Ordered By: Dr. Goldstein on 08-10-2022 Hemoglobin (Bld) [Mass/Vol] 8.0 g/dL 12.0-15.0 [facility] [place] Blood lymphocytes/100 leukoc ytesOrdered By: Dr. Goldstein on 08-10-2022 Lymphocytes/100 WBC (Bld) 30.3 % 19-41 [facility] [place] Blood monocytes/100 leukocyt esOrdered By: Dr. Goldstein on 08-10-2022 Monocytes/100 WBC (Bld) 5.1 % 0-10 [facility] Blood platelet mean volumeOr dered By: Dr. Goldstein on 08-10-2022 Platelet mean volume (Bld) [Entitic vol] 11.7 fL 6.2-12.0 [facility] [place] Determination of erythrocyte mean corpuscular volume (MCV)Ordered By: Dr. Goldstein on 08-10-2022 MCV (RBC) [Entitic vol] 89.4 fL 81-99 [facility] Hematocrit Auto (Bld) [Volum e fraction]Ordered By: Dr. Goldstein on 08-10-2022 Hematocrit (Bld) [Volume fraction] 25.2 % 37-47 [facility] [place] Hemoglobin in reticulocytes (mass per reticulocyte)Ordered By: Dr. Goldstein on 08-10-2022 Hemoglobin (Reticulocytes) [Entitic mass] 30.8 pg 30-35 [facility] [place] Iron measurement (mass/mass) Ordered By: Dr. Goldstein on 08-10-2022 Iron (Unsp spec) [Mass/Mass] 72 ug/dL 50-170 [facility] [place] Laboratory - Chemistry and C hemistry - challengeOrdered By: Dr. Goldstein on 08-10-2022 CO2 [Moles/Vol] 18.0 mmol/L 21.0-32.0 [facility] [place] Urea nitrogen/Creatinine [Mass ratio] 9.7 mg/mg 10-20 [facility] [place] Laboratory - Hematology and Cell countsOrdered By: Dr. Goldstein on 08-10-2022 Erythrocyte distribution width (RBC) [Entitic vol] 43.8 fL 35.1-43.9 [facility] [place] Erythrocyte distribution width (RBC) [Ratio] 13.4 % 11.6-14.6 [facility] [place] Immature granulocytes/100 WBC (Bld) 0.300 % 0.0-0.9 [facility] [place] Comment on above: IG% - Immature Granu locytes (promyelocytes, myelocytes and metamyelocytes) > 1% indicates that a LEFT SHIFT is Present. MCH (RBC) [Entitic mass] 28.4 pg 27.0-32.0 [facility] [place] Nucleated RBC/100 WBC (Bld) [Ratio] 0 % 0-5 [facility] Auto (RBC) [Mass/Vol]Or dered By: Dr. Goldstein on 08-10-2022 MCHC (RBC) [Mass/Vol] 31.7 g/dL 32-36 [facility] No Panel InformationOrdered By: Dr. Goldstein on 08-10-2022 Estimated GFR (MDRD) Amer 10 mL/min >60 [facility] [place] Comment on above: GFR Calc Estimated GFR (MDRD) Non-Af Amer 8 mL/min >60 [facility] [place] Comment on above: Non- GFR Calc Immature Reticulocyte Fraction 10.50 % 3.00-15.90 [facility] [place] Reticulocyte Count 1.31 % 0.5-1.5 [facility] Thyroid Stimulating Hormone (TSH) 1.52 uIU/mL 0.358-3.74 [facility] [place] Total Iron Binding Capacity 246 ug/dL 250-450 [facility] [place] Platelets bldOrdered By: Dr. Goldstein on 08-10-2022 Platelets (Bld) [#/Vol] 205 10*3/uL 150-450 [facility] [place] Serum or plasma calcium hero urement (mass/volume)Ordered By: Dr. Goldstein on 08-10-2022 Calcium [Mass/Vol] 7.7 mg/dL 8.5-10.1 [facility] Serum or plasma creatinine m easurement (mass/volume)Ordered By: Dr. Goldstein on 08-10-2022 Creatinine [Mass/Vol] 5.87 mg/dL 0.55-1.02 [facility] Comment on above: The validity of the calculated GFR & GFRAA in patients over 70 years has not been determined. Clinical correlation is essential. Serum or plasma ferritin gisella surement (mass/volume)Ordered By: Dr. Goldstein on 08-10-2022 Ferritin [Mass/Vol] 150 ng/mL 8-252 [facility] Serum or plasma urea nitroge n measurement (mass/volume)Ordered By: Dr. Goldstein on 08-10-2022 Urea nitrogen [Mass/Vol] 57 mg/dL 7-18 [facility] [place] Thin prep Papanicolaou smear with manual screeningOrdered By: Dr. Goldstein on 08-10-2022 Thin prep Papanicolaou smear with manual screening 8 5-15 [facility] [place] Absolute lymphocyte counton 09-15-2021 Lymphocytes Auto (Unsp spec) [#/Vol] 1.76 10*3/uL 0.83-4.51 [facility] [place] Work Phone: Basophil percentageon 2021 Basophils/100 WBC (Bld) 1.0 % 0-1 [facility] Work Phone: Bilirubin [Mass/Vol] 0.50 mg/dL 0.20-1.00 [facility] Work Phone: Comment on above: For patients on eltr ombopag therapy, use of Dimension [place] TBIL is not recommended. Chloride [Moles/Vol] 115 mmol/L 98-107 [facility] Work Phone: Cholesterol [Mass/Vol] 199 mg/dL <200 [facility] Work Phone: Comment on above: <200 mg/dL Desirable 200-240 mg/dL Borderline >240 mg/dL High Risk Eosinophils/100 WBC (Bld) 1.7 % 0-5 [facility] [place] Work Phone: Glucose [Mass/Vol] 95 mg/dL 74-106 [facility] Work Phone: Neutrophils (Bld) [#/Vol] 4.6 10*3/uL 2.0-7.7 [facility] [place] Work Phone: Neutrophils/100 WBC (Bld) 65.0 % 47-70 [facility] [place] Work Phone: Potassium [Moles/Vol] 3.8 mmol/L 3.5-5.1 [facility] Work Phone: Protein [Mass/Vol] 7.5 g/dL 6.4-8.2 [facility] Work Phone: Sodium [Moles/Vol] 139 mmol/L 136-145 [facility] Work Phone: Triglyceride [Mass/Vol] 80 mg/dL [facility] Work Phone: Comment on above: The drugs N-Acetylcy steine and Metamizole may falsely depress this assay.Serum Triglycerides Reference Interval Normal <150 mg/dL Borderline high 150 - 199 mg/dL High 200 - 499 mg/dL Very High > or = 500 mg/dL WBC (Bld) [#/Vol] 7.1 10*3/uL 4.4-11.0 [facility] Work Phone: Blood erythrocytes count (nu mber/volume)on 09-15-2021 RBC (Bld) [#/Vol] 3.77 10*6/uL 4.2-5.4 [facility] Work Phone: Blood hemoglobin measurement (mass/volume)on 09-15-2021 Hemoglobin (Bld) [Mass/Vol] 11.2 g/dL 12.0-15.0 [facility] [place] Work Phone: Blood lymphocytes/100 leukoc yteson 09-15-2021 Lymphocytes/100 WBC (Bld) 24.8 % 19-41 [facility] [place] Work Phone: Blood monocytes/100 leukocyt eson 09-15-2021 Monocytes/100 WBC (Bld) 7.2 % 0-10 [facility] Work Phone: Blood platelet mean volumeon 09-15-2021 Platelet mean volume (Bld) [Entitic vol] 11.2 fL 6.2-12.0 [facility] [place] Work Phone: [phone] Determination of erythrocyte mean corpuscular volume (MCV)on 09-15-2021 MCV (RBC) [Entitic vol] 87.0 fL 81-99 [facility] Work Phone: Erythrocyte sedimentation ra mita 09-15-2021 ESR (Bld) [Velocity] 28 mm/h 0-30 [facility] Work Phone: Hematocrit Auto (Bld) [Volum e fraction]on 09-15-2021 Hematocrit (Bld) [Volume fraction] 32.8 % 37-47 [facility] [place] Work Phone: [phone] Iron measurement (mass/mass) on 09-15-2021 Iron (Unsp spec) [Mass/Mass] 67 ug/dL 50-170 [facility] [place] Work Phone: [phone] Laboratory - Chemistry and C hemistry - challengeon 09-15-2021 ALP [Catalytic activity/Vol] 62 U/L 45-117 [facility] [place] Work Phone: [phone] ALT [Catalytic activity/Vol] 17 U/L 13-56 [facility] [place] Work Phone: [phone] CO2 [Moles/Vol] 22.0 mmol/L 21.0-32.0 [facility] [place] Work Phone: [phone] Cobalamin (Vitamin B12) [Mass/Vol] 555 pg/mL 211-911 [facility] [place] Work Phone: [phone] Globulin (S) [Mass/Vol] 4.0 g/dL 2.2-4.2 [facility] Work Phone: [phone] Urea nitrogen/Creatinine [Mass ratio] 8.8 mg/mg 10-20 [facility] [place] Work Phone: [phone] Laboratory - Hematology and Cell countson 09-15-2021 Erythrocyte distribution width (RBC) [Entitic vol] 40.4 fL 35.1-43.9 [facility] [place] Work Phone: [phone] Erythrocyte distribution width (RBC) [Ratio] 12.7 % 11.6-14.6 [facility] [place] Work Phone: [phone] Immature granulocytes/100 WBC (Bld) 0.300 % 0.0-0.9 [facility] [place] Work Phone: [phone] Comment on above: IG% - Immature Granu locytes (promyelocytes, myelocytes and metamyelocytes) > 1% indicates that a LEFT SHIFT is Present. MCH (RBC) [Entitic mass] 29.7 pg 27.0-32.0 [facility] [place] Work Phone: [phone] Nucleated RBC/100 WBC (Bld) [Ratio] 0 % 0-5 [facility] [place] Work Phone: [phone] MCHC Auto (RBC) [Mass/Vol]on 09-15-2021 MCHC (RBC) [Mass/Vol] 34.1 g/dL 32-36 [facility] Work Phone: No Panel Informationon 09-15 Anti-Nuclear Antibody Screen Negative Negative [facility] [place] Work Phone: Comment on above: Performed at: [facility] [employer] [address] [id number] Director: Ramon Jackson PhD, Phone: [phone] Estimated GFR (MDRD) Amer 24 mL/min >60 [facility] [place] Work Phone: Comment on above: GFR Calc Estimated GFR (MDRD) Non-Af Amer 20 mL/min >60 [facility] [place] Work Phone: Comment on above: Non- GFR Calc Thyroid Stimulating Hormone (TSH) 2.47 uIU/mL 0.358-3.74 [facility] [place] Work Phone: Vitamin D 25-Hydroxy 14.3 ng/mL [facility] Work Phone: Comment on above: Vitamin D 25(OH) Sta tus Range Deficiency <20 ng/mL (50nmol/L) Insufficiency 20 - 30 ng/mL (50 - 75 nmol/L) Sufficiency 30 - 100 ng/mL (75 - 250 nmol/L) Toxicity >100 ng/mL (>250 nmol/L) Platelets bldon 09-15-2021 Platelets (Bld) [#/Vol] 233 10*3/uL 150-450 [facility] [place] Work Phone: [phone] or plasma albumin hero urement (mass/volume)on 09-15-2021 Albumin [Mass/Vol] 3.5 g/dL 3.2-5.0 [facility] Work Phone: [phone] Serum or plasma albumin/glob ulin mass ratioon 09-15-2021 Albumin/Globulin [Mass ratio] 0.9 {ratio} 0.9-2.4 [facility] Work Phone: [phone] Serum or plasma calcium hero urement (mass/volume)on 09-15-2021 Calcium [Mass/Vol] 8.5 mg/dL 8.5-10.1 [facility] Work Phone: Serum or plasma cholesterol in HDL measurement (mass/volume)on 09-15-2021 Cholesterol in HDL [Mass/Vol] 91 mg/dL [facility] Work Phone: Comment on above: The drugs N-Acetylcy steine and Metamizole may falsely depress this assay. Reference Range HDL <40 mg/dL Low HDL Cholesterol HDL >or= 60 mg/dL High HDL Cholesterol Serum or plasma cholesterol in VLDL measurement (mass/volume)on 09-15-2021 Cholesterol in VLDL [Mass/Vol] 16 mg/dL 5-40 [facility] Work Phone: Serum or plasma creatinine m easurement (mass/volume)on 09-15-2021 Creatinine [Mass/Vol] 2.73 mg/dL 0.55-1.02 [facility] Work Phone: Comment on above: The validity of the calculated GFR & GFRAA in patients over 70 years has not been determined. Clinical correlation is essential. Serum or plasma low density lipoprotein (LDL) cholesterol measurement (mass/volume)on 09-15-2021 Cholesterol in LDL [Mass/Vol] 92 mg/dL 0-130 [facility] Work Phone: Serum or plasma urea nitroge n measurement (mass/volume)on 09-15-2021 Urea nitrogen [Mass/Vol] 24 mg/dL 7-18 [facility] Work Phone: Thin prep Papanicolaou smear with manual screeningon 09-15-2021 Thin prep Papanicolaou smear with manual screening 18 U/L 15-37 [facility] Work Phone: Thin prep Papanicolaou smear with manual screening 2 5-15 [facility] Work Phone: Progress Noteon 12-29-2016 [employer] Authentication Interface Message Text Updated FTC plan with ultrasound findings from 12/25/16 faxed to Amy Essie&Karina Loco [facility] Vital Signs Date Time Vital Sign Value Performing Clinician Faci lity 11-25-2024 13:13-0400 Body height 162.[address] Timmy Goldstein MD Work Phone: [facility] 11-25-2024 13:13-0400 Body weight 63.[address] Timmy Goldstein MD Work Phone: [phone])508-729469 [place] [address] 11-25-2024 13:12-0400 Body mass index (BMI) [Ratio] 24 kg/m2 Dr. Timmy Goldstein MD Work Phone: 9(388)540-309076 [place] [address] 07-30-2024 14:00-0500 Diastolic blood pressure 125 mm[Hg] Dr. Timmy Goldstein MD Work Phone: 2(046)313-679976 [place] [address] 07-30-2024 14:00-0500 Heart rate 102 /min Dr. Timmy Goldstein MD Work Phone: 4(486)263-793576 [place] [address] 07-30-2024 14:00-0500 Respiratory rate 27 /min Dr. Timmy Goldstein MD Work Phone: 5([phone])294-447476 [place] [address] 07-30-2024 14:00-0500 SaO2% (BldA) [Mass fraction] 97 % Dr. Timmy Goldstein MD Work Phone: 4([phone])524-029676 [place] [address] 07-30-2024 14:00-0500 Systolic blood pressure 230 mm[Hg] Dr. Timmy Goldstein MD Work Phone: 1(485)544-424276 [place] [address] 07-30-2024 00:15-0500 Body mass index (BMI) [Ratio] 22.2 kg/m2 Dr. Timmy Goldstein MD Work Phone: 9(076)793-247769 [place] [address] 07-30-2024 00:15-0500 Body temperature 98.4 [degF] Dr. Timmy Goldstein MD Work Phone: 0(183)912-119476 [place] [address] 07-30-2024 00:15-0500 Body weight 58.[address] Timmy Goldstein MD Work Phone: 8(402)640-199876 [place] [address] 07-03-2023 15:36-0500 Body temperature 98.4 [degF] Dr. Clarence Goldstein Work Phone: 5(680)757-012565 [address] 07-03-2023 15:36-0500 Diastolic blood pressure 74 mm[Hg] Dr. Clarence Goldstein Work Phone: [facility] 07-03-2023 15:36-0500 Heart rate 83 /min Dr. Clarence Goldstein Work Phone: [facility] 07-03-2023 15:36-0500 Respiratory rate 18 /min Dr. Clarence Goldstein Work Phone: [facility] 07-03-2023 15:36-0500 SaO2% (BldA) [Mass fraction] 100 % Dr. Clarence Goldstein Work Phone: 0(368)357-656765 [address] 07-03-2023 15:36-0500 Systolic blood pressure 135 mm[Hg] Dr. Clarence Goldstein Work Phone: 0(023)654-812669 [place] [address] 07-02-2023 11:10-0500 Body mass index (BMI) [Ratio] 20.8 kg/m2 Dr. Clarence Goldstein Work Phone: 8(460)543-360469 [place] [address] 07-02-2023 11:10-0500 Body weight 56.[address] Clarence Goldstein Work Phone: 0(444)992-337069 [place] [address] 07-02-2023 10:21-0500 Body height 165.[address] Clarence Goldstein Work Phone: [facility] 06-28-2023 20:48-0500 Body temperature 99 [degF] Dr. Clarence Goldstein Work Phone: [facility] 06-28-2023 20:48-0500 Diastolic blood pressure 68 mm[Hg] Dr. Clarence Goldstein Work Phone: 2(557)863-950869 [place] [address] 06-28-2023 20:48-0500 Heart rate 90 /min Dr. Clarence Goldstein Work Phone: [facility] 06-28-2023 20:48-0500 Respiratory rate 16 /min Dr. Clarence Goldstein Work Phone: [facility] 06-28-2023 20:48-0500 SaO2% (BldA) [Mass fraction] 100 % Dr. Clarence Goldstein Work Phone: [facility] 06-28-2023 20:48-0500 Systolic blood pressure 146 mm[Hg] Dr. Clarence Goldstein Work Phone: [facility] 06-28-2023 11:54-0500 Body height 165.[address] Clarence Goldstein Work Phone: [facility] 06-28-2023 11:54-0500 Body weight 57.[address] Clarence Goldstein Work Phone: [facility] 06-28-2023 00:49-0500 Body height 165.1 cm [facility] 06-28-2023 00:49-0500 Body mass index (BMI) [Ratio] 21 kg/m2 [facility] 06-28-2023 00:49-0500 Body temperature 97.5 [degF] [facility] 06-28-2023 00:49-0500 Body weight 57.4 kg [facility] 06-28-2023 00:49-0500 Diastolic blood pressure 62 mm[Hg] [facility] 06-28-2023 00:49-0500 Heart rate 88 /min [facility] 06-28-2023 00:49-0500 Respiratory rate 18 /min [facility] 06-28-2023 00:49-0500 SaO2% (BldA) [Mass fraction] 100 % [facility] 06-28-2023 00:49-0500 Systolic blood pressure 153 mm[Hg] [facility] Encounters Encounter Date Encounter Type Care Provider Facility Start: 11-25-2024 Non-patient / Non-visit Dr. Jase Zimmerman MD -[facility] Start: 11-25-2024 End: 11-25-2024 Admission to same day surgery center Dr. Jase Zimmerman MD -[employer]/Special Procedures Work Phone: Start: 11-25-2024 End: 11-25-[address] Timmy Goldstein MD Work Phone: [facility] Work Phone: Start: 10-31-2024 End: 10-31-2024 Telephone encounter [facility] Work Phone: [facility] Comment on above: Referral - Kidney Tx p Start: 07-30-2024 End: 07-30-2024 Emergency department patient visit Dr. Rocael Iyer MD -Emergency Department Work Phone: Start: 06-26-2024 ambulatory Timmy Joséquin Faci lity:[facility] Start: 06-25-2024 ambulatory Viktor Hagen Fac ility:[facility] Start: 06-25-2024 End: 06-27-2024 Evaluation and management of inpatient Timmy Goldstein Facility:[facility] Start: 09-10-2023 Telephone encounter Varun little MD Work Phone: [facility] Start: 07-19-2023 Non-patient / Non-visit Dr. Clarence Goldstein Work Phone: [facility] Start: 07-19-2023 End: 07-19-[address] Clarence Goldstein Work Phone: [facility] Work Phone: Start: 07-19-2023 End: 07-19-[address] Clarence Goldstein Work Phone: [facility]Cardiovascul[facility] r Services Work Phone: Start: 07-03-2023 Non-patient / Non-visit Dr. Clarence Goldstein Work Phone: [facility] Work Phone: Start: 07-02-2023 Non-patient / Non-visit Dr. Clarence Goldstein Work Phone: [facility] Work Phone: Start: 07-01-2023 Non-patient / Non-visit Dr. Clarence Goldstein Work Phone: [facility] Work Phone: Start: 06-30-2023 Non-patient / Non-visit Dr. Clarence Goldstein Work Phone: [facility] Work Phone: Start: 06-30-2023 Non-patient / Non-visit Dr. Clarence Goldstein Work Phone: [facility] Start: 06-29-2023 Non-patient / Non-visit Dr. Clarence Goldstein Work Phone: [facility] Work Phone: Start: 06-29-2023 End: 06-29-2023 Non-patient / Non-visit Dr. Clarence Goldstein Work Phone: [facility] Work Phone: Start: 06-28-2023 Non-patient / Non-visit Dr. Clarence Goldstein Work Phone: [facility] Work Phone: Start: 06-28-2023 Non-patient / Non-visit Dr. Clarence Goldstein Work Phone: [facility] Start: 06-27-2023 End: 07-03-2023 Evaluation and management of inpatient [facility]Medical [facility] 2 Work Phone: Start: 06-26-2023 End: 06-26-[address] Clarence Goldstein Work Phone: [facility] Work Phone: Start: 06-26-2023 End: 06-26-2023 Patient encounter procedure [facility] Start: 08-10-2022 End: 08-10-2022 ambulatory [facility] Work Phone: Start: 08-10-2022 End: 08-10-2022 Patient encounter procedure [facility] Start: 09-15-2021 End: 09-15-2021 Patient encounter procedure [facility] Start: 01-08-2017 Ambulatory RADHA MALDONADO [facility] Start: 01-01-2017 End: 01-01-2017 Ambulatory ELIZABETH MEMBRENO [facility] Start: 12-25-2016 Ambulatory RADHA MALDONADO [facility] Procedures Date Procedure Procedure Detail Performing Clinician Start: 07-30-2024 SARS-CoV-2, Influenz a & RSV (PCR) Dr. Timmy Goldstein MD Work Phone: Start: 07-30-[address] Timmy Goldstein MD Work Phone: Start: 07-30-2024 Measurement of renal function Dr. Timmy Goldstein MD Work Phone: Comment on above: GFR Calc Start: 07-30-2024 Plain chest X-ray Dr. Lela Goldstein MD Work Phone: Start: 06-30-2023 Measurement of occul t blood in stool specimen using immunoassay Dr. Clarence Goldstein Work Phone: Start: 06-29-2023 Plain chest X-ray Dr. Lela Goldstein Work Phone: Start: 06-29-2023 Insertion of hemodia lysis catheter Dr. Clarence Goldstein Work Phone: Start: 06-29-2023 Fluoroscopic guidance Ella Goldstein Work Phone: Start: 06-27-2023 CT of abdomen and pe lvis without contrast Dr. Clarence Goldstein Work Phone: Start: 06-27-2023 CT of head without contrast Plan of Treatment Date Care Activity Detail Author Start: 2035 RSV Immunization aged 60 or older (1 - 1-dose 60+ series) RSV Immunization aged 60 or older (1 - 1-dose 60+ series) [facility] Start: 2025 Zoster Vaccines (1 of 2) Zoster Vaccines (1 of 2) [facility] Start: 11-26-2024 Patient discharge [facility] Start: 07-30-2024 [facility] Start: 07-30-2024 [facility] Start: 02-17-2024 Influenza vaccination Influenza Vaccine (Season Ended) [facility] Start: 09-24-2023 End: 09-24-2023 Patient encounter procedure 09/24/2023 12:00 PM EDT Office Visit [facility] [address] [place] [address] Varun Dawson MD [address] [place] [address] [facility] Start: 08-27-2023 Hepatitis B Vaccines (2 of 2 - CpG 2-dose series) Hepatitis B Vaccines (2 of 2 - CpG 2-dose series) [facility] Start: 07-03-2023 Patient discharge [facility] Start: 07-02-2023 Care of hemodialysis equipment [facility] Start: 07-02-2023 Hemodialysis care [facility] Start: 07-02-2023 [facility] Start: 07-02-2023 [facility] Start: 07-01-2023 End: 07-02-2023 [facility] Start: 06-30-2023 Care of hemodialysis equipment [facility] Start: 06-30-2023 Hemodialysis care [facility] Start: 06-30-2023 Complete blood count [facility] Start: 06-30-2023 End: 06-30-2023 [facility] Start: 06-29-2023 Care of hemodialysis equipment [facility] Start: 06-29-2023 Hemodialysis care [facility] Start: 06-29-2023 End: 06-29-2023 [facility] Start: 06-29-2023 Insertion of hemodialysis catheter Insertion, Hemodiaylsis Catheter (Right) [facility] Start: 06-29-2023 Preoperative care [facility] Start: 06-29-2023 Complete blood count [facility] Start: 06-29-2023 Hepatitis B surface antigen measurement [facility] Start: 06-29-2023 [facility] Start: 06-28-2023 Referral to general surgeon [facility] Start: 06-28-2023 Application of intermittent pneumatic compression device [facility] Start: 06-28-2023 Following clinical pathway protocol [facility] Start: 06-28-2023 Administration of blood product [facility] Start: 06-28-2023 Assessment of risk of venous thromboembolism [facility] Start: 06-28-2023 Insertion of catheter into peripheral vein [facility] Start: 06-28-2023 Leukocyte reduced red blood cells [facility] Start: 06-28-2023 Measurement of occult blood in stool specimen using immunoassay [facility] Start: 06-28-2023 Oxygen therapy [facility] Start: 06-28-2023 Providing care according to standard [facility] Start: 06-28-2023 Provision of activity privileges [facility] Start: 06-28-2023 Referral to title 1 tutor [facility] Start: 06-28-2023 Referral to occupational therapist [facility] Start: 06-28-2023 Referral to service [facility] Start: 06-28-2023 End: 06-28-2023 [facility] Start: 06-28-2023 Verification routine [facility] Start: 06-28-2023 Admission procedure [facility] Start: 06-28-2023 Patient referral to dietitian [facility] Start: 06-27-2023 CT Abdomen and Pelvis WO contrast [facility] Start: 06-27-2023 CT of abdomen and pelvis without contrast Abdomen/Pelvis without Cont [facility] Start: 06-27-2023 [facility] Start: 02-16-2023 COVID-19 Vaccine ( season) COVID-19 Vaccine ( season) [facility] Start: 02-16-2023 Influenza vaccination Influenza Vaccine (#1) [facility] Start: 2015 Screening for malignant neoplasm of breast Mammogram [facility] Start: 2005 Screening for malignant neoplasm of cervix [facility] Start: 02-27-1996 Screening for malignant neoplasm of cervix Pap Smear [facility] Start: 1994 DTaP/Tdap/Td Vaccines (1 - Tdap) DTaP/Tdap/Td Vaccines (1 - Tdap) [facility] Start: 1994 Hepatitis B Vaccines (1 of 3 - 19+ 3-dose series) Hepatitis B Vaccines (1 of 3 - 19+ 3-dose series) [facility] Start: 1993 Hepatitis C screening Hepatitis C Screening [facility] Start: 1987 Depression Screening Depression Screening [facility] Start: 02-27-1976 MMR Vaccines (1 of 1 - Standard series) MMR Vaccines (1 of 1 - Standard series) [facility] Start: 1975 HIV screening HIV Screening [facility] Start: 1975 Lipid panel Lipid Panel [facility] Start: 1975 Screening for malignant neoplasm of colon [facility] Albumin [Mass/volume ] in Serum or Plasma [facility] Albumin [Mass/volume ] in Serum or Plasma [facility] Albumin [Mass/volume ] in Serum or Plasma [facility] Albumin [Mass/volume ] in Serum or Plasma [facility] BUN/Creatinine ratio [facility] BUN/Creatinine ratio [facility] BUN/Creatinine ratio [facility] BUN/Creatinine ratio [facility] Calcium [Mass/volume ] in Serum or Plasma [facility] Calcium [Mass/volume ] in Serum or Plasma [facility] Calcium [Mass/volume ] in Serum or Plasma [facility] Calcium [Mass/volume ] in Serum or Plasma [facility] Carbon dioxide, tota l [Moles/volume] in Serum or Plasma [facility] Carbon dioxide, tota l [Moles/volume] in Serum or Plasma [facility] Carbon dioxide, tota l [Moles/volume] in Serum or Plasma [facility] Carbon dioxide, tota l [Moles/volume] in Serum or Plasma [facility] Chloride [Moles/volu me] in Serum or Plasma [facility] Chloride [Moles/volu me] in Serum or Plasma [facility] Chloride [Moles/volu me] in Serum or Plasma [facility] Chloride [Moles/volu me] in Serum or Plasma [facility] Creatinine [Moles/vo lume] in Serum or Plasma [facility] Creatinine [Moles/vo lume] in Serum or Plasma [facility] Creatinine [Moles/vo lume] in Serum or Plasma [facility] Creatinine [Moles/vo lume] in Serum or Plasma [facility] Ferritin [Mass/volum e] in Serum or Plasma [facility] Glucose [Mass/volume ] in Serum or Plasma [facility] Glucose [Mass/volume ] in Serum or Plasma [facility] Glucose [Mass/volume ] in Serum or Plasma [facility] Glucose [Mass/volume ] in Serum or Plasma [facility] Hematocrit [Volume Fraction] of Blood [facility] Hematocrit [Volume Fraction] of Blood [facility] Hematocrit [Volume Fraction] of Blood [facility] Hemoglobin [Mass/vol ume] in Blood [facility] Hemoglobin [Mass/vol ume] in Blood [facility] Hemoglobin [Mass/vol ume] in Blood [facility] Iron [Mass/mass] in Unspecified specimen [facility] Iron and Iron bindin g capacity panel - Serum or Plasma [facility] Iron saturation [Mas s Fraction] in Serum or Plasma [facility] Leukocytes [#/volume ] in Blood [facility] Leukocytes [#/volume ] in Blood [facility] Leukocytes [#/volume ] in Blood [facility] Mean corpuscular hemoglobin concentration determination [facility] Mean corpuscular hemoglobin concentration determination [facility] Mean corpuscular hemoglobin concentration determination [facility] Mean corpuscular hemoglobin determination [facility] Mean corpuscular hemoglobin determination [facility] Mean corpuscular hemoglobin determination [facility] Measurement of renal function [facility] Measurement of renal function [facility] Measurement of renal function [facility] Measurement of renal function [facility] Neutrophil count [facility] Neutrophil percent differential count [facility] Patient Education [facility] Work Phone: Patient referral [facility] Work Phone: Platelets [#/volume] in Blood [facility] Platelets [#/volume] in Blood [facility] Platelets [#/volume] in Blood [facility] Potassium [Moles/vol ume] in Serum or Plasma [facility] Potassium [Moles/vol ume] in Serum or Plasma [facility] Potassium [Moles/vol ume] in Serum or Plasma [facility] Potassium [Moles/vol ume] in Serum or Plasma [facility] Red blood cell count [facility] Red blood cell count [facility] Red blood cell count [facility] Red cell distributio n width determination [facility] Red cell distributio n width determination [facility] Red cell distributio n width determination [facility] Sodium [Moles/volume ] in Serum or Plasma [facility] Sodium [Moles/volume ] in Serum or Plasma [facility] Sodium [Moles/volume ] in Serum or Plasma [facility] Sodium [Moles/volume ] in Serum or Plasma [facility] Urea nitrogen [Mass/volume] in Serum or Plasma [facility] Urea nitrogen [Mass/volume] in Serum or Plasma [facility] Urea nitrogen [Mass/volume] in Serum or Plasma [facility] Urea nitrogen [Mass/volume] in Serum or Plasma [facility] Payers Date Payer Category Payer Self-pay [id number] 2023 Medicaid [id number] 2016 Unknown [id number] 2016 Unknown [id number] Unknown [id number] 2.16.8 [id number] Unknown [id number] 2.16.8 [id number] Unknown [id number] 2.16.8 [id number] Unknown [id number] 2.16.8 [id number] Unknown [id number] 2.16.8 [id number] Unknown [id number] 2.16.8 [id number] Unknown [id number] 2.16.8 [id number] Unknown [id number] 2.16.8 [id number] Social History Date Type Detail Facility Start: 08-08-2018 End: 06-28-2023 Tobacco smoking status ORIS Unknown if ever smoked [facility] Start: 1975 Sex Assigned At Female [facility] Start: 1975 Sex Assigned At Not on file [facility] Gender identity Not on file [facility] Start: 11-25-2024 Tobacco smoking status NHIS Current Heavy tobacco smoker [facility] NEGATED: Highlighted row [facility] Medical Equipment Procedure Code Equipment Code Equipment Origin al Text Equipment Identifier Dates Insertion, catheter, hemodialysis CATHETER, CVD PLNDRME 19CM FDA Start: 06-29-2023 Insertion, catheter, hemodialysis CATHETER, CVD PLNDRME 19CM FDA Start: 06-29-2023 Goals Date Patient Goal Desired Activity /State Functional Status Date Assessment Result Facility 07-03-2023 Functional status Ambulates [facility] Work Phone: 06-28-2023 Functional status Ambulates [facility] Work Phone: Mental Status Date Assessment Result Facility 07-30-2024 Cognitive function Level Of Cons ciousness Awake;Alert;Appropriate;Follow s Commands [facility] Work Phone: 07-03-2023 Cognitive function Voice/Name [facility] Work Phone: 06-28-2023 Cognitive function Voice/Name [facility] Work Phone: 06-27-2023 Cognitive function Voice/Name [facility] Work Phone: Clinical Notes 06-27-2023 to 11-25-2024 Note Date & Type Note Facility 11-25-2024 History and physi jayme note Note Date/Time November 25, 2024 [facility] [address] [place] [address] History & Physical Exam 11/25/24 1329 MR#: [id number] Acct: [id number] Name: ELIJAH MARSHALL Rep #:[id number] : 1975 49 From: Jase Zimmerman MD PCP: Dr. Timmy Goldstein MD Status :REG [facility] Location: [facility] HPI - General HPI Narrative ELIJAH MARSHALL, is a 49 F who presents with dysfunction of right IJ catheter that was placed in Jan 2024. She has had some form of issue since shortly after it was placed. She ultimately plans for peritoneal catheter. [facility] Medical History (Updated 11/25/24 @ 13:[address] Jase Zimmerman MD) ESRD (end stage renal disease) on dialysis Hypocalcemia Smoker Acute kidney injury Home Medications ?Medication ?Instructions ?Recorded ?Last Taken ?Type amlodipine 10 mg tablet 10 mg PO DAILY blood pressur e #30 07/03/23 11/25/24 Rx tabs clonidine 0.1 mg/24 hr weekly 1 patch topical QWEEK bl ood 06/25/24 Unknown History transdermal patch pressure metoprolol succinate 100 mg 100 mg PO DAILY blood pres sure 06/25/24 11/25/24 History tablet,extended release 24 hr hydralazine 50 mg tablet 50 mg PO TID #180 tabs 06/2711/25/24 Rx sevelamer carbonate 800 mg tablet 800 mg PO TID Unknown History vitamin B complex-vitamin C-folic 1 tab PO DAILY 07/30 Unknown History acid 0.8 mg tablet (Quin-Mc) Allergy/AdvReac Type Severity Reaction Status Date / Time Antihistamines - Alkylamine Allergy Swelling Verified 07/30/24 00:15 Penicillins Allergy Hives Verified 07/30/24 00:15 Social History Smoking Status: Heavy Smoker (>10/day) ROS Constitutional Constitutional: Denies chills, fever(s), frequent falls, lethargy or weakness Eyes Eyes: Denies blind spots, change in vision or loss of vision ENT HEENT: Denies bleeding gums, hoarseness or sore throat Cardiovascular Cardiovascular: Denies abdominal pain, bluish discoloration of hand/feet, chest pain with activity, claudication, cold extremities, cyanosis, dyspnea on exertion, erythema on extremities, irregular heart rhythm, leg edema, leg ulcers, numbness in extremities or weakness in extremities Respiratory/Chest Respiratory/Chest: Denies cough, excessive phlegm production, shortness of breath at rest, shortness of breath with exertion or wheezing Gastrointestinal Gastrointestinal: Denies anorexia, change in stool character, constipation, diarrhea, melena or rectal bleeding Genitourinary Genitourinary: Denies dysuria or hematuria Musculoskeletal Musculoskeletal: Denies abnormal gait Integumentary Integumentary: Reports other Details: ; Denies erythema, non-healing lesions or wounds Neurologic Neurologic: Denies abnormal speech, focal weakness, headache(s), loss of vision,numbness, paresthesias or sensory deficit Hematologic/Lymphatic Hematologic/Lymphatic: Denies easy bleeding, easy bruising or lymphadenopathy Vital Signs Vital Signs Vital Signs: Weight Weight: 140 lb 4.8 oz Body Mass Index (BMI) 24.0 Physical Exam Const alert, oriented x3, no apparent distress and healthy appearing General Appearance: cooperative; Negative for combative or lethargic Orientation / Consciousness: awake Exam Limitations: no limitations HEENT Head and Scalp: normocephalic and atraumatic Eyes EOMs intact bilaterally General Eye: normal appearance of both eyes Neck full ROM General: trachea midline Resp normal respiratory effort and no use of accessory muscles Effort and Inspection: Negative for labored, stridor or audible wheezes Cardio regular rate and regular rhythm Back/Spine Cervical Spine: cervical ROM normal Extremity full ROM, normal capillary refill and no clubbing, cyanosis or edema Skin no rashes or lesions noted and no wounds Neuro oriented x3, CN's II-XII intact bilaterally, no focal motor deficits and no sensory deficits noted Psych thought process normal, cooperative, affect normal, speech normal and activity/motor behavior normal Assessment & Plan Assessment/Plan (1) Problem with dialysis access: QUALIFIERS: Encounter type: initial encounter Qualified Code(s): T82.898A - Other specified complication of vascular prosthetic devices, implantsand grafts, initial encounter PLAN: -catheter exchange, ivus/venogram 11/25/24 1332 <Electronically signed by Jase Zimmerman MD> Cosigner Signature (if applicable): CC: Dr. Timmy Goldstein MD; Dr. Jase Zimmerman MD~ Signed [facility] Work Phone: 1(739) 580-713706-10-2025 Procedure note [facility] Medical Records Department [address] [place] [address] Operative Report 11/25/24 1515 MR#: [id number] Acct: [id number] Name: ELIJAH MARSHALL Rep #:[id number] : 1975 49 From: Jase Zimmerman MD PCP: Dr. Timmy Goldstein MD [facility] (Standard[facility] Operative Information Date of Procedure: 11/25/24 Pre-Operative Diagnosis: Malfunctioning tunneled dialysis catheter Post-Operative Diagnosis: Same Surgery/Procedure Performed: Removal of right IJ tunneled dialysis catheter Venogram superior vena cava Intravascular ultrasound superior vena cava, right innominate vein, right internal jugular vein Placement new tunneled right IJ catheter cardiothoracic physiotherapist: No Type of Anesthesia: Local and Sedation,Conscious Procedure Start Time: 14:00 Procedure Stop Time: 15:00 Select all DRAINS/GRAFTS/IMPLANTS that apply: Implanted device Implanted device details: BD vascular pristine 19 cm tunneled dialysis catheter Special Medications: BD vascular pristine 19 cm tunneled dialysis catheter Estimated Blood Loss: 10 Specimen collected: No Description of surgery: HPI: Patient is a 49-year-old female with end-stage renal disease currently on dialysis via a righttunneled IJ catheter that has been in for nearly 1 year. For the majority of that time she has had difficulty with use of the catheter requiring the flow direction to be reversed. She presents now for catheter exchange. Description of procedure: Upon obtaining informed consent and verification correct patient procedure site the patient was taken the [employer] where she was positioned prepped and draped in usual sterile fashion. Time was performed consultation administered with Versed and fentanyl. Skin overlying the tunneledcatheter from the skin exit site to the venous puncture site was anesthetized with 1% lidocaine and a transverse incision made overlying the apex of the catheter at the site of the prior venous puncture site. Combination of blunt and sharp dissection was used to dissect down to the catheter which was then grasped with hemostats and the remaining soft tissue surrounding mobilized. Thecatheter was then clamped towards the venous direction and divided with scissors. A stiff angled Glidewire was then advanced through the catheter and the catheter tip extracted over the wire and exchangedfor an 8 Bruneian sheath. Through the 8 Bruneian sheath hand-injection subtraction venacavogram was perf ormed which confirmed no significant stenosis or obstruction. Intravascularultrasound probe was advanced over the wire and recorded pullback performed fromthe right atrium to the IJ which revealed minimal amount of fibrin sheath in themid superior vena cava which would not be in location adjacent to our catheter tip once it was placed. Given the location and the minimal amount of fibrin sheath nointervention was felt to be appropriate. The 8 Bruneian sheath was thenexchanged for the BD the pristine tunneled catheter peel-away sheath which was advanced without resistance under fluoroscopic guidance into position at the atriocaval junction. Next skin overlying the planned new tunnel and skin exit was anesthetized 1% lidocaine and transverse incision made on the superior chestwall. The tunneler was then used to pull the new tunneled catheter from the skin incision up to the tunneled sheath site and the tunneling apparatus removed. The catheter was then advanced through the peel-away sheath which was then withdrawn as the catheter was advanced into position. Fluoroscopy confirmed satisfactory position within the mid right atrium with appropriate orientation of the catheter tip ends. The neck incision was then closed with 3-0 Vicryl followed by 4 Monocryl and Dermabond. The new catheter was then flushed with heparinized saline with both draw and flush being brisk without resistance.1.8 cc of concentrated heparin was then placed in each of the catheter ports and caps applied. Nextthe remainder of the old catheter was freed along the tunnel with blunt dissection up to the cuff and once this was sufficiently freed the catheter was withdrawn. Manual pressure was then held over the new tunnel site as well as the old skin exit site until hemostasis was observed. Dry sterile dressing was then applied both to the new tunneled catheter as well as the old tunnel site. The patient was then taken to the cover area with plan discharged to home. Surgical Findings: Trivial amount of fibrin sheath in the superior vena cava Complications Complications: No 11/25/24 1524 Cosigner Signature (if applicable): CC: Dr. Timmy Goldstein MD; Dr. Jase Zimmerman MD~ Signed [facility]06-10-2025 Evaluation note* Diagnosis Onset Date Resolution Status Admit Date Problem with dialysis access acute November 25, 2024 12:31pm [facility] Work Phone: 1(733) 219-721906-10-2025 History and physical note [facility] Medical Records Department [address] [place] [address] History & Physical Exam 11/25/24 1329 MR#: [id number] Acct: [id number] Name: ELIJAH MARSHALL Rep #:[id number] : 1975 49 From: Jase Zimmerman MD PCP: Dr. Timmy Goldstein MD Status :REG [facility] Location: [facility] HPI - General HPI Narrative ELIJAH MARSHALL, is a 49 F who presents with dysfunction of right IJ catheter that was placed in Jan 2024. She has had some form of issue since shortly after it was placed. She ultimately plans for peritoneal catheter. [facility] Medical History (Updated 11/25/24 @ 13:[address] Jase Zimmerman MD) ESRD (end stage renal disease) on dialysis Hypocalcemia Smoker Acute kidney injury Home Medications ?Medication ?Instructions ?Recorded ?Last Taken ?Type amlodipine 10 mg tablet 10 mg PO DAILY blood pressur e #30 07/03/23 11/25/24 Rx tabs clonidine 0.1 mg/24 hr weekly 1 patch topical QWEEK bl ood 06/25/24 Unknown History transdermal patch pressure metoprolol succinate 100 mg 100 mg PO DAILY blood pres sure 06/25/24 11/25/24 History tablet,extended release 24 hr hydralazine 50 mg tablet 50 mg PO TID #180 tabs 06/2711/25/24 Rx sevelamer carbonate 800 mg tablet 800 mg PO TID Unknown History vitamin B complex-vitamin C-folic 1 tab PO DAILY 07/30 Unknown History acid 0.8 mg tablet (Quin-Mc) Allergy/AdvReac Type Severity Reaction Status Date / Time Antihistamines - Alkylamine Allergy Swelling Verified 07/30/24 00:15 Penicillins Allergy Hives Verified 07/30/24 00:15 Social History Smoking Status: Heavy Smoker (>10/day) ROS Constitutional Constitutional: Denies chills, fever(s), frequent falls, lethargy or weakness Eyes Eyes: Denies blind spots, change in vision or loss of vision ENT HEENT: Denies bleeding gums, hoarseness or sore throat Cardiovascular Cardiovascular: Denies abdominal pain, bluish discoloration of hand/feet, chest pain with activity,claudication, cold extremities, cyanosis, dyspnea on exertion, erythema on extremities, irregular heart rhythm, leg edema, leg ulcers, numbness in extremities or weakness in extremities Respiratory/Chest Respiratory/Chest: Denies cough, excessive phlegm production, shortness of breath at rest, shortness of breath with exertion or wheezing Gastrointestinal Gastrointestinal: Denies anorexia, change in stool character, constipation, diarrhea, melena or rectal bleeding Genitourinary Genitourinary: Denies dysuria or hematuria Musculoskeletal Musculoskeletal: Denies abnormal gait Integumentary Integumentary: Reports other Details: ; Denies erythema, non-healing lesions or wounds Neurologic Neurologic: Denies abnormal speech, focal weakness, headache(s), loss of vision,numbness, paresthesias or sensory deficit Hematologic/Lymphatic Hematologic/Lymphatic: Denies easy bleeding, easy bruising or lymphadenopathy Vital Signs Vital Signs Vital Signs: Weight Weight: 140 lb 4.8 oz Body Mass Index (BMI) 24.0 Physical Exam Const alert, oriented x3, no apparent distress and healthy appearing General Appearance: cooperative; Negative for combative or lethargic Orientation / Consciousness: awake Exam Limitations: no limitations HEENT Head and Scalp: normocephalic and atraumatic Eyes EOMs intact bilaterally General Eye: normal appearance of both eyes Neck full ROM General: trachea midline Resp normal respiratory effort and no use of accessory muscles Effort and Inspection: Negative for labored, stridor or audible wheezes Cardio regular rate and regular rhythm Back/Spine Cervical Spine: cervical ROM normal Extremity full ROM, normal capillary refill and no clubbing, cyanosis or edema Skin no rashes or lesions noted and no wounds Neuro oriented x3, CN's II-XII intact bilaterally, no focal motor deficits and no sensory deficits noted Psych thought process normal, cooperative, affect normal, speech normal and activity/motor behavior normal Assessment & Plan Assessment/Plan (1) Problem with dialysis access: QUALIFIERS: Encounter type: initial encounter Qualified Code(s): T82.898A - Other specified complication of vascular prosthetic devices, implantsand grafts, initial encounter PLAN: -catheter exchange, ivus/venogram 11/25/24 1332 Cosigner Signature (if applicable): CC: Dr. Timmy Goldstein MD; Dr. Jase Zimmerman MD~ Signed [facility]06-10-2025 [facility] Medical Records Department [address] [place] [address] History Physical Exam 11/25/24 1329 MR#: [id number] Acct: [id number] Name: ELIJAH MARSHALL Rep #: [id number] : 1975 49 From: Jase Zimmerman MD PCP: Dr. Timmy Goldstein MD Status:REG [facility] Location: [facility] HPI - General HPI Narrative ELIJAH MARSHALL, is a 49 F who presents with dysfunction of right IJ catheter that was placed in Jan 2024. She has had some form of issue since shortly after it was placed. She ultimately plans for peritoneal catheter. [facility] Medical History (Updated 11/25/24 @ 13:[address] Jase Zimmerman MD) ESRD (end stage renal disease) on dialysis Hypocalcemia Smoker Acute kidney injury Home Medications ???Medication ???Instructions ???Recorded ???Last Taken ???Type amlodipine 10 mg tablet 10 mg PO DAILY blood pressure #30 07/03/23 11/25/24 Rx tabs clonidine 0.1 mg/24 hr weekly 1 patch topical QWEEK blood Unknown History transdermal patch pressure metoprolol succinate 100 mg 100 mg PO DAILY blood pressure 02/0911/25/24 History tablet,extended release 24 hr hydralazine 50 mg tablet 50 mg PO TID #180 tabs 06/27/24 Rx sevelamer carbonate 800 mg tablet 800 mg PO TID 07/30/24 Unknown Hi story vitamin B complex-vitamin C-folic 1 tab PO DAILY 07/30/24 Unknown H istory acid 0.8 mg tablet (Quin-Mc) Allergy/AdvReac Type Severity Reaction Status Date / Time Antihistamines - Alkylamine Allergy Swelling Verified 07/30/24 00:15 Penicillins Allergy Hives Verified 07/30/24 00:15 Social History Smoking Status: Heavy Smoker (>10/day) ROS Constitutional Constitutional: Denies chills, fever(s), frequent falls, lethargy or weakness Eyes Eyes: Denies blind spots, change in vision or loss of vision ENT HEENT: Denies bleeding gums, hoarseness or sore throat Cardiovascular Cardiovascular: Denies abdominal pain, bluish discoloration of hand/feet, chest pain with activity, claudication, cold extremities, cyanosis, dyspnea on exertion, erythema on extremities, irregular h eart rhythm, leg edema, leg ulcers, numbness in extremities or weakness in extremities Respiratory/Chest Respiratory/Chest: Denies cough, excessive phlegm production, shortness of breath at rest, shortness of breath with exertion or wheezing Gastrointestinal Gastrointestinal: Denies anorexia, change in stool character, constipation, diarrhea, melena or rectal bleeding Genitourinary Genitourinary: Denies dysuria or hematuria Musculoskeletal Musculoskeletal: Denies abnormal gait Integumentary Integumentary: Reports other Details: ; Denies erythema, non-healing lesions or wounds Neurologic Neurologic: Denies abnormal speech, focal weakness, headache(s), loss of vision, numbness, paresthesias or sensory deficit Hematologic/Lymphatic Hematologic/Lymphatic: Denies easy bleeding, easy bruising or lymphadenopathy Vital Signs Vital Signs Vital Signs: Weight Weight: 140 lb 4.8 oz Body Mass Index (BMI) 24.0 Physical Exam Const alert, oriented x3, no apparent distress and healthy appearing General Appearance: cooperative; Negative for combative or lethargic Orientation / Consciousness: awake Exam Limitations: no limitations HEENT Head and Scalp: normocephalic and atraumatic Eyes EOMs intact bilaterally General Eye: normal appearance of both eyes Neck full ROM General: trachea midline Resp normal respiratory effort and no use of accessory muscles Effort and Inspection: Negative for labored, stridor or audible wheezes Cardio regular rate and regular rhythm Back/Spine Cervical Spine: cervical ROM normal Extremity full ROM, normal capillary refill and no clubbing, cyanosis or edema Skin no rashes or lesions noted and no wounds Neuro oriented x3, CN's II-XII intact bilaterally, no focal motor deficits and no sensory deficits noted Psych thought process normal, cooperative, affect normal, speech normal and activity/motor behavior normal Assessment Plan Assessment/Plan (1) Problem with dialysis access: QUALIFIERS: Encounter type: initial encounter Qualified Code(s): T82.898A - Other specified complication of vascular prosthetic devices, implants and grafts, initial encounter PLAN: -catheter exchange, ivus/venogram 11/25/24 1332 Cosigner Signature (if applicable): CC: Dr. Timmy Goldstein MD; Dr. Jase Zimmerman MD [facility] Telephone encounter Note* Telephone Encounter - Marisabel Gould - 10/31/2024 1:43 PM EDT Called patient a couple of times, phone rings, someone picks up, phone hangs up, and will try back at another time in regards to kidney transplant referral. Marisabel Gould [facility]05-16-2025 Miscellaneous Notes* Telephone Encounter - Marisabel Gould - 10/31/2024 1:43 PM EDT Called patient a couple of times, phone rings, someone picks up, phone hangs up, and will try back at another time in regards to kidney transplant referral. Marisabel Gould [facility] Medical Records Department [address] [place] [id number] Discharge Summary 06/27/24 1533 MR#: [id number] Acct: [id number] Name: EILJAH MARSHALL Rep #: [id number] : 1975 49 From: Giovanni Vora MD PCP: Dr. Timmy Goldstein MD Status:ADM IN Location: [place] [id number] Providers Date of Admission: 06/25/24 Date of Discharge: 06/27/24 Primary Care Physician: Dr. Timmy Goldstein MD Consultations 06/25/24 21:48 Consult: Nephrology Routine Consulting Provider: Jose E Roberson Reason for Consult: ESRD on HD w/ volume overload EMERGENT Consult: No MD Notified: Yes Date Notified: 06/25/24 Time Notified: 22:26 Method of Notification: Answering Service Reason For Visit: ESRD W/VOLUME OVERLOAD AND HYPOXIA Diagnosis Discharge Diagnosis (1) Volume overload: Status: Acute Code(s): E87.70 - Fluid overload, unspecified (2) Dyspnea: Status: Acute Code(s): R06.00 - Dyspnea, unspecified (3) ESRD (end stage renal disease): Status: Acute Code(s): N18.6 - End stage renal disease (4) Hypertension: Status: Chronic Code(s): I10 - Essential (primary) hypertension Plan Patient is a 49-year-old lady with history of hypertension, end-stage renal disease on hemodialysis presented to the emergency department. Patient had apparently missed a couple of dialysis sessions. An assessment of acute congestive heart failure was made admitted to a monitored bed for further management 1. Acute hypoxia ??? Secondary to acute congestive heart failure from fluid overload following patient missing dialysis. Admitted to the progressive care unit consult placed to nephrology for dialysis to manage patient fluid overload ??? 06/27/2024 patient clinical condition continues to improve 2. Acute congestive heart failure with preserved ejection fraction ??? Echo demonstrated estimated ejection fraction of 55 %. No evidence for diastolic dysfunction. The left atrium is mildly enlarged. Trivial mitral valve insufficiency. Pulmonary artery systolic pressure is 60 mmHg. Patient fluid overload status management dialysis 3. End-stage renal disease on dialysis Wednesdays and Fridays ??? Patient was counseled on the need to be compliant with her sessions consult placed to nephrology 4. Acute hypertensive emergency ??? Patient systolic blood pressure on admission was 220/130. Did continue patient home meds and hydralazine added as needed to keep blood pressure less than 160 ??? 06/27/2024; patient blood pressure at this point is 203/95 decision to discharge patient placed on hold ??? Patient blood pressure did improve following adjustment in her antihypertensive regimen decision was made to discharge patient home 5. Elevated troponin ??? Secondary to demand ischemia from patient acute hypoxia and elevated blood pressure 6. Chronic hyponatremia ??? Secondary to ESRD 7. Anemia ??? Secondary to chronic disorder monitoring H H and transfuse if patient becomes symptomatic or hemoglobin falls below 7 8. DVT prophylaxis ??? Subcu heparin Time spent in the patient's overall evaluation,decision-making process, review of diagnostic data, adjustment of management, discussion with other providers, nursing nursing and ancillary staff involved in patient's care documentation, 50 Minutes Medications at Discharge Home Medications amlodipine 10 mg tablet 10 mg PO DAILY #30 tabs 07/03/23 clonidine 0.1 mg/24 hr weekly transdermal patch 1 patch topical QWEEK 06/25/24 metoprolol succinate 100 mg tablet,extended release 24 hr 100 mg PO DAILY 06/25/24 hydralazine 50 mg tablet 50 mg PO TID #180 tabs 06/27/24 Physical Exam Narrative GENERAL: cooperative HEENT: Atraumatic; normocephalic EYES; Anicteric, Normal Conjunctiva NECK; supple, normal thyroid, RESPIRATORY: Diminished to auscultation CARDIOVASCULAR: Regular S1 S2, GI: soft, normoactive bowel sounds, : No Renal angle tenderness; EXTREMITIES: No edema, no clubbing, MUSCULOSKELETAL: no muscle wasting NEURO: Awake; no lateralizing signs. SKIN: No Rash PSYCH; Flat affect Weight / BMI Weight Weight: 57.5 kg Body Mass Index (BMI) 21.6 ABG / Lab / Microbiology Data 06/27/24 03:11 06/27/24 03:11 Laboratory: Laboratory Results - last 24 hr 06/27/24 03:11: WBC 5.4, RBC 2.82 L, Hgb 8.3 L, Hct 23.4 L, MCV 83.0, MCH 29.4, MCHC 35.5, RDW Std Deviation 48.9 H, RDW Coeff of Miriam 16.1 H, Plt Count 132 L, MPV 9.5, Sodium 130 L, Potassium 4.0, Chloride 98, Carbon Dioxide 23.0, Anion Gap 10, BUN 56 H, Creatinine 15.60 H*, Estim Creat Clear Calc 3.77, Est GFR (MDRD) Af Amer 3 L, Est GFR (MDRD) Non-Af 3 L, BUN/Creatinine Ratio 3.6 L, G lucose 141 H, Calcium 8.7, Phosphorus 6.4 H, Magnesium 2.5 Microbiology: Microbiology 06/25/24 17:46 Mucosa - Nose SARS-CoV-2, (more content not included)...[facility]04-11-2024 Telephone encounter Note* Telephone Encounter - Thalia Velasquez - 09/27/2023 3:07 PM EDT CALLED AND SPOKE TO PATIENT. HER CAR IS BROKE DOWN ANS SHE IS NOT INTERESTED IN RESCHEDULING AT THIS TIME. sHE WILL CALL WHEN READY. ALSO CALLED AND SPOKE TO AAKASH TO INFORM HER [facility] [id number] Miscellaneous Notes* Telephone Encounter - Thalia Velasquez - 09/27/2023 3:07 PM EDT CALLED AND SPOKE TO PATIENT. HER CAR IS BROKE DOWN ANS SHE IS NOT INTERESTED IN RESCHEDULING AT THIS TIME. sHE WILL CALL WHEN READY. ALSO CALLED AND SPOKE TO AAKASH TO INFORM HER * Telephone Encounter - Eben Hill - 09/27/2023 2:51 PM EDT Nurse from renal center called about pt's appt that was on 09/23. I let her know that the pt had canceled but that I'd let the auto air conditioning mechanic know so that we can reach out again. She did request that we call her once appt is r/s. ([phone] [facility]) * Telephone Encounter - Thalia Velasquez - 09/10/2023 10:33 AM EDT Noted * Telephone Encounter - Nixon Lozano MA - 09/10/2023 9:21 AM EDT Pt called to reschedule her consult for today due to lack of transportation. She rescheduled to 09/24/23 documented in this [facility]SS[facility] [id number] Telephone encounter Note* Telephone Encounter - Eben Hill - 09/27/2023 2:51 PM EDT Nurse from renal center called about pt's appt that was on 09/23. I let her know that the pt had canceled but that I'd let the auto air conditioning mechanic know so that we can reach out again. She did request that we call her once appt is r/s. ([phone] [facility]) [facility] [id number] Telephone encounter Note* Telephone Encounter - Thalia Velasquez - 09/10/2023 10:33 AM EDT Noted [facility] [id number] Miscellaneous Notes* Telephone Encounter - Thalia Velasquez - 09/10/2023 10:33 AM EDT Noted * Telephone Encounter - Nixon Lozano MA - 09/10/2023 9:21 AM EDT Pt called to reschedule her consult for today due to lack of transportation. She rescheduled to 09/24/23 documented in this [facility]03-25-2024 Telephone encounter Note* Telephone Encounter - Nixon Lozano MA - 09/10/2023 9:21 AM EDT Pt called to reschedule her consult for today due to lack of transportation. She rescheduled to 09/24/23 [facility] [id number] NoteCalled and spoke to patient. Referral for PD Cath received via fax. Patient does live in [place]. She states that she has dialysis tomorrow and will ask if there is a place closer to [place]. If not she will schedule with [facility]01-10-2024 Discharge summary Author Jase Bond [facility] June 28, 2023 12:15am Note Date/Time June 27, 2023 7 :29pm [facility] Medical Records Department [address] [place] [address] Emergency Department Summary 06/27/23 MR#: [id number] Acct: [id number] Name: ELIJAH MARSHALL Rep #:[id number] : 1975 48 From: Jase Fleming PCP: Dr. Clarence Goldstein MD Status: ADM IN Location: [facility] [id number] HPI History of Present Illness Chief Complaint: Numb/Ting Informant: patient Onset/Context/Timing Onset: Today Context: Sudden Onset Timing: Intermittent and Lasts (Approximately 5 minutes) Quality: Twitching Location: Face Worsened by: Nothing Relieved by: Nothing Narrative Narrative: This with a possible seizure that occurred today. Patient states that she had taken a Zofran ODT earlier in the day for some nausea and vomiting. Patient states that later in the day she took 1 Imodium tablet for diarrhea. Patient states that after that she noted a sensation where her tongue felt like it was swollen. Patient states she was having difficulty talking. Patient states thatshe then noted some twitching in her face. Patient states this episode lasted 5minutes. Patient denies any loss of consciousness. Patient denies any falls. Patient states she was awake during the whole time. Patient states she feels better now. Patient states she was having some nausea, vomiting, and diarrhea earlier. Patient admits to a mild headache. Prior similar symptoms: No PFSH PFSH Medical History no medical history no medical history Home Medications NK 06/27/23 [History Last Taken Unknown] Allergy/AdvReac Type Severity Reaction Status Date / Time Antihistamines - Alkylamine Allergy Swelling Verified 06/27/23 19:10 Penicillins Allergy Hives Verified 06/27/23 19:10 Surgical History no surgical history no surgical history Social History Smoking Status: Heavy Smoker (>10/day) ROS ROS ED Constitutional Constitutional ED: Denies chills or fever(s) Eyes Eyes: Denies blurry vision or change in vision ENT ENT ED: Denies rhinorrhea or sore throat Cardiovascular Cardiovascular: Denies chest pain or palpitations Respiratory/Chest Respiratory/Chest: Reports cough; Denies dyspnea Gastrointestinal Gastrointestinal: Reports diarrhea, nausea and vomiting Genitourinary Genitourinary ED: Denies dysuria or hematuria Musculoskeletal Musculoskeletal: Reports neck pain; Denies back pain Integumentary Denies abscess or rash Neurologic Neurologic: Reports headache(s); Denies weakness Allergic/Immunologic Allergic/Immunologic ED: Denies mouth swelling or urticaria EXAM Physical Exam Const Vital Signs: 06/27/23 19:05 06/27/23 19:44 06/27/23 21:22 Temperature 96.9 F L Temperature Source Temporal Pulse Rate 70 Pulse Rate [Lying] 70 Pulse Rate [Sitting (for 1 minute prior to obtaining)] 80 Pulse Rate [Standing (for 1 minute prior to obtaining)] 71 Respiratory Rate 18 Respiratory Pattern Normal Blood Pressure 179/97 H Blood Pressure [Lying] 187/90 H Blood Pressure [Sitting (for 1 minute prior to obtaining)] 165/96 H Blood Pressure [Standing (for 1 minute prior to obtaining)] 166/94 H Blood Pressure Mean 124 Blood Pressure Mean [Lying] 122 Blood Pressure Mean [Sitting (for 1 minute prior to obtaining)] 119 Blood Pressure Mean [Standing (for 1 minute prior to obtaining)] 118 Pulse Ox 100 Oxygen Delivery Method Room Air Positive well nourished and well developed General Appearance ED: well developed and NAD HEENT Reports moist mucous membranes Neck supple and no JVD Chest Wall palpation of chest normal Resp normal respiratory effort and clear to auscultation bilaterally Cardio regular rate and regular rhythm GI non-tender and non-distended Palpation: soft Neuro oriented x3, CN's II-XII intact bilaterally and no sensory deficits noted Sensorium / Orientation: alert Motor Exam: strength 5/5 throughout Psych mental status grossly normal MDM MDM MDM Narrative Medical decision making narrative: Differential diagnosis includes partial complex seizure, intracranial bleeding, electrolyte abnormality, infection, dehydration, and gastroenteritis. CBC will be obtained to assess for leukocytosis and anemia. Comprehensive metabolic profile will be obtained to assess for hepatic function, renal function, and electrolyte abnormality. Urinalysis will be obtained to assess for urinary tract infection and hematuria. CT scan of the brain will be obtained to assess for intracranial bleeding and mass. Lab Data Attestation: I reviewed the patient's lab results. Lab results narrative: CBC was reviewed. There is anemia with a hemoglobin of 6.5 and hematocrit of 19.6. Platelets were normal. Comprehensive metabolic profile was reviewed. Sodium was slightly low at 130. BUN was elevated at 93 and creatinine was elevated at 19.10. CO2 was low at 12. Alkaline phosphatase was slightly elevated at 127. Urinalysis was reviewed. There were positive nitrites. Occult blood was 50. Leukocyte esterase was 25. Urine protein was 500. There were 5-10 epithelial cells. There is no evidence of urinary tract infection. Labs: Laboratory Results - last 24 hr 06/27/23 06/27/23 21:23 22:01 WBC 7.3 RBC 2.38 L Hgb 6.5 L Hct 19.6 L MCV 82.4 MCH 27.3 MCHC 33.2 RDW Std Deviation 41.1 RDW Coeff of Miriam 13.8 Plt Count 156 MPV 12.1 H Immature Gran % (Auto) 0.400 Neut % (Auto) 66.8 Lymph % (Auto) 23.5 [place] % (Auto) 6.3 Eos % (Auto) 2.6 Baso % (Auto) 0.4 Absolute Neuts (auto) 4.9 Absolute Lymphs (auto) 1.71 Nucleated RBC % 0 Sodium 130 L Potassium 3.8 Chloride 104 Carbon Dioxide 12.0 L Anion Gap 14 BUN 93 H Creatinine 19.10 H* Estim Creat Clear Calc 3.11 Est GFR (MDRD) Af Amer 3 L Est GFR (MDRD) Non-Af 2 L BUN/Creatinine Ratio 4.9 L Glucose 94 Total Bilirubin 0.20 AST 13 L ALT 8 L Alkaline Phosphatase 127 H Total Protein 6.7 Albumin 3.1 L Globulin 3.6 Albumin/Globulin Ratio 0.9 Urine Color Yellow Urine Clarity Clear Urine pH 6.0 Ur Specific [place] 1.010 Urine Protein 500 H Urine Glucose (UA) Normal Urine Ketones Negative Urine Occult Blood 50 H Urine Nitrite Positive H Urine Bilirubin Negative Urine Urobilinogen Normal Ur Leukocyte Esterase 25 H Urine RBC 0 SEEN Urine WBC 0-5 SEEN Ur Squamous Epith Cells 5-10 SEEN Urine Bacteria RARE Urine Mucus 0 SEEN Radiography Diagnostic Testing: Clinical Impression(s) from Imaging Studies Brain CT 06/27/23 21:30 IMPRESSION: Partial empty sella deformity likely of no significance. No evidence for obstructive hydrocephalus mass or acute bleed. Electronically Signed: Andrew Velazquez MD at 21:58 EST Reading Location ID and State: [address] [place] [address] Tel , Service support , CT scan of the brain was obtained. There is no acute intracranial abnormality. This was interpreted by the radiologist and was also independently reviewed by myself. Management Discussion w/another healthcare provider: Hospitalist and Manager [employer] (Dr. Jarrett from nephrology) Treatment and Re-Evaluation :: Patient was given IV fluids. I discussed the results with the patient. Patientstates she has seen a title 1 tutor in the past but does not remember his name. Patient states he was in [place]. Patient states he has not seen an title 1 tutor in over a year. Patient's blood pressure was noted to be 187/90. Patient was given a dose of hydralazine for this. Case was discussed with the hospitalist for admission. She will admit the patient to her service. She requested contacting nephrology. Case was discussed with Dr. Jarrett from nephrology. He recommended obtaining a renal ultrasound tomorrow. He states the patient will probably need dialysis but does not need it emergently tonight. He will follow with the patient in the hospital. Patient understood and was agreeable with theplan. All questions were answered. Discharge Plan Triage Chief Complaint: Numb/Ting ED Provider: Jase Bond Dx/Rx/DC Orders Clinical Impression: Acute kidney injury, Hypertension Prescriptions: No Action azithromycin [Zithromax] 250 MG tablet 250 mg PO DAILY Qty: 4 0RF Rx Instructions: had first dose in ED Primary Care Provider: Clarence Goldstein Referrals: Clarence Goldstein MD [Primary Care Provider] - Disposition Disposition: Acute Care Hospital [facility] What to do if you have Problems For any increased pain, shortness of breath, bleeding, nausea or vomiting, chestpain, or any unexpected problems, contact your Primary Care Provider. Call [facility] ([phone]) or report to the closest Emergency Room. Call 911 if necessary. 06/28/23 0015 <Electronically signed by Jase Bond DO> Cosigner Signature (if applicable): CC: Dr. Clarence Goldstein MD ~ Signed [facility] Work Phone: Evaluation noteNo assessment information available [facility] Work Phone: Evaluation note* Diagnosis Onset Date Resolution Status Acute kidney injury acute Anemia acute Hypertension [facility] Work Phone: Evaluation note* Diagnosis Onset Date Resolution Status Acute kidney injury acute Anemia acute ESRD (end stage renal disease) acute Hypocalcemia acute Hypertension [facility] Work Phone: Evaluation note* Diagnosis Onset Date Resolution Status Anemia acute ESRD (end stage renal disease) acute Hypertension [facility] Work Phone: Reason for referral (narrative)No reason for referral information availableWCommunity [facility] Work Phone: Summary Purpose Family History No Family History Records FoundNo Family History Records FoundNo Family History Records FoundNo Family History Records Found Advance Directives No Advanced Directives Records Found Advance Directive Response Recorded Date/ Time Living Will No August 09 12:29am Power of Grease Packer No August 09, 2018 12:29am Advance Directive Response Recorded Date/ Time Living Will No August 08 11:29pm Power of Grease Packer No August 08, 2018 11:29pm Advance Directive Response Recorded Date/ Time Living Will No June 27 7:43pm Power of Grease Packer No June 27, 2023 7:43pm Advance Directive Response Recorded Date/ Time Living Will No June 28 12:54am Power of Grease Packer No June 28, 2023 12:54am Advance Directive Response Recorded Date/ Time Living Will No November 25, 2024 1:13pm Do you have a Healthcare Power of Grease Packer? No November 25, 2024 1:13pm Advance Directives No November 25 1:13pm Living Will No July 30 1:18am Do you have a Healthcare Power of Grease Packer? No July 30, 2024 1:18am Chief Complaint and Reason for Visit Chief Complaint ACUTE KIDNEY INJURY, ANEMIA Reason for Visit Acute kidney injury Anemia Hypertension Chief Complaint UREMIA, LIZBETH ON CKD, ACUTE ON CHRONIC ANEMIA UREMIA, LIZBETH ON CKD, ACUTE ON CHRONIC ANEMIA Reason for Visit Acute kidney injury Anemia ESRD (end stage renal disease) Hypocalcemia Hypertension Chief Complaint UREMIA, LIZBETH ON CKD, ACUTE ON CHRONIC ANEMIA UREMIA, LIZBETH ON CKD, ACUTE ON CHRONIC ANEMIA UREMIA, LIZBETH ON CKD, ACUTE ON CHRONIC ANEMIA UREMIA, LIZBETH ON CKD, ACUTE ON CHRONIC ANEMIA PREOP UREMIA, LIZBETH ON CKD, ACUTE ON CHRONIC ANEMIA UREMIA, LIZBETH ON CKD, ACUTE ON CHRONIC ANEMIA UREMIA, LIZBETH ON CKD, ACUTE ON CHRONIC ANEMIA UREMIA, LIZBETH ON CKD, ACUTE ON CHRONIC ANEMIA UREMIA, LIZBETH ON CKD, ACUTE ON CHRONIC ANEMIA UREMIA, LIZBETH ON CKD, ACUTE ON CHRONIC ANEMIA FOR PERMANENT DIALYSIS ACCESS Reason for Visit Anemia ESRD (end stage renal disease) Hypertension Chief Complaint Admit Date FATIGUE AND SWOLLEN FACE July 30, 2024 12:14am EXCHANGE TUNNEL CATH November 25, 2024 12: 31pm EXCHANGE TUNNEL CATH November 25, 2024 1:2 9pm Reason for Visit Admit Date Problem with dialysis access November 25, 2024 12:31pm Additional Source Comments INFORMATION SOURCE (unrecogn ized section and content) DATE CREATED AUTHOR 12/12/2017 [facility] DATE CREATED AUTHOR AUTHOR'S ORGANIZ ATION 09/29/2023 [facility] DATE CREATED AUTHOR AUTHOR'S ORGANIZ ATION 11/13/[address] [facility] DATE CREATED AUTHOR AUTHOR'S ORGANIZ ATION 11/27/2024 [facility] Goals (unrecognized section and content) Goals may be documented in a n alternate sectionGoals may be documented in an alternate sectionGoals may be documented in an alternate sectionGoals may be documented in an alternate section Care Teams (unrecognized sec tion and content) Team Status: Active Member Role Status Dates Dr. Clarence Goldstein MD Family Provider Active Dr. Clarence Goldstein MD Primary Care Provider Activ e Team Status: Inactive Member Role Status Dates Dr. Clarence Goldstein MD Primary Care Provider, Attending Provider, Referring Provider Active Team Status: Active Member Role Status Dates Dr. Clarence Goldstein MD Primary Care Provider, Atte nding Provider Active Team Status: Active Member Role Status Dates Dr. Clarence Goldstein MD Primary Care Provider Activ e Dr. Jase Bond DO Emergency Provider Active Dr. Holli Simental MD Admit Provider, Attending Provider, Referring Provider Active Dr. Cody Craig MD Other Provider Active Team Status: Active Member Role Status Dates Dr. Clarence Goldstein MD Primary Care Provider Activ e Dr. Jase Schwiger , DO Emergency Provider Active Dr. Holli Simental MD Admit Provider, Referring Provider, Other Provider Active Dr. Cody Craig MD Other Provider Active Dr. Viktor Hagen , DO Other Provider Active Dr. Marlene Serrato MD Other Provider Active Philly JACOME PA-C Attending Provider Active Team Status: Inactive Member Role Status Dates Dr. Clarence Goldstein MD Primary Care Provider, Atte nding Provider Active Team Status: Active Member Role Status Dates Dr. Clarence Goldstein MD Primary Care Provider Activ e Dr. Jase Bond , DO Emergency Provider Active Dr. Holli Simental MD Admit Provider, Referring Provider, Other Provider Active Dr. Cody Craig MD Other Provider Active Dr. Viktor Hagen , DO Attending Provider Active Dr. Marlene Serrato MD Other Provider Active Team Status: Active Member Role Status Dates Dr. Clarence Goldstein MD Primary Care Provider Activ e Dr. Jase Bond , DO Emergency Provider Active Dr. Holli Simental MD Admit Provider, Other Provider Active Dr. Cody Craig MD Other Provider Active Dr. Viktor Hagen , DO Attending Provider, Other Provider Active Dr. Marlene Serrato MD Other Provider Active Team Status: Active Member Role Status Dates Dr. Clarence Goldstein MD Primary Care Provider Activ e Dr. Jase Bond , DO Emergency Provider Active Dr. Holli Simental MD Admit Provider, Referring Provider, Other Provider Active Dr. Cody Craig MD Other Provider Active Dr. Viktor Hagen , DO Other Provider Active Dr. Marlene Serrato MD Attending Provider, Other Pro vider Active Team Status: Active Member Role Status Dates Dr. Clarence Goldstein MD Primary Care Provider Activ e Dr. Jase Bond , DO Emergency Provider Active Dr. Holli Simental MD Admit Provider, Referring Provider, Other Provider Active Dr. Cody Craig MD Other Provider Active Dr. Marlene Serrato MD Other Provider Active Dr. Huan Cummings , DO Other Provider Active Dr. Viktor Hagen , DO Other Provider Active Dr. Theo Arce MD Attending Provider Active Team Status: Active Member Role Status Dates Dr. Clarence Goldstein MD Primary Care Provider Activ e Dr. Jase Bond , DO Emergency Provider Active Dr. Holli Simental MD Admit Provider, Other Provider Active Dr. Cody Craig MD Other Provider Active Dr. Marlene Serrato MD Other Provider Active Dr. Huan Cummings , DO Attending Provider, Other Pro vider Active Dr. Viktor Hagen , DO Other Provider Active Team Status: Active Member Role Status Dates Dr. Clarence Goldstein MD Primary Care Provider Activ e Dr. German Morton MD Attending Provider Active Dr. Holli Simental MD Referring Provider Active Team Status: Active Member Role Status Dates Dr. Clarence Goldstein MD Primary Care Provider Activ e Dr. Jase Zimmerman MD Attending Provider Active Team Status: Inactive Member Role Status Dates Dr. Clarence Goldstein MD Primary Care Provider Activ e Dr. Jase Bond , Emergency Provider Active Dr. Holli Simental MD Admit Provider, Referring Provider, Other Provider Active Dr. Cody Craig MD Other Provider Active Dr. Marlene Serrato MD Other Provider Active Dr. Huan Cummings , DO Attending Provider Active Dr. Viktor Hagen , DO Other Provider Active Team Status: Inactive Member Role Status Dates Dr. Clarence Goldstein MD Primary Care Provider Activ e Dr. Jose E Roberson MD Attending Provider, Referri ng Provider Active Silk Spooler Relationship Specialty Start Date End Date Ivana Roberson MD [address] [place] [address] [facility] Neph[facility] Nephrology 07/31/23 Silk Spooler Relationship Specialty Start Date End Date Ivana Roberson MD [address] [place] [address] [facility] Ne[facility] Nephrology 07/31/23 Team Status: Active Member Role Status Dates Dr. Timmy Goldstein MD Primary Care Provider Acti ve Team Status: Inactive Member Role Status Dates Dr. Timmy Goldstein MD Primary Care Provider Acti ve Start: July 30, 2024 End: July 30, 2024 Dr. Rocael Iyer MD Attending Provider Active Start: July 30, 2024 End: July 30, 2024 Dr. Rocael Iyer MD Emergency Provider Active Start: July 30, 2024 End: July 30, 2024 Team Status: Inactive Member Role Status Dates Dr. Timmy Goldstein MD Primary Care Provider Acti ve Start: November 25, 2024 End: November 25, 2024 Dr. Jase Zimmerman MD Attending Provider Active S tart: November 25, 2024 End: November 25, 2024 Dr. Jase Zimmerman MD Referring Provider Active S tart: November 25, 2024 End: November 25, 2024 Team Status: Active Member Role Status Dates Dr. Timmy Goldstein MD Primary Care Provider Acti ve Start: November 25, 2024 Dr. Jase Zimmerman MD Attending Provider Active S tart: November 25, 2024 Dr. Jase Zimmerman MD Referring Provider Active S tart: November 25, 2024 Dr. Jase Zimmerman MD Other Provider Active Start : November 25, 2024 Source Comments (unrecognize d section and content) In the event this informatio n is protected by the Federal Confidentiality of Alcohol and Drug Abuse Patient Records regulations: The Federal rules restrict any use of the information to criminally investigate or prosecute any alcohol or drug abuse patient.[facility] Reason for Visit (unrecogniz ed section and content) Reason Comments Referral - Kidney Txp FOR RECORDS PERTAINING TO PATIENTS WHO ARE [...] BE BASED ON THE PRIMARY CLINICAL RECORDS. [facility], [facility]. provides no warranty or guarantee of the accuracy or completeness of information in this document.
--- NOTE | 2024-11-29 19:35 | EX.ED.DYSGE1 ---
HPI History of Present Illness Chief Complaint: Wound Check Informant: patient Onset/Context/Timing Onset: Days Context: Gradual Onset Timing: Continuous Current Severity: Mild Maximum Severity: Mild Narrative Narrative: 49-year-old female history of end-stage renal disease dialysis hypertension. Had a new dialysis catheter subclavian tunneled placed in her right chest wall on Sunday by vascular surgeon Dr. Jase Lerner. She has had oozing of blood there since that time. Today had dressing changes but more. She is on no blood thinners. Prior similar symptoms: Yes Recent Illness/Hospitalization: No PFSH PFSH Medical History ESRD (end stage renal disease) on dialysis Hypocalcemia Smoker Acute kidney injury Home Medications ?Medication ?Instructions ?Recorded ?Last Taken ?Type amlodipine 10 mg tablet 10 mg PO DAILY blood pressure #30 07/03/23 11/25/24 Rx tabs clonidine 0.1 mg/24 hr weekly 1 patch topical QWEEK blood 06/25/24 Unknown History transdermal patch pressure metoprolol succinate 100 mg 100 mg PO DAILY blood pressure 06/25/24 11/25/24 History tablet,extended release 24 hr hydralazine 50 mg tablet 50 mg PO TID #180 tabs 06/27/24 11/25/24 Rx sevelamer carbonate 800 mg tablet 800 mg PO TID 07/30/24 Unknown History vitamin B complex-vitamin C-folic 1 tab PO DAILY 07/30/24 Unknown History acid 0.8 mg tablet (Quin-Mc) Allergy/AdvReac Type Severity Reaction Status Date / Time Antihistamines - Alkylamine Allergy Swelling Verified 11/29/24 18:31 Penicillins Allergy Hives Verified 11/29/24 18:31 Social History Smoking Status: Heavy Smoker (>10/day) ROS ROS ED ROS Narrative Denies recent illness. Constitutional Constitutional ED: Denies fever(s) Eyes Eyes: Denies blurry vision ENT ENT ED: Denies ear pain Cardiovascular Cardiovascular: Denies chest pain Respiratory/Chest Respiratory/Chest: Denies cough Gastrointestinal Gastrointestinal: Denies abdominal pain Genitourinary Genitourinary ED: Denies dysuria Musculoskeletal Musculoskeletal: Denies arthralgias Integumentary Denies abscess Neurologic Neurologic: Denies headache(s) Psychiatric Psychiatric: Denies anxiety Endocrine Endocrinology: Denies cold intolerance Hematologic/Lymphatic Hematologic/Lymphatic: Reports none Allergic/Immunologic Allergic/Immunologic ED: Denies mouth swelling, tongue swelling or urticaria EXAM Physical Exam Narrative Exam Narrative: 49-year-old female sitting upright in bed. Vital signs stable afebrile. No distress. H EENT exam pupils round react light. Moist mucous membranes. Neck nontender JVD. Lungs clear to auscultation bilaterally. Heart regular rhythm rate about 80 no murmur. Chest wall ribs nontender. Right subclavian Vas-Cath in place. There is fresh blood on the OpSite dressing. Area will be cleaned. And will place Surgicel. And await. Redress it. Abdomen soft nontender. Moving all 4 extremities. Nontender no edema. Neurologically she is awake and alert. Back nontender. Const Vital Signs: 11/29/24 18:32 Temperature 97.7 F L Temperature Source Temporal Pulse Rate 81 Respiratory Rate 19 H Blood Pressure 146/84 H Blood Pressure Mean 104 Pulse Ox 99 Oxygen Delivery Method Room Air Positive well nourished and well developed; Negative for obese, cachectic, contractures or unkempt General Appearance ED: well developed and NAD; Negative for unkempt, cachectic, contractures, cyanotic, diaphoretic or pallor Nutritional Appearance: Negative for cachectic or obese HEENT Reports moist mucous membranes Negative for trauma or tenderness Eyes PERRL and EOMs intact bilaterally General Eye ED: Negative for pale conjunctiva Neck no lymphadenopathy, supple and no JVD General: Negative for tenderness Lymph Lymphatic: Negative for other Chest Wall inspection of chest normal and palpation of chest normal Chest Narrative: Right Vas-Cath. Resp normal respiratory effort and clear to auscultation bilaterally Cardio regular rate, regular rhythm, S1 normal heart sound, S2 normal heart sound and no murmurs GI normal to inspection, nondistended, normoactive bowel sounds, non-tender and non-distended Auscultation: normoactive bowel sounds Palpation: soft; Negative for tender, guarding or rebound tenderness present Back/Spine no CVA tenderness General Back: Negative for CVA tenderness Cervical Spine: Negative for cervical spine tenderness Thoracic Spine / Upper Back: Negative for thoracic spinal tenderness Lumbar Spine / Lower Back: Negative for lumbar spinal tenderness Extremity normal to inspection General Extremety ED: Negative for edema or tenderness General Extremity: Negative for edema Neuro oriented x3 and CN's II-XII intact bilaterally Sensorium / Orientation: alert; Negative for orientation impaired, lethargic or stuporous Psych mental status grossly normal Appearance: Negative for unkempt Attitude: No agitated Mood & Affect: Negative for depressed, anxious or tearful Skin no rashes or lesions noted and no wounds General Skin Exam: elasticity normal; Negative for jaundice or pallor Rashes: No rashes noted Trauma: Negative for abrasion Wounds: Negative for wounds noted MDM MDM MDM Narrative Medical decision making narrative: 49-year-old female end-stage renal disease right Vas-Cath. Oozing blood. Dressing will be cleaned. Will put Surgicel. Wait period and see if we get the bleeding to slow. To be redressed. She is on no blood thinners. Her last full run of dialysis was yesterday. The patient had to leave today her daughter to work. Nurses told me that the Surgicel and pressure the bleeding had resolved. She left. History & Record Review Discussion w/independent historian: Patient Additional record(s) reviewed:: Prior inpatient record, Prior outpatient record, Prior ED visit and Prior labs Discharge Plan Triage Chief Complaint: Wound Check ED Provider: Adriano Medina Dx/Rx/DC Orders Clinical Impression: Hemorrhage due to vascular catheter, History of end stage renal disease, Dialysis patient Prescriptions: No Action amlodipine 10 mg Tablet 10 mg PO DAILY Qty: 30 0RF clonidine 0.1 mg/24 hr patch weekly 1 patch topical QWEEK metoprolol succinate 100 mg tablet extended release 24 hr 100 mg PO DAILY hydralazine 50 mg Tablet 50 mg PO TID Qty: 180 0RF Quin-Cm 0.8 mg tablet 1 tab PO DAILY sevelamer carbonate 800 mg tablet 800 mg PO TID Primary Care Provider: Timmy Goldstein Referrals: Timmy Goldstein MD [Primary Care Provider] - As Needed Activity Restrictions/Additional Instructions: Direct pressure. Return if bleeding continues. Follow-up with your vascular surgeon. Print Language: Swiss Disposition Disposition: Home, Self Care Discharge Date/Time: 11/29/24 20:38
--- NOTE | 2024-11-29 20:35 | ED.RN ---
pt did not want to wait for paperwork. left with daughter to take her to work.
== END 2024-11-29 20:38 | disposition home or self-care (01) ==
PROVIDERS: Emergency Provider Emergency Medicine; PCP Family Medicine; Visit Provider Emergency Medicine
DX: T82.838A Hemorrhage due to vascular prosthetic devices, implants and grafts, initial encounter (principal); N18.6 End stage renal disease; X58.XXXA Exposure to other specified factors, initial encounter; Z99.2 Dependence on renal dialysis; F17.200 Nicotine dependence, unspecified, uncomplicated
CPT/HCPCS: 99282